=== PATIENT | male | born 1950 | race Caucasian/White ===

== ENCOUNTER 2021-07-21 09:26 | Outpatient (REF) | payer MEDICARE, SELFPAY ==
[2021-07-21 10:48] LABS: C Reactive Protein 0.04 mg/dL (< or = 0.50); Uric Acid 4.1 mg/dL (3.4-7.0)
[2021-07-21 10:49] LABS: Erythrocyte Sedimentation Rate 5 MM/HR (0-15)
== END 2021-07-21 09:27 | disposition home or self-care (01) ==
LOC: HO.LAB 09:26
PROVIDERS: Visit Provider Psychiatry & Neurology Neurology
DX: M54.2 Cervicalgia (principal)
CPT/HCPCS: 36415; 82550; 84550; 85652; 86140

== ENCOUNTER 2021-07-26 10:32 | Outpatient (REF) | payer MEDICARE, SELFPAY ==
--- NOTE | ~2021-07-26 | XR_ITS ---
EXAMINATION: XR CERVICAL SPINE CLINICAL INFORMATION: Neck pain. COMPARISON: None. TECHNIQUE: 6 views of the cervical spine, inclusive of flexion and extension views, were obtained. FINDINGS: There is maintained cervical lordosis. The vertebral heights are normal. There is grade 1 anterolisthesis C4 over C5. Residual vertebral alignment is normal. Loss of C4-C5 and C5-C6 disc heights are noted. No visible acute fracture or dislocation. The prevertebral soft tissues are normal. XR/XR cervical spine min 6V IMPRESSION: Grade 1 anterolisthesis C4 over C5. There are degenerative disc changes C4-C5, C5-C6 disc levels. No visible acute fracture or dislocation seen.
== END 2021-07-26 10:33 | disposition home or self-care (01) ==
LOC: HO.XRAY 10:32
PROVIDERS: PCP Nurse Practitioner Family; Visit Provider Psychiatry & Neurology Neurology
DX: M54.2 Cervicalgia (principal)
CPT/HCPCS: 72052

== ENCOUNTER 2021-08-25 12:00 | Outpatient (RCR) | payer MEDICARE, SELFPAY | END 2021-09-12 15:24 | disposition home or self-care (01) | LOC: HO.PT 12:00 | PROVIDERS: PCP Nurse Practitioner Family; Visit Provider Internal Medicine | DX: G60.0 Hereditary motor and sensory neuropathy (principal); Z91.81 History of falling | CPT/HCPCS: 97110; 97112; 97162; 97530 ==

== ENCOUNTER 2022-04-29 11:39 | Emergency (ER) | payer OTHER, SELFPAY ==
--- NOTE | 2022-04-29 | ECG_ITS ---
Test Reason : REPEAT Blood Pressure : / mmHG Vent. Rate : 087 BPM Atrial Rate : 087 BPM P-R Int : 200 ms QRS Dur : 114 ms QT Int : 390 ms P-R-T Axes : 035 -46 064 degrees QTc Int : 469 ms Normal sinus rhythm Left anterior fascicular block Minimal voltage criteria for LVH, may be normal variant ( R in aVL ) Cannot rule out Anterior infarct , age undetermined Abnormal ECG When compared with ECG of 29-APR-2022 12:32, QRS duration has decreased Referred By: Macie Owens Electronically Signed By:Luis Angel Souza
--- NOTE | ~2022-04-29 | CT_ITS ---
EXAMINATION: CT BRAIN AND CT CERVICAL SPINE WITHOUT CONTRAST. CLINICAL INFORMATION: Fall, head injury and neck pain. COMPARISON: None TECHNIQUE: 5 mm thin axial and reformatted 2 mm thin sagittal and coronal images of brain were obtained. Axial 3 mm thin and reformatted 3 mm thin sagittal and coronal images of cervical spine were obtained without contrast. FINDINGS: Brain: There is no acute intra-axial, extra-axial bleed, masses or midline shift. There is no acute infarction evolution. The lateral ventricles are symmetrical but moderately enlarged with mild prominence of cortical sulci. The rodriguez to white matter differentiation is preserved. Bone windows reveal no calvarial abnormality. There is no scalp soft tissue abnormality seen. There is complete opacification of left maxillary sinus rest the paranasal sinuses and mastoid air cells are well-aerated. 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 Cervical spine: There is normal cervical cervical lordosis. The vertebral heights is normal. Grade 1 anterolisthesis C4-C5 with loss of C4-C5 disc heights. Rest of the vertebral alignment is preserved. There is mild loss of C6-C7 and C7-T1 disc heights with moderate ventral spondylosis C5-C6 and C6-C7 disc levels. CT/CT cervical spine wo con IMPRESSION: No acute intracranial process seen. Moderate cerebral volume loss Grade 1 anterolisthesis C4 over C5 with degenerative disc changes C4-C5 and C6-C7 disc levels. There is moderate endplate spondylosis C4-C5 and C6-C7 disc levels.
--- NOTE | ~2022-04-29 | XR_ITS ---
EXAMINATION: XR chest 2V CLINICAL INFORMATION: Reason for Exam chest pain COMPARISON: Prior chest x-ray 2019 TECHNIQUE: XR chest 2V Lungs and Rika: Both lungs are clear. Pleura: Normal. Costophrenic angles are sharp. No pneumothorax. Heart: The heart is normal in size. Mediastinum: The mediastinum is within normal limits.. Bones: Skeletal structures included are normal for patient's age. XR/XR chest 2V IMPRESSION: No radiographic evidence of acute cardiopulmonary disease.
--- NOTE | ~2022-04-29 | CT_ITS ---
EXAMINATION: CT BRAIN AND CT CERVICAL SPINE WITHOUT CONTRAST. CLINICAL INFORMATION: Fall, head injury and neck pain. COMPARISON: None TECHNIQUE: 5 mm thin axial and reformatted 2 mm thin sagittal and coronal images of brain were obtained. Axial 3 mm thin and reformatted 3 mm thin sagittal and coronal images of cervical spine were obtained without contrast. FINDINGS: Brain: There is no acute intra-axial, extra-axial bleed, masses or midline shift. There is no acute infarction evolution. The lateral ventricles are symmetrical but moderately enlarged with mild prominence of cortical sulci. The rodriguez to white matter differentiation is preserved. Bone windows reveal no calvarial abnormality. There is no scalp soft tissue abnormality seen. There is complete opacification of left maxillary sinus rest the paranasal sinuses and mastoid air cells are well-aerated. 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 Cervical spine: There is normal cervical cervical lordosis. The vertebral heights is normal. Grade 1 anterolisthesis C4-C5 with loss of C4-C5 disc heights. Rest of the vertebral alignment is preserved. There is mild loss of C6-C7 and C7-T1 disc heights with moderate ventral spondylosis C5-C6 and C6-C7 disc levels. CT/CT head/brain wo con IMPRESSION: No acute intracranial process seen. Moderate cerebral volume loss Grade 1 anterolisthesis C4 over C5 with degenerative disc changes C4-C5 and C6-C7 disc levels. There is moderate endplate spondylosis C4-C5 and C6-C7 disc levels.
[2022-04-29 11:48] VITALS: BP 114/72; PULSE 89; RESP 10; TEMP 36.5; O2SAT 96
[2022-04-29 11:58] VITALS: BP 128/90; PULSE 99; O2SAT 99; BMI 31.2
--- NOTE | 2022-04-29 11:59 | ECG_ITS ---
Test Reason : SYNCOPE Blood Pressure : / mmHG Vent. Rate : 088 BPM Atrial Rate : 088 BPM P-R Int : 200 ms QRS Dur : 136 ms QT Int : 394 ms P-R-T Axes : 018 231 060 degrees QTc Int : 476 ms Normal sinus rhythm Right superior axis deviation Non-specific intra-ventricular conduction block Abnormal ECG When compared with ECG of 02-JUL-2019 15:46, QRS duration has increased Non-specific change in ST segment in Lateral leads Referred By: Macie Owens Electronically Signed By:Luis Angel Souza
--- NOTE | 2022-04-29 12:04 | ED.FALL ---
HPI - Fall General Chief Complaint: Fall Stated Complaint: fall with head strike Time Seen by Provider: 04/29/22 11:48 Source: patient Mode of arrival: EMS Limitations: language barrier (Swedish-speaking biomedical technician utilized) History of Present Illness HPI Narrative: Patient presents emergency department via EMS for evaluation after a fall with head injury. He states that [place] the park he attempted to stand from a bench when he suddenly ?lost his balance? and fell, hard cervical spine collar in place. Bystannder denies any loss of consciousness, patient states I blacked out . He denies tripping over anything is not certain why he fell. He reports that he had his cane with him at the time. Denies any precipitating symptoms such as dizziness lightheadedness chest pain or shortness of breath. Currently he is reporting discomfort to the front in his right head where he sustained abrasions, mild discomfort to the right knee where there is also an abrasion. Left lateral neck pain. He reports a history of ?balance problems? for which he is taking medication for in addition to hypertension and diabetes. When asked whether he is taking anticoagulants he states that is possible but cannot confirm. States last Tdap was last year. Denies recent fevers, chills, ill symptoms or sick contacts. Denies vision changes, chest pain, palpitations, shortness of breath, difficulty breathing, nausea, vomiting, abdominal pain, dysuria, urinary frequency, numbness or tingling of the extremities, generalized weakness. MD complaint: fall Onset (ago): hour(s) Fall from: standing Fall witnessed: yes, by bystander Place fall occurred: street Loss of consciousness: unsure Prolonged down time: no Symptoms prior to fall: none Location of injury: head Related Data Allergies Allergy/AdvReac Type Severity Reaction Status Date / Time No Known Allergies Allergy Unverified 08/04/20 15:31 Review of Systems Review of Systems: Constitutional : No Fever, No Chills, No Fatigue ENT/Mouth : No sore throat, No Rhinorrhea Eyes: No Eye Pain, No Swelling, No Redness Cardiovascular : No Chest Pain, No SOB, No Dyspnea on Exertion Respiratory : No Cough, No Sputum Gastrointestinal : No Nausea, No Vomiting, No Diarrhea, No abdominal Pain Genitourinary : No Dysuria, No Urinary Frequency, No Hematuria, Musculoskeletal : Positive joint pain, No Myalgias, No Joint Swelling Skin : No Skin Lesions, No rash Neuro : No Weakness, No Numbness, No Dizziness, positive Head pain Psych : No Anxiety/Panic, No Depression Heme/Lymph: No Bruising, No Bleeding,No Lymphadenopathy Endocrine : No Polyuria, No Polydipsia Yes all other systems are reviewed and are negative COUNTS INCLUDE 234 BEDS AT THE [facility] Past Medical History Attestation statement: The following information was validated with the patient. Source: old records reviewed Social History Social History Patient Tobacco Use Status: Never used Tobacco Use of substances other than those prescribed or required for medical reasons: No Advance Directives: No Advance Directives Information Provided: Yes Physical Exam Vital Signs: Vital Signs: Last Vital Signs Temp 98.0 F 04/29/22 16:14 Pulse 88 04/29/22 16:14 Resp 16 04/29/22 16:14 BP 105/63 04/29/22 16:14 Pulse Ox 98 04/29/22 16:14 O2 Del Method 04/29/22 16:14 BMI result Body Mass Index 31.2 Vital signs have been reviewed as normal and appeared to be correct. Blood pressure normal.? Heart rate normal.? Respiration rate normal. Temperature normal.? Oxygen saturation normal. Appearance: Alert.?Oriented to person, place and time. No acute distress.?Normal affect. Head: Normocephalic atraumatic. Abrasions to the right forehead no active bleeding. 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 Left pupil is round reactive to light 3 mm. No raccoon eyes. ? ENT: Pharynx normal.??No hemotympanum. No Pineda sign. Neck: Normal inspection.? Neck supple.??No midline cervical spine tenderness, step-offs, deformities. Palpable tenderness along the left lateral neck and trapezius muscle. CVS: Heart sounds normal. Normal heart rate and rhythm.? Pulses normal.?? Respiratory: No respiratory distress.? Lung sounds clear to auscultation bilaterally?? Abdomen: Soft and non-tender. Normoactive bowel sounds. ?? Skin: Skin warm and dry.? Normal skin color.? Abrasion to the right dorsal hand and right anterior knee. Extremities: No lower extremity edema.? Upper and lower extremities with full AROM. No obvious deformities, swelling, erythema, or bruising. Neuro: Moves all extremities spontaneously. Sensation intact bilaterally. CN II-XII intact. No focal neuro deficits. Ambulates with normal steady gait. NIH Stroke Scale Internal: Initial- Upon Arrival Level of Consciousness: Alert Level of Consciousness Questions: Answers both questions correctly Level of Consciousness Commands: Performs both tasks correctly Best Gaze: Normal Visual: No visual loss Facial Palsy: Normal Motor Arm (Right): No drift Motor Arm (Left): No drift Motor Leg (Right): No drift Motor Leg (Left): No drift Limb Ataxia: Absent Sensory: Normal Best Language: No aphasia Dysarthia: Normal Extinction and Inattention: No abnormality Score: 0 Course Course Course Narrative: Patient is a 71-year-old male with a past medical history of hypertension, diabetes, and ?balance problem?. Patient unable to provide a detailed past medical history or provide medication list accurately. Presenting to emergency department for evaluation after a fall, unclear whether LOC occurred. Positive head strike. Exact etiology of fall is unknown. Will obtain CBC to evaluate for leukocytosis/ anemia, CMP and lipase to evaluate for abnormal electrolytes /abnormal renal function/ abnormal hepatic/biliary function, EKG and troponin to evaluate for ischemia/ACS. Chest x-ray to evaluate for consolidation/ infiltrate/ mass/ pulmonary congestion. Urinalysis to evaluate for infection. CT of the head and cervical spine to evaluate for ICH/SAH/fracture subluxation. Tylenol for pain at this time. Disposition pending results. Reevaluation(s) Reevaluation #1: CBC reveals normocytic anemia consistent with baseline. CMP is overall unremarkable, hyperglycemic at 370, he is a diabetic states he did not take his medications yet this morning. EKG reveals normal sinus rhythm left anterior fascicular block consistent with prior EKG in June 2019, no acute ischemic changes, Troponin <3.5, no active chest pain, fall unlikely secondary to ACS. CT of the head and cervical spine are unremarkable for any acute findings. Hard cervical spine collar removed and cleared at this time. Obtain orthostatic vital signs to evaluate for hypotension, urinalysis to exclude infection. If all are normal plan for discharge home. Time: 15:45 Reevaluation #2: Patient ambulatory with slow steady with standby assist, uses a cane at baseline. Urinalysis without any sign of infection. Orthostatic vital signs were normal. Discussed findings with patient. Patient to be discharged home at this time, she is conscious alert and oriented x4, in no apparent distress, hemodynamically stable. Discussed risks for falls, and interventions to decrease risk of falls. Time: 17:12 MDM - Fall Medical Records Attestation: I reviewed the patient's medical records. Lab Data Attestation: I reviewed the patient's lab results. Result diagrams: 04/29/22 12:16 04/29/22 12:16 Labs: Lab Results 04/29/22 04/29/22 04/29/22 Range/Units 12:16 12:16 12:16 WBC 9.6 (4.8-10.8) X10*3/uL RBC 4.69 (4.60-5.80) X10*6/uL Hgb 13.9 L (14.0-18.0) g/dl Hct 41.9 L (42.0-52.0) % MCV 89.3 (80.0-98.0) fL MCH 29.6 (27.0-33.0) pg MCHC 33.2 (31.0-36.0) g/dl RDW 13.5 (11.0-16.0) % Plt Count 301 (160-400) X10*3/uL MPV 9.4 (9.4-12.4) fL Immature Gran % (Auto) 0.2 (0.0-0.4) % Neut % (Auto) 66.2 (45-73) % Lymph % (Auto) 21.6 (20-40) % [place] % (Auto) 6.8 (2-11) % Eos % (Auto) 4.5 H (0-4) % Baso % (Auto) 0.7 (0-2) % Lymph # (Auto) 2.1 (1.2-4.9) X10*3/uL [place] # (Auto) 0.7 (0.1-1.2) X10*3/uL Eos # (Auto) 0.4 (0.0-0.4) X10*3/uL Baso # (Auto) 0.1 (0.0-0.2) X10*3/uL Abs Immat Gran (auto) 0.02 (0.00-0.03) X10*3/uL Absolute Neuts (auto) 6.4 (2.0-8.3) x10*3/uL Absolute Nucleated RBC 0.000 (0.0-0.012) X10*3/uL Nucleated RBC % (auto) 0.0 (0.0-0.2) /100WBC Sodium 135 (135-145) mmol/L Potassium 4.9 (3.3-5.1) mmol/L Chloride 100 (96-108) mmol/L Carbon Dioxide 23 (22-29) mmol/L Anion Gap 17 (12-20) BUN 16 (9-16) mg/dL Creatinine 1.07 (0.5-1.4) mg/dL Estim Creat Clear Calc 67.9 Estimated GFR > 60 POC Glucose (60-115) mg/dL Random Glucose 370 H* (60-115) mg/dL Calcium 10.0 (8.4-10.2) mg/dL Magnesium 2.0 (1.6-2.6) mg/dL Total Bilirubin 0.8 (0.0-1.0) mg/dL AST 16 (5-37) U/L ALT 14 (0-40) U/L Alkaline Phosphatase 64 (39-117) U/L Troponin I High Sens < 3.5 (<3.5-35.0) ng/L Total Protein 6.9 (6.5-8.0) g/dL Albumin 4.4 (3.5-5.0) g/dL Urine Color Urine Appearance Urine pH (5.0-8.0) Ur Specific [place] (1.005-1.025) Urine Protein (NEG-TRACE) MG/DL Urine Glucose (UA) (NEG) MG/DL Urine Ketones (NEG) MG/DL Urine Blood (NEG) Urine Nitrite (NEG) Ur Leukocyte Esterase (NEG) Urine RBC (0) /HPF Urine WBC (0-4) /HPF Ur Squamous Epith Cells /LPF Urine Bacteria /LPF COVID-19 ([facility]EL) (Negative) COVID-19 Clin Com 04/29/22 04/29/22 04/29/22 Range/Units 12:17 15:05 16:07 WBC (4.8-10.8) X10*3/uL RBC (4.60-5.80) X10*6/uL Hgb (14.0-18.0) g/dl Hct (42.0-52.0) % MCV (80.0-98.0) fL MCH (27.0-33.0) pg MCHC (31.0-36.0) g/dl RDW (11.0-16.0) % Plt Count (160-400) X10*3/uL MPV (9.4-12.4) fL Immature Gran % (Auto) (0.0-0.4) % Neut % (Auto) (45-73) % Lymph % (Auto) (20-40) % [place] % (Auto) (2-11) % Eos % (Auto) (0-4) % Baso % (Auto) (0-2) % Lymph # (Auto) (1.2-4.9) X10*3/uL [place] # (Auto) (0.1-1.2) X10*3/uL Eos # (Auto) (0.0-0.4) X10*3/uL Baso # (Auto) (0.0-0.2) X10*3/uL Abs Immat Gran (auto) (0.00-0.03) X10*3/uL Absolute Neuts (auto) (2.0-8.3) x10*3/uL Absolute Nucleated RBC (0.0-0.012) X10*3/uL Nucleated RBC % (auto) (0.0-0.2) /100WBC Sodium (135-145) mmol/L Potassium (3.3-5.1) mmol/L Chloride (96-108) mmol/L Carbon Dioxide (22-29) mmol/L Anion Gap (12-20) BUN (9-16) mg/dL Creatinine (0.5-1.4) mg/dL Estim Creat Clear Calc Estimated GFR POC Glucose 177 H (60-115) mg/dL Random Glucose (60-115) mg/dL Calcium (8.4-10.2) mg/dL Magnesium (1.6-2.6) mg/dL Total Bilirubin (0.0-1.0) mg/dL AST (5-37) U/L ALT (0-40) U/L Alkaline Phosphatase (39-117) U/L Troponin I High Sens (<3.5-35.0) ng/L Total Protein (6.5-8.0) g/dL Albumin (3.5-5.0) g/dL Urine Color YELLOW Urine Appearance CLEAR Urine pH 5.0 (5.0-8.0) Ur Specific [place] 1.015 (1.005-1.025) Urine Protein NEG (NEG-TRACE) MG/DL Urine Glucose (UA) >=1000 H (NEG) MG/DL Urine Ketones 5 (NEG) MG/DL Urine Blood NEG (NEG) Urine Nitrite NEG (NEG) Ur Leukocyte Esterase NEG (NEG) Urine RBC 0 (0) /HPF Urine WBC 0 (0-4) /HPF Ur Squamous Epith Cells TRACE /LPF Urine Bacteria NONE /LPF COVID-19 ([facility]) Negative (Negative) COVID-19 Clin Com See Note Imaging Data CT scan - head: Radiologist's impression: CT/CT head/brain wo con IMPRESSION: No acute intracranial process seen. ? Moderate cerebral volume loss ? Grade 1 anterolisthesis C4 over C5 with degenerative disc changes C4-C5 and C6-C7 disc levels. There is moderate endplate spondylosis C4-C5 and C6-C7 disc levels. Chest x-ray: Radiologist's impression: XR/XR chest 2V IMPRESSION: No radiographic evidence of acute cardiopulmonary disease. ECG Data Attestation: I personally reviewed and interpreted this ECG as follows: ECG interpretation date: 04/29/22 Prior ECG tracings: available for review Interpretation: Rate: 87 Rhythm:? Normal sinus rhythm left anterior fascicular block [place]:? Normal Normal P waves.? Normal [place]ER[place].?? Normal QRS complex.?? ST T wave :??No ST elevation, no ST depression, no T-wave inversion qTC: 469 prior studies:? June 2019 The study has been interpreted contemporaneously by me. Discharge Plan Discharge Clinical Impression: Fall, Abrasion Patient Disposition: Home, Self-Care Instructions: Fall Prevention for Older Adults (ED) Additional Instructions: Your CT scan and x-ray were normal. For the cuts on your hand, knee and face, please gently cleansed them with soap and water, you may apply topical bacitracin to prevent any infection. Please contact your primary care provider to schedule a follow-up visit within 2-3 days. Use Tylenol, 2 extra-strength (1000 mg) every 6 hours as needed for pain. Do not exceed 3 doses (3000mg) in a day. You may return to the emergency department with any new or worsening symptoms or concerns. If you develop headache, dizziness, lightheadedness, vision changes, neck pain, chest pain, palpitations, shortness of breath, difficulty breathing, weakness, numbness or tingling of your arms and legs you should come back to the emergency department for evaluation. Cruz tomograf?a computarizada y karl X fueron normales. Para los alford en la mano, la rodilla y la leanne, l?velos suavemente con agua y jab?n, puede aplicar bacitracina t?pica para prevenir cualquier infecci?n. Comun?quese con cruz proveedor de atenci?n primaria para programar phillip visita de seguimiento dentro de 2 a 3 d?as. Use Tylenol, 2 extra linette (1000 mg) cada 6 horas seg?n sea necesario para el dolor. No exceda las 3 dosis (3000 mg) en un d?a. Puede regresar al departamento de emergencias con cualquier s?ntoma o inquietud nueva o que empeore. Si desarrolla dolor de mabel, mareos, aturdimiento, cambios en la visi?n, dolor de nicole, dolor de pecho, palpitaciones, dificultad para respirar, debilidad, entumecimiento u hormigueo en los brazos y las piernas, debe regresar al departamento de emergencias para phillip evaluaci?n. Interventions: ED Discharge Assessment Last Done: 04/29/22 17:42 Discharge Date/Time: 04/29/22 17:42 Print Language: Swedish
[2022-04-29 12:21] LABS: MANUAL DIFF FLAG NO
[2022-04-29 12:22] LABS: Basophils Absolute Auto 0.1 X10*3/uL (0.0-0.2); Basophils Percent Auto 0.7 % (0-2); Eosinophils Absolute Auto 0.4 X10*3/uL (0.0-0.4); Eosinophils Percent Auto 4.5 % (0-4); Hematocrit 41.9 % (42.0-52.0); Hemoglobin 13.9 g/dl (14.0-18.0); Imm Gran Abs Auto 0.02 X10*3/uL (0.00-0.03); Imm Gran Pct Auto 0.2 % (0.0-0.4); Lymphocytes Absolute Auto 2.1 X10*3/uL (1.2-4.9); Lymphocytes Percent Auto 21.6 % (20-40); Mean Corpuscular HGB Conc 33.2 g/dl (31.0-36.0); Mean Corpuscular Hemoglobin 29.6 pg (27.0-33.0); Mean Corpuscular Volume 89.3 fL (80.0-98.0); Mean Platelet Volume 9.4 fL (9.4-12.4); Monocytes Absolute Auto 0.7 X10*3/uL (0.1-1.2); Monocytes Percent Auto 6.8 % (2-11); Neutrophils Absolute Auto 6.4 x10*3/uL (2.0-8.3); Neutrophils Percent Auto 66.2 % (45-73); Platelet Count 301 X10*3/uL (160-400); Red Blood Count 4.69 X10*6/uL (4.60-5.80); Red Cell Distribution Width 13.5 % (11.0-16.0); White Blood Count 9.6 X10*3/uL (4.8-10.8)
[2022-04-29] MEDS: Acetaminophen 325 MG TABLET 975 MG PO (12:25)
--- NOTE | 2022-04-29 12:43 | PC.NURSE ---
pt able to ambulate with 1 assist to use bedside commode
[2022-04-29 12:46] LABS: COVID-19 Test Negative (Negative); IDNOW Serial# 9DB6401D
[2022-04-29 12:52] LABS: Troponin-I High Sensitivity < 3.5 ng/L (<3.5-35.0)
[2022-04-29 12:54] LABS: Alanine Aminotransferase 14 U/L (0-40); Albumin Level 4.4 g/dL (3.5-5.0); Alkaline Phosphatase 64 U/L (39-117); Anion Gap 17 (12-20); Aspartate Amino Transferase 16 U/L (5-37); Bilirubin Total 0.8 mg/dL (0.0-1.0); Blood Urea Nitrogen 16 mg/dL (9-16); Carbon Dioxide 23 mmol/L (22-29); Chloride 100 mmol/L (96-108); Creatinine Clr Calc Pharmacy 67.9; Estimated Glomerular Filt Rate > 60; Glucose Random 370 mg/dL (60-115); Potassium 4.9 mmol/L (3.3-5.1); Sodium 135 mmol/L (135-145); Total Protein 6.9 g/dL (6.5-8.0)
[2022-04-29 15:10] LABS: Glucose, Whole Blood 177 mg/dL (60-115)
[2022-04-29 16:10] VITALS: BP 108/60; BP 112/64; PULSE 80; PULSE 81
[2022-04-29 16:12] VITALS: BP 105/63; PULSE 88
[2022-04-29 16:14] VITALS: BP 105/63; PULSE 88; RESP 16; TEMP 36.7; O2SAT 98
[2022-04-29 16:15] LABS: Appearance Urine CLEAR; Color Urine YELLOW; Glucose Urine UA >=1000 MG/DL (NEG); Leukocyte Esterase Urine NEG (NEG); Nitrite Urine NEG (NEG); Specific Gravity - Urine 1.015 (1.005-1.025); Urine Blood NEG (NEG); Urine Ketones 5 MG/DL (NEG); Urine Protein NEG (NEG-TRACE)
[2022-04-29 16:24] LABS: RBC Urine 0 /HPF (0); Squamous Epithelial Cell Urine TRACE /LPF; WBC Urine 0 /HPF (0-4)
== END 2022-04-29 17:42 | disposition home or self-care (01) ==
PROVIDERS: Nurse Practitioner Family; Emergency Provider Emergency Medicine
DX: S60.511A Abrasion of right hand, initial encounter (principal); S80.211A Abrasion, right knee, initial encounter; S00.81XA Abrasion of other part of head, initial encounter; M54.2 Cervicalgia; R26.9 Unspecified abnormalities of gait and mobility; I10 Essential (primary) hypertension; E11.9 Type 2 diabetes mellitus without complications; Z20.822 Contact with and (suspected) exposure to COVID-19; W18.30XA Fall on same level, unspecified, initial encounter; Y93.9 Activity, unspecified; Y92.830 Public park as the place of occurrence of the external cause; Y99.9 Unspecified external cause status
CPT/HCPCS: 70450; 71046; 72125; 80053; 81001; 82947; 83735; 84484; 85025; 87635; 93005; 99284; 99285

== ENCOUNTER 2022-08-12 12:10 | Emergency (ER) | payer OTHER, SELFPAY ==
--- NOTE | 2022-08-12 12:41 | ED.GENADULT ---
HPI - General Adult General Chief complaint: Weakness Stated complaint: WEAKNESS Time Seen by Provider: 08/12/22 12:40 Source: patient Mode of arrival: EMS History of Present Illness HPI narrative: Patient is 71 years old with history of diabetes, generalized weakness lives alone with walker or cane came as you been feeling increased weakness since yesterday had a difficult time walking no fall no head injury no fever no chills no cough patient looking for placement as he is getting weak day by day Related Data Home Medications Medication Instructions Recorded Confirmed acetaminophen 650 mg 1 - 2 tab PO Q6H PRN pain 08/12/22 08/12/22 tablet,extended release aspirin 81 mg tablet,delayed 1 tab PO QAM 08/12/22 08/12/22 release atorvastatin 40 mg tablet 1 tab PO BEDTIME 08/12/22 08/12/22 cholecalciferol (vitamin D3) 50 1 cap PO QAM 08/12/22 08/12/22 mcg (2,000 unit) capsule (Vitamin D3) docusate sodium 100 mg capsule 1 cap PO BID PRN constipation 08/12/22 08/12/22 dulaglutide 1.5 mg/0.5 mL 1.5 mg subcut TH 08/12/22 08/12/22 subcutaneous pen injector (Trulicity) duloxetine 20 mg capsule,delayed 1 cap PO BID 08/12/22 08/12/22 release empagliflozin 25 mg tablet 1 tab PO QAM 08/12/22 08/12/22 (Jardiance) ferrous sulfate 325 mg (65 mg 1 tab PO Q2D 08/12/22 08/12/22 iron) tablet (FeroSul) fluticasone propionate 50 2 spray intranasal QAM PRN Allergy 08/12/22 08/12/22 mcg/actuation nasal Symptoms spray,suspension hydroxyzine HCl 10 mg tablet 1 tab PO BEDTIME 08/12/22 08/12/22 levothyroxine 112 mcg tablet 1 tab PO MOTUWETHFR 08/12/22 08/12/22 melatonin 5 mg tablet 2 tab PO BEDTIME PRN Insomnia 08/12/22 08/12/22 metformin 1,000 mg tablet 1 tab PO BID 08/12/22 08/12/22 Allergies Allergy/AdvReac Type Severity Reaction Status Date / Time No Known Allergies Allergy Unverified 08/04/20 15:31 Review of Systems Review of Systems: Yes all other systems are reviewed and are negative [facility] Social History Social History Patient Tobacco Use Status: Never used Tobacco Advance Directives: No Advance Directives Information Provided: Yes Physical Exam ED Vital Signs: Vital Signs - 24 hr 08/12/22 12:46 08/12/22 17:28 Pulse Rate 85 82 Respiratory Rate 11 L 14 Blood Pressure 100/65 114/77 Pulse Oximetry 96 96 Oxygen Delivery Method Room Air Room Air BMI result Body Mass Index 29.7 Appearance: Alert. Oriented X3. No acute distress. Eyes: PERRLA, No Nystagmus ENT: Pharynx normal. Oral Mucosa moist Neck: Normal inspection. Neck supple. CVS: Normal heart rate and rhythm. Pulses normal. Respiratory: No respiratory distress. Equal air entry bilateral, no wheezing/rales/rhonchi Abdomen: Soft and nontender. Bowel sounds are present, no mass palpable, no CVA tenderness Skin: Skin warm and dry. Normal skin color. Normal skin turgor. Extremities: No lower extremity edema. No calf tenderness low muscle mass Neuro: Oriented X 3. No motor deficit. No sensory deficit.No cerebellar signs , cranial nerves II-XII intact Medical Decision Making MDM Narrative Medical decision making narrative: 16: 50 Patient with generalized weakness with low muscle mass diabetic lives alone looking for her placement medically clear , will get case management involved for placement Lab Data Lab results reviewed: Yes I reviewed the patient's lab results. Result diagrams: 08/12/22 13:11 08/12/22 13:11 Labs: Lab Results 08/12/22 08/12/22 08/12/22 Range/Units 13:11 13:11 13:11 WBC 8.5 (4.8-10.8) X10*3/uL RBC 4.53 L (4.60-5.80) X10*6/uL Hgb 13.8 L (14.0-18.0) g/dl Hct 40.9 L (42.0-52.0) % MCV 90.3 (80.0-98.0) fL MCH 30.5 (27.0-33.0) pg MCHC 33.7 (31.0-36.0) g/dl RDW 13.3 (11.0-16.0) % Plt Count 290 (160-400) X10*3/uL MPV 9.4 (9.4-12.4) fL Immature Gran % (Auto) 0.2 (0.0-0.4) % Neut % (Auto) 73.4 H (45-73) % Lymph % (Auto) 17.0 L (20-40) % [place] % (Auto) 6.1 (2-11) % Eos % (Auto) 2.4 (0-4) % Baso % (Auto) 0.9 (0-2) % Lymph # (Auto) 1.4 (1.2-4.9) X10*3/uL [place] # (Auto) 0.5 (0.1-1.2) X10*3/uL Eos # (Auto) 0.2 (0.0-0.4) X10*3/uL Baso # (Auto) 0.1 (0.0-0.2) X10*3/uL Abs Immat Gran (auto) 0.02 (0.00-0.03) X10*3/uL Absolute Neuts (auto) 6.2 (2.0-8.3) x10*3/uL Absolute Nucleated RBC 0.000 (0.0-0.012) X10*3/uL Nucleated RBC % (auto) 0.0 (0.0-0.2) /100WBC Sodium 137 (135-145) mmol/L Potassium 4.5 (3.3-5.1) mmol/L Chloride 101 (96-108) mmol/L Carbon Dioxide 21 L (22-29) mmol/L Anion Gap 20 (12-20) BUN 11 (9-16) mg/dL Creatinine 0.78 (0.5-1.4) mg/dL Estim Creat Clear Calc 88.0 Estimated GFR > 60 Random Glucose 262 H (60-115) mg/dL Calcium 9.5 (8.4-10.2) mg/dL Magnesium 1.9 (1.6-2.6) mg/dL Total Bilirubin 0.4 (0.0-1.0) mg/dL AST 14 (5-37) U/L ALT 16 (0-40) U/L Alkaline Phosphatase 56 (39-117) U/L Total Protein 6.7 (6.5-8.0) g/dL Albumin 4.4 (3.5-5.0) g/dL COVID-19 (ADEEL) Negative (Negative) COVID-19 Clin Com See Note Discharge Plan Discharge Clinical Impression: Generalized muscle weakness Patient Disposition: Still a Patient Prescriptions: No [facility] atorvastatin 40 mg tablet 1 tab PO BEDTIME aspirin 81 mg tablet,delayed release (DR/EC) 1 tab PO QAM acetaminophen 650 mg tablet extended release 1 - 2 tab PO Q6H PRN (Reason: pain) ferrous sulfate [FeroSul] 325 mg (65 mg iron) tablet 1 tab PO Q2D metformin 1,000 mg tablet 1 tab PO BID docusate sodium 100 mg capsule 1 cap PO BID PRN (Reason: constipation) hydroxyzine HCl 10 mg tablet 1 tab PO BEDTIME fluticasone propionate 50 mcg/actuation spray,suspension 2 spray intranasal QAM PRN (Reason: Allergy Symptoms) levothyroxine 112 mcg tablet 1 tab PO MOTUWETHFR duloxetine 20 mg capsule,delayed release(DR/EC) 1 cap PO BID melatonin 5 mg tablet 2 tab PO BEDTIME PRN (Reason: Insomnia) cholecalciferol (vitamin D3) [Vitamin D3] 50 mcg (2,000 unit) capsule 1 cap PO QAM Jardiance 25 mg tablet 1 tab PO QAM Trulicity 1.5 mg/0.5 mL pen injector 1.5 mg subcut TH
[2022-08-12 12:46] VITALS: BP 100/65; BP 131/86; PULSE 82; PULSE 85; RESP 11; O2SAT 93; O2SAT 96; BMI 29.7
--- NOTE | 2022-08-12 12:53 | ECG_ITS ---
Test Reason : WEAKNESS Blood Pressure : / mmHG Vent. Rate : 085 BPM Atrial Rate : 085 BPM P-R Int : 204 ms QRS Dur : 120 ms QT Int : 412 ms P-R-T Axes : 033 -47 079 degrees QTc Int : 490 ms Normal sinus rhythm Left anterior fascicular block Left ventricular hypertrophy with QRS widening ( R in aVL , Jaiden product ) Cannot rule out Septal infarct (cited on or before 29-APR-2022) Abnormal ECG When compared with ECG of 29-APR-2022 12:35, Questionable change in initial forces of Septal leads Referred By: Dung Simons Electronically Signed By:SIMRAN GRACE
[2022-08-12 13:16] LABS: MANUAL DIFF FLAG NO
[2022-08-12 13:29] LABS: Basophils Absolute Auto 0.1 X10*3/uL (0.0-0.2); Basophils Percent Auto 0.9 % (0-2); Eosinophils Absolute Auto 0.2 X10*3/uL (0.0-0.4); Eosinophils Percent Auto 2.4 % (0-4); Hematocrit 40.9 % (42.0-52.0); Hemoglobin 13.8 g/dl (14.0-18.0); Imm Gran Abs Auto 0.02 X10*3/uL (0.00-0.03); Imm Gran Pct Auto 0.2 % (0.0-0.4); Lymphocytes Absolute Auto 1.4 X10*3/uL (1.2-4.9); Mean Corpuscular HGB Conc 33.7 g/dl (31.0-36.0); Mean Corpuscular Hemoglobin 30.5 pg (27.0-33.0); Mean Corpuscular Volume 90.3 fL (80.0-98.0); Mean Platelet Volume 9.4 fL (9.4-12.4); Monocytes Absolute Auto 0.5 X10*3/uL (0.1-1.2); Monocytes Percent Auto 6.1 % (2-11); Neutrophils Absolute Auto 6.2 x10*3/uL (2.0-8.3); Neutrophils Percent Auto 73.4 % (45-73); Platelet Count 290 X10*3/uL (160-400); Red Blood Count 4.53 X10*6/uL (4.60-5.80); Red Cell Distribution Width 13.3 % (11.0-16.0); White Blood Count 8.5 X10*3/uL (4.8-10.8)
[2022-08-12 13:45] LABS: COVID-19 Test Negative (Negative)
[2022-08-12 13:53] LABS: Alanine Aminotransferase 16 U/L (0-40); Albumin Level 4.4 g/dL (3.5-5.0); Alkaline Phosphatase 56 U/L (39-117); Anion Gap 20 (12-20); Aspartate Amino Transferase 14 U/L (5-37); Bilirubin Total 0.4 mg/dL (0.0-1.0); Blood Urea Nitrogen 11 mg/dL (9-16); Calcium 9.5 mg/dL (8.4-10.2); Carbon Dioxide 21 mmol/L (22-29); Chloride 101 mmol/L (96-108); Estimated Glomerular Filt Rate > 60; Glucose Random 262 mg/dL (60-115); Magnesium 1.9 mg/dL (1.6-2.6); Potassium 4.5 mmol/L (3.3-5.1); Sodium 137 mmol/L (135-145); Total Protein 6.7 g/dL (6.5-8.0)
--- NOTE | 2022-08-12 17:23 | PHA.MEDREC ---
Pharmacy Consult ? Medication Reconciliation Pharmacy has completed the medication reconciliation.
[2022-08-12 17:28] VITALS: BP 114/77; PULSE 82; RESP 14; O2SAT 96
[2022-08-12 20:59] VITALS: BP 104/64; PULSE 90; RESP 9; O2SAT 94
[2022-08-13 06:00] VITALS: BP 105/72; PULSE 80; RESP 13; O2SAT 995
[2022-08-13 08:12] VITALS: BP 124/79; PULSE 80; RESP 11; O2SAT 96
[2022-08-13 09:51] VITALS: BP 124/79; PULSE 80; O2SAT 96
--- NOTE | 2022-08-13 13:20 | PC.NURSE ---
patient assessed with use of chief deputy court clerk . primary language Serbian . patient reports increased weakness and not feeling safe with [employer] only coming in a couple times a week needs more care then that . pearlla . heart rate regular at 75 beats per minute . lungs clear skin pink warm and dry . patient had PT therapy in AM with use of walker . Patient uses bedside urinal . abdomen soft not tender . positive bowel sounds . Diabetic diet has been ordered for patient . family at bedside . Both patient and family aware of plan of care for placement in facility for rehab .
--- NOTE | 2022-08-13 14:03 | MHC.CM.ED ---
Addendum entered by Melissa Le 08/13/22 15:00: [facility] is only facility able to offer a bed at this time. Met with patient and supervisor bonding. New HCP completed, signed and witnessed. Original given to patient. Copy placed in chart. Patient accepts bed at [facility]. [facility] has been asked to go for insurance auth. Original Note: Received case management consult overnight. Patient came to the ER due to weakness. Work up essentially negative. Physical therapy eval completed. Short term rehab is recommended. Met with patient, visitor and supervisor bonding in regards to discharge planning. PCP verified. HCP on file lists Ananya. Daily is patient's sister that . Patient requesting new HCP with brother, Bishop, as proxy. PCP verified. Patient received 1 J&J vaccine and 1 Pfizer booster. Patient has been to [facility] in the past and requested referral there. Referral made. [facility] is no longer contracted with patient's insurance. Patient requested referral to [facility]. [facility] does not have a bed. Referral broadcasted in [facility]. Continue to monitor for d/c needs.
[2022-08-13 14:44] LABS: Glucose, Whole Blood 136 mg/dL (60-115)
[2022-08-13 19:27] LABS: Glucose, Whole Blood 106 mg/dL (60-115)
[2022-08-13 21:23] VITALS: BP 119/81; PULSE 98; RESP 17; TEMP 36.6
[2022-08-13] MEDS: DULoxetine HCl 20 MG CAPSULE.DR PO (21:29)
[2022-08-13] MEDS: Aspirin Enteric Coated 81 MG TABLET.DR PO (21:29)
[2022-08-13] MEDS: Cholecalciferol (Vitamin D3) 25 MCG TABLET 50 MCG PO (21:29)
[2022-08-13] MEDS: hydrOXYzine HCL 10 MG TABLET PO (21:29)
[2022-08-13] MEDS: metFORMIN HCl 1,000 MG TABLET 1000 MG PO (21:29)
[2022-08-13] MEDS: Atorvastatin Calcium 40 MG TABLET PO (21:30)
[2022-08-13] MEDS: Levothyroxine Sodium 112 MCG TABLET PO (21:32)
[2022-08-13] MEDS: Melatonin 3 MG TABLET 6 MG PO (21:32)
[2022-08-13 23:00] VITALS: BP 107/57; PULSE 89; RESP 20; O2SAT 96
[2022-08-14 07:11] VITALS: BP 106/63; PULSE 83; RESP 19; TEMP 36.8
[2022-08-14 07:18] LABS: Glucose, Whole Blood 107 mg/dL (60-115)
[2022-08-14] MEDS: Cholecalciferol (Vitamin D3) 25 MCG TABLET 50 MCG PO (08:25)
[2022-08-14] MEDS: DULoxetine HCl 20 MG CAPSULE.DR PO (08:25)
[2022-08-14] MEDS: metFORMIN HCl 1,000 MG TABLET 1000 MG PO (08:26)
[2022-08-14] MEDS: Empagliflozin 25 MG TABLET PO (08:26)
[2022-08-14] MEDS: Aspirin Enteric Coated 81 MG TABLET.DR PO (08:26)
[2022-08-14] MEDS: Ferrous Sulfate 324 MG TABLET.DR PO (08:31)
--- NOTE | 2022-08-14 09:00 | MHC.CM.ED ---
Patient remains in ER. Genie Alegre has obtained insurance auth. Patient can leave via BLS at 930am. [facility] booked. They passed call to Nathanael. Patient, Shereen SANON and Onofre TUCKER aware. Continue to monitor for d/c needs.
== END 2022-08-14 09:49 | disposition skilled nursing facility (03) ==
PROVIDERS: Emergency Provider Internal Medicine; PCP Nurse Practitioner Family
DX: M62.81 Muscle weakness (generalized) (principal); E11.9 Type 2 diabetes mellitus without complications; Z20.822 Contact with and (suspected) exposure to COVID-19; Z79.899 Other long term (current) drug therapy
CPT/HCPCS: 80053; 82947; 83735; 85025; 87635; 93005; 97161; 99285

== ENCOUNTER 2022-11-23 10:58 | Emergency (ER) | payer OTHER, SELFPAY ==
--- NOTE | ~2022-11-23 | XR_ITS ---
EXAMINATION: XR CHEST CLINICAL INFORMATION: Cough, weakness. COMPARISON: 04/29/2022 chest radiographs. TECHNIQUE: 2 views of the chest were obtained. FINDINGS: No significant abnormality is noted involving the heart, lungs, mediastinum, bony thorax or soft tissues. XR/XR chest 2V IMPRESSION: No acute cardiopulmonary process.
--- NOTE | ~2022-11-23 | CT_ITS ---
EXAMINATION: CT ABDOMEN AND PELVIS WITHOUT CONTRAST CLINICAL INFORMATION: Flank pain COMPARISON: 02/02/2019 TECHNIQUE: Multidetector volumetric imaging was performed from the superior aspect of the liver through the pubic symphysis. Sagittal and coronal reformatted images were obtained on the technologist's workstation. This CT examination was performed using dose optimization techniques as appropriate, variously including the following: *Automated exposure control *Adjustment of mA and/or kV according to patient size (this includes techniques or standardized protocols for targeted exams where dose is matched to indication/reason for exam; i.e. extremities or head) *Use of iterative reconstruction technique DLP: 539 mGy-cm FINDINGS: LUNG BASES: Minimal bibasilar atelectasis. LIVER, GALLBLADDER, AND BILIARY TREE: The liver is normal in size, shape, and attenuation. No focal hepatic lesion or biliary ductal dilatation is present. The gallbladder is unremarkable with no evidence of radiopaque gallstones, gallbladder wall thickening, or obvious pericholecystic inflammatory changes. PANCREAS: Unremarkable. SPLEEN: Unremarkable. ADRENAL GLANDS: Unremarkable. KIDNEYS AND URETERS: The kidneys are normal in size, shape, and attenuation. No hydronephrosis, hydroureter, or calculi seen. No perinephric stranding. Exophytic cyst at the upper pole of the left kidney. This appears simple. No specific follow-up recommended. BLADDER: Unremarkable. GASTROINTESTINAL TRACT: The stomach is unremarkable. Normal caliber small bowel. No obstruction. No colonic wall thickening or acute inflammation. Moderate diffuse colonic stool burden. No free air or free fluid. ABDOMINAL WALL: No significant hernia is appreciated. LYMPH NODES: Normal. VASCULAR: Normal caliber aorta with mild atherosclerotic calcification. PELVIC VISCERA: The prostate and seminal vesicles are unremarkable. OSSEOUS STRUCTURES: No acute or suspicious osseous abnormality. Mild degenerative change throughout the spine. Mild degenerative changes in both hips. CT/CT abdomen pelvis wo IV con IMPRESSION: 1. No acute findings in the abdomen or pelvis. No hydronephrosis or nephrolithiasis. 2. Moderate colonic stool burden. Fleischner guidelines were followed.
[2022-11-23 11:14] VITALS: BP 105/76; BP 98/61; PULSE 80; PULSE 86; RESP 12; TEMP 37.9; O2SAT 95; O2SAT 96; BMI 28.6
--- NOTE | 2022-11-23 11:15 | ED.GENADULT ---
HPI - General Adult General Chief complaint: General Medical Stated complaint: FEVER, COUGH Time Seen by Provider: 11/23/22 11:09 Source: patient, family (patient's daughter), EMS and diplomatic interpreter Mode of arrival: EMS Limitations: language barrier History of Present Illness HPI narrative: Patient is a 72 year old assigned male at with a history of HLD and DM presenting to the emergency department today with a cough and low back pain. Patient states that since last night he has had a cough and low back pain. Patient denies any dizziness, lightheadedness, abdominal pain, nausea, vomiting, fever, chills, blurry vision, double vision, loss of vision, chest pain, difficulty breathing, shortness of breath, night sweats, pain with urination, increased urinary frequency, increased urinary urgency, blood in his urine or stool, syncope or a near syncopal episode, recent trauma or falls, bowel incontinence, bladder incontinence, bowel retention, bladder retention, or any other complaints at this time. Onset (ago): day(s) (1) Location: back Severity: mild Severity scale (1-10): 2 Quality: aching and dull Relieving factors: none Exacerbating factors: none Associated symptoms: cough Treatments prior to arrival: none Related Data Home Medications Medication Instructions Recorded Confirmed acetaminophen 650 mg 1 - 2 tab PO Q6H PRN pain 08/12/22 08/12/22 tablet,extended release aspirin 81 mg tablet,delayed 1 tab PO QAM 08/12/22 08/12/22 release atorvastatin 40 mg tablet 1 tab PO BEDTIME 08/12/22 08/12/22 cholecalciferol (vitamin D3) 50 1 cap PO QAM 08/12/22 08/12/22 mcg (2,000 unit) capsule (Vitamin D3) docusate sodium 100 mg capsule 1 cap PO BID PRN constipation 08/12/22 08/12/22 dulaglutide 1.5 mg/0.5 mL 1.5 mg subcut TH 08/12/22 08/12/22 subcutaneous pen injector (Trulicity) duloxetine 20 mg capsule,delayed 1 cap PO BID 08/12/22 08/12/22 release empagliflozin 25 mg tablet 1 tab PO QAM 08/12/22 08/12/22 (Jardiance) ferrous sulfate 325 mg (65 mg 1 tab PO Q2D 08/12/22 08/12/22 iron) tablet (FeroSul) fluticasone propionate 50 2 spray intranasal QAM PRN Allergy 08/12/22 08/12/22 mcg/actuation nasal Symptoms spray,suspension hydroxyzine HCl 10 mg tablet 1 tab PO BEDTIME 08/12/22 08/12/22 levothyroxine 112 mcg tablet 1 tab PO MOTUWETHFR 08/12/22 08/12/22 melatonin 5 mg tablet 2 tab PO BEDTIME PRN Insomnia 08/12/22 08/12/22 metformin 1,000 mg tablet 1 tab PO BID 08/12/22 08/12/22 Allergies Allergy/AdvReac Type Severity Reaction Status Date / Time No Known Allergies Allergy Unverified 08/04/20 15:31 Review of Systems Constitutional: Constitutional: Reports no additional constitutional complaints, Denies chills, Denies fever(s) and Denies night sweats Eyes: Eyes: Reports no additional eye complaints, Denies blurry vision, Denies change in vision, Denies diplopia, Denies eye discharge, Denies loss of vision and Denies eye pain ENT: Denies dizziness Cardiovascular: Cardiovascular: Reports no additional cardiovascular complaints, Denies chest pain, Denies lightheadedness, Denies Loss of Consciousness and Denies dyspnea Respiratory: Respiratory: Reports no additional respiratory complaints, Reports cough and Denies dyspnea Gastrointestinal: Gastrointestinal: Reports no additional gastrointestinal complaints, Denies abdominal pain, Denies melena, Denies hematochezia, Denies change in bowel habits and Denies change in stool character Genitourinary: Genitourinary: Reports no additional male genitourinary complaints, Denies hematuria, Denies oliguria, Denies difficulty urinating, Denies dysuria, Denies urinary frequency, Denies urinary hesitancy, Denies urinary incontinence and Denies urinary urgency Musculoskeletal: Musculoskeletal: Reports no additional musculoskeletal complaints, Reports back pain, Denies numbness and Denies tingling Neurologic: Denies dizziness, Denies loss of vision, Denies numbness and Denies tingling Psychiatric: Psychiatric: Reports no additional psychiatric complaints Endocrine: Endocrine: Reports no additional endocrine complaints Hematologic/Lymphatic: Hematologic/Lymphatic: Reports no additional hematologic/lymphatic complaints Allergic/Immunologic: Allergic/Immunologic: Reports no additional allergic/immunologic complaints PMFSH Past Medical History Attestation statement: The following information was validated with the patient. Source: old records reviewed and nursing notes reviewed Social History Social History Alcohol intake: never Patient Tobacco Use Status: Never used Tobacco Smoked in Last 30 Days: No Use of substances other than those prescribed or required for medical reasons: No Advance Directives: Yes Advance Directives on File: Yes Advance Directives Date on File: 08/13/22 Physical Exam ED Vital Signs: Vital Signs - 24 hr 11/23/22 11:14 11/23/22 14:31 Temperature 100.3 F 98.0 F Pulse Rate 86 91 Respiratory Rate 12 19 Blood Pressure 98/61 123/64 Pulse Oximetry 95 95 Oxygen Delivery Method Room Air Room Air BMI result Body Mass Index 28.6 Const General: cooperative, no acute distress, alert and awake Nutritional Appearance: well nourished Orientation/consciousness: patient oriented x3 Limitations: no limitations HENMT Head: Yes normal to inspection and Yes atraumatic Ears: hearing grossly normal bilaterally and external ears normal General nose exam: Normal external nose present, no nasal discharge noted and no epistaxis Face and sinus: Yes normal facial exam, No abrasion and No laceration Mouth: Normal oral and palatal mucosa present, no drooling and no muffled voice Eyes General: appearance normal, both eyes and all related structures Periorbital: periorbital findings normal Eyelids: Yes eyelids normal Conjunctivae: conjunctivae normal Pupils: Equal, round and reactive pupils present EOM: EOMs intact bilaterally Neck Neck: Yes normal visual inspection, Yes full ROM and Yes no lymphadenopathy Chest Chest palpation & inspection: normal inspection of the chest Resp Effort & Inspection: normal respiratory effort and able to speak in complete sentences Auscultation: clear to auscultation bilaterally Cardio Rate: regular rate Rhythm: regular rhythm GI Inspection: Yes normal to inspection Palpation (GI): Soft to palpation, not firm, nontender, no guarding and not rigid General: Yes no CVA tenderness Back/Spine/Pelvis Back: no CVA tenderness Cervical Spine: normal cervical lordosis and cervical ROM normal Thoracic/Lumbar Spine: thoracic and lumbar spine normal to inspection and thoraco-lumbar ROM normal Pelvis: no pain with anterior-posterior compression Neuro General: patient oriented x3 and moves all extremities Cranial nerves: Yes Equal, round and reactive pupils present Cognition (Neuro): normal cognition Motor exam (neuro): 5/5 motor strength present throughout Sensory Exam: Normal double simultaneous stimulation for sensation Coordination: [id number] test normal Extrem General: Yes normal to inspection, Yes full ROM and Yes capillary refill normal Psych Appearance: grossly normal Mental Status: mental status grossly normal Affect: normal affect Attitude: cooperative Thought process: Normal thought process present Thought content: Normal thought content present Insight: Good insight present (Psych) Medical Decision Making Medical Decision Making [facility] Narrative: Patient is a 72 year old assigned male at with a history of HLD and DM presenting to the emergency department today with a cough and low back pain. Patient's physical exam was unremarkable. Patient's blood work was unremarkable. Patient's urine showed no acute process. Patient's EKG was unremarkable. Patient's chest x-ray and abdomen/pelvis CT showed no acute process. Patient's COVID-19 test was positive. I explained my physical exam findings as well as all test results to the patient and the patient's daughter. I answered all questions asked by the patient and the patient's daughter. I stressed the importance of the patient taking his medication as prescribed. I stressed the importance of the patient following up with his primary care provider. I stressed the importance of the patient returning to the emergency department immediately if his symptoms were to worsen or if he were to develop any dizziness, shortness of breath, difficulty breathing, chest pain, blurry vision, loss of vision, nausea, vomiting, abdominal pain, fever, chills, back pain, or any other complaints. Patient and the patient's daughter verbalized agreement and understanding with this treatment plan and discharge. Differential Diagnosis Differential Diagnoses: The differential diagnosis associated with the presentation includes COVID-19, viral illness, URI, back pain Lab Data [facility] Lab Attestation statement: I reviewed the patient's lab results. 11/23/22 11:55 11/23/22 11:55 Labs: Lab Results 11/23/22 11/23/22 11/23/22 Range/Units 11:55 11:55 11:55 WBC 6.5 (4.8-10.8) X10*3/uL RBC 4.09 L (4.60-5.80) X10*6/uL Hgb 12.5 L (14.0-18.0) g/dl Hct 36.8 L (42.0-52.0) % MCV 90.0 (80.0-98.0) fL MCH 30.6 (27.0-33.0) pg MCHC 34.0 (31.0-36.0) g/dl RDW 13.3 (11.0-16.0) % Plt Count 246 (160-400) X10*3/uL MPV 9.3 L (9.4-12.4) fL Immature Gran % (Auto) 0.3 (0.0-0.4) % Neut % (Auto) 68.4 (45-73) % Lymph % (Auto) 13.1 L (20-40) % Bryan % (Auto) 15.3 H (2-11) % Eos % (Auto) 2.0 (0-4) % Baso % (Auto) 0.9 (0-2) % Lymph # (Auto) 0.9 L (1.2-4.9) X10*3/uL Bryan # (Auto) 1.0 (0.1-1.2) X10*3/uL Eos # (Auto) 0.1 (0.0-0.4) X10*3/uL Baso # (Auto) 0.1 (0.0-0.2) X10*3/uL Abs Immat Gran (auto) 0.02 (0.00-0.03) X10*3/uL Absolute Neuts (auto) 4.5 (2.0-8.3) x10*3/uL Absolute Nucleated RBC 0.000 (0.0-0.012) X10*3/uL Nucleated RBC % (auto) 0.0 (0.0-0.2) /100WBC Sodium 136 (135-145) mmol/L Potassium 4.5 (3.3-5.1) mmol/L Chloride 103 (96-108) mmol/L Carbon Dioxide 20 L (22-29) mmol/L Anion Gap 18 (12-20) BUN 10 (9-16) mg/dL Creatinine 0.95 (0.5-1.4) mg/dL Estim Creat Clear Calc 70.0 Estimated GFR > 60 Random Glucose 196 H (60-115) mg/dL Calcium 9.1 (8.4-10.2) mg/dL Magnesium 2.0 (1.6-2.6) mg/dL Total Bilirubin 0.5 (0.0-1.0) mg/dL AST 18 (5-37) U/L ALT 13 (0-40) U/L Alkaline Phosphatase 54 (39-117) U/L Total Protein 6.6 (6.5-8.0) g/dL Albumin 4.1 (3.5-5.0) g/dL Urine Color Urine Appearance Urine pH (5.0-9.0) Ur Specific Ches[place] (1.005-1.025) Urine Protein (Neg-Trace) mg/dL Urine Glucose (UA) (Negative) mg/dL Urine Ketones (Negative) mg/dL Urine Blood (Negative) Urine Nitrite (Negative) Ur Leukocyte Esterase (Negative) Urine RBC (0-2) /HPF Urine WBC (0-5) /HPF Ur Squamous Epith Cells (0-2) /HPF Urine Bacteria (None Seen) Hyaline Casts (0-2) /LPF Influenza Type A (PCR) NEGATIVE (Negative) Influenza Type B (PCR) NEGATIVE (Negative) RSV RNA Qual (PCR) NEGATIVE (Negative) SARS-CoV-2 RNA (RT-PCR) POSITIVE A (Negative) 11/23/22 Range/Units 14:58 WBC (4.8-10.8) X10*3/uL RBC (4.60-5.80) X10*6/uL Hgb (14.0-18.0) g/dl Hct (42.0-52.0) % MCV (80.0-98.0) fL MCH (27.0-33.0) pg MCHC (31.0-36.0) g/dl RDW (11.0-16.0) % Plt Count (160-400) X10*3/uL MPV (9.4-12.4) fL Immature Gran % (Auto) (0.0-0.4) % Neut % (Auto) (45-73) % Lymph % (Auto) (20-40) % Bryan % (Auto) (2-11) % Eos % (Auto) (0-4) % Baso % (Auto) (0-2) % Lymph # (Auto) (1.2-4.9) X10*3/uL Bryan # (Auto) (0.1-1.2) X10*3/uL Eos # (Auto) (0.0-0.4) X10*3/uL Baso # (Auto) (0.0-0.2) X10*3/uL Abs Immat Gran (auto) (0.00-0.03) X10*3/uL Absolute Neuts (auto) (2.0-8.3) x10*3/uL Absolute Nucleated RBC (0.0-0.012) X10*3/uL Nucleated RBC % (auto) (0.0-0.2) /100WBC Sodium (135-145) mmol/L Potassium (3.3-5.1) mmol/L Chloride (96-108) mmol/L Carbon Dioxide (22-29) mmol/L Anion Gap (12-20) BUN (9-16) mg/dL Creatinine (0.5-1.4) mg/dL Estim Creat Clear Calc Estimated GFR Random Glucose (60-115) mg/dL Calcium (8.4-10.2) mg/dL Magnesium (1.6-2.6) mg/dL Total Bilirubin (0.0-1.0) mg/dL AST (5-37) U/L ALT (0-40) U/L Alkaline Phosphatase (39-117) U/L Total Protein (6.5-8.0) g/dL Albumin (3.5-5.0) g/dL Urine Color Yellow Urine Appearance Clear Urine pH 5.5 (5.0-9.0) Ur Specific Ches[place] >= 1.030 H (1.005-1.025) Urine Protein Negative (Neg-Trace) mg/dL Urine Glucose (UA) >=1000 H (Negative) mg/dL Urine Ketones 15 (Negative) mg/dL Urine Blood Negative (Negative) Urine Nitrite Negative (Negative) Ur Leukocyte Esterase Negative (Negative) Urine RBC 0-2 (0-2) /HPF Urine WBC 0-5 (0-5) /HPF Ur Squamous Epith Cells 0-2 (0-2) /HPF Urine Bacteria None Seen (None Seen) Hyaline Casts 0-2 (0-2) /LPF Influenza Type A (PCR) (Negative) Influenza Type B (PCR) (Negative) RSV RNA Qual (PCR) (Negative) SARS-CoV-2 RNA (RT-PCR) (Negative) Independent Interpretation I performed an independent interpretation of an: EKG Interpretation: Vent. Rate: 085 BPM ? ? Atrial Rate: 085 BPM P-R Int: 206 ms? QRS Dur: 120 ms QT Int: 406 ms ? ? ? P-R-T Axes: 029 -43 062 degrees QTc Int: 483 ms ? Normal sinus rhythm Left axis deviation Moderate voltage criteria for LVH, may be normal variant Abnormal ECG When compared with ECG of 12-AUG-2022 13:03, No significant changes seen ? Electronically Signed By:ARCHIE DUARTE Dictated By: Archie Duarte MD Signed By: Electronically signed by Archie Duarte MD 11/23/22 1631 Radiology Impression Discussion of test interpretation with radiology: I have reviewed the radiologist's reading. Radiologist Impression: My interpretation is in agreement with the radiologist's impression of these imaging studies. EXAMINATION: CT ABDOMEN AND PELVIS WITHOUT CONTRAST? CLINICAL INFORMATION: Flank pain? COMPARISON: 02/02/2019? TECHNIQUE: Multidetector volumetric imaging was performed from the superior aspect of the liver through the pubic symphysis. Sagittal and coronal reformatted images were obtained on the technologist's workstation.? This CT examination was performed using dose optimization techniques as appropriate, variously including the following: *Automated exposure control *Adjustment of mA and/or kV according to patient size (this includes techniques or standardized protocols for targeted exams where dose is matched to indication/reason for exam; i.e. extremities or head) *Use of iterative reconstruction technique DLP: 539 mGy-cm FINDINGS: LUNG BASES: Minimal bibasilar atelectasis.? LIVER, GALLBLADDER, AND BILIARY TREE: The liver is normal in size, shape, and attenuation. No focal hepatic lesion or biliary ductal dilatation is present. The gallbladder is unremarkable with no evidence of radiopaque gallstones, gallbladder wall thickening, or obvious pericholecystic inflammatory changes.? PANCREAS: Unremarkable.? SPLEEN: Unremarkable.? ADRENAL GLANDS: Unremarkable.? KIDNEYS AND URETERS: The kidneys are normal in size, shape, and attenuation. No hydronephrosis, hydroureter, or calculi seen. No perinephric stranding. Exophytic cyst at the upper pole of the left kidney. This appears simple. No specific follow-up recommended.? BLADDER: Unremarkable.? GASTROINTESTINAL TRACT: The stomach is unremarkable. Normal caliber small bowel. No obstruction. No colonic wall thickening or acute inflammation. Moderate diffuse colonic stool burden. No free air or free fluid.? ABDOMINAL WALL: No significant hernia is appreciated.? LYMPH NODES: Normal. VASCULAR: Normal caliber aorta with mild atherosclerotic calcification. PELVIC VISCERA: The prostate and seminal vesicles are unremarkable.? OSSEOUS STRUCTURES: No acute or suspicious osseous abnormality. Mild degenerative change throughout the spine. Mild degenerative changes in both hips.? CT/CT abdomen pelvis wo IV con IMPRESSION: 1.? No acute findings in the abdomen or pelvis. No hydronephrosis or nephrolithiasis. 2.? Moderate colonic stool burden. ? Fleischner guidelines were followed. Dictated By: Avelino Randhawa MD Signed By: Electronically signed by Avelino Randhawa MD 11/23/22 1143 EXAMINATION: XR CHEST CLINICAL INFORMATION: Cough, weakness. COMPARISON: 04/29/2022 chest radiographs. TECHNIQUE: 2 views of the chest were obtained. FINDINGS: No significant abnormality is noted involving the heart, lungs, mediastinum, bony thorax or soft tissues. XR/XR chest 2V IMPRESSION: No acute cardiopulmonary process. Dictated By: Thiago Pena MD Signed By: Electronically signed by Thiago Pena MD 11/23/22 7624 Independent Historian Clinical information obtained from an independent historian. History obtained from or confirmed by: Other (patient's daughter) Chronic Conditions Patient?s care impacted by: Diabetes and Other (HLD) Discharge Plan Discharge Clinical Impression: COVID-19 Patient Disposition: Home, Self-Care Instructions: COVID-19 (Coronavirus Disease 2019) (ED) Additional Instructions: Follow up with your primary care provider. Return to the emergency department immediately if your symptoms worsen or if you develop any dizziness, shortness of breath, difficulty breathing, chest pain, blurry vision, loss of vision, nausea, vomiting, abdominal pain, fever, chills, back pain, or any other complaints. Babatunde un seguimiento con cortes proveedor de atenci?n primaria. Regrese al departamento de emergencias de inmediato si farzaneh s?ntomas empeoran o si presenta mareos, falta de aire, dificultad para respirar, dolor de pecho, visi?n borrosa, p?rdida de la visi?n, n?useas, v?mitos, dolor abdominal, fiebre, escalofr?os, dolor de espalda o cualquier otras quejas. Prescriptions: No Action atorvastatin 40 mg tablet 1 tab PO BEDTIME aspirin 81 mg tablet,delayed release (DR/EC) 1 tab PO QAM acetaminophen 650 mg tablet extended release 1 - 2 tab PO Q6H PRN (Reason: pain) ferrous sulfate [FeroSul] 325 mg (65 mg iron) tablet 1 tab PO Q2D metformin 1,000 mg tablet 1 tab PO BID docusate sodium 100 mg capsule 1 cap PO BID PRN (Reason: constipation) hydroxyzine HCl 10 mg tablet 1 tab PO BEDTIME fluticasone propionate 50 mcg/actuation spray,suspension 2 spray intranasal QAM PRN (Reason: Allergy Symptoms) levothyroxine 112 mcg tablet 1 tab PO MOTUWETHFR duloxetine 20 mg capsule,delayed release(DR/EC) 1 cap PO BID melatonin 5 mg tablet 2 tab PO BEDTIME PRN (Reason: Insomnia) cholecalciferol (vitamin D3) [Vitamin D3] 50 mcg (2,000 unit) capsule 1 cap PO QAM Jardiance 25 mg tablet 1 tab PO QAM Trulicity 1.5 mg/0.5 mL pen injector 1.5 mg subcut TH Referrals: Amarilis Chen NP [Primary Care Provider] - Interventions: ED Discharge Assessment Last Done: 11/23/22 15:08 Discharge Date/Time: 11/23/22 15:09 Print Language: Guyanese
--- NOTE | 2022-11-23 11:19 | ECG_ITS ---
Test Reason : back pain, weakness Blood Pressure : / mmHG Vent. Rate : 085 BPM Atrial Rate : 085 BPM P-R Int : 206 ms QRS Dur : 120 ms QT Int : 406 ms P-R-T Axes : 029 -43 062 degrees QTc Int : 483 ms Normal sinus rhythm Left axis deviation Moderate voltage criteria for LVH, may be normal variant Abnormal ECG When compared with ECG of 12-AUG-2022 13:03, No significant changes seen Referred By: Aan Weaver Electronically Signed By:DORI DUARTE
--- OUTSIDE RECORDS SUMMARY | 2022-11-23 11:54 | XMS_ITS ---
:1950 Author Care Team Providers Name Role Phone [facility] Referring Provider [phone] Allergies None recorded. Medications Name Status Start Date Stop Date ? ? acetaminophen 500 mg tablet Active ? Not available TAKE 1 TABLET BY MOUTH 2 TO 3 TIMES PER DAY NEEDED FOR PAIN acetaminophen ER 650 mg tablet,extended release Active ? Not available TAKE 1 TO 2 TABLETS BY MOUTH EVERY 6 HO URS NEEDED FOR PAIN. NO MORE THAN 6 TABLETS PER DAY Alcohol Prep Pads Active ? Not available USE TWICE DAILY DIRECTED aspirin 81 mg tablet,delayed release Active ? Not available TAKE 1 TABLET BY MOUTH EVERY MORNING atorvastatin 40 mg tablet Active ? Not av ailable TAKE 1 TABLET BY MOUTH AT BEDTIME cholecalciferol (vitamin D3) 50 mcg (2,000 unit) capsule Active ? Not available TAKE 1 CAPSULE BY MOUTH EVERY MORNING docusate sodium 100 mg capsule Active ? N ot available TAKE 1 CAPSULE BY MOUTH TWICE DAILY NEEDED FOR CONSTIPATION duloxetine 20 mg capsule,delayed release Active ? Not available TAKE 1 CAPSULE BY MOUTH TWICE DAILY IN THE MORNING AND IN THE E VENING FeroSul 325 mg (65 mg iron) tablet Active ? Not available TAKE 1 TABLET BY MOUTH EVERY OTHER DAY IN THE MORNING fluticasone propionate 50 mcg/actuation nasal spray,suspension A ctive ? Not available INHALE 2 SPRAYS IN EACH NOSTRIL IN THE MORNING NEEDED FreeStyle Lite Strips Active ? Not availa ble TEST BLOOD SUGAR TWICE DAILY DIRECTED Ceci-Dryl 25 mg tablet Active ? Not avail able TAKE 1 TABLET BY MOUTH AT BEDTIME NEEDED hydroxyzine HCl 10 mg tablet Active ? Not available TAKE 1 TABLET BY MOUTH AT BEDTIME Jardiance 25 mg tablet Active ? Not avail able TAKE 1 TABLET BY MOUTH EVERY MORNING levothyroxine 112 mcg tablet Active ? Not available TAKE 1 TABLET BY MOUTH EVERY MORNING (ON SATURDAY THROUGH SATURDAY OF EACH WEEK) levothyroxine 125 mcg tablet Active ? Not available TAKE 1 TABLET BY MOUTH EVERY MORNING (saturday AND saturday) melatonin 5 mg tablet Active ? Not availa ble TAKE 2 TABLETS BY MOUTH AT BEDTIME metformin 1,000 mg tablet Active ? Not av ailable TAKE 1 TABLET BY MOUTH TWICE DAILY IN T HE MORNING AND IN THE EVENING WITH MEALS pioglitazone 30 mg tablet Active ? Not av ailable TAKE 1 TABLET BY MOUTH EVERY MORNING polyethylene glycol 3350 17 gram/dose oral powder Active ? Not available TAKE 17 GM MIXED IN 8 OUNCES OF WATER, COFFEE OR TEA ONCE DAILY senna 8.6 mg tablet Active ? Not availabl e TAKE 2 TABLETS BY MOUTH ONCE DAILY TRUEplus Lancets 33 gauge Active ? Not av ailable TEST BLOOD SUGAR TWICE DAILY Trulicity 0.75 mg/0.5 mL subcutaneous pen injector Active ? Not available INJECT ONE PEN (=0.75MG) SUBCUTANEOUSLY ONCE A WEEK DIRECTED Trulicity 1.5 mg/0.5 mL subcutaneous pen injector Active ? Not available INJECT ONE PEN (=1.5MG) SUBCUTANEOUSLY ONCE A WEEK DIRECTED Problems None recorded. Procedures None recorded. Results Lab Results None recorded. Past Encounters Encounter Date Diagnosis Provider 05/26/2022 Tahir Mosquera MD: [address] [place] [phone], Ph. Social History None recorded. Vaccine List None recorded. Plan of Care Reminders Provider Appointments None recorded. ? ? Lab None recorded. ? ? Referral None recorded. ? ? Procedures None recorded. ? ? Surgeries None recorded. ? ? Imaging None recorded. ? ? Vitals Height Weight Blood Pressure (1) 5 ft 7 in (1) 180 lbs (1) 111/72 mm[Hg] (2) 5 ft 7 in (2) 180 lbs (2) 111/72 mm[Hg]
--- OUTSIDE RECORDS SUMMARY | 2022-11-23 11:54 | XMS_ITS ---
:1950 Author Care Team Providers Name Role Phone NICOLE APPIAH - 2ND FLOOR OTHER [phone] Allergies Code Code System Name Reaction Severity Status Onset NKDA ? Medications Notes: Med list reviewed, not up to da te, see MAR for complete list Problems Name Status Onset Date Source ? Hypothyroidism Active 05/16/2017 ? Diabetes Mellitus Active 05/16/2017 ? Hyperlipidemia Active 05/16/2017 ? 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 Essential Hypertension Active 05/16/2017 ? 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 Constipation Active 05/20/2017 ? Eruption Active 05/20/2017 ? Procedures None recorded. Results Lab Results None recorded. Past Encounters None recorded. Social History Tobacco Smoking Status Never Smoker Vaccine List None recorded. Plan of Care Reminders Provider Appointments None recorded. ? ? Lab None recorded. ? ? Referral None recorded. ? ? Procedures None recorded. ? ? Surgeries None recorded. ? ? Imaging None recorded. ? ? Vitals Weight Blood Pressure 215.4 lbs 107/52 mm[Hg]
[2022-11-23 12:00] LABS: MANUAL DIFF FLAG NO
[2022-11-23 12:01] LABS: Basophils Absolute Auto 0.1 X10*3/uL (0.0-0.2); Basophils Percent Auto 0.9 % (0-2); Eosinophils Absolute Auto 0.1 X10*3/uL (0.0-0.4); Hematocrit 36.8 % (42.0-52.0); Hemoglobin 12.5 g/dl (14.0-18.0); Imm Gran Abs Auto 0.02 X10*3/uL (0.00-0.03); Imm Gran Pct Auto 0.3 % (0.0-0.4); Lymphocytes Absolute Auto 0.9 X10*3/uL (1.2-4.9); Lymphocytes Percent Auto 13.1 % (20-40); Mean Corpuscular Hemoglobin 30.6 pg (27.0-33.0); Mean Platelet Volume 9.3 fL (9.4-12.4); Monocytes Percent Auto 15.3 % (2-11); Neutrophils Absolute Auto 4.5 x10*3/uL (2.0-8.3); Neutrophils Percent Auto 68.4 % (45-73); Platelet Count 246 X10*3/uL (160-400); Red Blood Count 4.09 X10*6/uL (4.60-5.80); Red Cell Distribution Width 13.3 % (11.0-16.0); White Blood Count 6.5 X10*3/uL (4.8-10.8)
[2022-11-23 12:34] LABS: Alanine Aminotransferase 13 U/L (0-40); Albumin Level 4.1 g/dL (3.5-5.0); Alkaline Phosphatase 54 U/L (39-117); Anion Gap 18 (12-20); Aspartate Amino Transferase 18 U/L (5-37); Bilirubin Total 0.5 mg/dL (0.0-1.0); Blood Urea Nitrogen 10 mg/dL (9-16); Calcium 9.1 mg/dL (8.4-10.2); Carbon Dioxide 20 mmol/L (22-29); Chloride 103 mmol/L (96-108); Estimated Glomerular Filt Rate > 60; Glucose Random 196 mg/dL (60-115); Potassium 4.5 mmol/L (3.3-5.1); Sodium 136 mmol/L (135-145); Total Protein 6.6 g/dL (6.5-8.0)
[2022-11-23 12:51] LABS: Influenza A PCR NEGATIVE (Negative); Influenza B PCR NEGATIVE (Negative); Resp Syncy Virus RNA Qual PCR NEGATIVE (Negative); SARS COV2 PCR INHOUSE POSITIVE (Negative)
[2022-11-23 14:31] VITALS: BP 123/64; PULSE 91; RESP 19; TEMP 36.7; O2SAT 95
[2022-11-23 15:18] LABS: Appearance Urine Clear; Color Urine Yellow; Glucose Urine UA >=1000 mg/dL (Negative); Leukocyte Esterase Urine Negative (Negative); Nitrite Urine Negative (Negative); PH 5.5 (5.0-9.0); Specific Gravity - Urine >= 1.030 (1.005-1.025); UMIC TRIGGER UACC YES; Urine Blood Negative (Negative); Urine Ketones 15 mg/dL (Negative); Urine Protein Negative (Neg-Trace)
[2022-11-23 15:23] LABS: Bacteria Urine None Seen (None Seen); Hyaline Casts Urine 0-2 /LPF (0-2); RBC Urine 0-2 /HPF (0-2); Squamous Epithelial Cell Urine 0-2 /HPF (0-2); WBC Urine 0-5 /HPF (0-5)
== END 2022-11-23 15:09 | disposition home or self-care (01) ==
PROVIDERS: Physician Assistant Medical; Emergency Provider Emergency Medicine; PCP Nurse Practitioner Family
DX: U07.1 COVID-19 (principal); R50.9 Fever, unspecified; R05.9 Cough, unspecified; E11.9 Type 2 diabetes mellitus without complications; M54.50 Low back pain, unspecified; Z79.899 Other long term (current) drug therapy; Z79.4 Long term (current) use of insulin
CPT/HCPCS: 0241U; 71046; 74176; 80053; 81001; 83735; 85025; 93005; 99284

== ENCOUNTER 2023-01-30 19:35 | Inpatient (IN) | payer OTHER, SELFPAY ==
[2023-01-30 19:43] VITALS: BP 115/70; PULSE 97; RESP 17; TEMP 36.3; O2SAT 94; BMI 29.0
--- NOTE | 2023-01-30 19:59 | ED.PSYCH ---
HPI - Psych General Chief Complaint: Psychiatric Symptoms Stated Complaint: SI Time Seen by Provider: 01/30/23 19:59 Source: patient and EMS Mode of arrival: EMS History of Present Illness HPI Narrative: Patient history of depression brought by EMS for worsening of depression says that it happened after the change his medication from fluoxetine to trazodone denies any SI does have history of diabetes and hypothyroidism POC on arrival was 336 no hallucinations/delusions, no substance abuse Related Data Home Medications Medication Instructions Recorded Confirmed acetaminophen 650 mg 1 - 2 tab PO Q6H PRN pain 08/12/22 01/30/23 tablet,extended release aspirin 81 mg tablet,delayed 1 tab PO QAM 08/12/22 01/30/23 release atorvastatin 40 mg tablet 1 tab PO BEDTIME 08/12/22 01/30/23 cholecalciferol (vitamin D3) 50 1 cap PO QAM 08/12/22 01/30/23 mcg (2,000 unit) capsule (Vitamin D3) duloxetine 20 mg capsule,delayed 1 cap PO BID 08/12/22 01/30/23 release levothyroxine 112 mcg tablet 1 tab PO MOTUWETHFR 08/12/22 01/30/23 dulaglutide 1.5 mg/0.5 mL 1.5 mg subcut QWEEK 01/30/23 01/30/23 subcutaneous pen injector (Trulicity) empagliflozin 25 mg tablet 1 tab PO QAM 01/30/23 01/30/23 (Jardiance) ferrous gluconate 324 mg (38 mg 324 mg PO Q OTHER DAY 01/30/23 01/30/23 iron) tablet melatonin 5 mg tablet 5 mg PO BEDTIME 01/30/23 01/30/23 metformin 1,000 mg tablet 1 tab PO BID 01/30/23 01/30/23 Allergies Allergy/AdvReac Type Severity Reaction Status Date / Time No Known Allergies Allergy Unverified 08/04/20 15:31 Review of Systems Review of Systems: Yes all other systems are reviewed and are negative [facility] Social History Social History Alcohol intake: never Patient Tobacco Use Status: Never used Tobacco Advance Directives: No Advance Directives Information Provided: No Advance Directives Date on File: 08/13/22 Physical Exam Vital Signs: Vital Signs: Last Vital Signs Temp 97.3 F 03/15/23 19:43 Pulse 97 01/30/23 19:43 Resp 17 01/30/23 19:43 BP 115/70 01/30/23 19:43 Pulse Ox 94 01/30/23 19:43 O2 Del Method 01/30/23 19:43 BMI result Body Mass Index 29.0 Appearance: Alert. Oriented X3. No acute distress. Eyes: Right artificial eye, l normal pupil ENT: Pharynx normal. Oral Mucosa moist Neck: Normal inspection. Neck supple. CVS: Normal heart rate and rhythm. Pulses normal. Respiratory: No respiratory distress. Equal air entry bilateral, no wheezing/rales/rhonchi Abdomen: Soft and nontender. Bowel sounds are present, no mass palpable, no CVA tenderness Skin: Skin warm and dry. Normal skin color. Normal skin turgor. Extremities: No lower extremity edema. No calf tenderness psych; feel depressed denies SI/HI Neuro: Oriented X 3. No motor deficit. Medications Administered Generic Name Dose Route Start Last Admin Trade Name Benedictq PRN Reason Stop Dose Admin Atorvastatin Calcium 40 mg 01/30/23 22:00 01/30/23 22:49 Atorvastatin Calcium 40 Mg Tablet PO Not Given BEDTIME FARHAT Duloxetine HCl 20 mg 01/30/23 22:00 01/30/23 22:50 Duloxetine Hcl 20 Mg Capsule.Dr PO Not Given BID FARHAT Medical Decision Making Medical Decision Making [facility] Narrative: Patient with worsening of depression will be seen by Care Team disposition according to their evaluation lab showed increased TSH not sure patient taking levothyroxine will continue for now same doses no signs of myxedema clinically euthyroid free T4 is normal Lab Data [facility] Lab Attestation statement: I reviewed the patient's lab results. 01/30/23 21:09 01/30/23 21:09 Labs: Lab Results 01/30/23 01/30/23 01/30/23 Range/Units 20:16 20:16 20:16 WBC (4.8-10.8) X10*3/uL RBC (4.60-5.80) X10*6/uL Hgb (14.0-18.0) g/dl Hct (42.0-52.0) % MCV (80.0-98.0) fL MCH (27.0-33.0) pg MCHC (31.0-36.0) g/dl RDW (11.0-16.0) % Plt Count (160-400) X10*3/uL MPV (9.4-12.4) fL Immature Gran % (Auto) (0.0-0.4) % Neut % (Auto) (45-73) % Lymph % (Auto) (20-40) % Jerauld % (Auto) (2-11) % Eos % (Auto) (0-4) % Baso % (Auto) (0-2) % Lymph # (Auto) (1.2-4.9) X10*3/uL [place] # (Auto) (0.1-1.2) X10*3/uL Eos # (Auto) (0.0-0.4) X10*3/uL Baso # (Auto) (0.0-0.2) X10*3/uL Abs Immat Gran (auto) (0.00-0.03) X10*3/uL Absolute Neuts (auto) (2.0-8.3) x10*3/uL Absolute Nucleated RBC (0.0-0.012) X10*3/uL Nucleated RBC % (auto) (0.0-0.2) /100WBC PT (10.0-13.1) SEC INR (0.9-1.1) Sodium (135-145) mmol/L Potassium (3.3-5.1) mmol/L Chloride (96-108) mmol/L Carbon Dioxide (22-29) mmol/L Anion Gap (12-20) BUN (9-16) mg/dL Creatinine (0.5-1.4) mg/dL Estim Creat Clear Calc Estimated GFR Random Glucose (60-115) mg/dL Calcium (8.4-10.2) mg/dL Total Bilirubin (0.0-1.0) mg/dL AST (5-37) U/L ALT (0-40) U/L Alkaline Phosphatase (39-117) U/L Total Protein (6.5-8.0) g/dL Albumin (3.5-5.0) g/dL TSH (0.32-4.0) uIU/mL Free T4 (0.71-1.85) ng/dL Urine Color Yellow Urine Appearance Clear Urine pH 5.0 (5.0-9.0) Ur Specific [place] >= 1.030 H (1.005-1.025) Urine Protein Negative (Neg-Trace) mg/dL Urine Glucose (UA) >=1000 H (Negative) mg/dL Urine Ketones Trace (Negative) mg/dL Urine Blood Negative (Negative) Urine Nitrite Negative (Negative) Ur Leukocyte Esterase Negative (Negative) Urine RBC 0-2 (0-2) /HPF Urine WBC 0-5 (0-5) /HPF Ur Squamous Epith Cells 0-2 (0-2) /HPF Urine Bacteria None Seen (None Seen) Hyaline Casts 0-2 (0-2) /LPF Urine Opiates Screen Not Detected (Not Detect) Urine Fentanyl Screen Not Detected (Not Detect) Ur Barbiturates Screen Not Detected (Not Detect) Ur Phencyclidine Scrn Not Detected (Not Detect) Ur Amphetamines Screen Not Detected (Not Detect) U Benzodiazepines Scrn Not Detected (Not Detect) Urine Cocaine Screen Not Detected (Not Detect) U Marijuana (THC) Screen Not Detected (Not Detect) Ethyl Alcohol mg/dL COVID-19 (ADEEL) Negative (Negative) COVID-19 Clin Com See Note 01/30/23 01/30/23 01/30/23 Range/Units 21:09 21:09 21:09 WBC 8.1 (4.8-10.8) X10*3/uL RBC 4.51 L (4.60-5.80) X10*6/uL Hgb 13.7 L (14.0-18.0) g/dl Hct 39.9 L (42.0-52.0) % MCV 88.5 (80.0-98.0) fL MCH 30.4 (27.0-33.0) pg MCHC 34.3 (31.0-36.0) g/dl RDW 13.4 (11.0-16.0) % Plt Count 303 (160-400) X10*3/uL MPV 9.3 L (9.4-12.4) fL Immature Gran % (Auto) 0.2 (0.0-0.4) % Neut % (Auto) 59.8 (45-73) % Lymph % (Auto) 25.0 (20-40) % [place]uld % (Auto) 8.4 (2-11) % Eos % (Auto) 5.4 H (0-4) % Baso % (Auto) 1.2 (0-2) % Lymph # (Auto) 2.0 (1.2-4.9) X10*3/uL [place] # (Auto) 0.7 (0.1-1.2) X10*3/uL Eos # (Auto) 0.4 (0.0-0.4) X10*3/uL Baso # (Auto) 0.1 (0.0-0.2) X10*3/uL Abs Immat Gran (auto) 0.02 (0.00-0.03) X10*3/uL Absolute Neuts (auto) 4.8 (2.0-8.3) x10*3/uL Absolute Nucleated RBC 0.000 (0.0-0.012) X10*3/uL Nucleated RBC % (auto) 0.0 (0.0-0.2) /100WBC PT 10.2 (10.0-13.1) SEC INR 0.9 (0.9-1.1) Sodium 139 (135-145) mmol/L Potassium 4.6 (3.3-5.1) mmol/L Chloride 102 (96-108) mmol/L Carbon Dioxide 24 (22-29) mmol/L Anion Gap 18 (12-20) BUN 14 (9-16) mg/dL Creatinine 1.02 (0.5-1.4) mg/dL Estim Creat Clear Calc 65.6 Estimated GFR > 60 Random Glucose 247 H (60-115) mg/dL Calcium 9.6 (8.4-10.2) mg/dL Total Bilirubin 0.4 (0.0-1.0) mg/dL AST 14 (5-37) U/L ALT 19 (0-40) U/L Alkaline Phosphatase 65 (39-117) U/L Total Protein 6.7 (6.5-8.0) g/dL Albumin 4.3 (3.5-5.0) g/dL TSH (0.32-4.0) uIU/mL Free T4 (0.71-1.85) ng/dL Urine Color Urine Appearance Urine pH (5.0-9.0) Ur Specific [place] (1.005-1.025) Urine Protein (Neg-Trace) mg/dL Urine Glucose (UA) (Negative) mg/dL Urine Ketones (Negative) mg/dL Urine Blood (Negative) Urine Nitrite (Negative) Ur Leukocyte Esterase (Negative) Urine RBC (0-2) /HPF Urine WBC (0-5) /HPF Ur Squamous Epith Cells (0-2) /HPF Urine Bacteria (None Seen) Hyaline Casts (0-2) /LPF Urine Opiates Screen (Not Detect) Urine Fentanyl Screen (Not Detect) Ur Barbiturates Screen (Not Detect) Ur Phencyclidine Scrn (Not Detect) Ur Amphetamines Screen (Not Detect) U Benzodiazepines Scrn (Not Detect) Urine Cocaine Screen (Not Detect) U Marijuana (THC) Screen (Not Detect) Ethyl Alcohol < 10 mg/dL COVID-19 (ADEEL) (Negative) COVID-19 Clin Com 01/30/23 Range/Units 21:09 WBC (4.8-10.8) X10*3/uL RBC (4.60-5.80) X10*6/uL Hgb (14.0-18.0) g/dl Hct (42.0-52.0) % MCV (80.0-98.0) fL MCH (27.0-33.0) pg MCHC (31.0-36.0) g/dl RDW (11.0-16.0) % Plt Count (160-400) X10*3/uL MPV (9.4-12.4) fL Immature Gran % (Auto) (0.0-0.4) % Neut % (Auto) (45-73) % Lymph % (Auto) (20-40) % [place] % (Auto) (2-11) % Eos % (Auto) (0-4) % Baso % (Auto) (0-2) % Lymph # (Auto) (1.2-4.9) X10*3/uL [place] # (Auto) (0.1-1.2) X10*3/uL Eos # (Auto) (0.0-0.4) X10*3/uL Baso # (Auto) (0.0-0.2) X10*3/uL Abs Immat Gran (auto) (0.00-0.03) X10*3/uL Absolute Neuts (auto) (2.0-8.3) x10*3/uL Absolute Nucleated RBC (0.0-0.012) X10*3/uL Nucleated RBC % (auto) (0.0-0.2) /100WBC PT (10.0-13.1) SEC INR (0.9-1.1) Sodium (135-145) mmol/L Potassium (3.3-5.1) mmol/L Chloride (96-108) mmol/L Carbon Dioxide (22-29) mmol/L Anion Gap (12-20) BUN (9-16) mg/dL Creatinine (0.5-1.4) mg/dL Estim Creat Clear Calc Estimated GFR Random Glucose (60-115) mg/dL Calcium (8.4-10.2) mg/dL Total Bilirubin (0.0-1.0) mg/dL AST (5-37) U/L ALT (0-40) U/L Alkaline Phosphatase (39-117) U/L Total Protein (6.5-8.0) g/dL Albumin (3.5-5.0) g/dL TSH 50.43 H (0.32-4.0) uIU/mL Free T4 0.94 (0.71-1.85) ng/dL Urine Color Urine Appearance Urine pH (5.0-9.0) Ur Specific [place] (1.005-1.025) Urine Protein (Neg-Trace) mg/dL Urine Glucose (UA) (Negative) mg/dL Urine Ketones (Negative) mg/dL Urine Blood (Negative) Urine Nitrite (Negative) Ur Leukocyte Esterase (Negative) Urine RBC (0-2) /HPF Urine WBC (0-5) /HPF Ur Squamous Epith Cells (0-2) /HPF Urine Bacteria (None Seen) Hyaline Casts (0-2) /LPF Urine Opiates Screen (Not Detect) Urine Fentanyl Screen (Not Detect) Ur Barbiturates Screen (Not Detect) Ur Phencyclidine Scrn (Not Detect) Ur Amphetamines Screen (Not Detect) U Benzodiazepines Scrn (Not Detect) Urine Cocaine Screen (Not Detect) U Marijuana (THC) Screen (Not Detect) Ethyl Alcohol mg/dL COVID-19 (ADEEL) (Negative) COVID-19 Clin Com Discharge Plan Discharge Clinical Impression: Depression Patient Disposition: Still a Patient Prescriptions: No Action atorvastatin 40 mg tablet 1 tab PO BEDTIME aspirin 81 mg tablet,delayed release (DR/EC) 1 tab PO QAM acetaminophen 650 mg tablet extended release 1 - 2 tab PO Q6H PRN (Reason: pain) levothyroxine 112 mcg tablet 1 tab PO MOTUWETHFR duloxetine 20 mg capsule,delayed release(DR/EC) 1 cap PO BID cholecalciferol (vitamin D3) [Vitamin D3] 50 mcg (2,000 unit) capsule 1 cap PO QAM ferrous gluconate 324 mg (38 mg iron) tablet 324 mg PO Q OTHER DAY Jardiance 25 mg tablet 1 tab PO QAM metformin 1,000 mg tablet 1 tab PO BID melatonin 5 mg tablet 5 mg PO BEDTIME Trulicity 1.5 mg/0.5 mL pen injector 1.5 mg subcut QWEEK Interventions: [place]-Suicide Risk Severity Scale Last Done: 01/30/23 22:47
[2023-01-30 20:26] LABS: Appearance Urine Clear; Color Urine Yellow; Glucose Urine UA >=1000 mg/dL (Negative); Leukocyte Esterase Urine Negative (Negative); Nitrite Urine Negative (Negative); Specific Gravity - Urine >= 1.030 (1.005-1.025); UMIC TRIGGER UA YES; Urine Blood Negative (Negative); Urine Ketones Trace mg/dL (Negative); Urine Protein Negative (Neg-Trace)
[2023-01-30 20:31] LABS: Bacteria Urine None Seen (None Seen); Hyaline Casts Urine 0-2 /LPF (0-2); RBC Urine 0-2 /HPF (0-2); Squamous Epithelial Cell Urine 0-2 /HPF (0-2); WBC Urine 0-5 /HPF (0-5)
[2023-01-30 20:38] LABS: Amphetamine Screen Urine Not Detected (Not Detect); Barbiturates, Urine Not Detected (Not Detect); Benzodiazepines Screen Urine Not Detected (Not Detect); Cannabinoid Screen Urine Not Detected (Not Detect); Cocaine Screen Urine Not Detected (Not Detect); Fentanyl, urine Not Detected (Not Detect); Opiate Screen Urine Not Detected (Not Detect); Phencyclidine Screen Urine Not Detected (Not Detect)
[2023-01-30 20:39] LABS: COVID-19 Test Negative (Negative); IDNOW Serial# 6674DD1D
--- OUTSIDE RECORDS SUMMARY | 2023-01-30 20:40 | XMS_ITS | Encounter Summary ---
:1950 Author Care Team Providers Name Role Phone [facility] Primary Care Referring Provider [phone] Reason for Visit Pain, UTI/Pyelonephritis Assessment and Plan Assessment Note I provided real -time medical direction via phone for this encounter, and was available for additional phone based ass istance as needed. I have reviewed and agree with the Assessment and Plan as document ed by the Investigative Agent. Patient given the opportunity to ask questions. Verbalized understanding of instructions to medic. 1. Chronic low back pain acute on chronic -possible sciatica- do ubt UTI- explained given neg ua dip(except glucose) would treat with antibiotics on ly if culture indicated need.- offered ketorolac for pain- has nl renal functio n- not anticoagulated per med list provided- advised to f/u with pcp for pain managem ent ? ketorolac 30 mg/mL (1 mL) injection s olution ? culture, urine ? urinalysis, dipstick 2. 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 glucose, fingerstick, blood ? BMP, serum or plasma Discussion Note: None recorded.Patient educational handouts: No information available. Plan of Care Reminders Provider Appointments None recorded. ? ? Lab Culture, Urine 12/31/2022 [facility] Refere [facility] ? Urinalysis, Dipstick 12/31/2022 [facility] - In sted ? Glucose, Fingerstick, 12/31/2022 [facility] - I nsted Blood ? BMP, Serum or Plasma 12/31/2022 [facility] - In sted Referral None recorded. ? ? Procedures None recorded. ? ? Surgeries None recorded. ? ? Imaging None recorded. ? ? Medications Name Start Date ? ? acetaminophen 500 mg tablet ? TAKE 1 TABLET BY MOUTH 2 TO 3 TIMES PER DAY NEEDED FOR PAIN acetaminophen ER 650 mg tablet,extended release ? TAKE 1 TO 2 TABLETS BY MOUTH EVERY 6 HO URS NEEDED FOR PAIN. NO MORE THAN 6 TABLETS PER DAY Alcohol Prep Pads ? USE TWICE DAILY DIRECTED aspirin 81 mg tablet,delayed release ? TAKE 1 TABLET BY MOUTH EVERY MORNING atorvastatin 40 mg tablet ? TAKE 1 TABLET BY MOUTH AT BEDTIME cholecalciferol (vitamin D3) 50 mcg (2,000 unit) capsu le ? TAKE 1 CAPSULE BY MOUTH EVERY MORNING docusate sodium 100 mg capsule ? TAKE 1 CAPSULE BY MOUTH TWICE DAILY NEEDED FOR CON STIPATION duloxetine 20 mg capsule,delayed release ? TAKE 1 CAPSULE BY MOUTH TWICE DAILY IN THE MORNING AN D IN THE EVENING FeroSul 325 mg (65 mg iron) tablet ? TAKE 1 TABLET BY MOUTH EVERY OTHER DAY IN THE MORNING fluticasone propionate 50 mcg/actuation nasal spray,cortes spension ? INHALE 2 SPRAYS IN EACH NOSTRIL IN THE MORNING NEE DED FreeStyle Lite Strips ? TEST BLOOD SUGAR TWICE DAILY DIRECTED Ceci-Dryl 25 mg tablet ? TAKE 1 TABLET BY MOUTH AT BEDTIME NEEDED hydroxyzine HCl 10 mg tablet ? TAKE 1 TABLET BY MOUTH AT BEDTIME Jardiance 25 mg tablet ? TAKE 1 TABLET BY MOUTH EVERY MORNING ketorolac 30 mg/mL (1 mL) injection solution ? 25 mg IM x 1 for Left LBP levothyroxine 112 mcg tablet ? TAKE 1 TABLET BY MOUTH EVERY MORNING (ON Saturday OF EACH WEEK) levothyroxine 125 mcg tablet ? TAKE 1 TABLET BY MOUTH EVERY MORNING (saturday AND ) melatonin 5 mg tablet ? TAKE 2 TABLETS BY MOUTH AT BEDTIME metformin 1,000 mg tablet ? TAKE 1 TABLET BY MOUTH TWICE DAILY IN T HE MORNING AND IN THE EVENING WITH MEALS pioglitazone 30 mg tablet ? TAKE 1 TABLET BY MOUTH EVERY MORNING polyethylene glycol 3350 17 gram/dose oral powder ? TAKE 17 GM MIXED IN 8 OUNCES OF WATER, COFFEE OR TEA ONCE DAILY senna 8.6 mg tablet ? TAKE 2 TABLETS BY MOUTH ONCE DAILY TRUEplus Lancets 33 gauge ? TEST BLOOD SUGAR TWICE DAILY Trulicity 0.75 mg/0.5 mL subcutaneous pen injector ? INJECT ONE PEN (=0.75MG) SUBCUTANEOUSLY ONCE A WEEK A S DIRECTED Trulicity 1.5 mg/0.5 mL subcutaneous pen injector ? INJECT ONE PEN (=1.5MG) SUBCUTANEOUSLY ONCE A WEEK DIRECTED Medications Administered Name Date ? ? ketorolac 30 mg/mL (1 mL) injection solution 2022-12T12:52:51 25 mg IM x 1 for Left LBP Vitals Weight Blood Pressure (1) 178 lbs (1) 103/74 mm[Hg] (2) 178 lbs (2) 103/74 mm[Hg] Results Lab Results Date Name Specimen Result Interpretation Description Value Range Status Address ? 12/31/2022 Culture, ? Specimen urine ? Final [facility] Urine Description Refer ence Laborator[facility] es: [address], [place] ? ? ? Special none ? Final [facility] Requests Referenc e Laboratori es: [address], [place] ? ? ABNORMAL Culture ? ? [facility] [address], [place] ? ? ? Report final ? Final [facility] Status 01/02/2023 Refere nce Laboratori es: [address], [place] 12/31/2022 BMP, Serum ? Bun 11 ? ? Ma in - Insted: or Plasma [address], [place] ? ? ? Ca ( I dario ? ? Main - In sted: [address], [place] ? ? ? Ci- 101 ? ? Main - Ins jakob: [address], [place] ? ? ? Cre 0.7 ? ? Main - Ins [place]ob: [address], [place] ? ? ? Glu 282 ? ? Main - Ins [place]: [address], [place] ? ? ? K+ 4.7 ? ? Main - Ins jakob: [address], [place] ? ? ? Na+ 136 ? ? Main - Ins jakob: [address], [place] ? ? ? Tco2 23 ? ? Main - Ins jakob: [address], [place] 12/31/2022 Glucose, ? Blood 290 ? ? Main - Insted: Fingerstick Glucose: [address] , Blood mg/dl [address], [place] 12/31/2022 Urinalysis, ? Leukocytes neg ? ? Main - Insted: Dipstick [address], [place] ? ? ? Nitrite negative ? ? Main - Insted: [address], [place] ? ? ? Protein neg ? ? Main - I nsted: [address], [place] ? ? ? Ph 5 ? ? Main - Ins jakob: [address], [place] ? ? ? Blood neg ? ? Main - Ins jakob: [address], [place] ? ? ? Specific 1.025-1.03 ? ? Kyra n - Insted: [place] [address], [place] ? ? ? Ketone neg ? ? Main - In sted: [address], [place] ? ? ? Glucose 4+ ? ? Main - I nsted: [address], [place] ? ? ? Appearance clear ? ? Main - Insted: [address], [place] ? ? ? Color pale ? ? 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 Procedures None recorded. Vaccine List None recorded. Social History None recorded. Functional Status Unknown. Past Encounters Encounter Date Diagnosis Provider 12/31/2022 Chronic Low Back Pain; Hyperglycemia Prince deana Nunez MD: [place], [place] [id number], Ph. History of Present Illness Note: HPI: ALLERGIC TO: Tristin Inhibitors, pollen. Call received from [facility]. Patient with low back pain and foul urine. Triage call to patient who confirms foul urine no blood or pus. No fever. ................................................................................ ............................................................. CRC Nursing Assessment: Comments: CRC RN DID NOT NEED FURTHER INFO SEGMD: patient reports left lower back pain radiating to left > right buttock and legs- worse with movement/ambulation. NO fevers/ chills/n/v/d- no dysuria/hematuria. Has had pain for > 1month- sitting a lot. Does report foul odor to urine/ some increased urinary frequency. Eating fried food / diet soda while medic present- hi fat/hi carb. ................................................................................ ............................................................. Investigative Agent Note From Rasheed Zuniga: NARRATIVE PT PRESENTS A@0X4 PINK WARM AND DRY. PT C/O LOWER BACK BILATERALLY THAT MOVES DOWN HIS LEGS FOR PAST 3 WEEKS. PT ALSO STATED FOUL SMELLING URINE AND FREQUENT URININATION. PT DENIES SOB CP F/N/V/D. BASELINE VITALS ASSESSED, VITALS STABLE, POC BLOODWORK UNREMARKABLE, POC GLUCOSE 290,URINE DIP UNREMARKABLE, URINE CULTURE LABS [place] [facility] [place] [facility] CONTACTED AND 15MG TORADOL ADMINISTERED IM IN LEFTDELTOID AND ENCOURAGED TO DRINK PLENTY OF FLUIDS. PT ADVISED TO FOLLOW UP WITH PCP IN REGARDS TO HISSUGAR LEVELS AND MEDICATION ADJUSTMENT. PT EDUCATED ON SIGNS THAT WOULD INDICATE THE ED ................................................................................ ............................................................. Disposition: FulfilledReview of Systems: ROS as noted in the HPI Review of Systems None recorded. Physical Exam ? Notes: as per medic: VSS afebrile- nad- ambulated to BR with steady gait- no CVAT- has Left lower paralumbar te nderness- c/s/ m grossly wnl to LE reported.
--- OUTSIDE RECORDS SUMMARY | 2023-01-30 20:40 | XMS_ITS ---
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 Not available 25 mg IM x 1 for Left LBP levothyroxine 112 mcg tablet Active ? Not [...] recorded. Procedures None recorded. Results Lab Results Date Name Specimen Result Interpretation Description Value Range Status Address ? 12/31/2022 Culture, ? Specimen urine ? Final [facility] Urine Description Refer ence Laboratori es: [address] ? ? ? Special none ? Final [facility] Requests Referenc e Laboratori es: [address] ? ? ABNORMAL Culture ? ? [facility]: [address] ? ? ? Report final ? Final [facility] Status 01/02/2023 Refere nce Laboratori es: [address] 12/31/2022 BMP, Serum ? Bun 11 ? ? Ma in - Insted: or Plasma , [place] [address] ? ? ? Ca ( I dario ? ? Main - In sted: [address], [place] ? ? ? Ci- 101 ? ? Main - Ins jakob: [address], [place] ? ? ? Cre 0.7 ? ? Main - Ins jakob: [address], [place] ? ? ? Glu 282 ? ? Main - Ins jakob: [address], [place] ? ? ? K+ 4.7 ? ? Main - Ins jakob: [address], [place] ? ? ? Na+ 136 ? ? Main - Ins jakob: [address], [place] ? ? ? Tco2 23 ? ? Main - Ins jakob: [address], [place] 12/31/2022 Glucose, ? Blood 290 ? ? Main - Insted: Fingerstick Glucose: [address] , Blood mg/dl [address] [place] 12/31/2022 Urinalysis, ? Leukocytes neg ? ? Main - Insted: Dipstick [address], [place] ? ? ? [...] 1.025-1.03 ? ? Kyra n - Insted: [place] [address], [place] ? [...] jakob: yellow [address], [place] Past Encounters Encounter Date Diagnosis Provider 12/31/2022 Chronic Low Back Pain; Hyperglycemia Prince deana Nunez MD: [address] [place] [phone], Ph. 11/26/2022 Covid-19 Rizwan Willett MD: [address] [place] [phone], Ph. 05/26/2022 Dizziness Buffy Jac Mosquera MD: [address] [place] [phone], Ph. Social History None recorded. Vaccine List None recorded. Plan of Care Reminders Provider Appointments None recorded. ? ? Lab None recorded. ? ? Referral None recorded. ? ? Procedures None recorded. ? ? Surgeries None recorded. ? ? Imaging None recorded. ? ? Vitals 12/31/2022 12:45PM Urgent Care Weight Blood Pressure (1) 178 lbs (1) 103/74 mm[Hg] (2) 178 lbs (2) 103/74 mm[Hg] 11/26/2022 11:46AM Urgent Care Blood Pressure 96/62 mm[Hg] 05/26/2022 10:47AM Urgent Care Height Weight Blood Pressure (1) 5 ft 7 in (1) 180 lbs (1) 111/72 mm[Hg] (2) 5 ft 7 in (2) 180 lbs (2) 111/72 mm[Hg]
--- OUTSIDE RECORDS SUMMARY | 2023-01-30 20:40 | XMS_ITS | Encounter Summary ---
:1950 Author Care Team Providers Name Role Phone [facility] Referring Provider [phone] Reason for Visit Fever/Chills, Cough Assessment and Plan Assessment Note 72 DM, HTN, HLD diagnosed with covid 5 days ago being seen for continued cough, and abdominal cramping. PT tolerating PO currently. Non-focal abdo exam. No signs of resp distress with sat of 100%on RA PT currently past window for paxlovid an d on medications that interact. Pt encouraged to discuss with PCP further any possible utility 1. COVID-19 Discussion Note: None recorded.Patient educational handouts: No [...] cholecalciferol (vitamin D3) 50 mcg (2,000 unit) [facility] ? TAKE 1 CAPSULE BY MOUTH EVERY [...] SUBCUTANEOUSLY ONCE A WEEK DIRECTED Medications Administered None recorded. Vitals Blood Pressure 96/62 mm[Hg] Results Lab Results None recorded. Allergies Notes: patient via overedger denies allergies- referral noted LUCIEN inhibitor and pollen allergies Problems None recorded. Procedures None recorded. Vaccine List None recorded. Social History None recorded. Functional Status Unknown. Past Encounters Encounter Date Diagnosis Provider 11/26/2022 Covid-19 Rizwan Willett MD: [address] [place] [phone], Ph. [phone] History of Present Illness Note: HPI: Allergy: LUCIEN inhibitors. Treated at the [facility] ER for cough, fever and SOB, tested Positive for Covid.Today, has chills, weakness, coughing and stated unable to eat but drinks fluids in small amounts. Fevers improved, but has Chills today. Not given anything at the ER. Has Acetaminophen home, and inquired about Paxolovid. Lives with his friend Kristy Reid who reported she is calling PCP for appt, but unable to get thru. No acute respiratory distress at this time, but is worried about weakness,persistent cough and inability to eat or sleep. Inquired about Albuterol. Asthma hx, not meds listedat this time for Asthma ................................................................................ ............................................................. CRC Nursing Assessment: Comments: CRC RN DID NOT NEED FURTHER INFO ................................................................................ ............................................................. Behavioral Science Chair Note: Pt found fox to baseline sitting in chair in home. Pt presented normal color/temp and condition with patent airway and normal respirations. Lung sounds clear in all butcher. Pt requested information onPaxlovid for covid which he was diagnosed with saturday in the ER. Pt reports ongoing symptoms. Pt reports he will use supportive care measures and follow up with PCP. ................................................................................ ............................................................. Disposition: Fulfilled Review of Systems ? Notes: cough and abdominal pain Physical Exam ? Notes: Per solvent station attendant exam: Heart i s RRR Lungs without distress with sat of 100% on RA Abdomen soft without foca l tenderness
--- OUTSIDE RECORDS SUMMARY | 2023-01-30 20:40 | XMS_ITS ---
:1950 Author Care Team Providers Name Role Phone NICOLE APPIAH - 2ND FLOOR OTHER [phone] Allergies Code Code System Name Reaction Severity Status Onset NKDA ? Medications Notes: Med list reviewed, not up to da te, see MAR for complete list Problems Name Status Onset Date Source ? Hypothyroidism Active 05/16/2017 ? Diabetes Mellitus Active 05/16/2017 ? Hyperlipidemia Active 05/16/2017 ? 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 Essential [...]
[2023-01-30 21:14] LABS: MANUAL DIFF FLAG NO
[2023-01-30 21:16] LABS: Basophils Absolute Auto 0.1 X10*3/uL (0.0-0.2); Basophils Percent Auto 1.2 % (0-2); Eosinophils Absolute Auto 0.4 X10*3/uL (0.0-0.4); Eosinophils Percent Auto 5.4 % (0-4); Hematocrit 39.9 % (42.0-52.0); Hemoglobin 13.7 g/dl (14.0-18.0); Imm Gran Abs Auto 0.02 X10*3/uL (0.00-0.03); Imm Gran Pct Auto 0.2 % (0.0-0.4); Mean Corpuscular HGB Conc 34.3 g/dl (31.0-36.0); Mean Corpuscular Hemoglobin 30.4 pg (27.0-33.0); Mean Corpuscular Volume 88.5 fL (80.0-98.0); Mean Platelet Volume 9.3 fL (9.4-12.4); Monocytes Absolute Auto 0.7 X10*3/uL (0.1-1.2); Monocytes Percent Auto 8.4 % (2-11); Neutrophils Absolute Auto 4.8 x10*3/uL (2.0-8.3); Neutrophils Percent Auto 59.8 % (45-73); Platelet Count 303 X10*3/uL (160-400); Red Blood Count 4.51 X10*6/uL (4.60-5.80); Red Cell Distribution Width 13.4 % (11.0-16.0); White Blood Count 8.1 X10*3/uL (4.8-10.8)
[2023-01-30 21:22] LABS: INTERNATIONAL NORM RATIO 0.9 (0.9-1.1); Prothrombin Time 10.2 SEC (10.0-13.1)
[2023-01-30 21:33] LABS: Alanine Aminotransferase 19 U/L (0-40); Albumin Level 4.3 g/dL (3.5-5.0); Alkaline Phosphatase 65 U/L (39-117); Anion Gap 18 (12-20); Aspartate Amino Transferase 14 U/L (5-37); Bilirubin Total 0.4 mg/dL (0.0-1.0); Blood Urea Nitrogen 14 mg/dL (9-16); Calcium 9.6 mg/dL (8.4-10.2); Carbon Dioxide 24 mmol/L (22-29); Chloride 102 mmol/L (96-108); Creatinine Clr Calc Pharmacy 65.6; Estimated Glomerular Filt Rate > 60; Glucose Random 247 mg/dL (60-115); Potassium 4.6 mmol/L (3.3-5.1); Sodium 139 mmol/L (135-145); Total Protein 6.7 g/dL (6.5-8.0)
[2023-01-30 21:54] LABS: TSH reflex Free T4 50.43 uIU/mL (0.32-4.0)
[2023-01-30 22:24] LABS: Free T4 (Free Thyroxine) 0.94 ng/dL (0.71-1.85)
[2023-01-30 23:50] LABS: Ethanol < 10 mg/dL
--- NOTE | 2023-01-31 | ECG_ITS ---
Test Reason : Med clearance Blood Pressure : / mmHG Vent. Rate : 088 BPM Atrial Rate : 088 BPM P-R Int : 206 ms QRS Dur : 120 ms QT Int : 412 ms P-R-T Axes : 039 -53 069 degrees QTc Int : 498 ms Normal sinus rhythm Left axis deviation Non-specific intra-ventricular conduction delay Abnormal ECG When compared with ECG of 23-NOV-2022 12:25, No significant change was found Referred By: Gonzales Beverly Electronically Signed By:Luis Angel Souza
[2023-01-31] MEDS: Atorvastatin Calcium 40 MG TABLET PO ×2 (01:15→20:48)
[2023-01-31] MEDS: DULoxetine HCl 20 MG CAPSULE.DR PO ×3 (01:15→20:48)
--- NOTE | 2023-01-31 01:17 | PC.NURSE ---
Patient in bed resting, no distress observed/reported, gait unsteady with walker require close observation during ambulation, medication compliant, psych consult ordered for medication review, patient compliant with care team assessment, disposition is section 12 inpatient bed search, VSS, will continue to monitor.
[2023-01-31 01:20] VITALS: BP 109/69; PULSE 92; RESP 17; TEMP 36.8; O2SAT 95
[2023-01-31] MEDS: Levothyroxine Sodium 112 MCG TABLET PO (05:48)
[2023-01-31 06:42] LABS: Glucose, Whole Blood 171 mg/dL (60-115)
--- NOTE | 2023-01-31 07:10 | PC.NURSE ---
Patient sleeping no distress noted will CTM
--- NOTE | 2023-01-31 07:26 | PC.NURSE ---
Patient awake calm behavior appropriate
[2023-01-31] MEDS: metFORMIN HCl 1,000 MG TABLET 1000 MG PO ×2 (08:00→16:36)
[2023-01-31] MEDS: Aspirin Enteric Coated 81 MG TABLET.DR PO (08:01)
[2023-01-31] MEDS: Cholecalciferol (Vitamin D3) 25 MCG TABLET 50 MCG PO (08:01)
[2023-01-31] MEDS: Empagliflozin 25 MG TABLET PO (08:07)
--- NOTE | 2023-01-31 12:28 | PC.NURSE ---
Nurse to nurse given to S1 staff
[2023-01-31 12:32] VITALS: BP 108/65; PULSE 81; RESP 15; TEMP 36.5; O2SAT 95
[2023-01-31 14:15] VITALS: BP 164/64; PULSE 78; RESP 18; TEMP 36.4; O2SAT 96
--- NOTE | 2023-01-31 17:58 | PC.ADMIT ---
Pt. transported onto unit via WC accompanied by this junior technical writer and security. In person language interpreter used for admission process. Pt. Alert and oriented X 4 but admits problems with memory. Pt. uses walker to ambulate short distances but needs a wheelchair for distant unit locations. Reports issues with constipation and going very long without BMs, and this makes him have a poor appetitie. Pt. lives in an apartment with a platonic female friend who helps him with ADLs and also has a PERSONAL BANKER visit. Brother Bishop notified of admission by phone. Pt. Denies AH/VH. Endorses depression with SI with plan to either run into traffic or buy a rope to hang himself with. Pt. contracts that he will come to staff if feeling suicidal.
[2023-01-31 18:00] VITALS: BP 102/58; PULSE 91; RESP 17; TEMP 36.9; O2SAT 96
[2023-01-31] MEDS: Melatonin 3 MG TABLET 6 MG PO (20:48)
[2023-02-01 07:30] VITALS: BP 108/67; PULSE 84; RESP 15; TEMP 36.1; O2SAT 95
[2023-02-01 07:38] LABS: Alanine Aminotransferase 17 U/L (0-40); Albumin Level 3.9 g/dL (3.5-5.0); Alkaline Phosphatase 59 U/L (39-117); Anion Gap 13 (12-20); Aspartate Amino Transferase 15 U/L (5-37); Bilirubin Total 0.6 mg/dL (0.0-1.0); Blood Urea Nitrogen 21 mg/dL (9-16); Calcium 9.2 mg/dL (8.4-10.2); Carbon Dioxide 25 mmol/L (22-29); Chloride 104 mmol/L (96-108); Cholesterol 147 mg/dL; Creatinine Clr Calc Pharmacy 78.8; Estimated Glomerular Filt Rate > 60; Glucose Fasting 104 mg/dL (60-99); HDL Cholesterol 50 mg/dL; LDL Cholesterol Calculated 77 mg/dl; Potassium 4.1 mmol/L (3.3-5.1); Sodium 138 mmol/L (135-145); Total Protein 6.2 g/dL (6.5-8.0); Triglycerides 102 mg/dL
[2023-02-01] MEDS: Aspirin Enteric Coated 81 MG TABLET.DR PO (08:55)
[2023-02-01] MEDS: DULoxetine HCl 20 MG CAPSULE.DR PO ×2 (08:56→20:37)
[2023-02-01] MEDS: Cholecalciferol (Vitamin D3) 25 MCG TABLET 50 MCG PO (08:56)
[2023-02-01] MEDS: metFORMIN HCl 1,000 MG TABLET 1000 MG PO ×2 (08:56→18:01)
[2023-02-01] MEDS: Empagliflozin 25 MG TABLET PO (08:56)
[2023-02-01] MEDS: Levothyroxine Sodium 112 MCG TABLET PO (08:56)
[2023-02-01] MEDS: Ferrous Sulfate 324 MG TABLET.DR PO (11:31)
--- NOTE | 2023-02-01 12:49 | P.HPPS_ITS ---
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 The patient was brought to the emergency room since he verbalized suicidal ideation. As per the crisis report, the patient had been more depressed since the passing of his sister last almost. He complains of depressed mood, anhedonia, lack of energy, feelings of hopelessness and worthlessness and he came up with but suicidal ideation without a clear plan. On interview, also the patient admitted some psychotic symptoms in the last days with increased anxiety and paranoia. No visual hallucinations. He adamantly denies prior history of jelly or other mood lability. We discussed risks, benefits, side-effects and alternatives and apparently the patient was recently cross taper from Prozac to trazodone and probably that worsen his mental state. We discussed options and he agreed to go back to Prozac. Past Psychiatric History: The patient was treated in [place] as an outpatient. The patient cannot remember exact medical regiment Medical Evaluation Reviewed: Yes Diagnostics Vital Signs (24Hr): Vital Signs - 24 hr 01/31/23 14:15 01/31/23 18:00 02/01/23 07:30 Temperature 97.6 F 98.5 F 97 F Pulse Rate 78 91 84 Respiratory Rate 18 17 15 Blood Pressure 164/64 H 102/58 L 108/67 Pulse Oximetry 96 96 95 Oxygen Delivery Method Room Air Room Air Room Air BMI result Body Mass Index 29.0 Labs 01/30/23 21:09 02/01/23 07:10 Labs: Laboratory Results - last 48 hr 01/30/23 01/30/23 01/30/23 20:16 20:16 20:16 WBC RBC Hgb Hct MCV MCH MCHC RDW Plt Count MPV Immature Gran % (Auto) Neut % (Auto) Lymph % (Auto) [place] % (Auto) Eos % (Auto) Baso % (Auto) Lymph # (Auto) [place] # (Auto) Eos # (Auto) Baso # (Auto) Abs Immat Gran (auto) Absolute Neuts (auto) Absolute Nucleated RBC Nucleated RBC % (auto) PT INR Sodium Potassium Chloride Carbon Dioxide Anion Gap BUN Creatinine Estim Creat Clear Calc Estimated GFR POC Glucose Random Glucose Fasting Glucose Calcium Total Bilirubin AST ALT Alkaline Phosphatase Total Protein Albumin Triglycerides Cholesterol LDL Cholesterol, Calc HDL Cholesterol TSH Free T4 Urine Color Yellow Urine Appearance Clear Urine pH 5.0 Ur Specific [place] >= 1.030 H Urine Protein Negative Urine Glucose (UA) >=1000 H Urine Ketones Trace Urine Blood Negative Urine Nitrite Negative Ur Leukocyte Esterase Negative Urine RBC 0-2 Urine WBC 0-5 Ur Squamous Epith Cells 0-2 Urine Bacteria None Seen Hyaline Casts 0-2 Urine Opiates Screen Not Detected Urine Fentanyl Screen Not Detected Ur Barbiturates Screen Not Detected Ur Phencyclidine Scrn Not Detected Ur Amphetamines Screen Not Detected U Benzodiazepines Scrn Not Detected Urine Cocaine Screen Not Detected U Marijuana (THC) Screen Not Detected Ethyl Alcohol COVID-19 (ADEEL) Negative COVID-19 Clin Com See Note 01/30/23 01/30/23 01/30/23 21:09 21:09 21:09 WBC 8.1 RBC 4.51 L Hgb 13.7 L Hct 39.9 L MCV 88.5 MCH 30.4 MCHC 34.3 RDW 13.4 Plt Count 303 MPV 9.3 L Immature Gran % (Auto) 0.2 Neut % (Auto) 59.8 Lymph % (Auto) 25.0 [place] % (Auto) 8.4 Eos % (Auto) 5.4 H Baso % (Auto) 1.2 Lymph # (Auto) 2.0 [place] # (Auto) 0.7 Eos # (Auto) 0.4 Baso # (Auto) 0.1 Abs Immat Gran (auto) 0.02 Absolute Neuts (auto) 4.8 Absolute Nucleated RBC 0.000 Nucleated RBC % (auto) 0.0 PT 10.2 INR 0.9 Sodium 139 Potassium 4.6 Chloride 102 Carbon Dioxide 24 Anion Gap 18 BUN 14 Creatinine 1.02 Estim Creat Clear Calc 65.6 Estimated GFR > 60 POC Glucose Random Glucose 247 H Fasting Glucose Calcium 9.6 Total Bilirubin 0.4 AST 14 ALT 19 Alkaline Phosphatase 65 Total Protein 6.7 Albumin 4.3 Triglycerides Cholesterol LDL Cholesterol, Calc HDL Cholesterol TSH Free T4 Urine Color Urine Appearance Urine pH Ur Specific [place] Urine Protein Urine Glucose (UA) Urine Ketones Urine Blood Urine Nitrite Ur Leukocyte Esterase Urine RBC Urine WBC Ur Squamous Epith Cells Urine Bacteria Hyaline Casts Urine Opiates Screen Urine Fentanyl Screen Ur Barbiturates Screen Ur Phencyclidine Scrn Ur Amphetamines Screen U Benzodiazepines Scrn Urine Cocaine Screen U Marijuana (THC) Screen Ethyl Alcohol < 10 COVID-19 (ADEEL) COVID-19 [place] 01/30/23 01/31/23 02/01/23 21:09 06:37 07:10 WBC RBC Hgb Hct MCV MCH MCHC RDW Plt Count MPV Immature Gran % (Auto) Neut % (Auto) Lymph % (Auto) [place] % (Auto) Eos % (Auto) Baso % (Auto) Lymph # (Auto) [place] # (Auto) Eos # (Auto) Baso # (Auto) Abs Immat Gran (auto) Absolute Neuts (auto) Absolute Nucleated RBC Nucleated RBC % (auto) PT INR Sodium 138 Potassium 4.1 Chloride 104 Carbon Dioxide 25 Anion Gap 13 BUN 21 H Creatinine 0.85 Estim Creat Clear Calc 78.8 Estimated GFR > 60 POC Glucose 171 H Random Glucose Fasting Glucose 104 H Calcium 9.2 Total Bilirubin 0.6 AST 15 ALT 17 Alkaline Phosphatase 59 Total Protein 6.2 L Albumin 3.9 Triglycerides 102 Cholesterol 147 LDL Cholesterol, Calc 77 HDL Cholesterol 50 TSH 50.43 H Free T4 0.94 Urine Color Urine Appearance Urine pH Ur Specific [place] Urine Protein Urine Glucose (UA) Urine Ketones Urine Blood Urine Nitrite Ur Leukocyte Esterase Urine RBC Urine WBC Ur Squamous Epith Cells Urine Bacteria Hyaline Casts Urine Opiates Screen Urine Fentanyl Screen Ur Barbiturates Screen Ur Phencyclidine Scrn Ur Amphetamines Screen U Benzodiazepines Scrn Urine Cocaine Screen U Marijuana (THC) Screen Ethyl Alcohol COVID-19 (ADEEL) COVID-19 [place] Meds/Allergies Meds Home Medications Medication Instructions Recorded Confirmed Type acetaminophen 650 mg 1 - 2 tab PO Q6H PRN pain 08/12/22 01/30/23 History tablet,extended release aspirin 81 mg tablet,delayed 1 tab PO QAM 08/12/22 01/30/23 History release atorvastatin 40 mg tablet 1 tab PO BEDTIME 08/12/22 01/30/23 History cholecalciferol (vitamin D3) 50 1 cap PO QAM 08/12/22 01/30/23 History mcg (2,000 unit) capsule (Vitamin D3) duloxetine 20 mg capsule,delayed 1 cap PO BID 08/12/22 01/30/23 History release levothyroxine 112 mcg tablet 1 tab PO MOTUWETHFR 08/12/22 01/30/23 History dulaglutide 1.5 mg/0.5 mL 1.5 mg subcut QWEEK 01/30/23 01/30/23 History subcutaneous pen injector (Trulicity) empagliflozin 25 mg tablet 1 tab PO QAM 01/30/23 01/30/23 History (Jardiance) ferrous gluconate 324 mg (38 mg 324 mg PO Q OTHER DAY 01/30/23 01/30/23 History iron) tablet melatonin 5 mg tablet 5 mg PO BEDTIME 01/30/23 01/30/23 History metformin 1,000 mg tablet 1 tab PO BID 01/30/23 01/30/23 History trazodone 50 mg tablet 1 tab PO BEDTIME PRN insomnia 01/31/23 01/31/23 History Allergies Allergies Allergy/AdvReac Type Severity Reaction Status Date / Time No Known Allergies Allergy Unverified 08/04/20 15:31 Mental Status Exam Mental Status Exam Patient Appearance: Well Grooomed and Appropriate Patient Orientation: Person and Situation Level of Consciousness: Awake and Appropriate Patient Behavior: Passive Mood Description: Withdrawn and Depressed Affect Description: Constricted Patient Cognition Impaired: Yes Ability to Follow Directions: Good Speech Pattern: Clear Hallucinations: None Delusions: Not Present Thought Process: Distracted Thought Content: positive for [place] and positive for Circumstantial Judgement: Fair Assessment & Plan Assessment & Plan (1) Depression: Status: Acute Code(s): F32.A - Depression, unspecified Plan The patient is an elderly [place] male with a past history of depression that worsened in the last years after several losses. Recently he had a medication change and it was discontinue Prozac. Plan 1. Gather collateral information. 2. Start Prozac 10 mg p.o. q.a.m.. 3. Continue medical workout. 4. Reassessment results. 5. Continue 15 minute checks since the patient has contract for safety in the facility Patient educated on: diagnosis and therapeutic strategies Reason for continued inpatient stay Substantial Risk for: harm to self, inability to function, rapid decompensation and med/psych decompensation Statement Statement: I have reviewed the history and physical and performed a pertinent examination on my patient. No changes have occurred unless specified. If the History and Physical was not performed prior to admission, the Hospitalist's service will be consulted for completing the admission physical. Time Spent With Patient Time: Total time managing care of this patient today _45___ minutes.
[2023-02-01 19:49] VITALS: BP 118/66; PULSE 93; RESP 18; TEMP 36.5; O2SAT 94
[2023-02-01] MEDS: Melatonin 3 MG TABLET 6 MG PO (20:37)
[2023-02-01] MEDS: Atorvastatin Calcium 40 MG TABLET PO (20:37)
[2023-02-02 08:26] LABS: Glucose, Whole Blood 128 mg/dL (60-115)
[2023-02-02 08:43] VITALS: BP 111/64; PULSE 101; RESP 16; TEMP 30.7; O2SAT 94
[2023-02-02] MEDS: DULoxetine HCl 20 MG CAPSULE.DR PO (08:45)
[2023-02-02] MEDS: Cholecalciferol (Vitamin D3) 25 MCG TABLET 50 MCG PO (08:45)
[2023-02-02] MEDS: Empagliflozin 25 MG TABLET PO (08:45)
[2023-02-02] MEDS: metFORMIN HCl 1,000 MG TABLET 1000 MG PO ×2 (08:45→16:34)
[2023-02-02] MEDS: Aspirin Enteric Coated 81 MG TABLET.DR PO (08:45)
[2023-02-02] MEDS: Milk of Magnesia 30 ML ORAL.SUSP PO (08:49)
--- NOTE | 2023-02-02 09:01 | HO.PSYCHPN ---
Subjective Subjective Date of Service: 02/02/23 Reason For Visit: SI Subjective Notes: Conditional Voluntary Interim History: The nursing staff reported the patient slept all night, he had been dysphoric and complained of constipation. On interview he agreed to start senna for constipation and we increase Cymbalta up to 30 mg p.o. b.i.d. to target depression. Mental Status Exam Mental Status Exam Patient Appearance: Well Grooomed and Appropriate Patient Orientation: Person and Situation Level of Consciousness: Awake and Appropriate Patient Behavior: Guarded and Passive Mood Description: Withdrawn Affect Description: Constricted Patient Cognition Impaired: Yes Ability to Follow Directions: Good Speech Pattern: Clear Hallucinations: None Delusions: Not Present Thought Process: Distracted Thought Content: positive for [place] and positive for Circumstantial Judgement: Fair Diagnostics Vital Signs (24Hr): Vital Signs - 24 hr 02/01/23 19:49 02/02/23 08:43 Temperature 97.7 F 87.2 F L Pulse Rate 93 101 H Respiratory Rate 18 16 Blood Pressure 118/66 111/64 Pulse Oximetry 94 94 Oxygen Delivery Method Room Air Room Air BMI result Body Mass Index 29.0 Labs 01/30/23 21:09 02/01/23 07:10 Labs: Laboratory Results - last 48 hr 02/01/23 02/02/23 07:10 08:22 Sodium 138 Potassium 4.1 Chloride 104 Carbon Dioxide 25 Anion Gap 13 BUN 21 H Creatinine 0.85 Estim Creat Clear Calc 78.8 Estimated GFR > 60 POC Glucose 128 H Fasting Glucose 104 H Calcium 9.2 Total Bilirubin 0.6 AST 15 ALT 17 Alkaline Phosphatase 59 Total Protein 6.2 L Albumin 3.9 Triglycerides 102 Cholesterol 147 LDL Cholesterol, Calc 77 HDL Cholesterol 50 Medications Medications Current Medications Acetaminophen (Acetaminophen 325 Mg Tablet) 650 mg PO Q6H PRN PRN Reason: Pain, Mild (Pain Scale 1-3) Acetaminophen (Acetaminophen 325 Mg Tablet) 650 mg PO Q6H PRN PRN Reason: Headache/Pain Mild Scale (1-3) Al Hydroxide/Mg Hydroxide (Magnesium Hydrox/Alum Hydrox 30 Ml Oral.Susp) 30 ml PO Q6H PRN PRN Reason: Heartburn/Nausea Aspirin (Aspirin Enteric Coated 81 Mg Tablet.) 81 mg PO DAILY [facility] Last Admin: 02/02/23 08:45 Dose: 81 mg Atorvastatin Calcium (Atorvastatin Calcium 40 Mg Tablet) 40 mg PO BEDTIME [facility] Last Admin: 02/01/23 20:37 Dose: 40 mg Docusate Sodium (Docusate Sodium 100 Mg Capsule) 100 mg PO BID [facility] Duloxetine HCl (Duloxetine Hcl 20 Mg Capsule.) 20 mg PO BID [facility] Last Admin: 02/02/23 08:45 Dose: 20 mg Empagliflozin (Empagliflozin 25 Mg Tablet) 25 mg PO DAILY [facility] Last Admin: 02/02/23 08:45 Dose: 25 mg Ferrous Sulfate (Ferrous Sulfate 324 Mg Tablet.) 324 mg PO Q2D [facility] Last Admin: 02/01/23 11:31 Dose: 324 mg Hydroxyzine HCl (Hydroxyzine Hcl 25 Mg Tablet) 25 mg PO Q6H PRN PRN Reason: Anxiety Levothyroxine Sodium (Levothyroxine Sodium 112 Mcg Tablet) 112 mcg PO [id number]@0600 [facility] Last Admin: 02/01/23 08:56 Dose: 112 mcg Magnesium Hydroxide (Milk Of Magnesia 30 Ml Oral.Susp) 30 ml PO DAILY PRN PRN Reason: Constipation Last Admin: 02/02/23 08:49 Dose: 30 ml Melatonin (Melatonin 3 Mg Tablet) 6 mg PO BEDTIME [facility] Last Admin: 02/01/23 20:37 Dose: 6 mg Metformin HCl (Metformin Hcl 1,000 Mg Tablet) 1,000 mg PO BIDWM [facility] Last Admin: 02/02/23 08:45 Dose: 1,000 mg Non-Formulary Medication (Dulaglutide [Trulicity]) 1.5 mg SUBCUT Th [facility] Trazodone HCl (Trazodone Hcl 50 Mg Tablet) 50 mg PO BEDTIME PRN PRN Reason: insomnia Trazodone HCl (Trazodone Hcl 50 Mg Tablet) 50 mg PO BEDTIME MRX1 PRN PRN Reason: Insomnia Vitamin D (Cholecalciferol (Vitamin D3) 25 Mcg Tablet) 50 mcg PO DAILY [facility] Last Admin: 02/02/23 08:45 Dose: 50 mcg Allergies Allergies Allergy/AdvReac Type Severity Reaction Status Date / Time No Known Allergies Allergy Unverified 08/04/20 15:31 Assessment & Plan Assessment & Plan (1) Depression: Status: Acute Code(s): F32.A - Depression, unspecified Plan The patient is an elderly [place] male with a past history of depression that worsened in the last years after several losses. Recently he had a medication change and it was discontinue Prozac. Plan 1. Gather collateral information. 2. Increase Cymbalta to 30 mg p.o. b.i.d... 3. Continue medical workout. 4. Reassessment results. 5. Continue 15 minute checks since the patient has contract for safety in the facility Reason for contiued inpatient stay Substantial Risk for: inability to function, rapid decompensation and med/psych decompensation Time Spent With Patient Time: Total time managing care of this patient today __20__ minutes.
[2023-02-02] MEDS: Docusate Sodium 100 MG CAPSULE PO ×2 (09:18→20:55)
[2023-02-02] MEDS: Acetaminophen 325 MG TABLET 650 MG PO (09:18)
[2023-02-02 18:00] VITALS: BP 114/69; PULSE 92; RESP 18; TEMP 35.9; O2SAT 96
[2023-02-02] MEDS: DULoxetine HCl 30 MG CAPSULE.DR PO (20:53)
[2023-02-02] MEDS: Melatonin 3 MG TABLET 6 MG PO (20:53)
[2023-02-02] MEDS: Atorvastatin Calcium 40 MG TABLET PO (20:54)
[2023-02-02] MEDS: hydrOXYzine HCL 25 MG TABLET PO (20:54)
[2023-02-02] MEDS: traZODone HCL 50 MG TABLET PO (20:54)
[2023-02-03 07:30] VITALS: BP 102/54; PULSE 105; RESP 16; TEMP 36.7; O2SAT 94
[2023-02-03] MEDS: metFORMIN HCl 1,000 MG TABLET 1000 MG PO ×2 (08:23→17:13)
[2023-02-03] MEDS: Aspirin Enteric Coated 81 MG TABLET.DR PO (08:23)
[2023-02-03] MEDS: DULoxetine HCl 30 MG CAPSULE.DR PO ×2 (08:23→20:30)
[2023-02-03] MEDS: Docusate Sodium 100 MG CAPSULE PO ×2 (08:23→20:30)
[2023-02-03] MEDS: Empagliflozin 25 MG TABLET PO (08:24)
[2023-02-03] MEDS: Cholecalciferol (Vitamin D3) 25 MCG TABLET 50 MCG PO (08:24)
[2023-02-03] MEDS: Ferrous Sulfate 324 MG TABLET.DR PO (08:24)
--- NOTE | 2023-02-03 10:44 | HO.PSYCHPN ---
Subjective Subjective Date of Service: 02/03/23 Reason For Visit: SI Subjective Notes: Conditional Voluntary Interim History: The nursing staff reported the patient finally have a small bowel movement. He had been cooperative pleasant but depressed. He also reported passive suicidal ideation but he is able to contract for safety. On interview the patient denies new symptoms still depressed. Mental Status Exam Mental Status Exam Patient Appearance: Appropriate Patient Orientation: Person and Situation Level of Consciousness: Awake and Appropriate Patient Behavior: Guarded and Passive Mood Description: Withdrawn Affect Description: Constricted Patient Cognition Impaired: Yes Ability to Follow Directions: Good Speech Pattern: Clear Hallucinations: None Delusions: Not Present Thought Process: Distracted Thought Content: positive for [place] and positive for Circumstantial Judgement: Fair Diagnostics Vital Signs (24Hr): Vital Signs - 24 hr 02/02/23 18:00 02/03/23 07:30 Temperature 96.6 F L 98.1 F Pulse Rate 92 105 H Respiratory Rate 18 16 Blood Pressure 114/69 102/54 L Pulse Oximetry 96 94 Oxygen Delivery Method Room Air Room Air BMI result Body Mass Index 29.0 Labs 01/30/23 21:09 02/01/23 07:10 Labs: Laboratory Results - last 48 hr 02/02/23 08:22 POC Glucose 128 H Medications Medications Current Medications Acetaminophen (Acetaminophen 325 Mg Tablet) 650 mg PO Q6H PRN PRN Reason: Pain, Mild (Pain Scale 1-3) Last Admin: 02/02/23 09:18 Dose: 650 mg Acetaminophen (Acetaminophen 325 Mg Tablet) 650 mg PO Q6H PRN PRN Reason: Headache/Pain Mild Scale (1-3) Al Hydroxide/Mg Hydroxide (Magnesium Hydrox/Alum Hydrox 30 Ml Oral.Susp) 30 ml PO Q6H PRN PRN Reason: Heartburn/Nausea Aspirin (Aspirin Enteric Coated 81 Mg Tablet.) 81 mg PO DAILY [facility] Last Admin: 02/03/23 08:23 Dose: 81 mg Atorvastatin Calcium (Atorvastatin Calcium 40 Mg Tablet) 40 mg PO BEDTIME [facility] Last Admin: 02/02/23 20:54 Dose: 40 mg Docusate Sodium (Docusate Sodium 100 Mg Capsule) 100 mg PO BID [facility] Last Admin: 02/03/23 08:23 Dose: 100 mg Duloxetine HCl (Duloxetine Hcl 30 Mg Capsule.) 30 mg PO BID [facility] Last Admin: 02/03/23 08:23 Dose: 30 mg Empagliflozin (Empagliflozin 25 Mg Tablet) 25 mg PO DAILY [facility] Last Admin: 02/03/23 08:24 Dose: 25 mg Ferrous Sulfate (Ferrous Sulfate 324 Mg Tablet.) 324 mg PO Q2D [facility] Last Admin: 02/03/23 08:24 Dose: 324 mg Hydroxyzine HCl (Hydroxyzine Hcl 25 Mg Tablet) 25 mg PO Q6H PRN PRN Reason: Anxiety Last Admin: 02/02/23 20:54 Dose: 25 mg Levothyroxine Sodium (Levothyroxine Sodium 112 Mcg Tablet) 112 mcg PO MoTuWeThFr@0600 [facility] Last Admin: 02/01/23 08:56 Dose: 112 mcg Magnesium Hydroxide (Milk Of Magnesia 30 Ml Oral.Susp) 30 ml PO DAILY PRN PRN Reason: Constipation Last Admin: 02/02/23 08:49 Dose: 30 ml Melatonin (Melatonin 3 Mg Tablet) 6 mg PO BEDTIME [facility] Last Admin: 02/02/23 20:53 Dose: 6 mg Metformin HCl (Metformin Hcl 1,000 Mg Tablet) 1,000 mg PO BIDWM [facility] Last Admin: 02/03/23 08:23 Dose: 1,000 mg Non-Formulary Medication (Dulaglutide [Trulicity]) 1.5 mg SUBCUT Th [facility] Trazodone HCl (Trazodone Hcl 50 Mg Tablet) 50 mg PO BEDTIME PRN PRN Reason: insomnia Last Admin: 02/02/23 20:54 Dose: 50 mg Trazodone HCl (Trazodone Hcl 50 Mg Tablet) 50 mg PO BEDTIME MRX1 PRN PRN Reason: Insomnia Vitamin D (Cholecalciferol (Vitamin D3) 25 Mcg Tablet) 50 mcg PO DAILY [facility] Last Admin: 02/03/23 08:24 Dose: 50 mcg Allergies Allergies Allergy/AdvReac Type Severity Reaction Status Date / Time No Known Allergies Allergy Unverified 08/04/20 15:31 Assessment & Plan Assessment & Plan (1) Depression: Status: Acute Code(s): F32.A - Depression, unspecified Plan The patient is an elderly [place] male with a past history of depression that worsened in the last years after several losses. Recently he had a medication change and it was discontinue Prozac. Plan 1. Gather collateral information. 2. Increase Cymbalta to 30 mg p.o. b.i.d... 3. Continue medical workout. 4. Reassessment results. 5. Continue 15 minute checks since the patient has contract for safety in the facility Reason for contiued inpatient stay Substantial Risk for: inability to function, rapid decompensation and med/psych decompensation Time Spent With Patient Time: Total time managing care of this patient today _20___ minutes.
[2023-02-03 18:59] VITALS: BP 102/65; PULSE 97; RESP 18; TEMP 36.1; O2SAT 95
[2023-02-03] MEDS: Melatonin 3 MG TABLET 6 MG PO (20:29)
[2023-02-03] MEDS: Atorvastatin Calcium 40 MG TABLET PO (20:30)
[2023-02-04] MEDS: Levothyroxine Sodium 112 MCG TABLET PO (06:17)
[2023-02-04 07:30] VITALS: BP 101/53; PULSE 89; RESP 15; TEMP 36.2; O2SAT 93
[2023-02-04] MEDS: DULoxetine HCl 30 MG CAPSULE.DR PO ×2 (08:11→20:25)
[2023-02-04] MEDS: Cholecalciferol (Vitamin D3) 25 MCG TABLET 50 MCG PO (08:11)
[2023-02-04] MEDS: Aspirin Enteric Coated 81 MG TABLET.DR PO (08:11)
[2023-02-04] MEDS: metFORMIN HCl 1,000 MG TABLET 1000 MG PO ×2 (08:11→16:38)
[2023-02-04] MEDS: Docusate Sodium 100 MG CAPSULE PO ×2 (08:11→20:25)
[2023-02-04] MEDS: Empagliflozin 25 MG TABLET PO (08:11)
--- NOTE | 2023-02-04 10:33 | PC.NURSE ---
Pt. A & O X 4. Using walker appropriately. Good balance and steady gait. Bed alarm not indicated.
--- NOTE | 2023-02-04 12:30 | P.PNPSI_ITS ---
Subjective Subjective Date of Service: 02/04/23 Reason For Visit: SI Subjective Notes: Conditional Voluntary Interim History: Pt seen in his room. Pt reports feeling better. He reports his roommate is loud at times and this increases his anxiety. He reports some dizziness when standing up. No recent falls. Will check ortho VS. No significant medication to attribute ortho hotn. Pt denies SI/HI. Per nursing, pt slept through the night. No behavioral concerns. Pt taking medications as prescribed. Mental Status Exam Mental Status Exam Narrative: Appearance: wearing hospital gown, good hygiene, in NAD Behavior: cooperative Psychomotor: no agitation or retardation noted Speech: clear, normal rate/rhythm/volume, spontaneous TP: linear TC: no overt psychosis, reports feeling better, no SI Mood: good Affect: congruent, brightens at times SI: none HI: none VH/AH: none Delusions: no overt delusional content noted or reported. Insight/judgment: fair x 2. Memory/cog: alert, oriented x 3. Diagnostics Vital Signs (24Hr): Vital Signs - 24 hr 02/04/23 07:30 02/04/23 14:52 02/04/23 20:36 Temperature 97.2 F 97.7 F Pulse Rate 89 89 83 Respiratory Rate 15 18 Blood Pressure 101/53 L 101/53 L 123/75 Pulse Oximetry 93 93 96 Oxygen Delivery Method Room Air Room Air BMI result Body Mass Index 29.0 Labs 01/30/23 21:09 02/01/23 07:10 Medications Medications Current Medications Acetaminophen (Acetaminophen 325 Mg Tablet) 650 mg PO Q6H PRN PRN Reason: Pain, Mild (Pain Scale 1-3) Last Admin: 02/02/23 09:18 Dose: 650 mg Al Hydroxide/Mg Hydroxide (Magnesium Hydrox/Alum Hydrox 30 Ml Oral.Susp) 30 ml PO Q6H PRN PRN Reason: Heartburn/Nausea Aspirin (Aspirin Enteric Coated 81 Mg Tablet.) 81 mg PO DAILY [facility] Last Admin: 02/04/23 08:11 Dose: 81 mg Atorvastatin Calcium (Atorvastatin Calcium 40 Mg Tablet) 40 mg PO BEDTIME [facility] Last Admin: 02/04/23 20:25 Dose: 40 mg Docusate Sodium (Docusate Sodium 100 Mg Capsule) 100 mg PO BID [facility] Last Admin: 02/04/23 20:25 Dose: 100 mg Duloxetine HCl (Duloxetine Hcl 30 Mg Capsule.) 30 mg PO BID [facility] Last Admin: 02/04/23 20:25 Dose: 30 mg Empagliflozin (Empagliflozin 25 Mg Tablet) 25 mg PO DAILY [facility] Last Admin: 02/04/23 08:11 Dose: 25 mg Ferrous Sulfate (Ferrous Sulfate 324 Mg Tablet.) 324 mg PO Q2D [facility] Last Admin: 02/03/23 08:24 Dose: 324 mg Hydroxyzine HCl (Hydroxyzine Hcl 25 Mg Tablet) 25 mg PO Q6H PRN PRN Reason: Anxiety Last Admin: 02/02/23 20:54 Dose: 25 mg Magnesium Hydroxide (Milk Of Magnesia 30 Ml Oral.Susp) 30 ml PO DAILY PRN PRN Reason: Constipation Last Admin: 02/02/23 08:49 Dose: 30 ml Melatonin (Melatonin 3 Mg Tablet) 6 mg PO BEDTIME [facility] Last Admin: 02/04/23 20:25 Dose: 6 mg Metformin HCl (Metformin Hcl 1,000 Mg Tablet) 1,000 mg PO BIDWM [facility] Last Admin: 02/04/23 16:38 Dose: 1,000 mg Non-Formulary Medication (Dulaglutide [Trulicity]) 1.5 mg SUBCUT Th [facility] Trazodone HCl (Trazodone Hcl 50 Mg Tablet) 50 mg PO BEDTIME PRN PRN Reason: insomnia Last Admin: 02/02/23 20:54 Dose: 50 mg Trazodone HCl (Trazodone Hcl 50 Mg Tablet) 50 mg PO BEDTIME MRX1 PRN PRN Reason: Insomnia Vitamin D (Cholecalciferol (Vitamin D3) 25 Mcg Tablet) 50 mcg PO DAILY [facility] Last Admin: 02/04/23 08:11 Dose: 50 mcg Allergies Allergies Allergy/AdvReac Type Severity Reaction Status Date / Time No Known Allergies Allergy Unverified 08/04/20 15:31 Assessment & Plan Assessment & Plan (1) Depression: Status: Acute Code(s): F32.A - Depression, unspecified Plan The patient is an elderly [place] male with a past history of depression that worsened in the last years after several losses. Recently he had a medication change and it was discontinue Prozac. Plan 1. Gather collateral information. 2. Increase Cymbalta to 30 mg p.o. b.i.d... 3. Continue medical workout. 4. Reassessment results. 5. Continue 15 minute checks since the patient has contract for safety in the facility 02/04 continue tx. change levothyroxine to daily, instead of -Saturday as TSH 50. Reason for contiued inpatient stay Substantial Risk for: inability to function Time Spent With Patient Time: Total time managing care of this patient today ____ minutes.
[2023-02-04 14:52] VITALS: BP 101/53; PULSE 89; O2SAT 93
[2023-02-04] MEDS: Atorvastatin Calcium 40 MG TABLET PO (20:25)
[2023-02-04] MEDS: Melatonin 3 MG TABLET 6 MG PO (20:25)
[2023-02-04 20:36] VITALS: BP 123/75; PULSE 83; RESP 18; TEMP 36.5; O2SAT 96
[2023-02-05] MEDS: Levothyroxine Sodium 112 MCG TABLET PO (05:41)
[2023-02-05 06:00] VITALS: BP 122/68; PULSE 94; RESP 16; TEMP 36.8; O2SAT 97
[2023-02-05] MEDS: DULoxetine HCl 30 MG CAPSULE.DR PO ×2 (10:58→20:42)
[2023-02-05] MEDS: Docusate Sodium 100 MG CAPSULE PO ×2 (10:58→20:43)
[2023-02-05] MEDS: Empagliflozin 25 MG TABLET PO (10:58)
[2023-02-05] MEDS: Cholecalciferol (Vitamin D3) 25 MCG TABLET 50 MCG PO (10:58)
[2023-02-05] MEDS: metFORMIN HCl 1,000 MG TABLET 1000 MG PO ×2 (10:58→16:32)
[2023-02-05] MEDS: Aspirin Enteric Coated 81 MG TABLET.DR PO (10:58)
--- NOTE | 2023-02-05 12:11 | P.PNPSI_ITS ---
Subjective Subjective Date of Service: 02/05/23 Reason For Visit: SI Subjective Notes: Conditional Voluntary Interim History: The nursing staff reported the patient was on his bed yesterday since he had poor sleep. He had been medication compliant pleasant, apparently his roommate has been loud at night he can fall asleep. Also, the staff has noticed that he has problems with food and choking so we are ordering as patient's swallow test today. On interview the patient denies new symptoms, still depressed. Complaints of poor sleep. Mental Status Exam Mental Status Exam Patient Appearance: Appropriate Patient Orientation: Person and Situation Level of Consciousness: Awake and Appropriate Patient Behavior: Guarded and Passive Mood Description: Calm Affect Description: Constricted Patient Cognition Impaired: Yes Ability to Follow Directions: Good Speech Pattern: Clear Hallucinations: None Delusions: Not Present Thought Process: Distracted and Evasive Thought Content: positive for [place] and positive for Circumstantial Judgement: Fair Diagnostics Vital Signs (24Hr): Vital Signs - 24 hr 02/04/23 14:52 02/04/23 20:36 Temperature 97.7 F Pulse Rate 89 83 Respiratory Rate 18 Blood Pressure 101/53 L 123/75 Pulse Oximetry 93 96 Oxygen Delivery Method Room Air BMI result Body Mass Index 29.0 Labs 01/30/23 21:09 02/01/23 07:10 Medications Medications Current Medications Acetaminophen (Acetaminophen 325 Mg Tablet) 650 mg PO Q6H PRN PRN Reason: Pain, Mild (Pain Scale 1-3) Last Admin: 02/02/23 09:18 Dose: 650 mg Al Hydroxide/Mg Hydroxide (Magnesium Hydrox/Alum Hydrox 30 Ml Oral.Susp) 30 ml PO Q6H PRN PRN Reason: Heartburn/Nausea Aspirin (Aspirin Enteric Coated 81 Mg Tablet.) 81 mg PO DAILY [facility] Last Admin: 02/05/23 10:58 Dose: 81 mg Atorvastatin Calcium (Atorvastatin Calcium 40 Mg Tablet) 40 mg PO BEDTIME [facility] Last Admin: 02/04/23 20:25 Dose: 40 mg Docusate Sodium (Docusate Sodium 100 Mg Capsule) 100 mg PO BID [facility] Last Admin: 02/05/23 10:58 Dose: 100 mg Duloxetine HCl (Duloxetine Hcl 30 Mg Capsule.) 30 mg PO BID [facility] Last Admin: 02/05/23 10:58 Dose: 30 mg Empagliflozin (Empagliflozin 25 Mg Tablet) 25 mg PO DAILY [facility] Last Admin: 02/05/23 10:58 Dose: 25 mg Ferrous Sulfate (Ferrous Sulfate 324 Mg Tablet.) 324 mg PO Q2D [facility] Last Admin: 02/03/23 08:24 Dose: 324 mg Hydroxyzine HCl (Hydroxyzine Hcl 25 Mg Tablet) 25 mg PO Q6H PRN PRN Reason: Anxiety Last Admin: 02/02/23 20:54 Dose: 25 mg Levothyroxine Sodium (Levothyroxine Sodium 112 Mcg Tablet) 112 mcg PO DA LIZTET@0600 [facility] Last Admin: 02/05/23 05:41 Dose: 112 mcg Magnesium Hydroxide (Milk Of Magnesia 30 Ml Oral.Susp) 30 ml PO DAILY PRN PRN Reason: Constipation Last Admin: 02/02/23 08:49 Dose: 30 ml Melatonin (Melatonin 3 Mg Tablet) 6 mg PO BEDTIME [facility] Last Admin: 02/04/23 20:25 Dose: 6 mg Metformin HCl (Metformin Hcl 1,000 Mg Tablet) 1,000 mg PO BIDWM [facility] Last Admin: 02/05/23 10:58 Dose: 1,000 mg Non-Formulary Medication (Dulaglutide [Trulicity]) 1.5 mg SUBCUT Th [facility] Trazodone HCl (Trazodone Hcl 50 Mg Tablet) 50 mg PO BEDTIME PRN PRN Reason: insomnia Last Admin: 02/02/23 20:54 Dose: 50 mg Trazodone HCl (Trazodone Hcl 50 Mg Tablet) 50 mg PO BEDTIME MRX1 PRN PRN Reason: Insomnia Vitamin D (Cholecalciferol (Vitamin D3) 25 Mcg Tablet) 50 mcg PO DAILY [facility] Last Admin: 02/05/23 10:58 Dose: 50 mcg Allergies Allergies Allergy/AdvReac Type Severity Reaction Status Date / Time No Known Allergies Allergy Unverified 08/04/20 15:31 Assessment & Plan Assessment & Plan (1) Depression: Status: Acute Code(s): F32.A - Depression, unspecified Plan The patient is an elderly [place]an male with a past history of depression that worsened in the last years after several losses. Recently he had a medication change and it was discontinue Prozac. Plan 1. Gather collateral information. 2. Increase Cymbalta to 30 mg p.o. b.i.d... 3. Continue medical workout. 4. Reassessment results. 5. Continue 15 minute checks since the patient has contract for safety in the facility 6. Increase of hypnotics. Reason for contiued inpatient stay Substantial Risk for: inability to function, rapid decompensation and med/psych decompensation Time Spent With Patient Time: Total time managing care of this patient today __20__ minutes.
--- NOTE | 2023-02-05 15:06 | MHC.SL.SWA ---
Liquid Consistency and Strategies for Safe Swallow: Liquid Intake Recommendation: Thin Liquid Intake Strategies: Solid Food Consistency: Dietary Recommendations: Chopped/Advanced (NDD3) Additional Modifications to Solid Foods: Oral Medication Intake: Whole with Liquid Please contact the pharmacy regarding appropriate crushable or liquid drug formulations that are available whenever modified delivery is recommended. Compensatory Strategies and Precautions to be Taken for Safe Swallow: Sitting Upright (90 deg) Small Bites and Sips Alternate Liquids/Solids Rate of Ingestion Change Supervision While Eating and Drinking for Safe Swallow: Intermittent Supervision Swallowing Recommended Treatments: Compens. Strategy Educat. Recommendation for Speech: Frequency/Duration: x 2-3 visits to monitor tolerance Shredding Machine Knife Changer Clinican/Clinical Fellow: No Supervisory Statement: I have reviewed and agree with the student/clinical fellow's documentation: Yes Speech Language Pathologist: Papito Rodarte M.A., CCC-STERILE TECH
[2023-02-05 18:00] VITALS: BP 104/64; PULSE 91; RESP 17; TEMP 36.5; O2SAT 97
[2023-02-05] MEDS: traZODone HCL 100 MG TABLET PO (20:42)
[2023-02-05] MEDS: Atorvastatin Calcium 40 MG TABLET PO (20:42)
[2023-02-05] MEDS: Melatonin 3 MG TABLET 6 MG PO (20:43)
[2023-02-06] MEDS: Levothyroxine Sodium 112 MCG TABLET PO (06:16)
[2023-02-06 08:20] VITALS: BP 106/67; PULSE 93; RESP 16; TEMP 36.6; O2SAT 96
[2023-02-06] MEDS: Aspirin Enteric Coated 81 MG TABLET.DR PO (08:20)
[2023-02-06] MEDS: DULoxetine HCl 30 MG CAPSULE.DR PO ×2 (08:21→19:54)
[2023-02-06] MEDS: Empagliflozin 25 MG TABLET PO (08:21)
[2023-02-06] MEDS: metFORMIN HCl 1,000 MG TABLET 1000 MG PO ×2 (08:21→16:39)
[2023-02-06] MEDS: Docusate Sodium 100 MG CAPSULE PO ×2 (08:22→19:55)
[2023-02-06] MEDS: Cholecalciferol (Vitamin D3) 25 MCG TABLET 50 MCG PO (08:22)
--- NOTE | 2023-02-06 11:09 | HO.PSYCHPN ---
Subjective Subjective Date of Service: 02/06/23 Reason For Visit: SI Subjective Notes: Conditional Voluntary Interim History: The nursing staff reported the patient slept well last night finally. He has been fully compliant with treatment. The marriage and family social worker reported that we will probably discharge him next Saturday since [facility] will follow-up. 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 On interview the patient denies new symptoms he looks looks less dysphoric. Mental Status Exam Mental Status Exam Patient Appearance: Well Grooomed Patient Orientation: Person and Situation Level of Consciousness: Awake and Appropriate Patient Behavior: Guarded and Passive Mood Description: Calm Affect Description: Constricted Patient Cognition Impaired: Yes Ability to Follow Directions: Good Speech Pattern: Clear Hallucinations: None Delusions: Not Present Thought Process: Linear Thought Content: positive for [place] and positive for Circumstantial Judgement: Fair Diagnostics Vital Signs (24Hr): Vital Signs - 24 hr 02/05/23 18:00 02/06/23 08:20 Temperature 97.7 F 97.9 F Pulse Rate 91 93 Respiratory Rate 17 16 Blood Pressure 104/64 106/67 Pulse Oximetry 97 96 Oxygen Delivery Method Room Air Room Air BMI result Body Mass Index 29.0 Labs 01/30/23 21:09 02/01/23 07:10 Medications Medications Current Medications Acetaminophen (Acetaminophen 325 Mg Tablet) 650 mg PO Q6H PRN PRN Reason: Pain, Mild (Pain Scale 1-3) Last Admin: 02/02/23 09:18 Dose: 650 mg Al Hydroxide/Mg Hydroxide (Magnesium Hydrox/Alum Hydrox 30 Ml Oral.Susp) 30 ml PO Q6H PRN PRN Reason: Heartburn/Nausea Aspirin (Aspirin Enteric Coated 81 Mg Tablet.) 81 mg PO DAILY [facility] Last Admin: 02/06/23 08:20 Dose: 81 mg Atorvastatin Calcium (Atorvastatin Calcium 40 Mg Tablet) 40 mg PO BEDTIME [facility] Last Admin: 02/05/23 20:42 Dose: 40 mg Docusate Sodium (Docusate Sodium 100 Mg Capsule) 100 mg PO BID [facility] Last Admin: 02/06/23 08:22 Dose: 100 mg Duloxetine HCl (Duloxetine Hcl 30 Mg Capsule.) 30 mg PO BID [facility] Last Admin: 02/06/23 08:21 Dose: 30 mg Empagliflozin (Empagliflozin 25 Mg Tablet) 25 mg PO DAILY [facility] Last Admin: 02/06/23 08:21 Dose: 25 mg Ferrous Sulfate (Ferrous Sulfate 324 Mg Tablet.) 324 mg PO Q2D [facility] Last Admin: 02/05/23 12:27 Dose: Not Given Hydroxyzine HCl (Hydroxyzine Hcl 25 Mg Tablet) 25 mg PO Q6H PRN PRN Reason: Anxiety Last Admin: 02/02/23 20:54 Dose: 25 mg Levothyroxine Sodium (Levothyroxine Sodium 112 Mcg Tablet) 112 mcg PO DAILY@0600 [facility] Last Admin: 02/06/23 06:16 Dose: 112 mcg Magnesium Hydroxide (Milk Of Magnesia 30 Ml Oral.Susp) 30 ml PO DAILY PRN PRN Reason: Constipation Last Admin: 02/02/23 08:49 Dose: 30 ml Melatonin (Melatonin 3 Mg Tablet) 6 mg PO BEDTIME [facility] Last Admin: 02/05/23 20:43 Dose: 6 mg Metformin HCl (Metformin Hcl 1,000 Mg Tablet) 1,000 mg PO BIDWM [facility] Last Admin: 02/06/23 08:21 Dose: 1,000 mg Non-Formulary Medication (Dulaglutide [Trulicity]) 1.5 mg SUBCUT Th [facility] Trazodone HCl (Trazodone Hcl 50 Mg Tablet) 50 mg PO BEDTIME MRX1 PRN PRN Reason: Insomnia Trazodone HCl (Trazodone Hcl 100 Mg Tablet) 100 mg PO BEDTIME [facility] Last Admin: 02/05/23 20:42 Dose: 100 mg Vitamin D (Cholecalciferol (Vitamin D3) 25 Mcg Tablet) 50 mcg PO DAILY [facility] Last Admin: 02/06/23 08:22 Dose: 50 mcg Allergies Allergies Allergy/AdvReac Type Severity Reaction Status Date / Time No Known Allergies Allergy Unverified 08/04/20 15:31 Assessment & Plan Assessment & Plan (1) Depression: Status: Acute Code(s): F32.A - Depression, unspecified Plan The patient is an elderly [place] male with a past history of depression that worsened in the last years after several losses. Recently he had a medication change and it was discontinue Prozac. Plan 1. Gather collateral information. 2. Increase Cymbalta to 30 mg p.o. b.i.d... 3. Continue medical workout. 4. Reassessment results. 5. Continue 15 minute checks since the patient has contract for safety in the facility 6. Continue with the same medication for insomnia Reason for contiued inpatient stay Substantial Risk for: inability to function, rapid decompensation and med/psych decompensation Time Spent With Patient Time: Total time managing care of this patient today __20__ minutes.
--- NOTE | 2023-02-06 14:27 | MHC.SLORD ---
Addendum entered and electronically signed by Marla Martinez MA, CCC-ZOOLOGY TEACHER 02/07/23 15:42: D.S. Original Note: Speech Language Pathology Order Status: ZOOLOGY TEACHER checked in w/ pt and staff after lunch. No PO trials given. Per staff, pt ate 100% of breakfast this morning. Per conversations with pt and RN, pt had stomach pains on Saturday and experiencing constipation. Pt reportedly given prune juice to assist. Pt reports no current problems w/ bowel movements at this time and no hesitation to accept PO. Pt reports that he didn't eat much lunch because he didn't like it. Recommend ZOOLOGY TEACHER to continue to follow to monitor for toleration of diet, upgrade of solids if warranted, and check in on any reported pt symptoms of dysphagia.
[2023-02-06] MEDS: Acetaminophen 325 MG TABLET 650 MG PO (15:06)
[2023-02-06 18:00] VITALS: BP 116/66; PULSE 82; RESP 17; TEMP 36.2; O2SAT 97
[2023-02-06] MEDS: traZODone HCL 100 MG TABLET PO (19:54)
[2023-02-06] MEDS: Atorvastatin Calcium 40 MG TABLET PO (19:55)
[2023-02-06] MEDS: Melatonin 3 MG TABLET 6 MG PO (19:56)
[2023-02-07 06:00] VITALS: BP 112/64; PULSE 99; RESP 18; TEMP 36.8; O2SAT 95
[2023-02-07 07:00] VITALS: BMI 27.8
[2023-02-07] MEDS: Levothyroxine Sodium 112 MCG TABLET PO (07:04)
[2023-02-07] MEDS: Cholecalciferol (Vitamin D3) 25 MCG TABLET 50 MCG PO (10:52)
[2023-02-07] MEDS: DULoxetine HCl 30 MG CAPSULE.DR PO ×2 (10:52→20:02)
[2023-02-07] MEDS: metFORMIN HCl 1,000 MG TABLET 1000 MG PO ×2 (10:52→16:44)
[2023-02-07] MEDS: Docusate Sodium 100 MG CAPSULE PO ×2 (10:53→20:02)
[2023-02-07] MEDS: Empagliflozin 25 MG TABLET PO (10:53)
[2023-02-07] MEDS: Aspirin Enteric Coated 81 MG TABLET.DR PO (10:53)
[2023-02-07] MEDS: Ferrous Sulfate 324 MG TABLET.DR PO (10:53)
--- NOTE | 2023-02-07 13:53 | HO.PSYCHPN ---
Subjective Subjective Date of Service: 02/07/23 Reason For Visit: SI Subjective Notes: Conditional Voluntary Interim History: The nursing staff reported the patient had been common cooperative, fully compliant with treatment and adamantly denies suicidal ideation. He has attended to groups. The school social worker reported that [facility] is going to provide more services in the community. On interview the patient denies new symptoms he is willing to get discharged as soon as possible we are scheduling his discharge for tomorrow. Mental Status Exam Mental Status Exam Patient Appearance: Well Grooomed and Appropriate Patient Orientation: Person and Situation Level of Consciousness: Awake and Appropriate Patient Behavior: Guarded and Passive Mood Description: Withdrawn Affect Description: Constricted Patient Cognition Impaired: Yes Ability to Follow Directions: Good Speech Pattern: Clear Hallucinations: None Delusions: Not Present Thought Process: Distracted and Evasive Thought Content: positive for Ellerbe and positive for Circumstantial Judgement: Fair Diagnostics Vital Signs (24Hr): Vital Signs - 24 hr 02/06/23 18:00 02/07/23 06:00 Temperature 97.2 F 98.2 F Pulse Rate 82 99 Respiratory Rate 17 18 Blood Pressure 116/66 112/64 Pulse Oximetry 97 95 Oxygen Delivery Method Room Air Room Air BMI result Body Mass Index 29.0 Labs 01/30/23 21:09 02/01/23 07:10 Medications Medications Current Medications Acetaminophen (Acetaminophen 325 Mg Tablet) 650 mg PO Q6H PRN PRN Reason: Pain, Mild (Pain Scale 1-3) Last Admin: 02/06/23 15:06 Dose: 650 mg Al Hydroxide/Mg Hydroxide (Magnesium Hydrox/Alum Hydrox 30 Ml Oral.Susp) 30 ml PO Q6H PRN PRN Reason: Heartburn/Nausea Aspirin (Aspirin Enteric Coated 81 Mg Tablet.) 81 mg PO DAILY [facility] Last Admin: 02/07/23 10:53 Dose: 81 mg Atorvastatin Calcium (Atorvastatin Calcium 40 Mg Tablet) 40 mg PO BEDTIME [facility] Last Admin: 02/06/23 19:55 Dose: 40 mg Docusate Sodium (Docusate Sodium 100 Mg Capsule) 100 mg PO BID [facility] Last Admin: 02/07/23 10:53 Dose: 100 mg Duloxetine HCl (Duloxetine Hcl 30 Mg Capsule.) 30 mg PO BID [facility] Last Admin: 02/07/23 10:52 Dose: 30 mg Empagliflozin (Empagliflozin 25 Mg Tablet) 25 mg PO DAILY [facility] Last Admin: 02/07/23 10:53 Dose: 25 mg Ferrous Sulfate (Ferrous Sulfate 324 Mg Tablet.) 324 mg PO Q2D [facility] Last Admin: 02/07/23 10:53 Dose: 324 mg Hydroxyzine HCl (Hydroxyzine Hcl 25 Mg Tablet) 25 mg PO Q6H PRN PRN Reason: Anxiety Last Admin: 02/02/23 20:54 Dose: 25 mg Levothyroxine Sodium (Levothyroxine Sodium 112 Mcg Tablet) 112 mcg PO DAILY@0600 [facility] Last Admin: 02/07/23 07:04 Dose: 112 mcg Magnesium Hydroxide (Milk Of Magnesia 30 Ml Oral.Susp) 30 ml PO DAILY PRN PRN Reason: Constipation Last Admin: 02/02/23 08:49 Dose: 30 ml Melatonin (Melatonin 3 Mg Tablet) 6 mg PO BEDTIME [facility] Last Admin: 02/06/23 19:56 Dose: 6 mg Metformin HCl (Metformin Hcl 1,000 Mg Tablet) 1,000 mg PO BIDWM [facility] Last Admin: 02/07/23 10:52 Dose: 1,000 mg Non-Formulary Medication (Dulaglutide [Trulicity]) 1.5 mg SUBCUT Th [facility] Trazodone HCl (Trazodone Hcl 50 Mg Tablet) 50 mg PO BEDTIME MRX1 PRN PRN Reason: Insomnia Trazodone HCl (Trazodone Hcl 100 Mg Tablet) 100 mg PO BEDTIME [facility] Last Admin: 02/06/23 19:54 Dose: 100 mg Vitamin D (Cholecalciferol (Vitamin D3) 25 Mcg Tablet) 50 mcg PO DAILY [facility] Last Admin: 02/07/23 10:52 Dose: 50 mcg Allergies Allergies Allergy/AdvReac Type Severity Reaction Status Date / Time No Known Allergies Allergy Unverified 08/04/20 15:31 Assessment & Plan Assessment & Plan (1) Depression: Status: Acute Code(s): F32.A - Depression, unspecified Plan The patient is an elderly Indian male with a past history of depression that worsened in the last years after several losses. Recently he had a medication change and it was discontinue Prozac. Plan 1. Gather collateral information. 2. Increase Cymbalta to 30 mg p.o. b.i.d... 3. Continue medical workout. 4. Reassessment results. 5. Continue 15 minute checks since the patient has contract for safety in the facility 6. Continue with the same medication for insomnia Reason for contiued inpatient stay Substantial Risk for: inability to function, rapid decompensation and med/psych decompensation Time Spent With Patient Time: Total time managing care of this patient today __20__ minutes.
[2023-02-07 20:01] VITALS: BP 115/60; PULSE 93; RESP 18; TEMP 36.1; O2SAT 95
[2023-02-07] MEDS: traZODone HCL 100 MG TABLET PO (20:02)
[2023-02-07] MEDS: Atorvastatin Calcium 40 MG TABLET PO (20:02)
[2023-02-07] MEDS: Melatonin 3 MG TABLET 6 MG PO (20:02)
[2023-02-08 06:00] VITALS: BP 108/59; PULSE 101; RESP 16; TEMP 36.3; O2SAT 96
[2023-02-08] MEDS: Levothyroxine Sodium 112 MCG TABLET PO (06:25)
[2023-02-08] MEDS: DULoxetine HCl 30 MG CAPSULE.DR PO (08:32)
[2023-02-08] MEDS: Cholecalciferol (Vitamin D3) 25 MCG TABLET 50 MCG PO (08:32)
[2023-02-08] MEDS: Empagliflozin 25 MG TABLET PO (08:32)
[2023-02-08] MEDS: metFORMIN HCl 1,000 MG TABLET 1000 MG PO (08:32)
[2023-02-08] MEDS: Aspirin Enteric Coated 81 MG TABLET.DR PO (08:32)
[2023-02-08] MEDS: Docusate Sodium 100 MG CAPSULE PO (08:32)
--- NOTE | 2023-02-08 09:21 | P.DS_ITS ---
DS: Providers Provider Date of Service: 02/08/23 Date of admission: 01/31/23 13:29 Primary care physician: Unknown Physician Consults: 01/30/23 20:19 Consult to Care Team Stat Comment: Reason for consultation: depression 01/31/23 01:03 Consult to Psychiatry Stat Consulting Provider: Psych Covering Reason for consultation: medication review DS: Diagnosis Discharge Diagnosis (1) Depression: Status: Acute DS: Medications Discharge Medications Home Medications: Home Medications Medication Instructions Recorded Confirmed dulaglutide 1.5 mg/0.5 mL 1.5 mg subcut QWEEK 01/30/23 01/30/23 subcutaneous pen injector (Trulicity) Previous Rx's Medication Instructions Recorded acetaminophen 325 mg tablet 650 mg PO Q6H PRN Pain, Mild (Pain 02/08/23 Scale 1-3) #30 tabs aspirin 81 mg tablet,delayed 81 mg PO DAILY #30 tabs 02/08/23 release atorvastatin 40 mg tablet 40 mg PO BEDTIME #30 tabs 02/08/23 cholecalciferol (vitamin D3) 25 50 mcg PO DAILY #30 tabs 02/08/23 mcg (1,000 unit) tablet docusate sodium 100 mg capsule 100 mg PO BID #60 caps 02/08/23 duloxetine 30 mg capsule,delayed 30 mg PO BID #60 caps 02/08/23 release empagliflozin 25 mg tablet 25 mg PO DAILY #30 tabs 02/08/23 (Jardiance) ferrous sulfate 324 mg (65 mg 324 mg PO Q2D #30 tabs 02/08/23 iron) tablet,delayed release levothyroxine 112 mcg tablet 112 mcg PO DAILY@0600 #30 tabs 02/08/23 melatonin 3 mg tablet 6 mg PO BEDTIME #60 tabs 02/08/23 metformin 1,000 mg tablet 1,000 mg PO BIDWM #60 tabs 02/08/23 trazodone 100 mg tablet 100 mg PO BEDTIME #30 tabs 02/08/23 Mental Status Exam Mental Status Exam Narrative: Appearance: wearing hospital gown, good hygiene, in NAD Behavior: cooperative Psychomotor: no agitation or retardation noted Speech: clear, normal rate/rhythm/volume, spontaneous TP: linear TC: no overt psychosis, reports feeling better, no SI Mood: good Affect: congruent, brightens at times SI: none HI: none VH/AH: none Delusions: no overt delusional content noted or reported. Insight/judgment: fair x 2. Memory/cog: alert, oriented x 3. 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 The patient was brought to the emergency room since he verbalized suicidal ideation.? As per the crisis report, the patient had been more dep ressed since the passing of his sister last almost.? He complains of depressed mood, anhedonia, lack of energy, feelings of hopelessness and worthlessness and he came up with but suicidal ideation without a clear plan.? On interview, also the patient admitted some psychotic symptoms in the last days with increased anxiety and paranoia.? No visual hallucinations.? He adamantly denies prior history of jelly or other mood lability.? We discussed risks, benefits, side-effects and alternatives and apparently the patient was recently cross taper from Prozac to trazodone and probably that worsen his mental state.? We discussed options and he agreed to go back to Prozac. Past Psychiatric History: The patient was treated in [place] as an outpatient.? The patient cannot remember exact medical regiment Medical Evaluation Reviewed: Yes HOSPITAL COURSE On the unit, pt was admitted on a CV and placed on 15 minutes checks for safety. Pt reported feeling depressed. He denied suicidal ideation while on the unit. After discussing risks, benefits and alternative treatment options, pt agreed to increase cymbalta from 20mg po BID to 30mg po BID. He tolerated increase in dose without any side effects. On admission, his TSH was 50. His levothyroxine was changed from 5 days a week to daily on same dose of 112.5mg po daily. His affect gradually presented as brighter. He was increasingly more visible on the unit and social with select peers. There were no incidences of disruptive behaviors nor need for restraints. No overt psychosis or delusional content was noted or reported. Collateral information from [facility] worker and pt's friend who denied any safety concerns at time of discharge and agreed that pt appeared in much improved condition. Time spent discussing smoking cessation with patient: 3 to 10 minutes Status at Discharge Cognitive/behavioral status at discharge: Pt with brighter, non labile mood. No SI/HI. No signs of psychosis. Pt presents as future oriented. No signs of aggression towards self or others. Functional status at discharge: uses cane/walker Overall status at discharge: patient is progressing back to baseline Time Spent with Patient Time attestation: Total time managing care of this patient today _30___ minutes. Time spent: Greater than 30 minutes Discharge Plan Discharge Anticipated Discharge Date/Time: 02/08/23 09:03 Patient Disposition: Home, Self-Care Discharge Diagnosis: MDD, recurrent, moderate Referrals: [facility] [Other] - 02/11/23 1:30 pm ([facility]'s Community Behavioral Health Clinician Araceli Alvarado will provide you with mental health follow up following discharge. She will provide telehealth visit on 02/11/23 at 1:30pm. In home visits are requested. Your telephonic skin care instructor Barbara Hughes RN at [facility] to contact you within 24/48 hours of discharge to follow up on in home needs, re-evaluation of DIRECTOR OF CAMPUS RECREATION hours for increase, and eye doctor appointment. Your Geriatric Organizational Development Consultant Colleen Hilliard will contact you and schedule home visit to address your concerns regarding your life line. ) [facility] - Rose Mary Isidro NP [Other] - 03/05/23 9:30 am (Your next appointment with your PCP is scheduled for 03/05/23 at 9:30am.) [facility] [Other] - 02/09/23 (Referral for [facility] for SN, medication management, PT/OT was placed and [facility] will restart services. Daily visits requested. ) Discharge Medications: New ferrous sulfate 324 mg (65 mg iron) Tablet,Delayed Release (Dr/Ec) 324 mg PO Q2D Qty: 30 0RF atorvastatin 40 mg Tablet 40 mg PO BEDTIME Qty: 30 0RF acetaminophen 325 mg Tablet 650 mg PO Q6H PRN (Reason: Pain, Mild (Pain Scale 1-3)) Qty: 30 0RF aspirin 81 mg Tablet,Delayed Release (Dr/Ec) 81 mg PO DAILY Qty: 30 0RF trazodone 100 mg Tablet 100 mg PO BEDTIME Qty: 30 0RF docusate sodium 100 mg Capsule 100 mg PO BID Qty: 60 0RF duloxetine 30 mg Capsule,Delayed Release(Dr/Ec) 30 mg PO BID Qty: 60 0RF Jardiance 25 mg Tablet 25 mg PO DAILY Qty: 30 0RF melatonin 3 mg Tablet 6 mg PO BEDTIME Qty: 60 0RF metformin 1,000 mg Tablet 1,000 mg PO BIDWM Qty: 60 0RF levothyroxine 112 mcg Tablet 112 mcg PO DAILY@0600 Qty: 30 0RF cholecalciferol (vitamin D3) 25 mcg (1,000 unit) Tablet 50 mcg PO DAILY Qty: 30 0RF Continued Trulicity 1.5 mg/0.5 mL pen injector 1.5 mg subcut QWEEK Discontinued atorvastatin 40 mg tablet 1 tab PO BEDTIME aspirin 81 mg tablet,delayed release (DR/EC) 1 tab PO QAM acetaminophen 650 mg tablet extended release 1 - 2 tab PO Q6H PRN (Reason: pain) levothyroxine 112 mcg tablet 1 tab PO MOTUWETHFR duloxetine 20 mg capsule,delayed release(DR/EC) 1 cap PO BID cholecalciferol (vitamin D3) [Vitamin D3] 50 mcg (2,000 unit) capsule 1 cap PO QAM ferrous gluconate 324 mg (38 mg iron) tablet 324 mg PO Q OTHER DAY Jardiance 25 mg tablet 1 tab PO QAM metformin 1,000 mg tablet 1 tab PO BID melatonin 5 mg tablet 5 mg PO BEDTIME trazodone 50 mg tablet 1 tab PO BEDTIME PRN (Reason: insomnia) Discharge Orders: Discharge Order (Routine); Ordered 02/08/23 Ordered By: Mana Montelongo Diet: chopped food /dysphagia Activity on Discharge: As tolerated Stand Alone Forms: Patient Portal Discharge page Care Plan Goals: 1. Maintain mood 2. No SI/HI Health Concerns: Follow up with PCP Plan of Treatment: Take medications as prescribed Go to nearest ED or call 911 in event of emergency Assessment: Pt with brighter, non labile affect. No SI/HI. No signs of psychosis or delusional content. Pt sleeping and eating well. No signs of aggression towards self or others. Discharge Date/Time: 02/08/23 11:01
--- NOTE | 2023-02-08 09:55 | PC.NURSE ---
Pt alert and excited to be dc home. VSS. med compliant. belongings given to pt. instructions given with corrosion control engineer. All information faxed to providers with appts set.
== END 2023-02-08 11:01 | disposition home or self-care (01) | DRG 885 ==
LOC: HO.ED 01-31 00:57 → HO.PGERI 01-31 13:37
PROVIDERS: Admitting Provider Psychiatry & Neurology Psychiatry; Emergency Provider Internal Medicine; Visit Provider Psychiatry & Neurology Psychiatry
DX: F33.1 Major depressive disorder, recurrent, moderate (principal); R45.851 Suicidal ideations; Z20.822 Contact with and (suspected) exposure to COVID-19; Z79.82 Long term (current) use of aspirin; Z79.84 Long term (current) use of oral hypoglycemic drugs; Z79.890 Hormone replacement therapy; Z79.899 Other long term (current) drug therapy
CPT/HCPCS: 36415; 80053; 80061; 80307; 81001; 82077; 82947; 84439; 84443; 85025; 85610; 87635; 92610; 93005; 97161; 99285; S9485

== ENCOUNTER → 2023-03-18 10:26 | Outpatient (BNVA) | payer OTHER, MEDICAID, SELFPAY | PROVIDERS: Visit Provider Nurse Practitioner Family | DX: M25.551 Pain in right hip (principal); M25.552 Pain in left hip; M47.26 Other spondylosis with radiculopathy, lumbar region; M50.30 Other cervical disc degeneration, unspecified cervical region; R10.9 Unspecified abdominal pain | CPT/HCPCS: 99202 ==

== ENCOUNTER → 2023-05-13 09:24 | Outpatient (BNVA) | payer OTHER, SELFPAY | PROVIDERS: PCP Registered Nurse; Visit Provider Nurse Practitioner Family | DX: N28.1 Cyst of kidney, acquired (principal); R32 Unspecified urinary incontinence; R39.12 Poor urinary stream | CPT/HCPCS: 99202 ==

== ENCOUNTER 2023-05-16 11:03 | Outpatient (REF) | payer OTHER, SELFPAY ==
--- NOTE | ~2023-05-16 | CT_ITS ---
EXAMINATION: CT LUMBAR SPINE WITHOUT CONTRAST CLINICAL INFORMATION: Lumbar radiculopathy. COMPARISON: CT abdomen and pelvis from 11/23/2022. TECHNIQUE: Multidetector helical imaging of the lumbar spine was obtained without intravenous contrast. Multiple axial reformats and coronal/sagittal reconstructions were created the technologist workstation for review. This CT examination was performed using dose optimization techniques as appropriate, variously including the following: *Automated exposure control. *Adjustment of mA and/or kV according to patient size (this includes techniques or standardized protocols for targeted exams where dose is matched to indication/reason for exam; i.e. extremities or head). *Use of iterative reconstruction technique. DLP: 403 mGy-cm FINDINGS: Partial straightening of the normal lumbar lordosis. Otherwise, normal anatomic alignment. Chronic mild compression deformities of the L1, L3, and L4 vertebral bodies (20%, 15%, and 20% loss of vertebral body heights respectively). No evidence of acute fracture or traumatic subluxation. The remaining vertebral body heights are maintained. Advanced degenerative disc disease at L3-L4. Moderate degenerative disc disease at L2-L3 and L5-S1. Mild degenerative disc disease at all additional levels. Vacuum disc phenomenon at L3-L4 and L5-S1. No suspicious lytic or sclerotic osseous lesions. No significant abnormalities of the paraspinal musculature. Limited evaluation of the intra-abdominal structures without significant abnormalities. The abdominal aorta is of normal contour and caliber. AXIAL SPINAL LEVELS: L1-L2: Normal annular contour. There is mild bilateral facet joint arthropathy. There is no neural foraminal stenosis. There is no demonstrated spinal canal stenosis. L2-L3: Mild diffuse disc bulge with posterior osseous ridging. There is mild bilateral facet joint arthropathy. There is mild right and no left neural foraminal stenosis. There is no demonstrated spinal canal stenosis. L3-L4: Moderate diffuse disc bulge with posterior osseous ridging. There is moderate bilateral facet joint arthropathy. There is moderate bilateral neural foraminal stenosis. There appears to be moderate spinal canal stenosis. L4-L5: Mild diffuse disc bulge with superimposed left subarticular disc protrusion. There is moderate bilateral facet joint arthropathy. There is moderate right and mild left neural foraminal stenosis. There appears to be mild spinal canal stenosis exacerbated by prominent dorsal epidural lipomatous tissue. L5-S1: Mild diffuse disc bulge. There is severe left and moderate facet joint arthropathy. There is moderate to severe bilateral neural foraminal stenosis. Prominent epidural lipomatous tissue leads to effacement of the thecal sac. CT/CT lumbar spine wo IV con IMPRESSION: 1. No evidence of acute fracture or traumatic subluxation of the lumbar spine. 2. Moderate multilevel degenerative spondyloarthropathy of the lumbar spine as described in detail above. Most notably on this limited exam without intrathecal contrast, there appears to be moderate L3-L4 and mild L4-L5 spinal canal stenoses. Moderate to severe neural foraminal stenoses from L3-S1.
[2023-05-16 13:02] LABS: Prostate Specific Antigen 0.39 ng/mL (<0.05-4.0)
== END 2023-05-16 11:04 | disposition home or self-care (01) ==
LOC: HO.CT 11:03
PROVIDERS: Nurse Practitioner Family; Visit Provider Nurse Practitioner Family
DX: Z12.5 Encounter for screening for malignant neoplasm of prostate (principal); M54.16 Radiculopathy, lumbar region; M47.816 Spondylosis without myelopathy or radiculopathy, lumbar region; N40.0 Benign prostatic hyperplasia without lower urinary tract symptoms; R32 Unspecified urinary incontinence; R39.12 Poor urinary stream
CPT/HCPCS: 36415; 72131; 84153

== ENCOUNTER 2023-06-12 10:20 | Outpatient (AMB) | payer OTHER, SELFPAY ==
--- NOTE | 2023-06-12 06:55 | MHC.OFFVIS ---
Intake Intake Visit Reasons: 1m/labs Allergies No Known Allergies Allergy (Verified 06/12/23 10:37) HPI HPI Comments History of Present Illness Details Sy is a 72-year-old male who presents today to the office for a follow-up. 06/12/2023-- Sy is a Bulgarian-speaking male and a PATIENT SUPPORT TECH inside solar sales consultant was present during the visit as an freelance interpreter/translator. Sy was last seen on 05/13/23 by nurse practitioner, Tiffany Benavides. He has a past medical history of diabetes and is on Trulicity. He is here in follow-up for PSA screening. He had a PSA done on 05/16/23 which was 0.39 ng/mL. Today, he denies any problems with emptying his bladder. He reports back pain. Results reviewed -- Reviewed the CT scan of the abdomen and pelvis without IV contrast that he had on 11/23/22 --- Kidneys and bladder are within normal limits. There is an exophytic cyst in the upper pole of the left kidney. No renal calculi noted. Plan: We discussed that the back pain is not secondary to the renal cyst. I advised him to follow up with his PCP in regard to his back pain. Cont PSA screening. Follow up in 1 year with nurse practitioner with PSA prior. 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) Constipation (05/20/17) Degenerative disc disease, cervical Diabetes mellitus (05/16/17) Essential hypertension (05/16/17) Flank pain Hyperlipidemia (05/16/17) Hypothyroidism (05/16/17) Social History Household Members: Friend(s) Housing: Apartment Do you presently have visiting nurse or other home services: Yes ([facility] and PATIENT SUPPORT TECH) Alcohol intake: never Patient Tobacco Use Status: Never used Tobacco Advance Directives Date on File: 08/13/22 service: No Sexual orientation: Straight/Heterosexual Review of Systems Const Reports as per HPI Eyes Details: Patient with right eye prosthesis ENT Reports no additional complaints Card Reports as per HPI Resp Reports no additional complaints GI Reports as per HPI Reports as per HPI Musc Reports as per HPI Neuro Reports no additional complaints Psych Reports no additional complaints Endo Reports as per HPI Results AMB Urinalysis, Automated UA Leukoctes 0 Nagi/uL Last Edit by Daphne Vo CMA on 06/12/23 10:45 UA Nitrite Negative Last Edit by Daphne Vo, ABI on 06/12/23 10:45 UA Urobilinogen 0.2 mg/dL Last Edit by Daphne Vo, ABI on 06/12/23 10:45 UA Protein 0 mg/dL Last Edit by Daphne Vo, ENGINEERING PROJECT MANAGER on 06/12/23 10:45 UA pH 5.0 Last Edit by Daphne Vo, [facility] on 06/12/23 10:45 UA Blood 0 Jose Antonio/uL Last Edit by Daphne Vo, [facility] on 06/12/23 10:45 UA Specific [place] 1.015 Last Edit by Daphne Vo, ABI on 06/12/23 10:45 UA Ketone Negative Last Edit by Daphne Vo, ABI on 06/12/23 10:45 UA Bilirubin 0 mg/dL Last Edit by Daphne Vo, [facility] on 06/12/23 10:45 UA Glucose 3 mg/dL Last Edit by Daphne Vo, [facility] on 06/12/23 10:45 + Daphne Vo 06/12/23 10:45 Results Reviewed Results Reviewed: Laboratory Last Values Urine pH (Auto) 5.0 06/12/23 10:40 Specific [place] (Auto) 1.015 06/12/23 10:40 Urine Protein (Auto) 0 mg/dL 06/12/23 10:40 Glucose (UA)(Auto) 3 mg/dL 06/12/23 10:40 Urine Ketones (Auto) Negative 06/12/23 10:40 Urine Blood (Auto) 0 Jose Antonio/uL 06/12/23 10:40 Urine Nitrite (Auto) Negative 06/12/23 10:40 Urine Bilirubin (Auto) 0 mg/dL 06/12/23 10:40 Urine Urobilinogen (Auto) 0.2 mg/dL 06/12/23 10:40 Leukocyte Esterase (Auto) 0 Nagi/uL 06/12/23 10:40 Date of service: 11/23/22 EXAMINATION: CT ABDOMEN AND PELVIS WITHOUT CONTRAST? CLINICAL INFORMATION: Flank pain? COMPARISON: 02/02/2019? FINDINGS: LUNG BASES: Minimal bibasilar atelectasis.? LIVER, GALLBLADDER, AND BILIARY TREE: The liver is normal in size, shape, and attenuation. No focal hepatic lesion or biliary ductal dilatation is present. The gallbladder is unremarkable with no evidence of radiopaque gallstones, gallbladder wall thickening, or obvious pericholecystic inflammatory changes.? PANCREAS: Unremarkable.? SPLEEN: Unremarkable.? ADRENAL GLANDS: Unremarkable.? KIDNEYS AND URETERS: The kidneys are normal in size, shape, and attenuation. No hydronephrosis, hydroureter, or calculi seen. No perinephric stranding. Exophytic cyst at the upper pole of the left kidney. This appears simple. No specific follow-up recommended.? BLADDER: Unremarkable.? GASTROINTESTINAL TRACT: The stomach is unremarkable. Normal caliber small bowel. No obstruction. No colonic wall thickening or acute inflammation. Moderate diffuse colonic stool burden. No free air or free fluid.? ABDOMINAL WALL: No significant hernia is appreciated.? LYMPH NODES: Normal. VASCULAR: Normal caliber aorta with mild atherosclerotic calcification. PELVIC VISCERA: The prostate and seminal vesicles are unremarkable.? OSSEOUS STRUCTURES: No acute or suspicious osseous abnormality. Mild degenerative change throughout the spine. Mild degenerative changes in both hips.? IMPRESSION: 1.? No acute findings in the abdomen or pelvis. No hydronephrosis or nephrolithiasis. 2.? Moderate colonic stool burden. ? Fleischner guidelines were followed. Assessment & Plan Assessment & Plan (1) Screening PSA (prostate specific antigen): Code(s): Z12.5 - Encounter for screening for malignant neoplasm of prostate (2) Renal cyst: Code(s): N28.1 - Cyst of kidney, acquired Plan We discussed that the back pain is not secondary to the renal cyst. I advised him to follow up with his PCP in regard to his back pain. Cont PSA screening. Follow up in 1 year with nurse practitioner with PSA prior. Orders: Orders PSA, Ultra Sensitive 06/12/23 Z12.5 - Encounter for screening for malignant neoplasm of prostate AMB Urinalysis Automated 06/12/23 Z13.9 - Encounter for screening, unspecified Patient Instructions: The patient had an opportunity to ask questions regarding treatment plan. All questions were answered. Imaging, Laboratory studies and physical exam results were discussed and reviewed in detail. No major barriers to understanding were identified. The patient expressed understanding and agreement with the above treatment plan.? ? ? The patient is aware they should contact our office by phone for worsening of their current condition or the appearance of new symptoms. Compliance is encouraged with any medications and followup testing that is ordered.? ? ? It is a privilege to be allowed the opportunity to participate in the urologic care of your patient. If you have any questions or concerns regarding treatment for the above conditions please do not hesitate to contact me. The office telephone contact is [phone].? ? ? This note is constructed in part using voice recognition software. While every effort has been made to ensure accuracy signal worker errors may have been included.? ? ? Yours sincerely,? ? ? Juan Conti MD? Coding Level of Care Code Est Pt Level 3 (43475) Diagnoses Screening PSA (prostate specific antigen) Z12.5 Renal cyst N28.1
== END 2023-06-12 11:06 | disposition home or self-care (01) ==
PROVIDERS: PCP Registered Nurse; Visit Provider Urology
DX: Z12.5 Encounter for screening for malignant neoplasm of prostate (principal); N28.1 Cyst of kidney, acquired
CPT/HCPCS: 99213

== ENCOUNTER → 2023-06-12 10:20 | Outpatient (BNVA) | payer OTHER, SELFPAY | PROVIDERS: PCP Registered Nurse; Visit Provider Urology | DX: Z12.5 Encounter for screening for malignant neoplasm of prostate (principal); N28.1 Cyst of kidney, acquired | CPT/HCPCS: 81003; 99212 ==

== ENCOUNTER 2023-07-17 08:33 | Outpatient (REF) | payer OTHER, SELFPAY ==
[2023-07-17 12:19] LABS: Cholesterol 133 mg/dL (<200); HDL Cholesterol 59 mg/dL (>40); LDL Cholesterol Calculated 63 mg/dL (<100); Triglycerides 57 mg/dL (<150)
[2023-07-17 12:25] LABS: TSH reflex Free T4 6.15 uIU/mL (0.32-4.0)
[2023-07-17 12:32] LABS: Creatinine Urine 55.28 mg/dL; Microalbum/Creatinine Ratio Ur 36.1 ug/mg cr (<30)
[2023-07-17 12:58] LABS: Free T4 (Free Thyroxine) 1.09 ng/dL (0.71-1.85)
== END 2023-07-17 08:34 | disposition home or self-care (01) ==
LOC: HO.HHCL 08:33
PROVIDERS: Visit Provider Registered Nurse
DX: E03.9 Hypothyroidism, unspecified (principal); E11.69 Type 2 diabetes mellitus with other specified complication
CPT/HCPCS: 36415; 80061; 82043; 84439; 84443

== ENCOUNTER 2023-07-24 09:50 | Outpatient (AMB) | payer OTHER, SELFPAY ==
--- NOTE | 2023-07-24 10:07 | HO.SPINEOV ---
Intake Intake Visit Reasons: spinal stenosis Intake Note: Mr. Seo is here today c/o low back pain. MRI done @ [facility]. Manager Professional Development Required: Yes Manager Professional Development Name: CATERINA Chowdhury Information Interpreted: non-clinical & clinical Allergies No Known Allergies Allergy (Verified 06/12/23 10:37) Assessment & Plan Assessment & Plan (1) Spinal stenosis: Code(s): M48.00 - Spinal stenosis, site unspecified Plan Dear colleague, Thank you for referring Sy to our office today. He is a pleasant 72-year-old Maltese-speaking male currently being followed by [facility] pain management for chronic low back pain, with mild radiation into his buttocks/posterior thighs terminating well before the knee. He only reports pain at this time with no associated numbness/tingling/burning. He reports no inciting incident that initially caused his back pain and states this came on gradually over time. He reports the pain is increased over the course of last year, to the point where he is beginning to seek professional help for this problem. He has tried to utilize many pzwu-cog-otorica remedies including Voltaren gel, naproxen, ibuprofen, Tylenol, ice, heat, and pain patches without alleviation of symptoms. He has also tried physical therapy without significant relief. He reports that walking and standing aggravate his low back pain, and that resting in utilizing his cane to ambulate help alleviate his symptoms. He reports that his pain is predominantly located in his lower back and radiates in axial fashion across his back down his bilateral posterior thighs into the medial bilateral hips. PMH: Type 2 diabetes mellitus, major depression with recent SI, generalized anxiety, osteoarthritis, hypertension, hyperlipidemia, hypothyroidism. Social hx: The patient is a nonsmoker, reports no substance use. Medications: Tylenol, atorvastatin, vitamin D3, Colace, dulaglutide, Jardiance, ferrous sulfate, levothyroxine, metformin, naproxen, trazodone. Allergies: NKDA Physical exam: Mobility: Patient ambulates with cane, has antalgic gait. Sensation: Grossly intact. CN: II-XII grossly intact. Strength Testing Upper Extremities: - Deltoid 5/5 right 5/5 left - Biceps 5/5 right 5/5 left - Triceps 5/5 right 5/5 left - Wrist Ext 5/5 right 5/5 left - Wrist Flex 5/5 right 5/5 left - Hand windows software engineer 5/5 right 5/5 left - Interossei 5/5 right 5/5 left Strength Testing Lower Extremities: - Hip flexion 5/5 right 4/5 left - Knee extension 5/5 right 4/5 left - Dorsiflexion 5/5 right 4/5 left - Plantar flex 5/5 right 4/5 left - EHL 5/5 right 4/5 left Strength limited due to pain Reflexes: - Biceps Right - 2+ Left - 2+ - Triceps Right - 2+ Left - 2+ - Patellar Right - 2+ Left - 2+ - Achilles Right - 2+ Left - 2+ - Plantar Right - 2+ Left - 2+ (-) Lopez?s sign (-) Straight leg riase bilaterally Imaging review: The patient reported that he had an MRI completed at the end of April. Unfortunately the only thing that we have on record that was completed in April was a CT of the lumbar spine. The CT scan shows diffuse arthropathy of the lumbar spine, with likely central canal stenosis in the lumbar spine, although this is difficult to assess as he cannot see the neuroanatomy. Impression: Sy is a 72-year-old male who comes in today with a chief complaint of longstanding low back pain with some mild radiation of symptoms down the posterior thigh terminating before the knee in a S1 type distribution. He states that his primary concern is his low back pain which impairs his ability to walk/stand. On physical exam he did have some diffuse weakness of the left lower extremity, which he attributes to longstanding pain/weakness when using his left extremity as a result of surgery he had in the ankle/foot many years ago. The patient has tried many qlcp-ebh-itbixdv remedies to help alleviate this problem, but has not been back to physical therapy since earlier last year. Given that the patient states that his symptoms were aggravated over the course of last year I believe that physical therapy would be of benefit for him at this time. I will also order an MRI which we can attempt to have completed in conjunction with physical therapy. If his insurance will not approve the MRI we can have him complete a course of physical therapy then obtained his MRI. Once we were able to review an MRI we will have a better idea of what surgical interventions could be potentially offered to the patient. He will be scheduled for a follow-up appointment after these things are completed. Thank you for allowing us to care for your patient. The total time spent with this visit with this patient was 45 minutes reviewing history, physical exam, CT imaging review, and implementation of treatment plan or further diagnostic testing Song Franklin MD,PhD [facility] Orders: Orders PT Evaluation and Treatment Today M48.00 - Spinal stenosis, site unspecified MR lumbar spine wo con Today M48.00 - Spinal stenosis, site unspecified Coding Level of Care Code New Pt Level 4 (15250) Diagnoses Spinal stenosis M48.00
== END 2023-07-24 12:04 | disposition home or self-care (01) ==
PROVIDERS: PCP Registered Nurse; Referring Provider Nurse Practitioner Family; Visit Provider Neurological Surgery
DX: M48.00 Spinal stenosis, site unspecified (principal)
CPT/HCPCS: 99204

== ENCOUNTER → 2023-07-24 09:50 | Outpatient (BNVA) | payer OTHER, SELFPAY | PROVIDERS: PCP Registered Nurse; Visit Provider Neurological Surgery | DX: M48.00 Spinal stenosis, site unspecified (principal) | CPT/HCPCS: 99202 ==

== ENCOUNTER → 2023-08-05 09:33 | Day surgery (SDC) | payer OTHER, SELFPAY ==
[2023-08-05 10:28] LABS: Glucose, Whole Blood 155 mg/dL (60-115)
[2023-08-05 10:35] LABS: MANUAL DIFF FLAG NO
[2023-08-05 10:37] VITALS: BP 117/76; PULSE 76; RESP 18; TEMP 36.1; O2SAT 98; BMI 27.3
[2023-08-05 10:38] LABS: Basophils Absolute Auto 0.1 X10*3/uL (0.0-0.2); Eosinophils Absolute Auto 0.5 X10*3/uL (0.0-0.4); Eosinophils Percent Auto 6.5 % (0-4); Hematocrit 38.6 % (42.0-52.0); Imm Gran Abs Auto 0.01 X10*3/uL (0.00-0.03); Imm Gran Pct Auto 0.1 % (0.0-0.4); Lymphocytes Absolute Auto 1.9 X10*3/uL (1.2-4.9); Lymphocytes Percent Auto 25.8 % (20-40); Mean Corpuscular HGB Conc 33.7 g/dl (31.0-36.0); Mean Corpuscular Hemoglobin 30.6 pg (27.0-33.0); Mean Corpuscular Volume 90.8 fL (80.0-98.0); Mean Platelet Volume 9.4 fL (9.4-12.4); Monocytes Absolute Auto 0.7 X10*3/uL (0.1-1.2); Monocytes Percent Auto 9.2 % (2-11); Neutrophils Absolute Auto 4.2 x10*3/uL (2.0-8.3); Neutrophils Percent Auto 57.4 % (45-73); Platelet Count 259 X10*3/uL (160-400); Red Blood Count 4.25 X10*6/uL (4.60-5.80); Red Cell Distribution Width 13.1 % (11.0-16.0); White Blood Count 7.3 X10*3/uL (4.8-10.8)
[2023-08-05 10:46] LABS: INTERNATIONAL NORM RATIO 0.9 (0.9-1.1); Prothrombin Time 11.3 SEC (11.1-13.3)
[2023-08-05 10:49] LABS: Partial Thromboplastin Time 29.6 SEC (26.0-36.4)
== END ==
PROVIDERS: Radiology Diagnostic Radiology; PCP Registered Nurse; Visit Provider Physician Assistant
DX: M48.00 Spinal stenosis, site unspecified (principal); Z53.20 Procedure and treatment not carried out because of patient's decision for unspecified reasons; G89.29 Other chronic pain; M54.50 Low back pain, unspecified; M47.816 Spondylosis without myelopathy or radiculopathy, lumbar region; R53.1 Weakness; M50.30 Other cervical disc degeneration, unspecified cervical region; R26.89 Other abnormalities of gait and mobility; M19.90 Unspecified osteoarthritis, unspecified site; I10 Essential (primary) hypertension; E78.5 Hyperlipidemia, unspecified; E03.9 Hypothyroidism, unspecified; E11.9 Type 2 diabetes mellitus without complications; F32.9 Major depressive disorder, single episode, unspecified; F41.1 Generalized anxiety disorder; Z99.89 Dependence on other enabling machines and devices; Z79.85 Long-term (current) use of injectable non-insulin antidiabetic drugs; Z79.84 Long term (current) use of oral hypoglycemic drugs; Z79.899 Other long term (current) drug therapy; Z98.890 Other specified postprocedural states
CPT/HCPCS: 36415; 82947; 85025; 85610; 85730

== ENCOUNTER 2023-08-20 09:22 | Day surgery (SDC) | payer OTHER, SELFPAY ==
[2023-08-20] VITALS (7 sets, daily range): BP systolic 104–124; BP diastolic 56–68; PULSE 79–85; RESP 16–18; TEMP 36.6–36.8; O2SAT 96–98; BMI 27.4
--- NOTE | ~2023-08-20 | FL_ITS ---
EXAMINATION: IR LUMBAR MYELOGRAPHY CLINICAL INFORMATION: Back pain COMPARISON: Previous CT scan of the lumbar spine dated 05/16/2023 TECHNIQUE: The skin was prepped and draped in the usual fashion. 1% Xylocaine was used for local anesthetic. A 21-gauge Chiba needle was placed into the thecal sac at the level of the L3-L4 disc space. 8 mL of Isovue 300 M was injected. The patient was then sent to CAT scan for further imaging. FINDINGS: LP under fluoroscopic guidance followed by injection of Isovue 300 um FL/FL myelogram spine lumbosacral IMPRESSION: Lumbar myelogram performed for the CT myelography.
--- NOTE | ~2023-08-20 | CT_ITS ---
CT LUMBAR SPINE MYELOGRAM WITHOUT IV CONTRAST CLINICAL INFORMATION: Myelogram. COMPARISON: Lumbar spine CT 05/16/2023. TECHNIQUE: A multidetector CT acquisition of the lumbar spine is obtained following the intrathecal administration of myelographic contrast agent as reported separately. This CT examination was performed using dose optimization techniques as appropriate, variously including the following: *Automated exposure control *Adjustment of mA and/or kV according to patient size (this includes techniques or standardized protocols for targeted exams where dose is matched to indication/reason for exam; i.e. extremities or head) *Use of iterative reconstruction technique FINDINGS: This study is technically limited due to poor intrathecal contrast opacification with no myelographic contrast agent. There is no myelographic block. There are 5 nonrib-bearing lumbar-type vertebral bodies. There is chronic upper endplate height loss at L1. Chronic opposing endplate height loss at L3-L4. There are no acute fractures and there are no acute subluxations. Degenerative endplate irregularity at L3-L4 and to lesser extent L2-L3. Mild aortic atherosclerotic calcification. Stable appearing left upper pole exophytic renal cyst for which no further imaging follow-up is warranted. At L1-L2, there is no definite significant disc contour abnormality. No central canal stenosis and no significant foraminal stenosis. At L2-L3, there is a diffuse annular disc bulge and there is mild bilateral facet arthropathy. Small volume gas within the dorsal thecal sac from the myelogram. Mild narrowing of the central canal and mild bilateral foraminal encroachment. At L3-L4, there is a diffuse annular disc bulge and there is mild bilateral facet arthropathy. Bilateral subarticular zone stenosis. Mild central canal stenosis. Mild bilateral foraminal encroachment. At L4-L5, there is a diffuse annular disc bulge and there is moderate bilateral facet arthropathy. No appreciable central canal stenosis. There is mild foraminal encroachment bilaterally. At L5-S1, there is a diffuse annular disc bulge and there is moderate bilateral facet arthropathy. There is no central canal stenosis. There is mild to moderate foraminal encroachment bilaterally. CT/CT lumbar spine wo IV con IMPRESSION: - This study is technically limited due to poor intrathecal contrast opacification with no myelographic contrast agent. There is no myelographic block. - Accounting for technical limitations, there is no severe central canal stenosis within the lumbar spine. There is bilateral subarticular zone stenosis at L3-L4 where there is severe degenerative disc disease. Multilevel foraminal encroachment as discussed in detail above. Assessment for subtle disc herniations is limited given technique.
[2023-08-20 09:54] LABS: Glucose, Whole Blood 159 mg/dL (60-115)
[2023-08-20 10:29] LABS: Anion Gap 12 (12-20); Blood Urea Nitrogen 18 mg/dL (9-16); Carbon Dioxide 26 mmol/L (22-29); Chloride 104 mmol/L (96-108); Creatinine Clr Calc Pharmacy 89.4; Estimated Glomerular Filt Rate > 60; Potassium 3.9 mmol/L (3.3-5.1); Sodium 138 mmol/L (135-145)
[2023-08-20] MEDS: iopamidoL 15 ML VIAL INTRATHECA (12:11)
== END 2023-08-20 14:38 | disposition home or self-care (01) ==
LOC: HO.SSS 09:23
PROVIDERS: Radiology Diagnostic Radiology; PCP Registered Nurse; Visit Provider Physician Assistant
DX: M48.00 Spinal stenosis, site unspecified (principal); M54.50 Low back pain, unspecified; M19.90 Unspecified osteoarthritis, unspecified site; F33.2 Major depressive disorder, recurrent severe without psychotic features; R45.851 Suicidal ideations; I10 Essential (primary) hypertension; E11.9 Type 2 diabetes mellitus without complications; E78.5 Hyperlipidemia, unspecified; E03.9 Hypothyroidism, unspecified; Z79.1 Long term (current) use of non-steroidal anti-inflammatories (NSAID); Z79.85 Long-term (current) use of injectable non-insulin antidiabetic drugs; Z79.899 Other long term (current) drug therapy; Z99.89 Dependence on other enabling machines and devices
CPT/HCPCS: 36415; 62304; 72131; 80051; 82565; 82947; 84520

== ENCOUNTER → 2023-08-20 09:26 | Outpatient (BNV) | payer OTHER, SELFPAY | PROVIDERS: PCP Registered Nurse; Visit Provider Radiology Vascular & Interventional Radiology | DX: M54.50 Low back pain, unspecified (principal) | CPT/HCPCS: 62304 ==

== ENCOUNTER 2023-10-24 11:08 | Outpatient (REF) | payer OTHER, SELFPAY ==
--- NOTE | ~2023-10-24 | XR_ITS ---
EXAMINATION: XR LUMBAR SPINE, XR AP PELVIS AND BILATERAL HIPS CLINICAL INFORMATION: Spondylosis without myelopathy or radiculopathy lumbar region. Pain in right hip. COMPARISON: CT lumbar spine 08/20/2023.. TECHNIQUE: 7 views of the lumbar spine inclusive on flexion and extension views. AP view of the pelvis as well as AP and lateral views of each hip. FINDINGS: LUMBAR SPINE: The bones are diffusely demineralized. Degenerative changes in the imaged lower thoracic spine. Redemonstration of superior endplate concavity at L1. Slight rightward curvature of the lumbar spine. Redemonstration of advanced degenerative changes at L3-L4 with loss of disc space height and endplate sclerosis. Facet arthritis in the lower lumbar spine. AP PELVIS AND BILATERAL HIPS: The bones are diffusely demineralized. Mild degenerative changes in the bilateral hips with joint space narrowing and hypertrophic change. XR/XR hip BI w PEL1V IMPRESSION: 1. Advanced degenerative changes at L3-L4. 2. Mild degenerative changes in the bilateral hips. Correlation with clinical exam recommended to determine further management. If there is concern for fracture or other underlying pathology, MRI could be obtained for further evaluation.
--- NOTE | ~2023-10-24 | XR_ITS ---
EXAMINATION: XR LUMBAR SPINE, XR AP PELVIS AND BILATERAL HIPS CLINICAL INFORMATION: Spondylosis without myelopathy or radiculopathy lumbar region. Pain in right hip. COMPARISON: CT lumbar spine 08/20/2023.. TECHNIQUE: 7 views of the lumbar spine inclusive on flexion and extension views. AP view of the pelvis as well as AP and lateral views of each hip. FINDINGS: LUMBAR SPINE: The bones are diffusely demineralized. Degenerative changes in the imaged lower thoracic spine. Redemonstration of superior endplate concavity at L1. Slight rightward curvature of the lumbar spine. Redemonstration of advanced degenerative changes at L3-L4 with loss of disc space height and endplate sclerosis. Facet arthritis in the lower lumbar spine. AP PELVIS AND BILATERAL HIPS: The bones are diffusely demineralized. Mild degenerative changes in the bilateral hips with joint space narrowing and hypertrophic change. XR/XR lumbar spine 6V w bending IMPRESSION: 1. Advanced degenerative changes at L3-L4. 2. Mild degenerative changes in the bilateral hips. Correlation with clinical exam recommended to determine further management. If there is concern for fracture or other underlying pathology, MRI could be obtained for further evaluation.
== END 2023-10-24 11:09 | disposition home or self-care (01) ==
LOC: HO.XRAY 11:08
PROVIDERS: PCP Registered Nurse; Visit Provider Nurse Practitioner Family
DX: M54.16 Radiculopathy, lumbar region (principal); M25.551 Pain in right hip; M25.552 Pain in left hip; M47.816 Spondylosis without myelopathy or radiculopathy, lumbar region
CPT/HCPCS: 72114; 73521; 99212

== ENCOUNTER 2023-10-24 11:08 | Outpatient (AMB) | payer OTHER, SELFPAY ==
--- NOTE | 2023-10-24 11:09 | MHC.OFFVIS ---
Intake Vital Signs 10/24/23 11:16 Height 5 ft 6 in Weight 175 lb BMI 28.2 BP 117/67 Blood Pressure Location Lt brachial Position Sitting Pulse 93 Pulse Source Pulse Oximeter Pulse Oximetry (%) 96 Oxygen Delivery Method Room Air Intake Visit Reasons: Follow Up KASSIE 03/18/23/lvm Intake Note: Pain today 10 Security Project Manager Required: Yes Security Project Manager Language: [employer] Caser Name: LABOR RELATIONS SUPERVISOR Accompanied by: Unknown Allergies No Known Allergies Allergy (Verified 10/24/23 11:16) HPI HPI Comments History of Present Illness Details Patient presents today for follow up for continued chronic low back and bilateral hip pain. Patient is accompanied by his LABOR RELATIONS SUPERVISOR who assists with translation per patient's request. Patient reports he was seen at [facility] and recently completed lumbar spine CT Myelogram and had no significant central canal stenosis noted on CT myelogram. He was deemed non-surgical candidate at this time. Patient was recommended to follow up with Physiatry and our office as next steps to address his spine arthropathy. Patient reports today pain in both of his lateral hips with radiation of pain to anterior thighs and low back pain with movements, bending or walking. Patient was reminded to complete hip xray that were ordered back in March. Patient is interested to undergo interventional treatments for his chronic low back pain and bilateral hip pain. Denies fever, abdominal pain, bladder or bowel dysfunction or saddle anesthesia. PRIOR 03/18/23: Patient is a pleasant 72 years old Wolof speaking male with history of diabetes, major depression with recent SI, anxiety, joint pain, arthritis, cervical DDD, bilateral chronic back pain without sciatica presents today with chronic lower back pain. Denies any recent trauma, injury or falls. History intake noted for neck pain due to fall. Lidocaine patches gave him a rash. He has been doing home physical therapy twice a week and also receives increased LABOR RELATIONS SUPERVISOR hours. Patient failed Voltaren gel, Ibuprofen, and Tylenol. His pain is mostly axial, with radiation to his lower legs with numbness and tingling and mild bilateral hip and left groin pain. He also presents with bilateral flank pain and CVA tenderness. Reports occasional incontinence. Denies being followed by urology. Denies bowel incontinence or saddle anesthesia. Reports weakness in his lower extremities, uses walker for transfers and ambulation. Patient is not aware of his most recent A1C level. Reports fasting blood sugar was 117 this morning. As of note, patient was brought to ED on 01/30/23 with major depression and SI since passing of his sister last month. Patient reports depressive thoughts and grieving but denies any SI/HI or hallucinations today. Location Lower back and bilateral hip Duration Chronic pain, worse in the past 2 months Characteristics of symptom or complaint Aching, stabbing, sharp, cramping, hot, burning, tingling Aggravating or associated factors Movements, walking, standing, changing positions Relieving factors Walker with seat, Tylenol, Ibuprofen, Voltaren gel, Lidocaine patches-rash Treatment Home PT [facility] Medical History Degenerative disc disease, cervical Hypothyroidism (05/16/17) Hyperlipidemia (05/16/17) Essential hypertension (05/16/17) Diabetes mellitus (05/16/17) Constipation (05/20/17) 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) Flank pain Social History Household Members: Friend(s) Housing: Apartment Do you presently have visiting nurse or other home services: Yes ([facility] and LABOR RELATIONS SUPERVISOR) Alcohol intake: never Patient Tobacco Use Status: Never used Tobacco Advance Directives Date on File: 08/13/22 service: No Sexual orientation: Straight/Heterosexual Review of Systems Const All systems reviewed & are unremarkable except as noted in HPI and below Physical Exam Vital Signs: Last Vital Signs Pulse 93 10/24/23 11:16 BP 117/67 10/24/23 11:16 Pulse Ox 96 10/24/23 11:16 Oxygen Delivery Method Room Air 10/24/23 11:16 BMI result Body Mass Index 28.2 General: Appears afebrile. In moderate distress due to back and hip pain. Pain is rated 10/10. Alert and oriented. Pleasant. Mood and affect appropriate. Follows and participates in conversation appropriately. Respiratory effort is unlabored. No cough. Able to transition from sit to stand with assistance of LABOR RELATIONS SUPERVISOR. Uses walker with seat. Ambulates with bilaterally normal heel strike and toe off with difficulty on both sides due to imbalance and pain. Back/Spine/Pelvis Other: Limited back exam due to exacerbation of back pain. Ambulates with antalgic, slow gait with limping. Demonstrates 5/5 strength of quadriceps bilaterally as well as flexion/dorsiflexion of bilateral feet against resistance. 2+ pedal pulses bilaterally. Seated straight leg rise with dorsiflexion positive bilaterally, worse on the right. +1 patellar and trace achilles reflexes bilaterally. Facet loading test positive bilaterally. Limited Kike?s, Pelvic compression and Stinchfield tests are positive bilaterally, reproduce lateral hip and low back pain bilaterally. Moderate groin pain with I/E hip rotations bilaterally, right > left. Cervical Spine: loss of normal cervical lordosis, cervical muscular tenderness, pain with cervical ROM, No Cervical spine scars present and No Cervical spine tenderness Thoracic/Lumbar Spine: thoracic and lumbar spine normal to inspection, No Thoracic/lumbar spine scar(s), Lasegue's sign positive, pain with thoraco-lumbar ROM, paraspinal muscle tenderness, thoraco-lumbar ROM limited, No thoracic spinal tenderness and lumbar spinal tenderness (L4-S1) Pelvis: buttock tenderness bilaterally Sacroiliac joints: bilaterally nontender Extrem General: Yes capillary refill normal, Yes no clubbing, cyanosis or edema and Yes no calf tenderness Results Reviewed Results Reviewed: CT LUMBAR SPINE MYELOGRAM WITHOUT IV CONTRAST 08/20/23 CLINICAL INFORMATION: Myelogram. COMPARISON: Lumbar spine CT 05/16/2023. FINDINGS: This study is technically limited due to poor intrathecal contrast opacification with no myelographic contrast agent. There is no myelographic block. There are 5 nonrib-bearing lumbar-type vertebral bodies. There is chronic upper endplate height loss at L1. Chronic opposing endplate height loss at L3-L4. There are no acute fractures and there are no acute subluxations. Degenerative endplate irregularity at L3-L4 and to lesser extent L2-L3. Mild aortic atherosclerotic calcification. Stable appearing left upper pole exophytic renal cyst for which no further imaging follow-up is warranted. At L1-L2, there is no definite significant disc contour abnormality. No central canal stenosis and no significant foraminal stenosis. At L2-L3, there is a diffuse annular disc bulge and there is mild bilateral facet arthropathy. Small volume gas within the dorsal thecal sac from the myelogram. Mild narrowing of the central canal and mild bilateral foraminal encroachment. At L3-L4, there is a diffuse annular disc bulge and there is mild bilateral facet arthropathy. Bilateral subarticular zone stenosis. Mild central canal stenosis. Mild bilateral foraminal encroachment. At L4-L5, there is a diffuse annular disc bulge and there is moderate bilateral facet arthropathy. No appreciable central canal stenosis. There is mild foraminal encroachment bilaterally. At L5-S1, there is a diffuse annular disc bulge and there is moderate bilateral facet arthropathy. There is no central canal stenosis. There is mild to moderate foraminal encroachment bilaterally. IMPRESSION: - This study is technically limited due to poor intrathecal contrast opacification with no myelographic contrast agent. There is no myelographic block. - Accounting for technical limitations, there is no severe central canal stenosis within the lumbar spine. There is bilateral subarticular zone stenosis at L3-L4 where there is severe degenerative disc disease. Multilevel foraminal encroachment as discussed in detail above. Assessment for subtle disc herniations is limited given technique. Assessment & Plan Assessment & Plan (1) Lumbar radiculopathy: Code(s): M54.16 - Radiculopathy, lumbar region (2) Bilateral hip pain: Code(s): M25.551 - Pain in right hip; M25.552 - Pain in left hip (3) Lumbar spondylosis: Code(s): M47.816 - Spondylosis without myelopathy or radiculopathy, lumbar region Plan Patient was reminded to complete bilateral hip pain to assess degenerative changes prior to consideration of interventional treatments for hip pain. Tentatively plan for Diagnostic Bilateral L3-L4 DR L5 MBB with local and fluoroscopy for potential RFA procedure vs therapeutic injections. Patient is not interested in peripheral nerve stimulation as this is a not practical nor easy to take care of Sprint device in his current condition and living situation. Short script provided for moderate-severe pain, side effects and precautions were discussed with patient and his LABOR RELATIONS SUPERVISOR. All questions and concerns have been answered and patient agreed with the plan. Follow up for xray results and sooner as needed. Medications: New tramadol 50 mg PO DAILY PRN 14 tabs 0RF pain M25.551 - Pain in right hip, M25.552 - Pain in left hip, M47.816 - Spondylosis without myelopathy or radiculopathy, lumbar region, M54.16 - Radiculopathy, lumbar region Coding Level of Care Code Est Pt Level 4 (78702) Diagnoses Lumbar radiculopathy M54.16 Bilateral hip pain M25.551; M25.552 Lumbar spondylosis M47.816
[2023-10-24 11:16] VITALS: BP 117/67; PULSE 93; O2SAT 96; BMI 28.2
== END 2023-10-24 11:44 | disposition home or self-care (01) ==
PROVIDERS: PCP Registered Nurse; Visit Provider Nurse Practitioner Family
DX: M54.16 Radiculopathy, lumbar region (principal); M25.551 Pain in right hip; M25.552 Pain in left hip; M47.816 Spondylosis without myelopathy or radiculopathy, lumbar region
CPT/HCPCS: 99214

== ENCOUNTER 2023-12-03 06:13 | Outpatient (REF) | payer OTHER, SELFPAY ==
--- NOTE | ~2023-12-03 | FL_ITS ---
EXAMINATION: XR FLUOROSCOPY WITH IMAGES CLINICAL INFORMATION: Spondylosis without myelopathy or radiculopathy, lumbar region. Bilateral lumbar injection. COMPARISON: None available. TECHNIQUE: Fluoroscopy Supervised By: Dr. Rob Bagley. Fluoroscopy Time: 44.9 seconds. Cumulative Dose: 16.92 mGy. DAP: None available on this machine. Images: 12. FINDINGS: Images demonstrate needle placement and contrast injection adjacent to the bilateral lateral L4 and L5 vertebrae FL/FL guidance in treatment room IMPRESSION: Fluoroscopy guidance for pain management procedure.
== END 2023-12-03 06:14 | disposition home or self-care (01) ==
LOC: CF 06:13
PROVIDERS: Visit Provider Anesthesiology
DX: M47.816 Spondylosis without myelopathy or radiculopathy, lumbar region (principal); M54.16 Radiculopathy, lumbar region; M25.551 Pain in right hip; M25.552 Pain in left hip
CPT/HCPCS: 64493; 64494; J2795; Q9967

== ENCOUNTER 2023-12-03 10:43 | Outpatient (AMB) | payer OTHER, SELFPAY ==
--- NOTE | 2023-12-03 11:03 | MHC.OFFVIS ---
Intake Vital Signs 12/03/23 11:50 12/03/23 11:51 Height 5 ft 6 in 5 ft 6 in Weight 175 lb 175 lb BMI 28.2 28.2 BP 104/58 L 102/60 Blood Pressure Location Lt brachial Lt brachial Position Sitting Sitting Respiration 12 12 Pulse 76 77 Pulse Source Pulse Oximeter Pulse Oximeter Pulse Oximetry (%) 100 98 Oxygen Delivery Method Room Air Room Air Comment pre-op post-op Intake Visit Reasons: BILATERAL DIAGNOSTIC L3,L4,DRL5 MBB Allergies No Known Allergies Allergy (Verified 12/03/23 11:52) [facility] Medical History Degenerative disc disease, cervical Hypothyroidism (05/16/17) Hyperlipidemia (05/16/17) Essential hypertension (05/16/17) Diabetes mellitus (05/16/17) Constipation (05/20/17) 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) Flank pain Social History Household Members: Friend(s) Housing: Apartment Do you presently have visiting nurse or other home services: Yes ([facility] and HELPER COORDINATOR) Alcohol intake: never Patient Tobacco Use Status: Never used Tobacco Advance Directives Date on File: 08/13/22 service: No Sexual orientation: Straight/Heterosexual Physical Exam Vital Signs: Last Vital Signs Pulse 77 12/03/23 11:51 Resp 12 12/03/23 11:51 BP 102/60 12/03/23 11:51 Pulse Ox 98 12/03/23 11:51 Oxygen Delivery Method Room Air 12/03/23 11:51 BMI result Body Mass Index 28.2 Assessment & Plan Assessment & Plan (1) Lumbar radiculopathy: Code(s): M54.16 - Radiculopathy, lumbar region (2) Bilateral hip pain: Code(s): M25.551 - Pain in right hip; M25.552 - Pain in left hip (3) Lumbar spondylosis: Code(s): M47.816 - Spondylosis without myelopathy or radiculopathy, lumbar region Plan: Diagnostic medial branch block L3,L4 dorsal ramus L5 bilateral.? ? ?Informed consent was explained to the patient. All questions were explained and? answered.? The patient was taken inside the operating room where she was positioned prone on the operating table. Time-out was performed delineating correct site, side, the nature of the procedure, patient's allergy, . All operating room staff was participating in OR time-out procedure. ? ? The lower back was prepped with ChloraPrep and draped with sterile towels.? C-arm was brought over the operating field and sq picture of L4-, L5 vertebra and S1 AREA were delineated on the screen.? Point of interest were delineated as centers of the pedicles on the oblique views at l4 and L5 vertebrae bilaterally as well as confluence of the sacral alae bilaterally with superior articular process of S1.? The projection of the point of interest to the skin were injected with the small amount of local anesthetic lidocaine 2% 1-1.5 cc.? After that 22 gauge 3.5 inch spinal needle was driven sequentially to the points of interest in tunnel vision fashion. After needles gently contacted the bone at the point of interests the needle was injected with small amount of the contrast.? The injection of the contrast did not demonstrate any intravascular or intrathecal spread of the contrast.? After that injection of the? ropivacaine 0.5%-1cc was performed at each needle location.??after that the needles were removed and Bandaids were applied. ? Upon completion of the injections? needle was? removed and sterile Band-Aids were applied.? The patient tolerated procedure very well. Plan Patient was reminded to complete bilateral hip pain to assess degenerative changes prior to consideration of interventional treatments for hip pain. Tentatively plan for Diagnostic Bilateral L3-L4 DR L5 MBB with local and fluoroscopy for potential RFA procedure vs therapeutic injections. Patient is not interested in peripheral nerve stimulation as this is a not practical nor easy to take care of Sprint device in his current condition and living situation. Short script provided for moderate-severe pain, side effects and precautions were discussed with patient and his HELPER COORDINATOR. All questions and concerns have been answered and patient agreed with the plan. Follow up for xray results and sooner as needed. Coding Level of Care Code Procedure Only Diagnoses Lumbar radiculopathy M54.16 Bilateral hip pain M25.551; M25.552 Lumbar spondylosis M47.816
[2023-12-03 11:50] VITALS: BP 104/58; PULSE 76; RESP 12; O2SAT 100; BMI 28.2
[2023-12-03 11:51] VITALS: BP 102/60; PULSE 77; RESP 12; O2SAT 98; BMI 28.2
== END 2023-12-03 11:41 | disposition home or self-care (01) ==
LOC: HO.PMCPRC 10:43
PROVIDERS: PCP Registered Nurse; Visit Provider Anesthesiology
DX: M54.16 Radiculopathy, lumbar region (principal); M25.551 Pain in right hip; M25.552 Pain in left hip; M47.816 Spondylosis without myelopathy or radiculopathy, lumbar region
CPT/HCPCS: 64493; 64494

== ENCOUNTER 2023-12-10 12:52 | Outpatient (AMB) | payer OTHER, SELFPAY ==
--- NOTE | 2023-12-10 13:03 | A.OFFVIS_ITS ---
Intake Vital Signs 12/10/23 13:08 Height 5 ft 6 in Weight 173 lb BMI 27.9 BP 111/58 L Blood Pressure Location Lt brachial Position Sitting Pulse 93 Pulse Source Pulse Oximeter Pulse Oximetry (%) 99 Oxygen Delivery Method Room Air Intake Visit Reasons: Bilateral L3-L4 DRL5 MBB 12/03 Intake Note: Pain today 5/10 Physics Tutor Required: Yes Physics Tutor Language: Professor/Nurse Anesthetist Name: Christopher DERRICK BOAT OPERATOR Accompanied by: Family/Other Allergies No Known Allergies Allergy (Verified 12/10/23 13:08) HPI HPI Comments History of Present Illness Details Patient presents today to assess response to Bilateral Diagnostic L3-L4-DRL5 MBB on 12/03/[address] Bagley. Patient reports 70-75% pain relief for 7 hours after procedure. Patient reports improved functioning, better movements and mobility, was able to stand more straight than before and was able to sleep better during that day. Patient reports pain gradually returned to its baseline 6-7/10 the next day and had to take Tylenol Arthritis. He rates his pain at 5/10 today. Patient is interested to proceed with repeated injections for potential lumbar medial branch RFA. Denies any recent cough, cold, infection, fever, any significant changes in her medical history, medications or recent hospitalizations. Past Procedures: 12/03/23: Bilateral Diagnostic L3-L4-DRL 5 MBB-70-75%- 6 hours pain relief PRIOR: Patient presents today for follow up for continued chronic low back and bilateral hip pain. Patient is accompanied by his DERRICK BOAT OPERATOR who assists with translation per patient's request. Patient reports he was seen at [facility] and recently completed lumbar spine CT Myelogram and had no significant central canal stenosis noted on CT myelogram. He was deemed non-surgical candidate at this time. Patient was recommended to follow up with Physiatry and our office as next steps to address his spine arthropathy. Patient reports today pain in both of his lateral hips with radiation of pain to anterior thighs and low back pain with movements, bending or walking. Patient was reminded to complete hip xray that were ordered back in March. Patient is interested to undergo interventional treatments for his chronic low back pain and bilateral hip pain. Denies fever, abdominal pain, bladder or bowel dysfunction or saddle anesthesia. PRIOR 03/18/23: Patient is a pleasant 72 years old Macedonian speaking male with history of diabetes, major depression with recent SI, anxiety, joint pain, arthritis, cervical DDD, bilateral chronic back pain without sciatica presents today with chronic lower back pain. Denies any recent trauma, injury or falls. History intake noted for neck pain due to fall. Lidocaine patches gave him a rash. He has been doing home physical therapy twice a week and also receives increased DERRICK BOAT OPERATOR hours. Patient failed Voltaren gel, Ibuprofen, and Tylenol. His pain is mostly axial, with radiation to his lower legs with numbness and tingling and mild bilateral hip and left groin pain. He also presents with bilateral flank pain and CVA tenderness. Reports occasional incontinence. Denies being followed by urology. Denies bowel incontinence or saddle anesthesia. Reports weakness in his lower extremities, uses walker for transfers and ambulation. Patient is not aware of his most recent A1C level. Reports fasting blood sugar was 117 this morning. As of note, patient was brought to ED on 01/30/23 with major depression and SI since passing of his sister last month. Patient reports depressive thoughts and grieving but denies any SI/HI or hallucinations today. Location Lower back and bilateral hip Duration Chronic pain, worse in the past 2 months Characteristics of symptom or complaint Aching, stabbing, sharp, cramping, hot, burning, tingling Aggravating or associated factors Movements, walking, standing, changing positions Relieving factors Walker with seat, Tylenol, Ibuprofen, Voltaren gel, Lidocaine patches-rash Treatment Home PT [facility] Medical History Degenerative disc disease, cervical Hypothyroidism (05/16/17) Hyperlipidemia (05/16/17) Essential hypertension (05/16/17) Diabetes mellitus (05/16/17) Constipation (05/20/17) 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) Flank pain Social History Household Members: Friend(s) Housing: Apartment Do you presently have visiting nurse or other home services: Yes ([facility] and DERRICK BOAT OPERATOR) Alcohol intake: never Patient Tobacco Use Status: Never used Tobacco Advance Directives Date on File: 08/13/22 service: No Sexual orientation: Straight/Heterosexual Review of Systems Const All systems reviewed & are unremarkable except as noted in HPI and below Physical Exam Vital Signs: Last Vital Signs Pulse 93 12/10/23 13:08 BP 111/58 L 12/10/23 13:08 Pulse Ox 99 12/10/23 13:08 Oxygen Delivery Method Room Air 12/10/23 13:08 BMI result Body Mass Index 27.9 General: Appears afebrile. Alert and oriented. Mood and affect appropriate. Follows and participates in conversation appropriately. Respiratory effort is unlabored. No cough. Able to transition from sit to stand with assistance of DERRICK BOAT OPERATOR. Uses cane. Ambulates with bilaterally normal heel strike and toe off with difficulty on both sides due to imbalance and pain. Back/Spine/Pelvis Other: Lumbar extension reproduces moderate pain, flexion reproduces mild pain. Ambulates with antalgic, slow gait with mild limping. Mild groin pain with I/E hip rotations bilaterally, right > left. Cervical Spine: loss of normal cervical lordosis, No Cervical spine scars present and No Cervical spine tenderness Thoracic/Lumbar Spine: thoracic and lumbar spine normal to inspection, No Thoracic/lumbar spine scar(s), pain with thoraco-lumbar ROM, thoraco-lumbar ROM limited, No thoracic spinal tenderness and lumbar spinal tenderness (L4-S1) Sacroiliac joints: bilaterally nontender Extrem General: Yes capillary refill normal, Yes no clubbing, cyanosis or edema and Yes no calf tenderness Results Reviewed Results Reviewed: CT LUMBAR SPINE MYELOGRAM WITHOUT IV CONTRAST 08/20/23 CLINICAL INFORMATION: Myelogram. COMPARISON: Lumbar spine CT 05/16/2023. FINDINGS: This study is technically limited due to poor intrathecal contrast opacification with no myelographic contrast agent. There is no myelographic block. There are 5 nonrib-bearing lumbar-type vertebral bodies. There is chronic upper endplate height loss at L1. Chronic opposing endplate height loss at L3-L4. There are no acute fractures and there are no acute subluxations. Degenerative endplate irregularity at L3-L4 and to lesser extent L2-L3. Mild aortic atherosclerotic calcification. Stable appearing left upper pole exophytic renal cyst for which no further imaging follow-up is warranted. At L1-L2, there is no definite significant disc contour abnormality. No central canal stenosis and no significant foraminal stenosis. At L2-L3, there is a diffuse annular disc bulge and there is mild bilateral facet arthropathy. Small volume gas within the dorsal thecal sac from the myelogram. Mild narrowing of the central canal and mild bilateral foraminal encroachment. At L3-L4, there is a diffuse annular disc bulge and there is mild bilateral facet arthropathy. Bilateral subarticular zone stenosis. Mild central canal stenosis. Mild bilateral foraminal encroachment. At L4-L5, there is a diffuse annular disc bulge and there is moderate bilateral facet arthropathy. No appreciable central canal stenosis. There is mild foraminal encroachment bilaterally. At L5-S1, there is a diffuse annular disc bulge and there is moderate bilateral facet arthropathy. There is no central canal stenosis. There is mild to moderate foraminal encroachment bilaterally. IMPRESSION: - This study is technically limited due to poor intrathecal contrast opacification with no myelographic contrast agent. There is no myelographic block. - Accounting for technical limitations, there is no severe central canal stenosis within the lumbar spine. There is bilateral subarticular zone stenosis at L3-L4 where there is severe degenerative disc disease. Multilevel foraminal encroachment as discussed in detail above. Assessment for subtle disc herniations is limited given technique. XR LUMBAR SPINE, XR AP PELVIS AND BILATERAL HIPS 10/24/23 CLINICAL INFORMATION: Spondylosis without myelopathy or radiculopathy lumbar region. Pain in right hip. COMPARISON: CT lumbar spine 08/20/2023.. TECHNIQUE: 7 views of the lumbar spine inclusive on flexion and extension views. AP view of the pelvis as well as AP and lateral views of each hip. FINDINGS: LUMBAR SPINE: The bones are diffusely demineralized. Degenerative changes in the imaged lower thoracic spine. Redemonstration of superior endplate concavity at L1. Slight rightward curvature of the lumbar spine. Redemonstration of advanced degenerative changes at L3-L4 with loss of disc space height and endplate sclerosis. Facet arthritis in the lower lumbar spine. AP PELVIS AND BILATERAL HIPS: The bones are diffusely demineralized. Mild degenerative changes in the bilateral hips with joint space narrowing and hypertrophic change. IMPRESSION: 1. Advanced degenerative changes at L3-L4. 2. Mild degenerative changes in the bilateral hips. Correlation with clinical exam recommended to determine further management. If there is concern for fracture or other underlying pathology, MRI could be obtained for further evaluation. Assessment & Plan Assessment & Plan (1) Lumbar radiculopathy: Code(s): M54.16 - Radiculopathy, lumbar region (2) Bilateral hip pain: Code(s): M25.551 - Pain in right hip; M25.552 - Pain in left hip (3) Lumbar spondylosis: Code(s): M47.816 - Spondylosis without myelopathy or radiculopathy, lumbar region Plan Patient s/p diagnostic lumbar medial branch blocks with good results. Discussed further steps for longer pain relief. Patient is not candidate for therapeutic injections due to elevated A1C level of 9.5. He is not interested in Sprint PNS trial due to current condition and living alone. Patient would like to repeat diagnostic lumbar medial branch block injections in order to establish reproducible response to the treatment for potential RFA procedure. Schedule Repeat Diagnostic Bilateral L3-L4 DR L5 MBB with local and fluoroscopy. Expectations, risks and benefits were reviewed. Patient is aware he will be contacted to schedule this procedure. All questions and concerns have been answered and patient agreed with the plan. Follow up after injections and sooner as needed. Coding Level of Care Code Est Pt Level 3 (73892) Diagnoses Lumbar radiculopathy M54.16 Bilateral hip pain M25.551; M25.552 Lumbar spondylosis M47.816
[2023-12-10 13:08] VITALS: BP 111/58; PULSE 93; O2SAT 99; BMI 27.9
== END 2023-12-10 13:23 | disposition home or self-care (01) ==
PROVIDERS: PCP Registered Nurse; Visit Provider Nurse Practitioner Family
DX: M54.16 Radiculopathy, lumbar region (principal); M25.551 Pain in right hip; M25.552 Pain in left hip; M47.816 Spondylosis without myelopathy or radiculopathy, lumbar region
CPT/HCPCS: 99213

== ENCOUNTER → 2023-12-10 12:52 | Outpatient (BNVA) | payer OTHER, SELFPAY | PROVIDERS: PCP Registered Nurse; Visit Provider Nurse Practitioner Family | DX: M47.26 Other spondylosis with radiculopathy, lumbar region (principal); M25.551 Pain in right hip; M25.552 Pain in left hip; Z98.890 Other specified postprocedural states | CPT/HCPCS: 99212 ==

== ENCOUNTER 2024-01-28 06:21 | Outpatient (REF) | payer OTHER, SELFPAY ==
--- NOTE | ~2024-01-28 | FL_ITS ---
EXAMINATION: XR FLUOROSCOPY WITH IMAGES CLINICAL INFORMATION: Spondylosis without myelopathy or radiculopathy, lumbar region COMPARISON: Lumbar spine radiographs 10/24/2020 TECHNIQUE: Fluoroscopy Supervised By: YONAS Hamm. Fluoroscopy Time: 53.1 seconds. Cumulative Dose: 20.331 mGy. DAP: 8.8436 Gy-cm2. Images: 5. FINDINGS: Radiographs demonstrate needle positions over the region of the lumbar spine with contrast injected. Please see Helen Brooks's report for full details. FL/FL guidance in treatment room IMPRESSION: Fluoroscopy and spot films provided during lumbar injection.
== END 2024-01-28 06:22 | disposition home or self-care (01) ==
LOC: CF 06:21
PROVIDERS: Visit Provider Anesthesiology
DX: M47.816 Spondylosis without myelopathy or radiculopathy, lumbar region (principal); M54.16 Radiculopathy, lumbar region
CPT/HCPCS: 64493; 64494; J2795; Q9967

== ENCOUNTER 2024-01-28 12:55 | Outpatient (AMB) | payer OTHER, SELFPAY ==
[2024-01-28 12:58] VITALS: BP 120/74; PULSE 78; RESP 16; O2SAT 100; BMI 27.9
--- NOTE | 2024-01-28 12:58 | A.OFFVIS_ITS ---
Intake Vital Signs 01/28/24 12:58 01/28/24 14:20 Height 5 ft 6 in Weight 173 lb BMI 27.9 BP 120/74 124/84 Blood Pressure Location Lt brachial Lt brachial Position Sitting Sitting Respiration 16 18 Pulse 78 70 Pulse Source Pulse Oximeter Pulse Oximeter Pulse Oximetry (%) 100 97 Oxygen Delivery Method Room Air Room Air Comment Pre-Op Post-Op Intake Visit Reasons: BILATERAL DIAGNOSTIC L3, L4, DRL5 MBB Allergies No Known Allergies Allergy (Verified 12/10/23 13:08) [facility] Medical History Degenerative disc disease, cervical Hypothyroidism (05/16/17) Hyperlipidemia (05/16/17) Essential hypertension (05/16/17) Diabetes mellitus (05/16/17) Constipation (05/20/17) 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) Flank pain Social History Household Members: Friend(s) Housing: Apartment Do you presently have visiting nurse or other home services: Yes ([facility]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) Alcohol intake: never Patient Tobacco Use Status: Never used Tobacco Advance Directives Date on File: 08/13/22 service: No Sexual orientation: Straight/Heterosexual Physical Exam Vital Signs: Last Vital Signs Pulse 70 01/28/24 14:20 Resp 18 01/28/24 14:20 BP 124/84 01/28/24 14:20 Pulse Ox 97 01/28/24 14:20 Oxygen Delivery Method Room Air 01/28/24 14:20 BMI result Body Mass Index 27.9 Assessment & Plan Assessment & Plan (1) Lumbar radiculopathy: Code(s): M54.16 - Radiculopathy, lumbar region (2) Bilateral hip pain: Code(s): M25.551 - Pain in right hip; M25.552 - Pain in left hip (3) Lumbar spondylosis: Code(s): M47.816 - Spondylosis without myelopathy or radiculopathy, lumbar region Plan: Diagnostic medial branch block L3,L4 dorsal ramus L5 bilateral.? ? ?Informed consent was explained to the patient. All questions were explained an d? answered.? The patient was taken inside the operating room where she was positioned prone on the operating table. Time-out was performed delineating correct site, side, the nature of the procedure, patient's allergy, . All operating room staff was participating in OR time-out procedure. ? ? The lower back was prepped with ChloraPrep and draped with sterile towels.? C- arm was brought over the operating field and sq picture of L4-, L5 vertebra and S1 AREA were delineated on the screen.? Point of interest were delineated as confluence of superior articular process of L4 and L5 vertebra bilaterally with corresponding transverse processes as well as confluence of the sacral alae bilaterally with superior articular process of S1.? The projection of the point of interest to the skin were injected with the small amount of local anesthetic lidocaine 2% 1-1.5 cc.? After that 22 gauge 3.5 inch spinal needle was driven sequentially to the points of interest in tunnel vision fashion. After needles gently contacted the bone at the point of interests the needle was injected with small amount of the contrast.? The injection of the contrast did not demonstrate any intravascular or intrathecal spread of the contrast.? After that injection of the? ropivacaine 0.5%-1cc was performed at each needle location.??after that the needles were removed and Bandaids were applied. ? Upon completion of the injections? needle was? removed and sterile Band-Aids were applied.? The patient tolerated procedure very well. Plan Patient s/p diagnostic lumbar medial branch blocks with good results. Discussed further steps for longer pain relief. Patient is not candidate for therapeutic injections due to elevated A1C level of 9.5. He is not interested in Sprint PNS trial due to current condition and living alone. Patient would like to repeat diagnostic lumbar medial branch block injections in order to establish reproducible response to the treatment for potential RFA procedure. Schedule Repeat Diagnostic Bilateral L3-L4 DR L5 MBB with local and fluoroscopy. Expectations, risks and benefits were reviewed. Patient is aware he will be contacted to schedule this procedure. All questions and concerns have been answered and patient agreed with the plan. Follow up after injections and sooner as needed. Orders: Orders FL guidance in treatment room Today M47.816 - Spondylosis without myelopathy or radiculopathy, lumbar region Coding Level of Care Code Procedure Only Diagnoses Lumbar radiculopathy M54.16 Bilateral hip pain M25.551; M25.552 Lumbar spondylosis M47.816
[2024-01-28 14:20] VITALS: BP 124/84; PULSE 70; RESP 18; O2SAT 97
== END 2024-01-28 14:36 | disposition home or self-care (01) ==
LOC: HO.PMCPRC 12:56
PROVIDERS: PCP Registered Nurse; Visit Provider Anesthesiology
DX: M47.816 Spondylosis without myelopathy or radiculopathy, lumbar region (principal)
CPT/HCPCS: 64493; 64494

== ENCOUNTER 2024-02-04 10:44 | Outpatient (AMB) | payer OTHER, SELFPAY ==
--- NOTE | 2024-02-04 10:53 | A.OFFVIS_ITS ---
Intake Vital Signs 02/04/24 10:54 Height 5 ft 6 in Weight 173 lb BMI 27.9 BP 110/65 Blood Pressure Location Lt brachial Position Sitting Pulse 89 Pulse Source Pulse Oximeter Pulse Oximetry (%) 100 Oxygen Delivery Method Room Air Intake Visit Reasons: BILATERAL DIAGNOSTIC L3, L4, DRL5 MBB/01/28/24 Intake Note: Pain today 5/10 Sales Enablement Consultant Required: Yes Sales Enablement Consultant Language: Tray Line Supervisor Name: Family member Accompanied by: Family/Other Allergies No Known Allergies Allergy (Verified 02/04/24 10:55) HPI HPI Comments History of Present Illness Details Patient presents today to assess response to repeat Bilateral Diagnostic L3-L4-DRL5 MBB on 01/28/[address] Bagley. Patient reports 40% pain relief for 5 hours after procedure. Patient reports no improvement with his functioning, range of motion, sleep or mobility. Patient reports much better pain relief during initial diagnostic nerve blocks. Patient rates his pain at 5/10 today. He continues to take Tylenol Arthritis. Patient is no longer interested to proceed with interventional treatments as last injections were not well tolerated by him. Walking, changing positions, lumbar flexion and extension continue to affect his ADLs and quality of life. Family reports patient complaints of pain on daily basis and is not able to part icipate in most of social interactions and has significant difficulty with functioning normally or caring for himself due to pain. Denies any recent cough, cold, infection, fever, any significant changes in her medical history, medications or recent hospitalizations. Past Procedures: 01/28/24: Repeat B/L Diagnostic L3-L4 DR L5 MBB-40% pain relief for 5 hours 12/03/23: Bilateral Diagnostic L3-L4-DRL 5 MBB-70-75%- 6 hours pain relief PRIOR: Patient presents today for follow up for continued chronic low back and bilateral hip pain. Patient is accompanied by his RETIREMENT SALES CONSULTANT who assists with translation per patient's request. Patient reports he was seen at [facility] and recently completed lumbar spine CT Myelogram and had no significant central canal stenosis noted on CT myelogram. He was deemed non-surgical candidate at this time. Patient was recommended to follow up with Physiatry and our office as next steps to address his spine arthropathy. Patient reports today pain in both of his lateral hips with radiation of pain to anterior thighs and low back pain with movements, bending or walking. Patient was reminded to complete hip xray that were ordered back in March. Patient is interested to undergo interventional treatments for his chronic low back pain and bilateral hip pain. Denies fever, abdominal pain, bladder or bowel dysfunction or saddle anesthesia. PRIOR 03/18/23: Patient is a pleasant 72 years old English speaking male with history of diabetes, major depression with recent SI, anxiety, joint pain, arthritis, cervical DDD, bilateral chronic back pain without sciatica presents today with chronic lower back pain. Denies any recent trauma, injury or falls. History intake noted for neck pain due to fall. Lidocaine patches gave him a rash. He wild s been doing home physical therapy twice a week and also receives increased RETIREMENT SALES CONSULTANT hours. Patient failed Voltaren gel, Ibuprofen, and Tylenol. His pain is mostly axial, with radiation to his lower legs with numbness and tingling and mild bilateral hip and left groin pain. He also presents with bilateral flank pain and CVA tenderness. Reports occasional incontinence. Denies being followed by urology. Denies bowel incontinence or saddle anesthesia. Reports weakness in his lower extremities, uses walker for transfers and ambulation. Patient is not aware of his most recent A1C level. Reports fasting blood sugar was 117 this morning. As of note, patient was brought to ED on 01/30/23 with major depression and SI since passing of his sister last month. Patient reports depressive thoughts and grieving but denies any SI/HI or hallucinations today. Location Lower back and bilateral hip Duration Chronic pain, worse in the past 2 months Characteristics of symptom or complaint Aching, stabbing, sharp, cramping, hot, burning, tingling Aggravating or associated factors Movements, walking, standing, changing positions Relieving factors Walker with seat, Tylenol, Ibuprofen, Voltaren gel, Lidocaine patches-rash Treatment Home PT [facility] Medical History Degenerative disc disease, cervical Hypothyroidism (05/16/17) Hyperlipidemia (05/16/17) Essential hypertension (05/16/17) Diabetes mellitus (05/16/17) Constipation (05/20/17) 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) Flank pain Social History Household Members: Friend(s) Housing: Apartment Do you presently have visiting nurse or other home services: Yes ([facility] and RETIREMENT SALES CONSULTANT) Alcohol intake: never Patient Tobacco Use Status: Never used Tobacco Advance Directives Date on File: 08/13/22 service: No Sexual orientation: Straight/Heterosexual Review of Systems Const All systems reviewed & are unremarkable except as noted in HPI and below Physical Exam Vital Signs: Last Vital Signs Pulse 89 02/04/24 10:54 BP 110/65 02/04/24 10:54 Pulse Ox 100 02/04/24 10:54 Oxygen Delivery Method Room Air 02/04/24 10:54 BMI result Body Mass Index 27.9 General: Appears afebrile. Alert and oriented. Mood and affect appropriate. Follows and participates in conversation appropriately. Respiratory effort is unlabored. No cough. Able to transition from sit to stand with assistance of RETIREMENT SALES CONSULTANT. Uses cane. Ambulates with bilaterally normal heel strike and toe off with difficulty on both sides due to pain. Back/Spine/Pelvis Other: Limited lumbar ROM due to pain. Lumbar extension and forward flexion reproduces moderate pain. Ambulates with antalgic, slow gait with mild limping. Mild groin pain with I/E hip rotations bilaterally, right > left. Cervical Spine: cervical muscular tenderness, No Cervical spine scars present and No Cervical spine tenderness Thoracic/Lumbar Spine: thoracic and lumbar spine normal to inspection, No Thoracic/lumbar spine scar(s), Lasegue's sign negative, straight leg raise negative bilaterally, pain with thoraco-lumbar ROM, thoraco-lumbar ROM limited, No thoracic spinal tenderness and lumbar spinal tenderness (L4-S1) Pelvis: no buttock tenderness Sacroiliac joints: bilaterally nontender Extrem General: Yes capillary refill normal, Yes no clubbing, cyanosis or edema and Yes no calf tenderness Results Reviewed Results Reviewed: CT LUMBAR SPINE MYELOGRAM WITHOUT IV CONTRAST 08/20/23 CLINICAL INFORMATION: Myelogram. COMPARISON: Lumbar spine CT 05/16/2023. FINDINGS: This study is technically limited due to poor intrathecal contrast opacification with no myelographic contrast agent. There is no myelographic block. There are 5 nonrib-bearing lumbar-type vertebral bodies. There is chronic upper endplate height loss at L1. Chronic opposing endplate height loss at L3-L4. There are no acute fractures and there are no acute subluxations. Degenerative endplate irregularity at L3-L4 and to lesser extent L2-L3. Mild aortic atherosclerotic calcification. Stable appearing left upper pole exophytic renal cyst for which no further imaging follow-up is warranted. At L1-L2, there is no definite significant disc contour abnormality. No central canal stenosis and no significant foraminal stenosis. At L2-L3, there is a diffuse annular disc bulge and there is mild bilateral facet arthropathy. Small volume gas within the dorsal thecal sac from the myelogram. Mild narrowing of the central canal and mild bilateral foraminal encroachment. At L3-L4, there is a diffuse annular disc bulge and there is mild bilateral facet arthropathy. Bilateral subarticular zone stenosis. Mild central canal stenosis. Mild bilateral foraminal encroachment. At L4-L5, there is a diffuse annular disc bulge and there is moderate bilateral facet arthropathy. No appreciable central canal stenosis. There is mild foraminal encroachment bilaterally. At L5-S1, there is a diffuse annular disc bulge and there is moderate bilateral facet arthropathy. There is no central canal stenosis. There is mild to moderate foraminal encroachment bilaterally. IMPRESSION: - This study is technically limited due to poor intrathecal contrast opacification with no myelographic contrast agent. There is no myelographic block. - Accounting for technical limitations, there is no severe central canal stenosis within the lumbar spine. There is bilateral subarticular zone stenosis at L3-L4 where there is severe degenerative disc disease. Multilevel foraminal encroachment as discussed in detail above. Assessment for subtle disc herniations is limited given technique. XR LUMBAR SPINE, XR AP PELVIS AND BILATERAL HIPS 10/24/23 CLINICAL INFORMATION: Spondylosis without myelopathy or radiculopathy lumbar region. Pain in right hip. COMPARISON: CT lumbar spine 08/20/2023.. TECHNIQUE: 7 views of the lumbar spine inclusive on flexion and extension views. AP view of the pelvis as well as AP and lateral views of each hip. FINDINGS: LUMBAR SPINE: The bones are diffusely demineralized. Degenerative changes in the imaged lower thoracic spine. Redemonstration of superior endplate concavity at L1. Slight rightward curvature of the lumbar spine. Redemonstration of advanced degenerative changes at L3-L4 with loss of disc space height and endplate sclerosis. Facet arthritis in the lower lumbar spine. AP PELVIS AND BILATERAL HIPS: The bones are diffusely demineralized. Mild degenerative changes in the bilateral hips with joint space narrowing and hypertrophic change. IMPRESSION: 1. Advanced degenerative changes at L3-L4. 2. Mild degenerative changes in the bilateral hips. Correlation with clinical exam recommended to determine further management. If there is concern for fracture or other underlying pathology, MRI could be obtained for further evaluation. Assessment & Plan Assessment & Plan (1) Spinal stenosis: Code(s): M48.00 - Spinal stenosis, site unspecified (2) Degenerative lumbar spinal stenosis: Code(s): M48.061 - Spinal stenosis, lumbar region without neurogenic claudication (3) Degenerative disc disease, cervical: Code(s): M50.30 - Other cervical disc degeneration, unspecified cervical region (4) Lumbar radiculopathy: Code(s): M54.16 - Radiculopathy, lumbar region (5) Lumbar spondylosis: Code(s): M47.816 - Spondylosis without myelopathy or radiculopathy, lumbar region Plan Patient is status post repeat diagnostic lumbar medial branch blocks with 40% pain relief for 5 hours and minimal to no improvements in his ADLs, mobility or sleep. He is no longer interested to proceed with interventional treatments at this time. Physiatry Referral for alternative pain modalities to address patient's chronic low back pain. He reports bilateral hip pain has been minimal. Short script sent for tramadol. Patient previously tolerated this medication well without any side effects and good tolerance. Side effects, precautions and safety were reviewed with patient and his family. All questions and concerns have been answered and patient agreed with the plan. Follow up as needed. Orders: Referrals Physiatry Referral M47.816 - Spondylosis without myelopathy or radiculopathy, lumbar region, M48.00 - Spinal stenosis, site unspecified, M48.061 - Spinal stenosis, lumbar region without neurogenic claudication, M50.30 - Other cervical disc degeneration, unspecified cervical region, M54.16 - Radiculopathy, lumbar region Medications: New naloxone 4 mg/actuation (Narcan) spray 1 dose into ONE nostril; alternate nostrils w each dose until help arrives 4 mg intranasal Q2M PRN 2 ea 0RF opioid overdose Changed From tramadol 50 mg PO DAILY PRN 14 tabs 0RF pain M25.551 - Pain in right hip, M25.552 - Pain in left hip, M47.816 - Spondylosis without myelopathy or radiculopathy, lumbar region, M54.16 - Radiculopathy, lumbar region To tramadol Partial Fill upon patient request. 50 mg PO Q12H PRN 30 tabs 0RF pain M25.551 - Pain in right hip, M25.552 - Pain in left hip, M47.816 - Spondylosis without myelopathy or radiculopathy, lumbar region, M54.16 - Radiculopathy, lumbar region Coding Level of Care Code Est Pt Level 4 (28323) Diagnoses Spinal stenosis M48.00 Degenerative lumbar spinal stenosis M48.061 Degenerative disc disease, cervical M50.30 Lumbar radiculopathy M54.16 Lumbar spondylosis M47.816
[2024-02-04 10:54] VITALS: BP 110/65; PULSE 89; O2SAT 100; BMI 27.9
== END 2024-02-04 11:26 | disposition home or self-care (01) ==
PROVIDERS: PCP Registered Nurse; Visit Provider Nurse Practitioner Family
DX: M48.00 Spinal stenosis, site unspecified (principal); M48.061 Spinal stenosis, lumbar region without neurogenic claudication; M50.30 Other cervical disc degeneration, unspecified cervical region; M54.16 Radiculopathy, lumbar region; M47.816 Spondylosis without myelopathy or radiculopathy, lumbar region
CPT/HCPCS: 99214

== ENCOUNTER → 2024-02-04 10:44 | Outpatient (BNVA) | payer OTHER, SELFPAY | PROVIDERS: PCP Registered Nurse; Visit Provider Nurse Practitioner Family | DX: M48.061 Spinal stenosis, lumbar region without neurogenic claudication (principal); M50.30 Other cervical disc degeneration, unspecified cervical region; M47.26 Other spondylosis with radiculopathy, lumbar region | CPT/HCPCS: 99212 ==

== ENCOUNTER 2024-03-25 18:47 | Emergency (ER) | payer OTHER, SELFPAY ==
--- NOTE | ~2024-03-25 | XR_ITS ---
EXAMINATION: XR ABDOMEN KUB CLINICAL INDICATION: Reason for Exam Abdominal pain, history constipation COMPARISON: 11/23/2022 TECHNIQUE: AP view of the abdomen. FINDINGS: Bowel gas pattern is nonobstructive. Moderate amount of stool is present predominantly in the upper abdomen. Limited assessment for free air with supine positioning. Vas deferens calcifications are noted. No acute osseous findings are seen. XR/XR KUB IMPRESSION: Moderate volume of stool. Nonobstructive bowel gas pattern.
[2024-03-25 19:17] VITALS: BP 120/86; BP 147/71; PULSE 87; PULSE 93; RESP 20; TEMP 36; O2SAT 93; O2SAT 95; BMI 25.1
--- NOTE | 2024-03-25 19:18 | ED_ITS ---
HPI - Abdominal Pain General Chief Complaint: General Medical Stated Complaint: ABD PAIN NAUSEA Time Seen by Provider: 03/25/24 23:11 Source: patient and manager telecom Mode of arrival: ambulatory History of Present Illness HPI narrative: 73-year-old male who presents with complaints at he was recently started on Ozempic, does not have great vision and states that yesterday both he and his TRUST VAULT CUSTODIAN inadvertently administered 3 doses of the Ozempic, he also has a visiting nurse as well as a pharmacist who told him to continue to eat and he states he has been eating today but had 2 episodes of vomiting, he has not had a bowel movement in a number of days and states that this is not new for him he otherwise denies any fevers or chills. Related Data Home Medications ?Medication ?Instructions ?Recorded ?Confirmed dulaglutide 1.5 mg/0.5 mL 1.5 mg subcut QWEEK 01/30/23 01/30/23 subcutaneous pen injector (Trulicity) ferrous gluconate 324 mg (38 mg 324 mg PO Q OTHER DAY 05/13/23 iron) tablet fluticasone propionate 50 spray intranasal 05/13/23 mcg/actuation nasal spray,suspension levothyroxine 125 mcg tablet 125 mcg PO DAILY 05/13/23 alcohol swabs (Alcohol Prep Pads) 0 pad topical 06/04/23 blood sugar diagnostic (FreeStyle #10 ea 06/04/23 Lite Strips) cholecalciferol (vitamin D3) 50 50 mcg PO DAILY 06/04/23 mcg (2,000 unit) capsule (Vitamin D3) lancets 33 gauge (TRUEplus Lancets) #100 ea 06/04/23 ammonium lactate 12 % lotion topical 10/24/23 dulaglutide 3 mg/0.5 mL mg subcut 10/24/23 subcutaneous pen injector (Trulicity) hydroxyzine HCl 10 mg tablet 10 mg PO BEDTIME 10/24/23 lactulose 10 gram/15 mL oral ml PO 10/24/23 solution Previous Rx's ?Medication ?Instructions ?Recorded acetaminophen 325 mg tablet 650 mg (2 x 325 mg) PO Q6H PRN 02/08/23 Pain, Mild (Pain Scale 1-3) #30 tabs aspirin 81 mg tablet,delayed 81 mg PO DAILY #30 tabs 02/08/23 release atorvastatin 40 mg tablet 40 mg PO BEDTIME #30 tabs 02/08/23 docusate sodium 100 mg capsule 100 mg PO BID #60 caps 02/08/23 duloxetine 30 mg capsule,delayed 30 mg PO BID #60 caps 02/08/23 release empagliflozin 25 mg tablet 25 mg PO DAILY #30 tabs 02/08/23 (Jardiance) ferrous sulfate 324 mg (65 mg 324 mg PO Q2D #30 tabs 02/08/23 iron) tablet,delayed release melatonin 3 mg tablet 6 mg (2 x 3 mg) PO BEDTIME #60 tabs 02/08/23 metformin 1,000 mg tablet 1,000 mg PO BIDWM #60 tabs 02/08/23 trazodone 100 mg tablet 100 mg PO BEDTIME #30 tabs 02/08/23 naproxen 500 mg tablet 500 mg PO BID PRN pain #20 tabs 03/18/23 naloxone 4 mg/actuation nasal 4 mg intranasal Q2M PRN opioid 02/04/24 spray (Narcan) overdose #2 ea tramadol 50 mg tablet 50 mg PO Q12H PRN pain #30 tabs 02/04/24 polyethylene glycol 3350 17 17 g PO DAILY #850 grams 03/26/24 gram/dose oral powder (Miralax) Allergies Allergy/AdvReac Type Severity Reaction Status Date / Time No Known Allergies Allergy Verified 03/25/24 19:21 Review of Systems Review of Systems Pertinent positives and negatives as stated in HPI [facility] Past Medical History Source: nursing notes reviewed Medical History Degenerative disc disease, cervical Hypothyroidism (05/16/17) Hyperlipidemia (05/16/17) Essential hypertension (05/16/17) Diabetes mellitus (05/16/17) Constipation (05/20/17) 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) Flank pain Social History Social History Household Members: Friend(s) Housing: Apartment Do you presently have visiting nurse or other home services: Yes (VNA and TRUST VAULT CUSTODIAN) Alcohol intake: never Patient Tobacco Use Status: Never used Tobacco Advance Directives: Yes Advance Directives on File: Yes Advance Directives Date on File: 08/13/22 Do you have a plan to hurt others: No Plan service: No Sexual orientation: Straight/Heterosexual Physical Exam ED Vital Signs: Vital Signs - 24 hr 03/25/24 19:17 03/25/24 22:16 03/26/24 01:31 Temperature 96.8 F 98.0 F 98.4 F Pulse Rate 87 85 90 Respiratory Rate 20 17 17 Blood Pressure 147/71 H 137/80 124/76 Pulse Oximetry 95 95 99 Oxygen Delivery Method Room Air Room Air Room Air BMI result Body Mass Index 25.1 VITAL SIGNS: Reviewed. GENERAL: Well developed, well nourished, in no acute distress. HEAD: Normocephalic/atraumatic EYES: OD: fake eye, OS: PERRLA/EOMI EARS: Ext canals without abnormality NOSE: Nares patent bilateral OROPHARYNX: no oral lesions noted, posterior pharynx clear NECK: Supple, no adenopathy LUNGS: Normal breath sounds. No adventitious sounds or accessory muscle use. SpO2<99> CARDIOVASCULAR: Regular rate and rhythm without noted murmurs ABDOMEN: Soft, non-tender, non-distended with bowel sounds. MUSCULOSKELETAL: No tenderness, deformities, or effusions noted on gross inspection. EXTREMITIES: No cyanosis, clubbing or edema. SKIN: Inspection of the skin reveals no rashes NEUROLOGIC: Alert and oriented x 4. Strength and sensation to light touch were grossly intact x 4. Course Course Course Narrative: This is a Rapid Medical Examination (RME) performed by Marvin Smith PA-C in triage. Full HPI, ROS, assessment and treatment plan per primary provider in the Main ED. 73 yo French peaking male here via EMS for nausea, on episode vomiting and abdominal pain that began this morning. LLQ pain radiating towards left flank. describes this as a pounding sensation. Family called EMS reporting concern patient may have taken too much ozempic yesterday. patient states he has difficulty seeing and is unsure of how much ozempic he injected. his medications typically come pre-packaged for him. his physician recent changed him from trulicity to ozempic. denies fevers, headache, dizziness, chest pain, sob, palpitations. POC glucose en route in 200s. Plan: labs, viral serology ordered Medical Decision Making Medical Decision Making MDM Narrative: 73-year-old male with history and clinical presentation, DDX: Side effects from Ozempic and further discussed with the patient that he will have decreased appetite associated with the medication. Possible constipation. I reviewed all investigations and hematologic indices are chronically stable without leukocytosis/normocytic anemia no thrombocytopenia. Chemistry indices are negative for JOHN/electrolyte or liver enzyme derangements. Patient has mild hyperglycemia without evidence of DKA or HHS. Viral testing negative for influenza/RSV/COVID-19. KUB demonstrates moderate volume of stool and a nonobstructive bowel-gas pattern. Urinalysis negative for UTI or hematuria. My interpretation is that patient's symptoms are likely a combination of underlying mild constipation in combination with medication side effect. He was strongly encouraged to follow-up with his primary care doctor. Differential Diagnosis Differential Diagnoses: The differential diagnosis associated with the presentation includes Please see the discussion above Admission/Observation Consideration of admission/observation: Escalation of care including admission/observation considered Please see the discussion above Lab Data MDM Lab Attestation statement: I reviewed the patient's lab results. Please see the discussion above 03/25/24 19:29 03/25/24 19:29 Labs: Lab Results 03/25/24 03/26/24 Range/Units 19:29 02:09 WBC 7.8 (4.8-10.8) X10*3/uL RBC 4.52 L (4.60-5.80) X10*6/uL Hgb 13.8 L (14.0-18.0) g/dl Hct 40.1 L (42.0-52.0) % MCV 88.7 (80.0-98.0) fL MCH 30.5 (27.0-33.0) pg MCHC 34.4 (31.0-36.0) g/dl RDW 13.3 (11.0-16.0) % Plt Count 324 D (160-400) X10*3/uL MPV 9.5 (9.4-12.4) fL Immature Gran % (Auto) 0.8 H (0.0-0.4) % Neut % (Auto) 66.9 (45-73) % Lymph % (Auto) 18.3 L (20-40) % [place] % (Auto) 9.8 (2-11) % Eos % (Auto) 3.4 (0-4) % Baso % (Auto) 0.8 (0-2) % Lymph # (Auto) 1.4 (1.2-4.9) X10*3/uL [place] # (Auto) 0.8 (0.1-1.2) X10*3/uL Eos # (Auto) 0.3 (0.0-0.4) X10*3/uL Baso # (Auto) 0.1 (0.0-0.2) X10*3/uL Abs Immat Gran (auto) 0.06 H (0.00-0.03) X10*3/uL Absolute Neuts (auto) 5.2 (2.0-8.3) x10*3/uL Absolute Nucleated RBC 0.000 (0.0-0.012) X10*3/uL Nucleated RBC % (auto) 0.0 (0.0-0.2) /100WBC Sodium 140 (135-145) mmol/L Potassium 3.9 (3.3-5.1) mmol/L Chloride 104 (96-108) mmol/L Carbon Dioxide 24 (22-29) mmol/L Anion Gap 16 (12-20) BUN 10 (9-16) mg/dL Creatinine 0.68 (0.5-1.4) mg/dL Estim Creat Clear Calc 93.6 Estimated GFR > 60 Random Glucose 206 H (60-115) mg/dL Calcium 10.6 H D (8.4-10.2) mg/dL Magnesium 1.9 (1.6-2.6) mg/dL Total Bilirubin 0.5 (0.0-1.0) mg/dL AST 15 (5-37) U/L ALT 16 (0-40) U/L Alkaline Phosphatase 53 (39-117) U/L Total Protein 7.4 (6.5-8.0) g/dL Albumin 4.5 (3.5-5.0) g/dL Lipase 36 (8-78) U/L Urine Color Yellow Urine Appearance Clear Urine pH 8.0 (5.0-9.0) Ur Specific [place] >= 1.030 H (1.005-1.025) Urine Protein 100 (2+) H (Neg-Trace) mg/dL Urine Glucose (UA) >=1000 H (Negative) mg/dL Urine Ketones 40 (Negative) mg/dL Urine Blood Negative (Negative) Urine Nitrite Negative (Negative) Ur Leukocyte Esterase Negative (Negative) Urine RBC 0-2 (0-2) /HPF Urine WBC 0-5 (0-5) /HPF Ur Squamous Epith Cells 0-2 (0-2) /HPF Urine Bacteria None Seen (None Seen) Hyaline Casts 0-2 (0-2) /LPF Influenza Type A (PCR) NEGATIVE (Negative) Influenza Type B (PCR) NEGATIVE (Negative) RSV RNA Qual (PCR) NEGATIVE (Negative) SARS-CoV-2 RNA (RT-PCR) NEGATIVE (Negative) Radiology Impression Discussion of test interpretation with radiology: I have reviewed the radiologist's reading. External Record Review External record reviewed: Outpatient record and Prior outpatient labs Chronic Conditions Patient?s care impacted by: Diabetes Critical Care Time Critical Care Time Critical Care Time: Yes Total Critical Care Time: 45 Attestation: I personally attest to this time spent taking care of the patient. Discharge Plan Discharge Clinical Impression: Constipation, Medication side effect Patient Disposition: Home, Self-Care Instructions: Constipation (ED), High Fiber Diet (ED) Additional Instructions: 1. Please discuss your difficulty with being able to see how much medication you need to take with your primary care doctor tomorrow. 2. You have been started on medication to help with constipation. Return to the ER for any worsening symptoms. Prescriptions: New polyethylene glycol 3350 [Miralax] 17 gram/dose powder 17 g PO DAILY Qty: 850 0RF No Action Trulicity 1.5 mg/0.5 mL pen injector 1.5 mg subcut QWEEK ferrous sulfate 324 mg (65 mg iron) Tablet,Delayed Release (Dr/Ec) 324 mg PO Q2D Qty: 30 0RF atorvastatin 40 mg Tablet 40 mg PO BEDTIME Qty: 30 0RF acetaminophen 325 mg Tablet 650 mg PO Q6H PRN (Reason: Pain, Mild (Pain Scale 1-3)) Qty: 30 0RF aspirin 81 mg Tablet,Delayed Release (Dr/Ec) 81 mg PO DAILY Qty: 30 0RF trazodone 100 mg Tablet 100 mg PO BEDTIME Qty: 30 0RF docusate sodium 100 mg Capsule 100 mg PO BID Qty: 60 0RF duloxetine 30 mg Capsule,Delayed Release(Dr/Ec) 30 mg PO BID Qty: 60 0RF Jardiance 25 mg Tablet 25 mg PO DAILY Qty: 30 0RF melatonin 3 mg Tablet 6 mg PO BEDTIME Qty: 60 0RF metformin 1,000 mg Tablet 1,000 mg PO BIDWM Qty: 60 0RF naproxen 500 mg tablet 500 mg PO BID PRN (Reason: pain) Qty: 20 0RF Rx Instructions: Take it with food and full glass of water. fluticasone propionate 50 mcg/actuation spray,suspension intranasal levothyroxine 125 mcg tablet 125 mcg PO DAILY ferrous gluconate 324 mg (38 mg iron) tablet 324 mg PO Q OTHER DAY alcohol swabs [Alcohol Prep Pads] Pads, Medicated 0 pad topical (DME) lancets [TRUEplus Lancets] 33 gauge misc See Rx Instructions .ROUTE BID Qty: 100 Rx Instructions: As directed (DME) FreeStyle Lite Strips Strip See Rx Instructions .ROUTE BID Qty: 10 Rx Instructions: As directed cholecalciferol (vitamin D3) [Vitamin D3] 50 mcg (2,000 unit) capsule 50 mcg PO DAILY Trulicity 3 mg/0.5 mL pen injector subcut lactulose 10 gram/15 mL solution PO ammonium lactate 12 % lotion topical hydroxyzine HCl 10 mg tablet 10 mg PO BEDTIME tramadol 50 mg tablet 50 mg PO Q12H PRN (Reason: pain) Qty: 30 0RF Rx Instructions: Partial Fill upon patient request. naloxone [Narcan] 4 mg/actuation spray,non-aerosol 4 mg intranasal Q2M PRN (Reason: opioid overdose) Qty: 2 0RF Rx Instructions: spray 1 dose into ONE nostril; alternate nostrils w each dose until help arrives Referrals: Rose Mary Pimentel FNP [Nurse Practitioner] - Print Language: French
[2024-03-25 19:34] LABS: MANUAL DIFF FLAG NO
[2024-03-25 19:50] LABS: Basophils Absolute Auto 0.1 X10*3/uL (0.0-0.2); Basophils Percent Auto 0.8 % (0-2); Eosinophils Absolute Auto 0.3 X10*3/uL (0.0-0.4); Eosinophils Percent Auto 3.4 % (0-4); Hematocrit 40.1 % (42.0-52.0); Hemoglobin 13.8 g/dl (14.0-18.0); Imm Gran Abs Auto 0.06 X10*3/uL (0.00-0.03); Imm Gran Pct Auto 0.8 % (0.0-0.4); Lymphocytes Absolute Auto 1.4 X10*3/uL (1.2-4.9); Lymphocytes Percent Auto 18.3 % (20-40); Mean Corpuscular HGB Conc 34.4 g/dl (31.0-36.0); Mean Corpuscular Hemoglobin 30.5 pg (27.0-33.0); Mean Corpuscular Volume 88.7 fL (80.0-98.0); Mean Platelet Volume 9.5 fL (9.4-12.4); Monocytes Absolute Auto 0.8 X10*3/uL (0.1-1.2); Monocytes Percent Auto 9.8 % (2-11); Neutrophils Absolute Auto 5.2 x10*3/uL (2.0-8.3); Neutrophils Percent Auto 66.9 % (45-73); Platelet Count 324 X10*3/uL (160-400); Red Blood Count 4.52 X10*6/uL (4.60-5.80); Red Cell Distribution Width 13.3 % (11.0-16.0); White Blood Count 7.8 X10*3/uL (4.8-10.8)
[2024-03-25 20:03] LABS: Alanine Aminotransferase 16 U/L (0-40); Albumin Level 4.5 g/dL (3.5-5.0); Alkaline Phosphatase 53 U/L (39-117); Anion Gap 16 (12-20); Aspartate Amino Transferase 15 U/L (5-37); Bilirubin Total 0.5 mg/dL (0.0-1.0); Blood Urea Nitrogen 10 mg/dL (9-16); Calcium 10.6 mg/dL (8.4-10.2); Carbon Dioxide 24 mmol/L (22-29); Chloride 104 mmol/L (96-108); Creatinine Clr Calc Pharmacy 93.6; Estimated Glomerular Filt Rate > 60; Glucose Random 206 mg/dL (60-115); Lipase 36 U/L (8-78); Magnesium 1.9 mg/dL (1.6-2.6); Potassium 3.9 mmol/L (3.3-5.1); Sodium 140 mmol/L (135-145); Total Protein 7.4 g/dL (6.5-8.0)
[2024-03-25 20:17] LABS: Influenza A PCR NEGATIVE (Negative); Influenza B PCR NEGATIVE (Negative); Resp Syncy Virus RNA Qual PCR NEGATIVE (Negative); SARS COV2 PCR INHOUSE NEGATIVE (Negative)
[2024-03-25 22:16] VITALS: BP 137/80; PULSE 85; RESP 17; TEMP 36.7; O2SAT 95
[2024-03-26 01:31] VITALS: BP 124/76; PULSE 90; RESP 17; TEMP 36.9; O2SAT 99
[2024-03-26 02:16] LABS: Appearance Urine Clear; Color Urine Yellow; Glucose Urine UA >=1000 mg/dL (Negative); Leukocyte Esterase Urine Negative (Negative); Nitrite Urine Negative (Negative); Specific Gravity - Urine >= 1.030 (1.005-1.025); UMIC TRIGGER UACC YES; Urine Blood Negative (Negative); Urine Ketones 40 mg/dL (Negative); Urine Protein 100 (2+) mg/dL (Neg-Trace)
[2024-03-26 02:21] LABS: Bacteria Urine None Seen (None Seen); Hyaline Casts Urine 0-2 /LPF (0-2); RBC Urine 0-2 /HPF (0-2); Squamous Epithelial Cell Urine 0-2 /HPF (0-2); WBC Urine 0-5 /HPF (0-5)
[2024-03-26 02:53] VITALS: BP 127/81; PULSE 93; RESP 18; TEMP 36.8; O2SAT 94
== END 2024-03-26 06:15 | disposition home or self-care (01) ==
PROVIDERS: Physician Assistant Medical; Emergency Provider Student in an Organized Health Care Education/Training Program
DX: K59.00 Constipation, unspecified (principal); R11.2 Nausea with vomiting, unspecified; R10.9 Unspecified abdominal pain; Z79.899 Other long term (current) drug therapy; Z03.818 Encounter for observation for suspected exposure to other biological agents ruled out
CPT/HCPCS: 0241U; 36415; 74018; 80053; 81001; 83690; 83735; 85025; 99283; 99284

== ENCOUNTER 2025-01-04 16:03 | Observation (INO) | payer OTHER, SELFPAY ==
[2025-01-04] VITALS (7 sets, daily range): BP systolic 95–135; BP diastolic 53–78; PULSE 84–93; RESP 14–20; TEMP 36.5–36.8; O2SAT 95–99; BMI 28.6
--- NOTE | ~2025-01-04 | CT_ITS ---
CLINICAL HISTORY: Syncope and fall CT head without contrast Comparison: CT/SR - CT HEAD/BRAIN WO CON - 04/29/22 14:40 EDT Findings: Involutional change of brain parenchyma, compatible with age. [id number] ventriculomegaly without change. No mass, mass effect or intracranial hemorrhage. 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 Opacification of the left frontal and left anterior ethmoid sinuses. No air-fluid levels. Clear mastoid air cells. Right globe prosthesis. Right frontal scalp contusion. No skull fracture. IMPRESSION: 1. No skull fracture or intracranial hemorrhage. 2. Wzrt-or-egqfooms ventriculomegaly which may be secondary to central volume loss or normal pressure hydrocephalus. This document has been electronically signed by: Delilah Asher MD on 01/04/2025 18:21:37
--- NOTE | ~2025-01-04 | CT_ITS ---
CLINICAL HISTORY: Syncope, fall, right orbital injury CT maxillofacial without contrast Comparison: CT/SR - CT HEAD/BRAIN WO CON - 04/29/22 14:40 EDT Findings: No acute fractures. Temporomandibular joints are intact. Left maxillary mucocele. Opacification of the left frontal and anterior ethmoid sinuses. No air-fluid levels. Clear mastoid air cells. Right globe prosthesis. Small metallic foreign body immediately posterior to the right globe prosthesis. Visualized intracranial contents are within normal limits. No foreign bodies. IMPRESSION: No acute displaced facial bone fracture. This document has been electronically signed by: Delilah Asher MD on 01/04/2025 18:23:31
--- NOTE | ~2025-01-04 | XR_ITS ---
CLINICAL HISTORY: Syncope 1 view chest x-ray Comparison: CR/SR - XR CHEST 2V - 11/23/22 11:49 EST Findings: The lungs are clear. Mild elevation of the left hemidiaphragm without change. No consolidative process. Normal heart size. Tortuous aorta. No acute fracture. IMPRESSION: 1. No acute findings. This document has been electronically signed by: Delilah Asher MD on 01/04/2025 17:27:39
--- NOTE | ~2025-01-04 | CT_ITS ---
CLINICAL HISTORY: Syncope and fall CT cervical spine without contrast Comparison: 04/29/2022 Findings: Grade 1 anterolisthesis of C4 on C5. Partial ankylosis of C2, C3 and C4. Multilevel degenerative disc disease and facet osteoarthritis. No high-grade central canal stenosis. No acute fractures or dislocations. Visualized intracranial contents are unremarkable. Soft tissues of the neck are normal. No consolidation or effusion at the lung apices. IMPRESSION: No cervical spine fracture. This document has been electronically signed by: Delilah Asher MD on 01/04/2025 18:23:18
--- NOTE | ~2025-01-04 | CT_ITS ---
CLINICAL HISTORY: Syncope and fall, left hip pain, left abd pain CT abdomen and pelvis without contrast Comparison: CT/SR - CT ABDOMEN PELVIS WO IV CON - 11/23/22 11:25 EST Findings: Mild ground-glass opacities at the bilateral lung bases. No consolidation. 4.4 cm left kidney cyst, similar to the prior study. Small foci of calcification associated with the cortex of the spleen. Mich-bf-turxhjsc pancreatic volume loss. Unremarkable liver and bilateral adrenal glands. Poorly distended gallbladder with no calcified gallstones. No bowel obstruction, pneumoperitoneum, or pneumatosis. Pelvic contents unremarkable. Normal appendix. No acute fracture or dislocation. Endplate irregularity at the L3-L4 level without change. Mild compression fracture at L1 without change. IMPRESSION: 1. No hemoperitoneum or abdominal organ injury. 2. No acute displaced fracture. This document has been electronically signed by: Delilah Asher MD on 01/04/2025 17:53:09
--- NOTE | 2025-01-04 16:34 | ECG_ITS ---
Test Reason : SYNCOPE Blood Pressure : */* mmHG Vent. Rate : 90 BPM Atrial Rate : 90 BPM P-R Int : 198 ms QRS Dur : 118 ms QT Int : 394 ms P-R-T Axes : 23 -46 75 degrees QTcB Int : 481 ms Normal sinus rhythm Left anterior fascicular block Left ventricular hypertrophy with QRS widening ( R in aVL , [place] product ) Cannot rule out Septal infarct , age undetermined Abnormal ECG When compared with ECG of 31-Jan-2023 09:42, Minimal criteria for Septal infarct are now Present Referred By: Clive Rowland Electronically Signed By: DORI DUARTE
--- NOTE | 2025-01-04 16:37 | ED.SYNCOPE ---
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 Rowland HPI narrative: 74-year-old male who lives home by himself needs events administrative assistant with his daily activity by a visiting nurse and HVAC SALES ENGINEER daily. Patient stated that he felt lightheadedness, blurry vision then he collapsed hitting his head on the floor patient confirm LOC the fall happened around 8;30 in the morning patient remained on the ground until HVAC SALES ENGINEER found him on the ground and call 911, patient declined CP or SOB. Complaining of right eye brow pain and hematoma. Mild left abdominal pain, mild left hip pain. Related Data Home Medications ?Medication ?Instructions ?Recorded ?Confirmed dulaglutide 1.5 mg/0.5 mL 1.5 mg subcut QWEEK 01/30/23 01/30/23 subcutaneous pen injector (Trulicity) ferrous gluconate 324 mg (38 mg 324 mg PO Q OTHER DAY 05/13/23 iron) tablet fluticasone propionate 50 spray intranasal 05/13/23 mcg/actuation nasal spray,suspension levothyroxine 125 mcg tablet 125 mcg PO DAILY 05/13/23 alcohol swabs (Alcohol Prep Pads) 0 pad topical 06/04/23 blood sugar diagnostic (FreeStyle #10 ea 06/04/23 Lite Strips) cholecalciferol (vitamin D3) 50 50 mcg PO DAILY 06/04/23 mcg (2,000 unit) capsule (Vitamin D3) lancets 33 gauge (TRUEplus Lancets) #100 ea 06/04/23 ammonium lactate 12 % lotion topical 10/24/23 dulaglutide 3 mg/0.5 mL mg subcut 10/24/23 subcutaneous pen injector ([facility] [employer] [employer]) hydroxyzine HCl 10 mg tablet 10 mg PO BEDTIME 10/24/23 lactulose 10 gram/15 mL oral ml PO 10/24/23 solution Previous Rx's ?Medication ?Instructions ?Recorded acetaminophen 325 mg tablet 650 mg (2 x 325 mg) PO Q6H PRN 02/08/23 Pain, Mild (Pain Scale 1-3) #30 tabs aspirin 81 mg tablet,delayed 81 mg PO DAILY #30 tabs 02/08/23 release atorvastatin 40 mg tablet 40 mg PO BEDTIME #30 tabs 02/08/23 docusate sodium 100 mg capsule 100 mg PO BID #60 caps 02/08/23 duloxetine 30 mg capsule,delayed 30 mg PO BID #60 caps 02/08/23 release empagliflozin 25 mg tablet 25 mg PO DAILY #30 tabs 02/08/23 (Jardiance) ferrous sulfate 324 mg (65 mg 324 mg PO Q2D #30 tabs 02/08/23 iron) tablet,delayed release melatonin 3 mg tablet 6 mg (2 x 3 mg) PO BEDTIME #60 tabs 02/08/23 metformin 1,000 mg tablet 1,000 mg PO BIDWM #60 tabs 02/08/23 trazodone 100 mg tablet 100 mg PO BEDTIME #30 tabs 02/08/23 naproxen 500 mg tablet 500 mg PO BID PRN pain #20 tabs 03/18/23 naloxone 4 mg/actuation nasal 4 mg intranasal Q2M PRN opioid 02/04/24 spray (Narcan) overdose #2 ea tramadol 50 mg tablet 50 mg PO Q12H PRN pain #30 tabs 02/04/24 polyethylene glycol 3350 17 17 g PO DAILY #850 grams 03/26/24 gram/dose oral powder (Miralax) Allergies Allergy/AdvReac Type Severity Reaction Status Date / Time No Known Allergies Allergy Verified 01/04/25 16:32 Review of Systems Review of Systems: All other systems are reviewed and are negative Constitutional: Reports as per HPI and Reports no additional constitutional complaints Eyes: Reports as per HPI and Reports no additional eye complaints Reports system reviewed and no additional complaints, except as documented Cardiovascular: Reports as per HPI and Reports no additional cardiovascular complaints Respiratory: Reports as per HPI and Reports no additional respiratory complaints Gastrointestinal: Reports as per HPI and Reports no additional gastrointestinal complaints Genitourinary: Reports no additional female genitourinary complaints Musculoskeletal: Reports no additional musculoskeletal complaints Skin/Breast: Reports system reviewed and no additional complaints, except as docu Psychiatric: Reports no additional psychiatric complaints Endocrine: Reports no additional endocrine complaints Hematologic/Lymphatic: Reports no additional hematologic/lymphatic complaints Allergic/Immunologic: Reports no additional allergic/immunologic complaints Reports system reviewed and no additional complaints, except as documented and Reports Abnormal speech present PMFSH Past Medical History Medical History Degenerative disc disease, cervical Hypothyroidism (05/16/17) Hyperlipidemia (05/16/17) Essential hypertension (05/16/17) Diabetes mellitus (05/16/17) Constipation (05/20/17) 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) Flank pain Social History Social History Household Members: Friend(s) Housing: Apartment Do you presently have visiting nurse or other home services: Yes (VNA and HVAC SALES ENGINEER) Alcohol intake: former Patient Tobacco Use Status: Never used Tobacco Smoked in Last 30 Days: No Use of substances other than those prescribed or required for medical reasons: No Advance Directives: Yes Advance Directives on File: Yes Advance Directives Date on File: 08/13/22 Do you have a plan to hurt others: No Plan service: No Sexual orientation: Straight/Heterosexual Physical Exam Vital Signs: Vital Signs: Last Vital Signs Temp 98.3 F 01/04/25 18:00 Pulse 91 01/04/25 18:00 Resp 14 01/04/25 18:00 BP 100/61 01/04/25 18:00 Pulse Ox 98 01/04/25 18:00 O2 Del Method Room Air 01/04/25 18:00 BMI result Body Mass Index 28.6 Vital signs have been reviewed and appear to be correct. Blood pressure elevated. Heart rate normal. Respiratory rate normal. Temperature normal. Oxygen saturation normal. Appearance: Alert. Oriented X3. No acute distress. Head: Normal external exam. Normocephalic. Atraumatic. No Pineda signs noted. No raccoon eyes noted Eyes: PERRLA. EOMI. Conjunctiva and sclera normal. Eyelids normal. Right eyebrow hematoma. ENT: TM's Normal. Pharynx normal. Uvula midline. Moist mucous membranes. No trismus noted. No drooling noted. No muffled voice noted. Neck: Normal inspection. Neck supple. FROM. No adenopathy. Thyroid Normal. No meningeal signs. No neck mass noted. CVS: Normal heart rate and rhythm. Heart sound normal. No murmurs noted. Pulses normal throughout. Respiratory: No respiratory distress. Painless inspiration. Breath sounds normal. No wheezes/rales/rhonchi noted. Chest nontender. No accessory muscle usage noted or decreased air movement noted. Abdomen: Soft and nontender. Bowel sounds normal in all 4 quadrants. No distention noted. No organomegaly noted. No visible injury noted. Back: No CVA tenderness. Full range of motion noted. Skin: Skin warm and dry. Normal skin color. Normal skin turgor. No rashes/lesions/lacerations noted. Extremities: No lower extremity edema. Extremities exhibit normal range of motion. Extremities nontender. Neuro: Oriented X 3. Cranial nerve exam: II-XII are grossly intact No motor deficit. No sensory deficit. Reflexes normal. Course Reevaluation(s) Reevaluation #1: S/p syncopal episode and fall. Patient is + orthostatic and received 1 L of normal saline in the emergency department. Cardiac enzyme is unremarkable. Normal CPK. Time: 18:41 Medications Administered Discontinued Medications Generic Name Dose Route Start Last Admin Trade Name Freq PRN Reason Stop Dose Admin Sodium Chloride 1,000 mls @ 999 mls/hr 01/04/25 17:26 01/04/25 17:42 Ns IV 01/04/25 18:26 999 mls/hr .Q1H1M ONE Administration Medical Decision Making Differential Diagnosis Differential Diagnoses: The differential diagnosis associated with the presentation includes (Intracranial bleed, cervical spine injury, facial fracture, intra-abdominal pathology, left hip fracture, electrolyte derangement, dehydration, dysrhythmia, syncope.) Admission/Observation Consideration of admission/observation: Escalation of care including admission/observation considered Lab Data MDM Lab Attestation statement: I reviewed the patient's lab results. 01/04/25 16:44 01/04/25 16:44 Labs: Lab Results 01/04/25 01/04/25 Range/Units 16:44 17:20 WBC 11.6 H (4.8-10.8) X10*3/uL RBC 4.27 L (4.60-5.80) X10*6/uL Hgb 12.8 L (14.0-18.0) g/dl Hct 38.7 L (42.0-52.0) % MCV 90.6 (80.0-98.0) fL MCH 30.0 (27.0-33.0) pg MCHC 33.1 (31.0-36.0) g/dl RDW 13.2 (11.0-16.0) % Plt Count 254 (160-400) X10*3/uL MPV 9.2 L (9.4-12.4) fL Immature Gran % (Auto) 0.3 (0.0-0.4) % Neut % (Auto) 71.7 (45-73) % Lymph % (Auto) 14.9 L (20-40) % [place] % (Auto) 9.3 (2-11) % Eos % (Auto) 3.2 (0-4) % Baso % (Auto) 0.6 (0-2) % Lymph # (Auto) 1.7 (1.2-4.9) X10*3/uL [place] # (Auto) 1.1 (0.1-1.2) X10*3/uL Eos # (Auto) 0.4 (0.0-0.4) X10*3/uL Baso # (Auto) 0.1 (0.0-0.2) X10*3/uL Abs Immat Gran (auto) 0.04 H (0.00-0.03) X10*3/uL Absolute Neuts (auto) 8.3 (2.0-8.3) x10*3/uL Absolute Nucleated RBC 0.000 (0.0-0.012) X10*3/uL Nucleated RBC % (auto) 0.0 (0.0-0.2) /100WBC Sodium 140 (135-145) mmol/L Potassium 4.4 (3.3-5.1) mmol/L Chloride 105 (96-108) mmol/L Carbon Dioxide 22 (22-29) mmol/L Anion Gap 17 (12-20) BUN 12 (9-16) mg/dL Creatinine 0.72 (0.5-1.4) mg/dL Estim Creat Clear Calc 89.6 Estimated GFR > 60 Random Glucose 125 H (60-115) mg/dL Calcium 9.6 D (8.4-10.2) mg/dL Total Bilirubin 0.3 (0.0-1.0) mg/dL Direct Bilirubin 0.1 (0.0-0.5) mg/dL AST 19 (5-37) U/L ALT 18 (0-40) U/L Alkaline Phosphatase 54 (39-117) U/L Total Creatine Kinase 72 (38-174) U/L Troponin I High Sens < 2.7 (<3.5-35.0) ng/L B-Natriuretic Peptide 10 (<100) pg/mL Total Protein 6.8 (6.5-8.0) g/dL Albumin 4.0 (3.5-5.0) g/dL Lipase 248 H (8-78) U/L Influenza Type A (PCR) NEGATIVE (Negative) Influenza Type B (PCR) NEGATIVE (Negative) RSV RNA Qual (PCR) NEGATIVE (Negative) SARS-CoV-2 RNA (RT-PCR) NEGATIVE (Negative) Independent Interpretation I performed an independent interpretation of an: CT Scan (Head/face/C-spine/abdomen and pelvis: No acute displaced facial bone fracture, no cervical spine fracture, no intracranial hemorrhage, no acute intra-abdominal pathology.) Radiology Impression Discussion of test interpretation with radiology: I have reviewed the radiologist's reading. Discharge Plan Discharge Clinical Impression: Syncope and collapse Patient Disposition: Admitted As Inpatient Print Language: Slovenian
[2025-01-04 16:47] LABS: MANUAL DIFF FLAG NO
[2025-01-04 16:48] LABS: Basophils Absolute Auto 0.1 X10*3/uL (0.0-0.2); Basophils Percent Auto 0.6 % (0-2); Eosinophils Absolute Auto 0.4 X10*3/uL (0.0-0.4); Eosinophils Percent Auto 3.2 % (0-4); Hematocrit 38.7 % (42.0-52.0); Hemoglobin 12.8 g/dl (14.0-18.0); Imm Gran Abs Auto 0.04 X10*3/uL (0.00-0.03); Imm Gran Pct Auto 0.3 % (0.0-0.4); Lymphocytes Absolute Auto 1.7 X10*3/uL (1.2-4.9); Lymphocytes Percent Auto 14.9 % (20-40); Mean Corpuscular HGB Conc 33.1 g/dl (31.0-36.0); Mean Corpuscular Volume 90.6 fL (80.0-98.0); Mean Platelet Volume 9.2 fL (9.4-12.4); Monocytes Absolute Auto 1.1 X10*3/uL (0.1-1.2); Monocytes Percent Auto 9.3 % (2-11); Neutrophils Absolute Auto 8.3 x10*3/uL (2.0-8.3); Neutrophils Percent Auto 71.7 % (45-73); Platelet Count 254 X10*3/uL (160-400); Red Blood Count 4.27 X10*6/uL (4.60-5.80); Red Cell Distribution Width 13.2 % (11.0-16.0); White Blood Count 11.6 X10*3/uL (4.8-10.8)
[2025-01-04 17:25] LABS: Alanine Aminotransferase 18 U/L (0-40); Alkaline Phosphatase 54 U/L (39-117); Anion Gap 17 (12-20); Aspartate Amino Transferase 19 U/L (5-37); Bilirubin Direct 0.1 mg/dL (0.0-0.5); Bilirubin Total 0.3 mg/dL (0.0-1.0); Blood Urea Nitrogen 12 mg/dL (9-16); Calcium 9.6 mg/dL (8.4-10.2); Carbon Dioxide 22 mmol/L (22-29); Chloride 105 mmol/L (96-108); Creatinine Clr Calc Pharmacy 89.6; Estimated Glomerular Filt Rate > 60; Glucose Random 125 mg/dL (60-115); Lipase 248 U/L (8-78); Potassium 4.4 mmol/L (3.3-5.1); Sodium 140 mmol/L (135-145); Total Protein 6.8 g/dL (6.5-8.0)
[2025-01-04 17:29] LABS: B Type Natriuretic Peptide 10 pg/mL (<100)
[2025-01-04] MEDS: 0.9 % Sodium Chloride 1,000 ML 999 ML IV (17:42)
[2025-01-04 17:48] LABS: Troponin-I High Sensitivity < 2.7 ng/L (<3.5-35.0)
--- NOTE | 2025-01-04 18:04 | MHC.EDTECH ---
ED round and vitals completed, he is resting comfortable in his bed within call bhatt on his reach.
[2025-01-04 18:17] LABS: Influenza A PCR NEGATIVE (Negative); Influenza B PCR NEGATIVE (Negative); Resp Syncy Virus RNA Qual PCR NEGATIVE (Negative); SARS COV2 PCR INHOUSE NEGATIVE (Negative)
--- NOTE | 2025-01-04 21:14 | P.HPHOSP_ITS ---
History of Present Illness Date of Service: 01/04/25 Attending physician on admission: Kwaku Benítez Chief Complaint: Syncope Patient is a 74-year-old male with a past medical history significant for HLD, constipation, type 2 diabetes, iron-deficiency anemia and hypothyroidism, presented to the ED due to a syncopal episode earlier this morning around 08:30. He reports that he ate breakfast and stood up and was walking over to his balcony where he experienced lightheadedness and blurry vision followed by a syncopal episode. He reports that he hit his head and lost consciousness. He was found by his [employer] around 14:00. He denied any chest pain or shortness of breath leading up to this syncopal episode. He also vaguely intermittently reports left lower quadrant pain reports that he has been very constipated recently but states that he was not straining for a bowel movement prior to the syncopal episode. He did urinate about 30 minutes prior. He had a similar episode about 2 years ago and he is unsure which the workup was inconclusive for. He reports that he has been eating and drinking normally. Review of Systems 2 Constitutional: Constitutional: Denies body ache(s), Denies chills, Denies fever(s) and Denies headache(s) Eyes: Eyes: Denies change in vision and Denies photophobia ENT: Denies headache(s), Denies nasal congestion, Denies nasal discharge and Denies sore throat Cardiovascular: Cardiovascular: Denies chest pain, Reports syncope, Denies rapid heart rate, Denies leg edema, Reports lightheadedness, Denies dyspnea and Denies dyspnea on exertion Respiratory: Respiratory: Denies chest congestion, Denies cough, Denies dyspnea, Denies dyspnea on exertion and Denies wheezing Gastrointestinal: Gastrointestinal: Denies melena, Denies hematochezia, Reports constipation, Denies diarrhea, Denies nausea and Denies vomiting Genitourinary: Genitourinary: Denies dysuria, Denies urinary frequency and Denies urinary incontinence Musculoskeletal: Musculoskeletal: Denies myalgias Integumentary/Breasts: Skin/Breast: Denies rash Neurologic: Denies confusion, Reports syncope and Denies headache(s) Psychiatric: Psychiatric: Denies confusion Endocrine: Endocrine: Denies polyphagia and Denies polydipsia Hematologic/Lymphatic: Hematologic/Lymphatic: Denies easy bleeding and Denies easy bruising Allergic/Immunologic: Allergic/Immunologic: Denies wheezing PMFSH Medical History Degenerative disc disease, cervical Hypothyroidism (05/16/17) Hyperlipidemia (05/16/17) Essential hypertension (05/16/17) Diabetes mellitus (05/16/17) Constipation (05/20/17) 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) Flank pain Functional capacity: independent ambulation Social History Household Members: Friend(s) Housing: Apartment Do you presently have visiting nurse or other home services: Yes ([facility] and [employer]) Alcohol intake: former Patient Tobacco Use Status: Never used Tobacco Smoked in Last 30 Days: No Use of substances other than those prescribed or required for medical reasons: No Advance Directives: Yes Advance Directives on File: Yes Advance Directives Date on File: 08/13/22 Do you have a plan to hurt others: No Plan Nutrition Risks: No Nutritional Risk service: No Sexual orientation: Straight/Heterosexual Narrative: No smoking, alcohol or drug use Meds Allergies Allergy/AdvReac Type Severity Reaction Status Date / Time No Known Allergies Allergy Verified 01/04/25 16:32 Active Medications: Current Medications Acetaminophen (Acetaminophen 325 Mg Tablet) 650 mg PO Q6H PRN PRN Reason: Pain, Mild 1-3,fever,headache Calcium Carbonate (Calcium Carbonate 750 Mg Tab.Chew) 750 mg PO Q4H PRN PRN Reason: Heartburn Enoxaparin Sodium (Enoxaparin Sodium 40 Mg/0.4 Ml Syringe) 40 mg SUBCUT Q24H FARHAT Lactated Ringer's (Lr) 1,000 mls @ 100 mls/hr IVCONT .Q10H FARHAT Stop: 01/05/25 06:59 Magnesium Hydroxide (Milk Of Magnesia 30 Ml Oral.Susp) 30 ml PO DAILY PRN PRN Reason: Constipation Melatonin (Melatonin 3 Mg Tablet) 6 mg PO BEDTIME PRN PRN Reason: Insomnia Ondansetron HCl (Ondansetron Hcl 4 Mg/2 Ml Vial) 4 mg IVPUSH Q8H PRN PRN Reason: Nausea and Vomiting Sodium Chloride (0.9 % Sodium Chloride Flush 3 Ml Syringe) 3 ml IVFLUSH QSHIFT [facility] Home Medications ?Medication ?Instructions ?Recorded ?Confirmed ?Last Taken ?Type ferrous gluconate 324 mg (38 mg 324 mg PO Q OTHER DAY 05/13/23 01/04/25 Unknown History iron) tablet fluticasone propionate 50 2 spray intranasal DAILY PRN 05/13/23 01/04/25 Unknown History mcg/actuation nasal Allergy Symptoms spray,suspension levothyroxine 125 mcg tablet 125 mcg PO DAILY 05/13/23 01/04/25 Unknown History blood sugar diagnostic (FreeStyle #10 ea 06/04/23 Unknown History Lite Strips) cholecalciferol (vitamin D3) 50 50 mcg PO DAILY 06/04/23 01/04/25 Unknown History mcg (2,000 unit) capsule (Vitamin D3) lancets 33 gauge (TRUEplus Lancets) #100 ea 06/04/23 Unknown History lactulose 10 gram/15 mL oral 15 ml PO DAILY PRN Constipation 10/24/23 01/04/25 Unknown History solution albuterol sulfate 90 mcg/actuation 2 puff inhalation Q4H PRN cough 01/04/25 01/04/25 Unknown History aerosol inhaler ammonium lactate 12 % topical cream 1 appl topical DAILY PRN Dry Skin 01/04/25 01/04/25 Unknown History econazole nitrate 1 % topical cream 1 appl topical BID PRN Rash 01/04/25 01/04/25 Unknown History magnesium oxide 400 mg (241.3 mg 400 mg PO BEDTIME 01/04/25 01/04/25 Unknown History magnesium) tablet mupirocin 2 % topical ointment 1 appl topical TID PRN Rash 01/04/25 01/04/25 Unknown History polyethylene glycol 3350 17 17 g PO DAILY PRN Constipation 01/04/25 01/04/25 Unknown History gram/dose oral powder (Miralax) semaglutide 2 mg/dose (8 mg/3 mL) 2 mg subcut MO 01/04/25 01/04/25 01/04/25 History subcutaneous pen injector (Ozempic) trazodone 100 mg tablet 100 mg PO BEDTIME PRN Sleep 01/04/25 01/04/25 Unknown History Physical Exam 2 Vital Signs and Narrative: Vital Signs: Last Vital Signs Temp 98.3 F 01/04/25 18:00 Pulse 91 01/04/25 18:00 Resp 14 01/04/25 18:00 BP 100/61 01/04/25 18:00 Pulse Ox 98 01/04/25 18:00 O2 Del Method Room Air 01/04/25 18:00 BMI result Body Mass Index 28.6 General: AOx3, no acute distress Resp: CTA bilaterally CVS: S1, S2, RRR GI: +BS, mild tenderness left lower quadrant, no distention Skin: Warm, dry Neuro: Cranial nerves II-XII grossly intact bilaterally. Motor grossly intact bilaterally Extremities: No lower extremity edema Psych: Appropriate affect Const: General: No confusion Orientation/consciousness: No confusion Eyes: Direct Ophthalmoscopy: No photophobia Neuro: General: No confusion Results Labs 01/04/25 16:44 01/04/25 16:44 Labs: Laboratory Results - last 24 hr 01/04/25 01/04/25 16:44 17:20 MCV 90.6 MCH 30.0 MCHC 33.1 RDW 13.2 Plt Count 254 MPV 9.2 L Immature Gran % (Auto) 0.3 Neut % (Auto) 71.7 Lymph % (Auto) 14.9 L Swisher % (Auto) 9.3 Eos % (Auto) 3.2 Baso % (Auto) 0.6 Lymph # (Auto) 1.7 Swisher # (Auto) 1.1 Eos # (Auto) 0.4 Baso # (Auto) 0.1 Abs Immat Gran (auto) 0.04 H Absolute Neuts (auto) 8.3 Absolute Nucleated RBC 0.000 Nucleated RBC % (auto) 0.0 Anion Gap 17 Estim Creat Clear Calc 89.6 Estimated GFR > 60 Random Glucose 125 H Calcium 9.6 D Total Bilirubin 0.3 Direct Bilirubin 0.1 AST 19 ALT 18 Alkaline Phosphatase 54 Total Creatine Kinase 72 B-Natriuretic Peptide 10 Total Protein 6.8 Albumin 4.0 Lipase 248 H Influenza Type A (PCR) NEGATIVE Influenza Type B (PCR) NEGATIVE RSV RNA Qual (PCR) NEGATIVE SARS-CoV-2 RNA (RT-PCR) NEGATIVE Assessment and Plan (1) Orthostatic hypotension: Status: Acute (2) Syncope: Status: Acute Plan Patient is a 74-year-old male with a past medical history significant for HLD, constipation, type 2 diabetes, iron-deficiency anemia and hypothyroidism, presented to the ED due to a syncopal episode earlier this morning around 08:30. Syncope secondary to orthostatic hypotension - WBC 11.6, no obvious infection source, likely reactive - imaging including CT head, face, C-spine abdomen and pelvis all negative - positive orthostatics - EKG normal - lipase elevated at [address] negative for pancreatitis therefore unlikely - patient given 1 L NS, give additional liter of LR - repeat orthostatics in the morning - admit for observation on tele Type 2 diabetes - diabetic diet - sliding scale insulin - hold p.o. meds HLD - continue home meds DK - continue iron hypothyroid - continue levothryroxine DNR/DNI VTE prophy: lovenox Patient with syncopal episode secondary to orthostatic hypotension requiring admission for observation overnight for monitoring with repeat orthostatics in the morning. Quality Stroke Does the patient have a stroke diagnosis?: No VTE Prior VTE?: No VTE Risk Level:: Medical - moderate - high VTE Device Contraindication: Treatment Not Indicated VTE Drug Contraindication: N/A - Med Ordered
--- NOTE | 2025-01-04 21:18 | PHA.MEDREC ---
Addendum entered by Dick Jackson RPh 01/04/25 22:24: Reviewed by [facility] Original Note: Pharmacy Consult ? Medication Reconciliation Pharmacy has completed the medication reconciliation. Patient receives medbox from [facility], used claims to verify medications. Spoke with PIPE (maria - [phone]), she did not have a list but she was able to verify as needed medications and Ozempic, she administered it today and does it every Saturday. PIPE says she has not seen him use prn hydroxyzine for itching in a long time, left off of med list. Patient verified OTC tylenol prn (w/ stopper setter).
[2025-01-04] MEDS: Enoxaparin Sodium 40 MG/0.4 ML SYRINGE SUBCUT (22:44)
[2025-01-04] MEDS: DULoxetine HCl 30 MG CAPSULE.DR PO (22:44)
[2025-01-04] MEDS: Atorvastatin Calcium 40 MG TABLET PO (22:44)
[2025-01-04] MEDS: Ferrous Sulfate 324 MG TABLET.DR PO (22:44)
[2025-01-04] MEDS: Magnesium Oxide 400 MG TABLET PO (22:44)
[2025-01-04] MEDS: Lactated Ringers 1,000 ML 100 ML IVCONT (22:48)
[2025-01-05] VITALS (9 sets, daily range): BP systolic 106–134; BP diastolic 66–74; PULSE 76–94; RESP 18–20; TEMP 36.1–36.8; O2SAT 95–98
--- NOTE | 2025-01-05 00:38 | PC.NURSE ---
Patient currently resting on a stretcher bed, no distress noted, RR 16, even chest wall rise and fall. LR infusing at 100 mL /hr via 20 G IV line in L AC. Call bhatt in patient's reach, plan of care ongoing.
[2025-01-05 04:08] LABS: Appearance Urine Clear; Color Urine Yellow; Glucose Urine UA >=1000 mg/dL (Negative); Leukocyte Esterase Urine Negative (Negative); Nitrite Urine Negative (Negative); PH 5.5 (5.0-9.0); Specific Gravity - Urine 1.025 (1.005-1.025); UMIC TRIGGER UACC YES; Urine Blood Negative (Negative); Urine Ketones 40 mg/dL (Negative); Urine Protein Negative (Neg-Trace)
[2025-01-05 04:13] LABS: Bacteria Urine None Seen (None Seen); Hyaline Casts Urine 0-2 /LPF (0-2); RBC Urine 0-2 /HPF (0-2); Squamous Epithelial Cell Urine 0-2 /HPF (0-2); WBC Urine 0-5 /HPF (0-5)
--- NOTE | 2025-01-05 04:14 | PC.NURSE ---
Patient assisted to void into a urinal, patient voided 750 mL of yellow, clear urine. Urine specimen collected via clean catch and sent to lab for processing.
[2025-01-05 05:14] LABS: MANUAL DIFF FLAG NO
[2025-01-05 05:15] LABS: Basophils Absolute Auto 0.1 X10*3/uL (0.0-0.2); Basophils Percent Auto 1.1 % (0-2); Eosinophils Absolute Auto 0.3 X10*3/uL (0.0-0.4); Hematocrit 36.6 % (42.0-52.0); Hemoglobin 12.1 g/dl (14.0-18.0); Imm Gran Abs Auto 0.01 X10*3/uL (0.00-0.03); Imm Gran Pct Auto 0.2 % (0.0-0.4); Lymphocytes Absolute Auto 1.8 X10*3/uL (1.2-4.9); Lymphocytes Percent Auto 26.8 % (20-40); Mean Corpuscular HGB Conc 33.1 g/dl (31.0-36.0); Mean Corpuscular Hemoglobin 29.7 pg (27.0-33.0); Mean Corpuscular Volume 89.7 fL (80.0-98.0); Mean Platelet Volume 9.6 fL (9.4-12.4); Monocytes Absolute Auto 0.7 X10*3/uL (0.1-1.2); Monocytes Percent Auto 10.8 % (2-11); Neutrophils Absolute Auto 3.7 x10*3/uL (2.0-8.3); Neutrophils Percent Auto 56.1 % (45-73); Platelet Count 249 X10*3/uL (160-400); Red Blood Count 4.08 X10*6/uL (4.60-5.80); Red Cell Distribution Width 13.2 % (11.0-16.0); White Blood Count 6.6 X10*3/uL (4.8-10.8)
[2025-01-05] MEDS: Levothyroxine Sodium 125 MCG TABLET PO (05:17)
[2025-01-05 05:35] LABS: Anion Gap 15 (12-20); Blood Urea Nitrogen 12 mg/dL (9-16); Calcium 9.2 mg/dL (8.4-10.2); Carbon Dioxide 21 mmol/L (22-29); Chloride 108 mmol/L (96-108); Creatinine Clr Calc Pharmacy 104.1; Estimated Glomerular Filt Rate > 60; Glucose Random 81 mg/dL (60-115); Potassium 3.5 mmol/L (3.3-5.1); Sodium 140 mmol/L (135-145)
[2025-01-05 07:37] LABS: Glucose, Whole Blood 80 mg/dL (60-115)
--- NOTE | 2025-01-05 08:38 | P.PNIM_ITS ---
Subjective Subjective Date of Service: 01/05/25 Interval History: orthostasis Review of Systems still has some lightheaded has some memory difficulties no fevers Physical Exam 2 Vital Signs: Vital Signs: Last Vital Signs Temp 97.5 F 01/05/25 03:50 Pulse 77 01/05/25 03:50 Resp 20 01/05/25 03:50 BP 123/69 01/05/25 03:50 Pulse Ox 96 01/05/25 03:50 O2 Del Method Room Air 01/05/25 03:50 BMI result Body Mass Index 28.6 Appearance: Alert.? Oriented X3.? cvs: rrr, [id number] . res: clear to auscultation ,no rhonchii or wheezing abd: no rebound or guarding ,nt, bs present. ext pulses present , no cyanosis . neuro: axo3 , nonfocal. Objective Data Active Medications Acetaminophen (Acetaminophen 325 Mg Tablet) 650 mg PO Q6H PRN PRN Reason: Pain, Mild 1-3,fever,headache Albuterol Sulfate (Albuterol Sulfate 90 Mcg 8 Gm Inhaler) 2 puff INHALE Q4H PRN PRN Reason: cough Aspirin (Aspirin Enteric Coated 81 Mg Tablet.) 81 mg PO DAILY [facility] Atorvastatin Calcium (Atorvastatin Calcium 40 Mg Tablet) 40 mg PO BEDTIME [facility] Last Admin: 01/04/25 22:44 Dose: 40 mg Documented By: ERIN Calcium Carbonate (Calcium Carbonate 750 Mg Tab.Chew) 750 mg PO Q4H PRN PRN Reason: Heartburn Dextrose (Dextrose 50 % 25 Gm/50 Ml Syringe) 25 gm IVPUSH Q15M PRN; Protocol PRN Reason: per Hypoglycemia Standing Ord. Docusate Sodium (Docusate Sodium 100 Mg Capsule) 100 mg PO BEDTIME [facility] Duloxetine HCl (Duloxetine Hcl 30 Mg Capsule.) 30 mg PO BID [facility] Last Admin: 01/04/25 22:44 Dose: 30 mg Documented By: ERIN Enoxaparin Sodium (Enoxaparin Sodium 40 Mg/0.4 Ml Syringe) 40 mg SUBCUT Q24H [facility] Last Admin: 01/04/25 22:44 Dose: 40 mg Documented By: ERIN Ferrous Sulfate (Ferrous Sulfate 324 Mg Tablet.) 324 mg PO Q48H [facility] Last Admin: 01/04/25 22:44 Dose: 324 mg Documented By: ERIN Fluticasone Propionate (Fluticasone Propionate Nasal 16 Gm Purlear) 2 spray NOSTRIL-B DAILY PRN PRN Reason: Allergy Symptoms Glucose (Glucose Gel 15 Gm Gel..Gram.) 15 gm PO Q15M PRN; Protocol PRN Reason: per Hypoglycemia Standing Ord. Insulin Human Lispro (Insulin Lispro 100 Unit/Ml 3 Ml Vial) 0 unit SUBCUT QIDACHS [facility]; Protocol Last Admin: 01/05/25 07:57 Dose: Not Given Documented By: LUCILLE Non-Admin Reason: No Insulin Coverage Lactic Acid (Ammonium Lactate 12 % Cream 140 Gm Tube) 1 appl TOPICAL DAILY PRN; Protocol PRN Reason: Dry Skin Lactulose (Lactulose 20 Gm/30 Ml Solution) 10 gm PO DAILY PRN PRN Reason: Constipation Levothyroxine Sodium (Levothyroxine Sodium 125 Mcg Tablet) 125 mcg PO DAILY@0600 [facility] Last Admin: 01/05/25 05:17 Dose: 125 mcg Documented By: ERIN Magnesium Hydroxide (Milk Of Magnesia 30 Ml Oral.Susp) 30 ml PO DAILY PRN PRN Reason: Constipation Magnesium Oxide (Magnesium Oxide 400 Mg Tablet) 400 mg PO BEDTIME [facility] Last Admin: 01/04/25 22:44 Dose: 400 mg Documented By: ERIN Melatonin (Melatonin 3 Mg Tablet) 6 mg PO BEDTIME PRN PRN Reason: Insomnia Ondansetron HCl (Ondansetron Hcl 4 Mg/2 Ml Vial) 4 mg IVPUSH Q8H PRN PRN Reason: Nausea and Vomiting Polyethylene Glycol (Polyethylene Glycol 3350 17 Gm Powd.Pack) 17 gm PO DAILY [facility] Sodium Chloride (0.9 % Sodium Chloride Flush 3 Ml Syringe) 3 ml IVFLUSH QSHIFT [facility] Last Admin: 01/05/25 07:58 Dose: Not Given Documented By: LUCILLE Non-Admin Reason: IV Running Trazodone HCl (Trazodone Hcl 100 Mg Tablet) 100 mg PO BEDTIME PRN PRN Reason: Sleep Vitamin D (Cholecalciferol (Vitamin D3) 25 Mcg Tablet) 50 mcg PO DAILY [facility] Labs 01/05/25 04:40 01/05/25 04:40 Labs: Laboratory Results - last 24 hr 01/04/25 01/04/25 01/05/25 16:44 17:20 04:01 MCV 90.6 MCH 30.0 MCHC 33.1 RDW 13.2 Plt Count 254 MPV 9.2 L Immature Gran % (Auto) 0.3 Neut % (Auto) 71.7 Lymph % (Auto) 14.9 L Aiken % (Auto) 9.3 Eos % (Auto) 3.2 Baso % (Auto) 0.6 Lymph # (Auto) 1.7 Aiken # (Auto) 1.1 Eos # (Auto) 0.4 Baso # (Auto) 0.1 Abs Immat Gran (auto) 0.04 H Absolute Neuts (auto) 8.3 Absolute Nucleated RBC 0.000 Nucleated RBC % (auto) 0.0 Anion Gap 17 Estim Creat Clear Calc 89.6 Estimated GFR > 60 POC Glucose Random Glucose 125 H Calcium 9.6 D Total Bilirubin 0.3 Direct Bilirubin 0.1 AST 19 ALT 18 Alkaline Phosphatase 54 Total Creatine Kinase 72 B-Natriuretic Peptide 10 Total Protein 6.8 Albumin 4.0 Lipase 248 H Urine Color Yellow Urine Appearance Clear Urine pH 5.5 Ur Specific Kintyre 1.025 Urine Protein Negative Urine Glucose (UA) >=1000 H Urine Ketones 40 Urine Blood Negative Urine Nitrite Negative Ur Leukocyte Esterase Negative Urine RBC 0-2 Urine WBC 0-5 Ur Squamous Epith Cells 0-2 Urine Bacteria None Seen Hyaline Casts 0-2 Influenza Type A (PCR) NEGATIVE Influenza Type B (PCR) NEGATIVE RSV RNA Qual (PCR) NEGATIVE SARS-CoV-2 RNA (RT-PCR) NEGATIVE 01/05/25 01/05/25 04:40 07:19 MCV 89.7 MCH 29.7 MCHC 33.1 RDW 13.2 Plt Count 249 MPV 9.6 Immature Gran % (Auto) 0.2 Neut % (Auto) 56.1 Lymph % (Auto) 26.8 Aiken % (Auto) 10.8 Eos % (Auto) 5.0 H Baso % (Auto) 1.1 Lymph # (Auto) 1.8 Aiken # (Auto) 0.7 Eos # (Auto) 0.3 Baso # (Auto) 0.1 Abs Immat Gran (auto) 0.01 Absolute Neuts (auto) 3.7 Absolute Nucleated RBC 0.000 Nucleated RBC % (auto) 0.0 Anion Gap 15 Estim Creat Clear Calc 104.1 Estimated GFR > 60 POC Glucose 80 Random Glucose 81 Calcium 9.2 Total Bilirubin Direct Bilirubin AST ALT Alkaline Phosphatase Total Creatine Kinase B-Natriuretic Peptide Total Protein Albumin Lipase Urine Color Urine Appearance Urine pH Ur Specific Kintyre Urine Protein Urine Glucose (UA) Urine Ketones Urine Blood Urine Nitrite Ur Leukocyte Esterase Urine RBC Urine WBC Ur Squamous Epith Cells Urine Bacteria Hyaline Casts Influenza Type A (PCR) Influenza Type B (PCR) RSV RNA Qual (PCR) SARS-CoV-2 RNA (RT-PCR) Assessment and Plan (1) Orthostatic hypotension: Status: Acute Assessment and Plan: 74-year-old male with a past medical history significant for HLD, constipation, type 2 diabetes, iron-deficiency anemia and hypothyroidism, presented to the ED due to a syncopal episode earlier this morning around 08:30. Syncope secondary to orthostatic hypotension- WBC 11.6, no obvious infection source, likely reactive positive orthostatics,EKG normal lipase elevated at [address] negative for pancreatitis therefore unlikely patient given 1 L NS, added IVF and jakob stocking moniter for orthostasis Type 2 diabetes - diabetic diet - sliding scale insulin - hold p.o. meds HLD - continue home meds DK - continue iron hypothyroid - continue levothryroxine pT Eval. DNR/DNI VTE prophy: lovenox Patient with syncopal episode secondary to orthostatic hypotension-need ivf and monitering for orthostasis . Quality Stroke Does the patient have a stroke diagnosis?: No VTE Prior VTE?: No VTE Risk Level:: Medical - moderate - high VTE Device Contraindication: Treatment Not Indicated VTE Drug Contraindication: N/A - Med Ordered
[2025-01-05 11:09] LABS: Glucose, Whole Blood 115 mg/dL (60-115)
[2025-01-05] MEDS: Aspirin Enteric Coated 81 MG TABLET.DR PO (11:21)
[2025-01-05] MEDS: DULoxetine HCl 30 MG CAPSULE.DR PO ×2 (11:21→22:15)
[2025-01-05] MEDS: Lactated Ringers 1,000 ML 80 ML IVCONT ×2 (11:21→22:17)
[2025-01-05] MEDS: Cholecalciferol (Vitamin D3) 25 MCG TABLET 50 MCG PO (11:21)
[2025-01-05] MEDS: polyethylene glycoL 3350 17 GM POWD.PACK PO (11:24)
--- NOTE | 2025-01-05 14:44 | MHC.CM.PN ---
ANU 01/05/25, Pt lives with a lady whom he said is blind. he has 3 hrs of [employer] services per day and a nurse that comes in daily to give his meds. PCP is Rose Mary Pimentel, for DME he has a cane and a walker (he uses to go outdoors). His [employer]CTION[employer] ANALYST will transport home at DC. DCP: home, resume services. CM to follow for DC needs.
[2025-01-05 16:15] LABS: Glucose, Whole Blood 151 mg/dL (60-115)
[2025-01-05] MEDS: Insulin Lispro 100 UNIT/ML 3 ML VIAL SUBCUT (17:00)
[2025-01-05 20:53] LABS: Glucose, Whole Blood 129 mg/dL (60-115)
[2025-01-05] MEDS: Docusate Sodium 100 MG CAPSULE PO (22:14)
[2025-01-05] MEDS: Atorvastatin Calcium 40 MG TABLET PO (22:14)
[2025-01-05] MEDS: Magnesium Oxide 400 MG TABLET PO (22:14)
[2025-01-05] MEDS: Enoxaparin Sodium 40 MG/0.4 ML SYRINGE SUBCUT (22:15)
[2025-01-06] VITALS (9 sets, daily range): BP systolic 104–136; BP diastolic 54–77; PULSE 75–103; RESP 17–20; TEMP 36.1–36.9; O2SAT 95–98
[2025-01-06] MEDS: Levothyroxine Sodium 125 MCG TABLET PO (05:48)
[2025-01-06 07:18] LABS: Glucose, Whole Blood 90 mg/dL (60-115)
[2025-01-06] MEDS: Aspirin Enteric Coated 81 MG TABLET.DR PO (08:27)
[2025-01-06] MEDS: Cholecalciferol (Vitamin D3) 25 MCG TABLET 50 MCG PO (08:28)
[2025-01-06] MEDS: DULoxetine HCl 30 MG CAPSULE.DR PO ×2 (08:28→20:59)
[2025-01-06] MEDS: polyethylene glycoL 3350 17 GM POWD.PACK PO (08:35)
[2025-01-06] MEDS: Lactated Ringers 1,000 ML 80 ML IVCONT (11:11)
--- NOTE | 2025-01-06 15:05 | MHC.CM.PN ---
Pt. has been medically cleared for DC. PT had rec. STR, however, pt. is moving around his room well. CM met with him and discussed STR vs. home with services. He said is it his preference to go home with [facility], he is in agreement with referral to [facility]. [employer] will transport home.
[2025-01-06 15:39] LABS: Glucose, Whole Blood 132 mg/dL (60-115)
[2025-01-06 16:18] LABS: Glucose, Whole Blood 157 mg/dL (60-115)
--- NOTE | 2025-01-06 16:27 | P.PNIM_ITS ---
Subjective Subjective Date of Service: 01/06/25 Interval History: Orthostasis Review of Systems seems improving no new symptoms Physical Exam 2 Vital Signs: Vital Signs: Last Vital Signs Temp 97.5 F 01/06/25 16:00 Pulse 85 01/06/25 16:00 Resp 18 01/06/25 16:00 BP 120/67 01/06/25 16:00 Pulse Ox 98 01/06/25 16:00 O2 Del Method Room Air 01/06/25 16:00 BMI result Body Mass Index 28.6 Appearance: Alert.? Oriented X3.? cvs: rrr, [id number] . res: clear to auscultation ,no rhonchii or wheezing abd: no rebound or guarding ,nt, bs present. ext pulses present , no cyanosis . neuro: axo3 , nonfocal. Objective Data Active Medications Acetaminophen (Acetaminophen 325 Mg Tablet) 650 mg PO Q6H PRN PRN Reason: Pain, Mild 1-3,fever,headache Albuterol Sulfate (Albuterol Sulfate 90 Mcg 8 Gm Inhaler) 2 puff INHALE Q4H PRN PRN Reason: cough Aspirin (Aspirin Enteric Coated 81 Mg Tablet.) 81 mg PO DAILY [facility] Last Admin: 01/06/25 08:27 Dose: 81 mg Documented By: MARA Atorvastatin Calcium (Atorvastatin Calcium 40 Mg Tablet) 40 mg PO BEDTIME [facility] Last Admin: 01/05/25 22:14 Dose: 40 mg Documented By: WINDY Calcium Carbonate (Calcium Carbonate 750 Mg Tab.Chew) 750 mg PO Q4H PRN PRN Reason: Heartburn Clotrimazole (Clotrimazole 1 % Cream 15 Gm Tube) 1 appl TOPICAL BID PRN PRN Reason: Rash Dextrose (Dextrose 50 % 25 Gm/50 Ml Syringe) 25 gm IVPUSH Q15M PRN; Protocol PRN Reason: per Hypoglycemia Standing Ord. Docusate Sodium (Docusate Sodium 100 Mg Capsule) 100 mg PO BEDTIME [facility] Last Admin: 01/05/25 22:14 Dose: 100 mg Documented By: WINDY Duloxetine HCl (Duloxetine Hcl 30 Mg Capsule.) 30 mg PO BID [facility] Last Admin: 01/06/25 08:28 Dose: 30 mg Documented By: MARA Enoxaparin Sodium (Enoxaparin Sodium 40 Mg/0.4 Ml Syringe) 40 mg SUBCUT Q24H [facility] Last Admin: 01/05/25 22:15 Dose: 40 mg Documented By: WINDY Ferrous Sulfate (Ferrous Sulfate 324 Mg Tablet.Dr) 324 mg PO Q48H [facility] Last Admin: 01/04/25 22:44 Dose: 324 mg Documented By: ERIN Fluticasone Propionate (Fluticasone Propionate Nasal 16 Gm [place]) 2 spray NOSTRIL-B DAILY PRN PRN Reason: Allergy Symptoms Glucose (Glucose Gel 15 Gm Gel..Gram.) 15 gm PO Q15M PRN; Protocol PRN Reason: per Hypoglycemia Standing Ord. Lactated Ringer's (Lr) 1,000 mls @ 80 mls/hr IVCONT .[id number] [facility] Last Admin: 01/06/25 11:11 Dose: 80 mls/hr Documented By: MARA Insulin Human Lispro (Insulin Lispro 100 Unit/Ml 3 Ml Vial) 0 unit SUBCUT QIDACHS [facility]; Protocol Last Admin: 01/06/25 11:23 Dose: Not Given Documented By: MARA Non-Admin Reason: No Insulin Coverage Lactic Acid (Ammonium Lactate 12 % Cream 140 Gm Tube) 1 appl TOPICAL DAILY PRN; Protocol PRN Reason: Dry Skin Lactulose (Lactulose 20 Gm/30 Ml Solution) 10 gm PO DAILY PRN PRN Reason: Constipation Levothyroxine Sodium (Levothyroxine Sodium 125 Mcg Tablet) 125 mcg PO DAILY@0600 [facility] Last Admin: 01/06/25 05:48 Dose: 125 mcg Documented By: WINDY Magnesium Hydroxide (Milk Of Magnesia 30 Ml Oral.Susp) 30 ml PO DAILY PRN PRN Reason: Constipation Magnesium Oxide (Magnesium Oxide 400 Mg Tablet) 400 mg PO BEDTIME [facility] Last Admin: 01/05/25 22:14 Dose: 400 mg Documented By: WINDY Melatonin (Melatonin 3 Mg Tablet) 6 mg PO BEDTIME PRN PRN Reason: Insomnia Mupirocin (Mupirocin 2 % Oint 22 Gm Tube) 1 appl TOPICAL TID PRN; Protocol PRN Reason: Rash Ondansetron HCl (Ondansetron Hcl 4 Mg/2 Ml Vial) 4 mg IVPUSH Q8H PRN PRN Reason: Nausea and Vomiting Polyethylene Glycol (Polyethylene Glycol 3350 17 Gm Powd.Pack) 17 gm PO DAILY [facility] Last Admin: 01/06/25 08:35 Dose: 17 gm Documented By: MARA Sodium Chloride (0.9 % Sodium Chloride Flush 3 Ml Syringe) 3 ml IVFLUSH QSHIFT [facility] Last Admin: 01/06/25 15:02 Dose: Not Given Documented By: MARA Non-Admin Reason: IV Running Trazodone HCl (Trazodone Hcl 100 Mg Tablet) 100 mg PO BEDTIME PRN PRN Reason: Sleep Vitamin D (Cholecalciferol (Vitamin D3) 25 Mcg Tablet) 50 mcg PO DAILY [facility] Last Admin: 01/06/25 08:28 Dose: 50 mcg Documented By: MARA Labs 01/05/25 04:40 01/05/25 04:40 Labs: Laboratory Results - last 24 hr 01/05/25 01/06/25 01/06/25 20:40 07:14 11:21 POC Glucose 129 H 90 132 H 01/06/25 16:14 POC Glucose 157 H Assessment and Plan (1) Orthostatic hypotension: Status: Acute Assessment and Plan: 74-year-old male with a past medical history significant for HLD, constipation, type 2 diabetes, iron-deficiency anemia and hypothyroidism, presented to the ED due to a syncopal episode earlier this morning around 08:30. Syncope secondary to orthostatic hypotension- WBC 11.6, no obvious infection source, likely reactive positive orthostatics,EKG normal lipase elevated at [address] negative for pancreatitis therefore unlikely patient given 1 L NS, added IVF and jakob stocking improved ,awaiting rehab. Type 2 diabetes - diabetic diet - sliding scale insulin - hold p.o. meds HLD - continue home meds DK - continue iron hypothyroid - continue levothryroxine pT Eval. DNR/DNI VTE prophy: lovenox need forstay-awaiting rehab Quality Stroke Does the patient have a stroke diagnosis?: No VTE Prior VTE?: No VTE Risk Level:: Medical - moderate - high VTE Device Contraindication: Treatment Not Indicated VTE Drug Contraindication: N/A - Med Ordered
[2025-01-06] MEDS: Insulin Lispro 100 UNIT/ML 3 ML VIAL SUBCUT ×2 (16:50→20:59)
[2025-01-06 20:14] LABS: Glucose, Whole Blood 204 mg/dL (60-115)
[2025-01-06] MEDS: Magnesium Oxide 400 MG TABLET PO (20:59)
[2025-01-06] MEDS: Atorvastatin Calcium 40 MG TABLET PO (20:59)
[2025-01-06] MEDS: Docusate Sodium 100 MG CAPSULE PO (20:59)
[2025-01-06] MEDS: Ferrous Sulfate 324 MG TABLET.DR PO (21:00)
[2025-01-06] MEDS: Enoxaparin Sodium 40 MG/0.4 ML SYRINGE SUBCUT (21:00)
[2025-01-07] VITALS: BP 102/59; PULSE 67; RESP 18; TEMP 36.4; O2SAT 97
[2025-01-07] MEDS: Lactated Ringers 1,000 ML 80 ML IVCONT (00:33)
[2025-01-07 03:25] VITALS: BP 119/68; PULSE 79; RESP 18; TEMP 36.1; O2SAT 96
[2025-01-07] MEDS: Milk of Magnesia 30 ML ORAL.SUSP PO (05:12)
[2025-01-07] MEDS: Levothyroxine Sodium 125 MCG TABLET PO (05:12)
[2025-01-07 08:00] VITALS: BP 96/56; PULSE 93; RESP 18; TEMP 36.8; O2SAT 94
[2025-01-07 08:11] LABS: Glucose, Whole Blood 151 mg/dL (60-115)
[2025-01-07] MEDS: DULoxetine HCl 30 MG CAPSULE.DR PO (08:46)
[2025-01-07] MEDS: polyethylene glycoL 3350 17 GM POWD.PACK PO (08:46)
[2025-01-07] MEDS: Insulin Lispro 100 UNIT/ML 3 ML VIAL SUBCUT (08:46)
[2025-01-07] MEDS: Cholecalciferol (Vitamin D3) 25 MCG TABLET 50 MCG PO (08:46)
[2025-01-07] MEDS: Aspirin Enteric Coated 81 MG TABLET.DR PO (08:46)
[2025-01-07 09:51] VITALS: BP 109/70
[2025-01-07] MEDS: Midodrine HCl 2.5 MG TABLET PO ×2 (09:51→13:10)
[2025-01-07 11:22] VITALS: BP 95/65; PULSE 82; RESP 18; TEMP 36.7; O2SAT 97
[2025-01-07 11:34] LABS: Glucose, Whole Blood 127 mg/dL (60-115)
--- NOTE | 2025-01-07 13:39 | PM.DS ---
DS: Providers Provider Date of Service: 01/07/25 Date of admission: 01/04/25 20:54 Date of discharge: 01/07/25 Primary care physician: YONAS Poon Attending physician on discharge: Chris Thompson Discharging clinician: Chris Thompson DS: Diagnosis Discharge Diagnosis (1) Orthostatic hypotension: Status: Acute DS: Summary Hospital Course Hospital Course: HPI:74-year-old male with a past medical history significant for HLD, constipation, type 2 diabetes, iron-deficiency anemia and hypothyroidism, presented to the ED due to a syncopal episode earlier this morning around 08:30. He reports that he ate breakfast and stood up and was walking over to his balcony where he experienced lightheadedness and blurry vision followed by a syncopal episode. He reports that he hit his head and lost consciousness. He was found by his PRINCIPAL TRAINER around 14:00. He denied any chest pain or shortness of breath leading up to this syncopal episode. He also vaguely intermittently reports left lower quadrant pain reports that he has been very constipated recently but states that he was not straining for a bowel movement prior to the syncopal episode. He did urinate about 30 minutes prior. He had a similar episode about 2 years ago and he is unsure which the workup was inconclusive for. He reports that he has been eating and drinking normally. Hospital course: 74-year-old male with a past medical history significant for HLD, constipation, type 2 diabetes, iron-deficiency anemia and hypothyroidism, presented to the ED due to a syncopal episode . Syncope secondary to orthostatic hypotension- imaging including CT head, face, C-spine abdomen done ( please see imaging section below for details ) grossly negative, telemetry seems fine-given IV hydration and Jakob stocking: His symptoms seems to be improved significantly,Seen by PT-recommended rehab. Incidental finding on CT head: [id number] ventriculomegaly which may be secondary to central volume loss, less likely NPH: Patient denies any significant dementia or any urinary complaints. Further management out patiently with PCP. mild leucocytosis: no obvious infection source, likely reactive positive orthostatics,EKG normal,lipase elevated at [address] negative for pancreatitis therefore unlikely. leucocytosis seems resolved. plan: Patient was strongly advised for hydration, compliance with the stocking. Monitor for orthostasis symptoms in rehab. Consider midodrine if needed. For ventriculomegaly in CT head-outpatient follow-up with PCP and consider outpatient neurology evaluation if needed. Above management discussed with the patient in detail length with the help of conservation specialist-he understand and in agreement with the above plan, total time spent 40 minute. Time Attestation Total time managing care of this patient today: 40 mintues. Discharge Coordination Time (in mins): 40 min Quality: Safe Use of Opioids Does Pt have an Active Cancer Diagnosis on the Problem List?: No Quality: Stroke Does the patient have a stroke diagnosis?: No Physical Exam Vital Signs: Vital Signs: Last Vital Signs Temp 98.1 F 01/07/25 11:22 Pulse 82 01/07/25 11:22 Resp 18 01/07/25 11:22 BP 95/65 01/07/25 11:22 Pulse Ox 97 01/07/25 11:22 O2 Del Method Room Air 01/07/25 11:22 BMI result Body Mass Index 28.6 Appearance: Alert.? Oriented X3.? cvs: rrr, [id number] . res: clear to auscultation ,no rhonchii or wheezing abd: no rebound or guarding ,nt, bs present. ext pulses present , no cyanosis . neuro: axo3 , nonfocal. DS: Data Data Completed and Pending Labs on day of discharge: Laboratory Results - last 24 hr 01/06/25 01/06/25 01/06/25 11:21 16:14 20:00 POC Glucose 132 H 157 H 204 H 01/07/25 01/07/25 08:07 11:24 POC Glucose 151 H 127 H Imaging Chest x-ray: My impression: face ct: No acute displaced facial bone fracture. head ct scan:1. No skull fracture or intracranial hemorrhage. 2. [id number] ventriculomegaly which may be secondary to central volume loss or normal pressure hydrocephalus. cervical ct scan:No cervical spine fracture. Discharge Plan Discharge Anticipated Discharge Date/Time: 01/06/25 12:21 Patient Disposition: Home Health Service Discharge Diagnosis: syncope ,orthostasis Referrals: Rose Mary Pimentel FNP [Primary Care Provider] - 1 Week Discharge Medications: New (DME) Ultra-Light Rollator Misc See Rx Instructions .ROUTE .MEDSUPPLY Qty: 1 0RF Rx Instructions: As directed (DME) Vince Knee Phucub-L-Tzlbwog Misc See Rx Instructions .Route Qty: 24 0RF Rx Instructions: As directed Continued atorvastatin 40 mg Tablet 40 mg PO BEDTIME Qty: 30 0RF acetaminophen 325 mg Tablet 650 mg PO Q6H PRN (Reason: Pain, Mild (Pain Scale 1-3)) Qty: 30 0RF aspirin 81 mg Tablet,Delayed Release (Dr/Ec) 81 mg PO DAILY Qty: 30 0RF duloxetine 30 mg Capsule,Delayed Release(Dr/Ec) 30 mg PO BID Qty: 60 0RF Jardiance 25 mg Tablet 25 mg PO DAILY Qty: 30 0RF melatonin 3 mg Tablet 6 mg PO BEDTIME Qty: 60 0RF metformin 1,000 mg Tablet 1,000 mg PO BIDWM Qty: 60 0RF magnesium oxide 400 mg (241.3 mg magnesium) tablet 400 mg PO BEDTIME econazole nitrate 1 % cream 1 appl topical BID PRN (Reason: Rash) Rx Instructions: between toes ammonium lactate 12 % cream 1 appl topical DAILY PRN (Reason: Dry Skin) Rx Instructions: Heels mupirocin 2 % ointment 1 appl topical TID PRN (Reason: Rash) albuterol sulfate 90 mcg/actuation HFA aerosol inhaler 2 puff INHALATION Q4H PRN (Reason: cough) Ozempic 2 mg/dose (8 mg/3 mL) pen injector 2 mg subcut MO trazodone 100 mg tablet 100 mg PO BEDTIME PRN (Reason: Sleep) polyethylene glycol 3350 [Miralax] 17 gram/dose powder 17 g PO DAILY PRN (Reason: Constipation) fluticasone propionate 50 mcg/actuation spray,suspension 2 spray intranasal DAILY PRN (Reason: Allergy Symptoms) levothyroxine 125 mcg tablet 125 mcg PO DAILY ferrous gluconate 324 mg (38 mg iron) tablet 324 mg PO Q OTHER DAY (DME) lancets [TRUEplus Lancets] 33 gauge misc See Rx Instructions .ROUTE BID Qty: 100 Rx Instructions: As directed (DME) FreeStyle Lite Strips Strip See Rx Instructions .ROUTE BID Qty: 10 Rx Instructions: As directed cholecalciferol (vitamin D3) [Vitamin D3] 50 mcg (2,000 unit) capsule 50 mcg PO DAILY lactulose 10 gram/15 mL solution 15 ml PO DAILY PRN (Reason: Constipation) Discharge Orders: Discharge Order (Routine); Ordered 01/07/25 Ordered By: Chris Thompson Diet: Advance to usual diet Activity on Discharge: As tolerated Stand Alone Forms: Patient Portal Discharge page Print Language: Palestinian Care Plan Goals: Patient was admitted to the hospital due to syncopal episode found to have orthostasis-telemetry seems fine, CTA head grossly negative except mild to moderate ventriculomegaly. C-spine and face CT-negative. Patient was given IV fluid, Jakob stocking and his orthostasis seems to be improved significantly, patient also asymptomatic currently. Patient was seen by PT recommended rehab but patient refused to go to rehab, patient will be going home with VNA and PT. Health Concerns: As above. Plan of Treatment: encourage hydration , jakob stocking, walker . Assessment: as above.
--- NOTE | 2025-01-07 14:17 | MHC.CM.PN ---
Pt to DC today to [facility] for STR. via BLS this afternoon.
[2025-01-07 16:01] VITALS: BP 103/72; PULSE 88; RESP 18; TEMP 36.1; O2SAT 96
== END 2025-01-07 17:06 | disposition skilled nursing facility (03) ==
LOC: HO.ED 18:41 → HO.EDOVER 21:00 → HO.IMC 01-05 08:05
PROVIDERS: Admitting Provider Student in an Organized Health Care Education/Training Program; Emergency Provider Emergency Medicine; PCP Registered Nurse; Visit Provider Internal Medicine
DX: I95.1 Orthostatic hypotension (principal); R26.2 Difficulty in walking, not elsewhere classified; H53.8 Other visual disturbances; E11.9 Type 2 diabetes mellitus without complications; I10 Essential (primary) hypertension; E03.9 Hypothyroidism, unspecified; M25.552 Pain in left hip; R10.9 Unspecified abdominal pain; D50.9 Iron deficiency anemia, unspecified; D72.829 Elevated white blood cell count, unspecified; Z79.899 Other long term (current) drug therapy
CPT/HCPCS: 0241U; 36415; 70450; 70486; 71045; 72125; 74176; 80048; 80076; 81001; 82550; 82947; 83690; 83880; 84484; 85025; 93005; 96360; 96361; 96372; 97116; 97162; 97530; 99222; 99285; J1650; J7120

== ENCOUNTER → 2025-01-04 16:32 | Outpatient (BNV) | payer OTHER, SELFPAY | PROVIDERS: Emergency Provider Emergency Medicine; PCP Registered Nurse; Visit Provider Radiology Diagnostic Radiology | DX: R10.32 Left lower quadrant pain (principal); M25.542 Pain in joints of left hand; S05.91XA Unspecified injury of right eye and orbit, initial encounter; S00.03XA Contusion of scalp, initial encounter; M43.12 Spondylolisthesis, cervical region; J98.6 Disorders of diaphragm; R55 Syncope and collapse | CPT/HCPCS: 70450; 70486; 71045; 72125; 74176 ==

== ENCOUNTER → 2025-01-04 16:34 | Outpatient (BNV) | payer OTHER, SELFPAY | PROVIDERS: Admitting Provider Student in an Organized Health Care Education/Training Program; Emergency Provider Emergency Medicine; PCP Registered Nurse; Visit Provider Internal Medicine | DX: R55 Syncope and collapse (principal); R94.31 Abnormal electrocardiogram [ECG] [EKG] | CPT/HCPCS: 93010 ==

== ENCOUNTER → 2025-01-04 20:54 | Outpatient (BNV) | payer OTHER, SELFPAY | PROVIDERS: Admitting Provider Student in an Organized Health Care Education/Training Program; Emergency Provider Emergency Medicine; PCP Registered Nurse; Visit Provider Physician Assistant | DX: I95.1 Orthostatic hypotension (principal) | CPT/HCPCS: 99222; 99231; 99239 ==

== ENCOUNTER 2025-02-16 18:20 | Inpatient (IN) | payer OTHER, SELFPAY ==
--- NOTE | ~2025-02-16 | CT_ITS ---
CLINICAL HISTORY: diffuse ABD pain, TTP, vomiting x5 today CT abdomen and pelvis with contrast Comparison: CT of the abdomen and pelvis from 01/04/2025 Findings: New bibasilar pulmonary opacities concerning for pneumonitis and/or pulmonary edema superimposed on chronic lung disease. Mild cardiomegaly. Mild fat deposition of the liver. Borderline wall thickening of the gallbladder less pronounced than comparison. Adrenal glands and spleen appear unchanged. Mild-moderate volume loss of the pancreas again noted. Mild fluid persists in the mesentery with overall decrease relative to comparison. No significant change in 5 cm cystic lesion of the left kidney. No hydronephrosis. Mild distention of the stomach is nonspecific. No small bowel obstruction. Severe stool burden is present, including the cecum. Imaged appendix is within normal limits (imaged 569 of series 5). Postprocedural metal and/or clip redemonstrated in the imaged cecum. The prostate gland measures 4 cm transverse. Moderate wall thickening of the urinary bladder is new and nonspecific. Mild pelvis deformities appear old/chronic. Again there is partial ankylosis of the SI joints, right greater than left. Degenerative changes of the hips, and spine. No significant change in mild vertebral height losses-old compression fractures. Facet arthropathy is multifocal. IMPRESSION: 1. New bilateral pulmonary opacities concerning for pneumonitis. 2. Severe stool burden. 3. No small bowel obstruction. 4. Moderate wall thickening of the urinary bladder is nonspecific. This document has been electronically signed by: José Antonio Escobar MD on 02/16/2025 23:26:11
--- NOTE | 2025-02-16 18:27 | ED_ITS ---
HPI - General Adult General Chief complaint: Psychiatric Symptoms Stated complaint: anxiety Time Seen by Provider: 02/16/25 18:25 Source: patient and EMS Mode of arrival: EMS Limitations: no limitations History of Present Illness ED Provider: Macie Owens NP HPI narrative: patient is a 74 old male who presents emergency department via EMS for evaluation. Evidently he had a panic attack at home today, he has been having increasing anxiety as of recently, has a history of depression as well. He currently resides on the 10th floor of a housing unit, he is blind in the right eye, lives with his spouse who is also blind, he has been trying to move to the 1st floor but requires a form from his landlord evidently something to do with the forearm was denied today, so he became quite upset surrounding this. When asked, he admits to suicidal ideations, saying that he just does not want to live anymore, does not provide any specific plan. Denies homicidal ideations. Denies recreational drug or alcohol usage. He states that earlier today he had a few episodes of vomiting after eating a soup that he had made, and endorses having lower abdominal pain. At this time he denies any nausea. Denies any genitourinary symptoms. Admits last bowel movement being yesterday but does have ongoing issues with constipation Related Data Home Medications ?Medication ?Instructions ?Recorded ?Confirmed ferrous gluconate 324 mg (38 mg 324 mg PO Q OTHER DAY 05/13/23 02/17/25 iron) tablet fluticasone propionate 50 2 spray intranasal DAILY PRN 05/13/23 02/17/25 mcg/actuation nasal Allergy Symptoms spray,suspension levothyroxine 125 mcg tablet 125 mcg PO DAILY@0600 05/13/23 02/17/25 cholecalciferol (vitamin D3) 50 50 mcg PO DAILY 06/04/23 02/17/25 mcg (2,000 unit) capsule (Vitamin D3) lactulose 10 gram/15 mL oral 15 ml PO DAILY PRN Constipation 10/24/23 02/17/25 solution albuterol sulfate 90 mcg/actuation 2 puff inhalation Q4H PRN cough 01/04/25 02/17/25 aerosol inhaler ammonium lactate 12 % topical cream 1 appl topical DAILY PRN Dry Skin 01/04/25 02/17/25 econazole nitrate 1 % topical cream 1 appl topical BID PRN Rash 01/04/25 02/17/25 mupirocin 2 % topical ointment 1 appl topical TID PRN Rash 01/04/25 02/17/25 polyethylene glycol 3350 17 17 g PO DAILY PRN Constipation 01/04/25 02/17/25 gram/dose oral powder (Miralax) semaglutide 2 mg/dose (8 mg/3 mL) 2 mg subcut MO 01/04/25 02/17/25 subcutaneous pen injector (Ozempic) trazodone 100 mg tablet 100 mg PO BEDTIME PRN Sleep 01/04/25 02/17/25 hydroxyzine HCl 10 mg tablet 10 mg PO BEDTIME PRN itch 02/17/25 02/17/25 midodrine 5 mg tablet 5 mg PO TID 02/17/25 02/17/25 Previous Rx's ?Medication ?Instructions ?Recorded acetaminophen 325 mg tablet 650 mg (2 x 325 mg) PO Q6H PRN 02/08/23 Pain, Mild (Pain Scale 1-3) #30 tabs aspirin 81 mg tablet,delayed 81 mg PO DAILY #30 tabs 02/08/23 release atorvastatin 40 mg tablet 40 mg PO BEDTIME #30 tabs 02/08/23 duloxetine 30 mg capsule,delayed 30 mg PO BID #60 caps 02/08/23 release empagliflozin 25 mg tablet 25 mg PO DAILY #30 tabs 02/08/23 (Jardiance) melatonin 3 mg tablet 6 mg (2 x 3 mg) PO BEDTIME #60 tabs 02/08/23 metformin 1,000 mg tablet 1,000 mg PO BIDWM #60 tabs 02/08/23 Allergies Allergy/AdvReac Type Severity Reaction Status Date / Time No Known Allergies Allergy Verified 02/16/25 18:47 Review of Systems 2 Review of Systems: Yes all other systems are reviewed and are negative PMFSH Past Medical History Attestation statement: The following information was validated with the patient. 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 If so, by whom?: No Do you feel safe in your current relationship?: Yes Is there a partner from a previous relationship who is making you feel unsafe now?: No Are you made to feel afraid or neglected: No Advance Directives: No Advance Directives Information Provided: Yes Advance Directives on File: Yes Advance Directives Date on File: 08/13/22 Do you have thoughts of harming others: None Do you have a plan to hurt others: No Plan Recently lost weight without trying: No Eating poorly because of decreased appetite: No Nutrition Risks: No Nutritional Risk Poor oral hygiene: Yes (Pt has many missing teeth.) service: No Sexual orientation: Straight/Heterosexual Physical Exam ED Vital Signs: Vital Signs - 24 hr 02/17/25 20:30 02/17/25 20:33 02/18/25 06:30 Temperature 98.6 F 98.0 F Pulse Rate 92 86 Respiratory Rate 16 16 Blood Pressure 126/63 126/63 122/73 Pulse Oximetry 97 98 Oxygen Delivery Method Room Air Room Air 02/18/25 09:49 02/18/25 09:55 Temperature 97.9 F Pulse Rate 91 Respiratory Rate 14 Blood Pressure 110/69 110/69 Pulse Oximetry 94 Oxygen Delivery Method Room Air BMI result Body Mass Index 40.3 Appearance: Alert.?Oriented to person, place and time. No acute distress.?Normal affect. Eyes: Pupils equal, round and reactive to light.? ENT: Pharynx normal.?? Neck: Normal inspection.? Neck supple.?? CVS: Heart sounds normal. Normal heart rate and rhythm.? Pulses normal.?? Respiratory: No respiratory distress.? Lung sounds clear to auscultation bilaterally?? Abdomen: Soft With diffuse tenderness on palpation, except for the right upper quadrant. Normoactive bowel sounds. Skin: Skin warm and dry.? Normal skin color.? Extremities: No lower extremity edema.? Neuro: Moves all extremities spontaneously. Sensation intact bilaterally. CN II- XII intact. No focal neuro deficits. Ambulates with normal steady gait. Course Reevaluation(s) Reevaluation #1: CT of the abdomen and pelvis reveals significant stool burden, no evidence of bowel obstruction, on evaluation, does not appear to have fecal impaction or stool within the rectal vault that would be amenable to manual disimpaction. Given his degree of tenderness, prior episodes of vomiting though he has tolerated oral intake while in the ED feel that he would benefit from an enema. There is also mention of bibasilar pulmonary opacities concerning for pneumonitis, patient is without any respiratory symptoms, no respiratory distress, lung sounds are clear to the apices bilaterally, viral serologies are negative, no tachypnea or hypoxia to favor such. I do not suspect infectious etiology. No history of CHF, clinically does not appear to be volume overloaded. Reevaluation #2: soapsuds enema produced a very large bowel movement with subjective improvement in abdominal pain afterwards. Reevaluation #3: 02/17/2025 09:10 stable overnight seen by crisis patient will be psychiatric inpatient level of care Time: 09:12 Consultations Consultation #1: 02/18/2025 DR. Rowland's progress note: Patient will be admitted for Ceci psych. Discontinue physician observation now 1453 Time: 14:53 Medications Administered Generic Name Dose Route Start Last Admin Trade Name Benedictq PRN Reason Stop Dose Admin Aspirin 81 mg 02/17/25 18:45 02/24/25 08:27 Aspirin Enteric Coated 81 Mg Tablet. PO 81 mg DAILY FARHAT Administration Atorvastatin Calcium 40 mg 02/17/25 21:00 02/23/25 21:04 Atorvastatin Calcium 40 Mg Tablet PO 40 mg BEDTIME FARHAT Administration Duloxetine HCl 30 mg 02/20/25 21:00 02/23/25 21:04 Duloxetine Hcl 30 Mg Capsule. PO 30 mg BEDTIME FARHAT Administration Duloxetine HCl 60 mg 02/20/25 09:00 02/24/25 08:27 Duloxetine Hcl 60 Mg Capsule. PO 60 mg DAILY FARHAT Administration Empagliflozin 25 mg 02/17/25 18:45 02/24/25 08:27 Empagliflozin 25 Mg Tablet PO 25 mg DAILY FARHAT Administration Ferrous Sulfate 324 mg 02/17/25 21:00 02/23/25 21:04 Ferrous Sulfate 324 Mg Tablet. PO 324 mg Q48H FARHAT Administration Levothyroxine Sodium 125 mcg 02/18/25 06:00 02/24/25 06:32 Levothyroxine Sodium 125 Mcg Tablet PO 125 mcg DAILY@0600 FARHAT Administration Melatonin 6 mg 02/17/25 21:00 02/23/25 21:04 Melatonin 3 Mg Tablet PO 6 mg BEDTIME FARHAT Administration Metformin HCl 1,000 mg 02/18/25 23:00 02/24/25 16:57 Metformin Hcl 1,000 Mg Tablet PO 1,000 mg BIDWM FARHAT Administration Midodrine 5 mg 02/22/25 17:00 02/24/25 16:56 Midodrine Hcl 5 Mg Tablet PO 5 mg TID@0800,1200,1700 FARHAT Administration Vitamin D 50 mcg 02/18/25 09:00 02/24/25 08:26 Cholecalciferol (Vitamin D3) 25 Mcg Tablet PO 50 mcg DAILY FARHAT Administration Discontinued Medications Generic Name Dose Route Start Last Admin Trade Name Freq PRN Reason Stop Dose Admin Duloxetine HCl 30 mg 02/17/25 21:00 02/19/25 20:24 Duloxetine Hcl 30 Mg Capsule. PO 30 mg BID FARHAT Administration Sodium Chloride 1,000 mls @ 999 mls/hr 02/16/25 22:15 02/17/25 00:00 Ns IV 02/16/25 23:15 Infused .Q1H1M FARHAT Infusion Iohexol 85 ml 02/16/25 22:47 02/16/25 22:48 Iohexol 350 Mg/Ml 100 Ml Infus..Btl IV 02/16/25 22:48 85 ml ONCE ONE Administration Lorazepam 1 mg 02/16/25 18:44 02/16/25 19:32 Lorazepam 1 Mg Tablet PO 02/16/25 18:45 1 mg ONCE ONE Administration Midodrine 5 mg 02/17/25 21:00 02/22/25 16:07 Midodrine Hcl 5 Mg Tablet PO Not Given TID FARHAT Medical Decision Making Medical Decision Making MDM Narrative: patient is a 74-year-old male with past medical history of hypothyroidism, hyperlipidemia, hypertension, diabetes, constipation who presents emergency department via EMS for evaluation as per HPI anxiety, panic attack, suicidal ideations, abdominal pain with vomiting. He is notably anxious, tearful intermittently throughout examination, feel that he would benefit from an anxiolytic, will trial lorazepam. He has not actively experiencing nausea, vomiting was earlier today, he does however have diffuse pain throughout his abdomen upon palpation excluding the right upper quadrant. Additionally endorsed some minor chest pain very vague nonspecific diffuse throughout the chest without associated shortness of breath or recent URI symptoms. Will obtain CBC to evaluate for leukocytosis/ anemia, CMP and lipase to evaluate for abnormal electrolytes /abnormal renal function/ abnormal hepatic/biliary function, EKG and troponin to evaluate for ischemia/ACS and Urinalysis. Differential Diagnosis Differential Diagnoses: The differential diagnosis associated with the presentation includes (See narrative above) Admission/Observation Consideration of admission/observation: Escalation of care including admission/observation considered Lab Data MDM Lab Attestation statement: I reviewed the patient's lab results. 02/16/25 19:14 02/18/25 19:11 Labs: Lab Results 02/16/25 02/16/25 Range/Units 19:14 21:22 WBC 9.9 (4.8-10.8) X10*3/uL RBC 4.37 L (4.60-5.80) X10*6/uL Hgb 13.2 L (14.0-18.0) g/dl Hct 38.7 L (42.0-52.0) % MCV 88.6 (80.0-98.0) fL MCH 30.2 (27.0-33.0) pg MCHC 34.1 (31.0-36.0) g/dl RDW 13.6 (11.0-16.0) % Plt Count 308 (160-400) X10*3/uL MPV 9.5 (9.4-12.4) fL Immature Gran % (Auto) 0.3 (0.0-0.4) % Neut % (Auto) 68.3 (45-73) % Lymph % (Auto) 18.6 L (20-40) % [place] % (Auto) 8.1 (2-11) % Eos % (Auto) 3.7 (0-4) % Baso % (Auto) 1.0 (0-2) % Lymph # (Auto) 1.9 (1.2-4.9) X10*3/uL [place] # (Auto) 0.8 (0.1-1.2) X10*3/uL Eos # (Auto) 0.4 (0.0-0.4) X10*3/uL Baso # (Auto) 0.1 (0.0-0.2) X10*3/uL Abs Immat Gran (auto) 0.03 (0.00-0.03) X10*3/uL Absolute Neuts (auto) 6.8 (2.0-8.3) x10*3/uL Absolute Nucleated RBC 0.000 (0.0-0.012) X10*3/uL Nucleated RBC % (auto) 0.0 (0.0-0.2) /100WBC Sodium 138 (135-145) mmol/L Potassium 3.9 (3.3-5.1) mmol/L Chloride 104 (96-108) mmol/L Carbon Dioxide 24 (22-29) mmol/L Anion Gap 14 (12-20) BUN 15 (9-16) mg/dL Creatinine 0.75 (0.5-1.4) mg/dL Estim Creat Clear Calc 102.2 Estimated GFR > 60 Random Glucose 201 H (60-115) mg/dL Calcium 10.0 D (8.4-10.2) mg/dL Magnesium 2.0 (1.6-2.6) mg/dL Troponin I High Sens < 2.7 (<3.5-35.0) ng/L Lipase 26 (8-78) U/L TSH 3.92 (0.32-4.0) uIU/mL Urine Color Yellow Urine Appearance Clear Urine pH 7.0 (5.0-9.0) Ur Specific [place] >= 1.030 H (1.005-1.025) Urine Protein Negative (Neg-Trace) mg/dL Urine Glucose (UA) >=1000 H (Negative) mg/dL Urine Ketones 15 (Negative) mg/dL Urine Blood Negative (Negative) Urine Nitrite Negative (Negative) Ur Leukocyte Esterase Negative (Negative) Urine RBC 0-2 (0-2) /HPF Urine WBC 0-5 (0-5) /HPF Ur Squamous Epith Cells 0-2 (0-2) /HPF Urine Bacteria None Seen (None Seen) Hyaline Casts 0-2 (0-2) /LPF Urine Opiates Screen Not Detected (Not Detect) Ur Buprenorphine Scrn Not Detected (Not Detect) ng/mL Ur Oxycodone Screen Not Detected (Not Detect) ng/mL Urine Methadone Screen Not Detected (Not Detect) ng/mL Urine Fentanyl Screen Not Detected (Not Detect) Ur Barbiturates Screen Not Detected (Not Detect) Ur Phencyclidine Scrn Not Detected (Not Detect) Ur Amphetamines Screen Not Detected (Not Detect) U Benzodiazepines Scrn Not Detected (Not Detect) Urine Cocaine Screen Not Detected (Not Detect) U Marijuana (THC) Screen Not Detected (Not Detect) Influenza Type A (PCR) NEGATIVE (Negative) Influenza Type B (PCR) NEGATIVE (Negative) RSV RNA Qual (PCR) NEGATIVE (Negative) SARS-CoV-2 RNA (RT-PCR) NEGATIVE (Negative) Independent Interpretation I performed an independent interpretation of an: EKG and CT Scan ( significant constipation) Radiology Impression Discussion of test interpretation with radiology: I have reviewed the radiologist's reading. Radiologist Impression: IMPRESSION: CT AP w/ IV contrast 1. New bilateral pulmonary opacities concerning for pneumonitis. 2. Severe stool burden. 3. No small bowel obstruction. 4. Moderate wall thickening of the urinary bladder is nonspecific. Independent Historian Clinical information obtained from an independent historian. History obtained from or confirmed by: EMS External Record Review External record reviewed: Outpatient record Discharge Plan Discharge Clinical Impression: Suicidal ideation, Anxiety, Constipation Patient Disposition: Admitted As Inpatient Interventions: Admission Worksheet (ED) Last Done: 02/18/25 15:36 Discharge Date/Time: 02/18/25 16:50
[2025-02-16 18:32] VITALS: BP 126/74; PULSE 95; O2SAT 95
[2025-02-16 18:39] VITALS: BMI 40.3
--- NOTE | 2025-02-16 18:44 | ECG_ITS ---
Test Reason : chest pain Blood Pressure : */* mmHG Vent. Rate : 93 BPM Atrial Rate : 93 BPM P-R Int : 206 ms QRS Dur : 116 ms QT Int : 408 ms P-R-T Axes : 36 -49 82 degrees QTcB Int : 507 ms Normal sinus rhythm Left anterior fascicular block Anteroseptal infarct (cited on or before 04-Jan-2025) Abnormal ECG When compared with ECG of 04-Jan-2025 16:41, No significant changes seen Referred By: Macie Owens Electronically Signed By: DORI DUARTE
--- OUTSIDE RECORDS SUMMARY | 2025-02-16 19:23 | XMS_ITS | Encounter Summary ---
Author Organization [employer] Address [address] [place] [address] Care Team Providers Care Rags Laborer Name Role Phone Rose Mary Pimentel Primary Care Provider [phone] Encounter Details Date Type Department Care Team (Late Contact Info) Description 06/13/2023 Telephone [facility] MEDICINE [address] [place] [address] Laura Pardo LPN Social History Tobacco Use Types Packs/Day Years Used Date Smoking Tobacco: Never Smokeless Tobacco: Never Alcohol Use Standard Drinks/Week Comments Never 0 (1 standard drink = 0.6 oz pur e alcohol) Depression Answer Date Recorded Patient Health Questionnaire-9 Score 19 03/25/2023 Depression Answer Date Recorded Patient Health Questionnaire-2 Score 6 03/25/2023 Sex and Gender Information Value Date Recorded Sex Assigned at Male 09/17/2022 10:17 AM EDT Legal Sex Male 10:17 AM EDT Gender Identity Male 09/17/2022 10:17 AM EDT Sexual Orientation Choose not to disclose 2021 10:17 AM EDT documented as of this encounter Plan of Treatment Upcoming Encounters Date Type Department Care Team (Late Contact Info) Description 02/22/2025 9:30 AM EDT Office Visit [facility] CHC MED & PEDS [address], [place] [phone] Rose Mary Pimentel FNP [address] [place] [address] documented as of this encounter Visit Diagnoses Not on filedocumented in this encounter Additional Health Concerns Assessment Noted Time PHQ-9 Depression Total Score: 19 05/08/2 023 2:54 PM EDT documented as of this encounter Care Teams Rags Laborer Relationship Specialty Start Date End Date Rose Mary Pimentel FNP [address] [place] [address] PCP - General Family Medicine 07/15/22 [facility] 09/05/22 documented as of this encounter
--- OUTSIDE RECORDS SUMMARY | 2025-02-16 19:23 | XMS_ITS | Encounter Summary ---
Author Organization [employer] Address [address] [place] [address] Care Team Providers Care Senior Courtroom Clerk Name Role Phone Rose Mary Pimentel Primary Care Provider [phone] Reason for Visit * Reason Onset Date Comments Durable Medical Equipment 02/15/2025 Encounter Details Date Type Department Care Team ([facility] st Contact Info) Description 02/15/2025 Telephone [facility] MEDICINE [address] [place] [address] Rose Mary Pimentel FNP [address] [place] [address] Durable Medical Equipment Social History Tobacco Use Types Packs/Day Years Used Date Smoking Tobacco: Never Passive Smoke Exposure: Never Smokeless Tobacco: Never Alcohol Use Standard Drinks/Week Comments Never 0 (1 standard drink = 0.6 oz pur e alcohol) Depression Answer Date Recorded Patient Health Questionnaire-9 Score 7 10/23/2023 Patient Health Questionnaire-9 Score 7 10/23/2023 Last PHQ-9: Questionnaire Data Not on file 1 12/24/2022 Housing Stability Answer Date Recorded What is your housing situation today? I have armond stevens 11/09/[address] you li ve. Do you have problems with any of the following? None of the above 11/09/2024 Food Insecurity Answer Date Recorded Within the past 12 months, y ou worried that your food would run out before you got money to buy more: Never True 11/09/2024 Within the past 12 months,th e food you bought just didn't last and you didn't have enough money to get more: Never True Transportation Answer Date Recorded In the past 12 months, has l ack of transportation kept you from medical appts, meetings, work or from getting things needed for daily living? No 11/09/2024 Utilities Answer Date Recorded In the past 12 months, has t he electric, gas, oil or water company threatened to shut off services in your home? No 11/09/2024 Depression Answer Date Recorded Patient Health Questionnaire-2 Score 6 11/09/2024 Internet Access Answer Date Recorded Internet Access Q1 Yes 11/09/2024 Internet Access Q2 Not on file 11/09/2024 Sex and Gender Information Value Date Recorded Sex Assigned at Male 09/17/2022 10:17 AM EDT Legal Sex Male 10:17 AM EDT Gender Identity Male 09/17/2022 10:17 AM EDT Sexual Orientation Choose not to disclose 2021 10:17 AM EDT documented as of this encounter Miscellaneous Notes * Telephone Encounter - YONAS Poon - 02/16/2025 6:12 PM EDT I agree with order, please let me know if documentation is needed for this particular item. He had previously been referred to [facility]. 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 Contact Barbara at [phone] documented in this encounter Plan of Treatment Upcoming Encounters Date Type Department Care Team (Sofiya Contact Info) Description 02/22/2025 9:30 AM EDT Office Visit [facility] CHC MED & PEDS [address] [place] [address] Rose Mary Pimentel FNP [address] [place] [address] documented as of this encounter Visit Diagnoses Not on filedocumented in this encounter Additional Health Concerns Assessment Noted Time PHQ-9 Depression Total Score: 7 10/23/20 23 12:27 PM EST documented as of this encounter Care Teams Senior Courtroom Clerk Relationship Specialty Start Date End Date Rose Mary Pimentel FNP [address] [place] [address] PCP - General Family Medicine 07/15/22 [facility] 09/05/22 documented as of this encounter
--- OUTSIDE RECORDS SUMMARY | 2025-02-16 19:23 | XMS_ITS | Encounter Summary ---
Author Organization [employer] Address [address] [place] [address] Care Team Providers Care Resource Development Director Name Role Phone Rose Mary Pimentel Primary Care Provider Encounter Details Date Type Department Care Team (Late st Contact Info) Description 02/01/2023 Orders Only [facility] MEDICINE [address] [place] [address] Rose Mary Pimentel FNP [address] [place], [place] [phone] Social History Tobacco Use Types Packs/Day Years Used Date Smoking Tobacco: Never Smokeless Tobacco: Never Sex and Gender Information Value Date Recorded Sex Assigned at Male 09/17/2022 10:17 AM EDT Legal Sex Male 10:17 AM EDT Gender Identity Male 09/17/2022 10:17 AM EDT Sexual Orientation Choose not to disclose 2021 10:17 AM EDT COVID-19 Exposure Response Date Recorded In the last 10 days, have yo u been in contact with someone who was confirmed or suspected to have Coronavirus/COVID-19? No / Unsure 01/28/2023 10:17 AM EDT documented as of this encounter Plan of Treatment Upcoming Encounters Date Type Department Care Team (Late st Contact Info) Description 02/22/2025 9:30 AM EDT Office Visit [facility] CHC MED & PEDS [address] [place], [place] [phone] Rose Mary Pimentel FNP [address], [place] [phone] documented as of this encounter Visit Diagnoses Not on filedocumented in this encounter Care Teams Resource Development Director Relationship Specialty Start Date End Date Rose Mary Pimentel FNP [address] [place] [address] PCP - General Family Medicine 07/15/22 [facility] 09/05/22 documented as of this encounter
--- OUTSIDE RECORDS SUMMARY | 2025-02-16 19:23 | XMS_ITS | Clinical Summary ---
Author Organization [employer] Address [address] [facility] [address] [place] [address] Care Team Providers Care Social Services Technician Name Role Phone Rose Mary Pimentel YONAS Primary Care Provider Allergies Active Allergy Reactions Criticality Noted Date Comments Tristin Inhibitors Cough,Rash Low 04/04/2016 Lidocaine Rash Low 02/22/2023 Medications * This document contains information received from the source organization and may not represent a complete record from that organization. docusate sodium (Colace) 100 MG capsuleIndicati ons:Constipatio n, unspecified constipation type TAKE 1 CAPSULE BY MOUTH TWICE DAILY NEEDED FOR CONSTIPATION 60 capsule 3 022 Active acetaminophen (Tylenol) 325 MG tablet TAKE 2 TABLETS BY MOUTH EVERY 6 HOURS NEEDED MILD PAIN (1-3 ON PAIN SCALE) 023 Active Blood Glucose Monitoring Suppl (FreeStyle [place] Lite) w/Device kit TEST BLOOD SUGAR ONCE DAILY 022 Active TRUEplus Lancets 33G miscIndications :Type 2 diabetes mellitus with other specified complication, without long-term current use of insulin ([facility]) 1 each 2 times daily. 100 each 11 023 Active Ventolin HFA 108 (90 Base) MCG/ACT inhalerIndicati ons:COVID-19 virus infection INHALE 2 PUFFS EVERY 4 HOURS NEEDED FOR WHEEZING OR SHORTNESS OF BREATH. 18 g 1 023 Active Additional Information Patient not taking.Reported on 07/04/2023 Desitin Rapid Relief 13 % cream 023 Active naloxone (Narcan) 4 mg/0.1 mL nasal spray FOR SUSPECTED OPIOID OVERDOSE. SPRAY 0.1mL IN ONE NOSTRIL. REPEAT IN ALTERNATE NOSTRIL 2-3 MINUTES IF NEEDED. SEEK MEDICAL ATTENTION IMMEDIATELY EVEN IF PATIENT RESPONDS. Active aspirin (Aspirin Low Dose) 81 MG EC tablet TAKE 1 TABLET BY MOUTH EVERY MORNING 90 tablet 3 Active atorvastatin (Lipitor) 40 MG tablet TAKE 1 TABLET BY MOUTH AT BEDTIME 90 tablet 3 Active melatonin 3 MG tablet TAKE 2 TABLETS BY MOUTH EVERY DAY AT BEDTIME 180 tablet 3 024 Active camphor-Menthol -Methyl [place] 4-10-30 % creamIndication s:DDD (degenerative disc disease), lumbar Apply thin layer by topical route to affected area 2 times daily as needed for muscle pain 60 g 2 Active FREESTYLE LITE test strip TEST BLOOD SUGAR TWICE DAILY 50 strip 11 Active Alcohol Swabs (Alcohol Prep) 70 % padsIndications :Type 2 diabetes mellitus with other specified complication, without long-term current use of insulin ([facility]) USE TWICE DAILY DIRECTED 100 each 11 Active lactulose (Chronulac) 10 GM/15ML solutionIndicat ions:Constipati on, unspecified constipation type TAKE 15 ML BY MOUTH EVERY DAY NEEDED FOR CONSTIPATION 150 mL Active empagliflozin (Jardiance) 25 MG TAKE 1 TABLET BY MOUTH EVERY MORNING 90 tablet 1 Active metFORMIN (Glucophage) 1000 MG tablet TAKE 1 TABLET BY MOUTH TWICE DAILY IN THE MORNING AND IN THE EVENING WITH FOOD 180 tablet 1 Active cholecalciferol (D3 Super Strength) 50 MCG (2000 UT) capsule TAKE 1 CAPSULE BY MOUTH EVERY MORNING 90 capsule 1 Active fluticasone (Flonase) 50 MCG/ACT nasal sprayIndication s:Allergic rhinitis, unspecified seasonality, unspecified trigger INSTILL 2 SPRAYS IN EACH NOSTRIL ONCE DAILY IN THE MORNING NEEDED 16 g 6 Active levothyroxine (Synthroid, Levoxyl) 125 MCG tablet TAKE 1 TABLET BY MOUTH EVERY MORNING BEFORE BREAKFAST 90 tablet 3 024 Active ammonium lactate (Amlactin) 12 % creamIndication s:Xerosis of skin Apply a thin layer to bilateral heels daily before putting on socks. Use: dry skin 385 g 3 024 Active econazole nitrate 1 % creamIndication s:Tinea pedis of both feet Apply topically 2 times daily. Apply to affected area between toes x 2-4 weeks. 30 g 2 024 2024 Active Semaglutide, 2 MG/DOSE, (Ozempic, 2 MG/DOSE,) 8 MG/3ML solution pen-injectorInd ications:Type 2 diabetes mellitus with other specified complication, without long-term current use of insulin ([facility]) Inject 0.75 mL (2 mg) under the skin 1 (one) time per week. 3 mL 3 024 Active doxepin (SINEquan) 10 MG capsuleIndicati ons:Sleep difficulties Take 1 capsule (10 mg) by mouth at bedtime. 90 capsule 1 025 2025 Active mupirocin (Bactroban) 2 % ointmentIndicat ions:Abrasion Apply topically 3 times daily as needed for up to 10 days for infection prevention 22 g 1 025 Active traZODone (Desyrel) 100 MG tabletIndicatio ns:Depression, unspecified depression type TAKE 1 TABLET BY MOUTH AT BEDTIME NEEDED FOR SLEEP 90 tablet 1 025 Active ferrous gluconate (Fergon) 324 (38 Fe) MG tablet TAKE 1 TABLET BY MOUTH EVERY OTHER DAY IN THE MORNING 45 tablet 1 025 Active DULoxetine (Cymbalta) [address] capsuleIndicati ons:Depression, unspecified depression type TAKE 1 CAPSULE BY MOUTH TWICE DAILY IN THE MORNING AND IN THE EVENING 60 capsule 5 025 Active hydrOXYzine HCl (Atarax) 10 MG tablet TAKE 1 TABLET BY MOUTH AT BEDTIME NEEDED (for itching) OR FOR ANXIETY 90 tablet 3 025 Active midodrine (Proamatine) 5 MG tablet Take 1 tablet by mouth 3 times daily. Active hydrOXYzine HCl (Atarax) 10 MG tablet TAKE 1 TABLET BY MOUTH AT BEDTIME NEEDED FOR ITCHING OR FOR ANXIETY 90 tablet 3 024 2024 Discontinued DULoxetine (Cymbalta) [address] capsule TAKE 1 CAPSULE BY MOUTH TWICE DAILY IN THE MORNING AND IN THE EVENING 60 capsule 5 024 2024 Discontinued Ozempic, 1 MG/DOSE, 4 MG/3ML solution pen-injector Inject 1 MG SUBCUTANEOUSLY EVERY 7 DAYS IN THE ABDOMEN, THIGHS OR UPPER ARM. ROTATE INJECTION SITES. 3 mL 5 024 2024 Discontinued(D uplicate order (will not trigger notification to Pharmacy)) Active Problems Problem Noted Date Diagnosed Date Sleep difficulties 12/14/2024 Assessment & Plan (12/14/2024 4:59 PM EST): Acute on chronic concern Sleeping approx 4-5 hours per night Previous med trials: melatonin, magnesium, trazodone Plan: start doxepin 10mg nightly. Reviewed med safety and SE. Reviewed sleep hygiene, plan to turn off all screens 1-2 hours before bed. Constipation 11/15/2024 Assessment & Plan (11/15/2024 9:02 PM EST): - Recommended to use miralax during GI consult Aug 2024. Pt reports not currently taking daily. Using also combination of OTC options PRN, but then side effects very strong. Taking iron supplement, which may be contributing to constipation. Also with some difficulty sleeping. Plan: start magnesium-ox 400mg nightly. Reviewed med use and SE. F/up in 1 month to re-eval symptoms. Anemia 07/12/2024 Assessment & Plan (12/14/2024 5:02 PM EST): -Hx of DK with Hbg range 12.5-14.6 over the past 3 years -Last ferritin 10 in Aug 2022. Continues on ferrous gluconate 3x/week -Asymptomatic, reviewed follow up precautions -Scheduled for colonoscopy February 2025 -Repeat Labs Assessment & Plan (07/12/2024 5:09 PM EDT): -Hx of DK with Hbg range 12.5-14.6 over the past 3 years -Last ferritin 10 in Aug 2022. Continues on ferrous gluconate 3x/week -Asymptomatic, reviewed follow up precautions -Included in referral to GI -Repeat Labs Healthcare maintenance 03/08/2024 Overview (11/15/2024): Optometry: [facility] at [facility] 01/15/24. No diabetic retinopathy or macular edema of left eye. Dental: [facility] Dental Colonoscopy: scheduled February 2025 Intermittent urinary incontinence 03/08/2024 Assessment & Plan (07/12/2024 4:53 PM EDT): DME item request sent 07/12/24: reusable incont pads Assessment & Plan (03/08/2024 7:17 AM EDT): Refill of the following DME requested 03/08/24: pull ups (size medium), wipes, incont pads DDD (degenerative disc disease), lumbar 10/23/20 Overview (07/12/2024): Following with [facility] CT Lumbar Spine w/o contrast 08/20/23: IMPRESSION: - This study is technically limited due to poor intrathecal contrast opacification with no myelographic contrast agent. There is no myelographic block. - Accounting for technical limitations, there is no severe central canal stenosis within the lumbar spine. There is bilateral subarticular zone stenosis at L3-L4 where there is severe degenerative disc disease. Multilevel foraminal encroachment as discussed in detail above. Assessment for subtle disc herniations is limited given technique. Nov 2023: Bilateral diagnostic L3, L4 DRL5 MBB provided approx 75% pain relief. However repeat procedure provided limited relief, and pt declines interest in further injections/procedures at this time Assessment & Plan (07/12/2024 4:53 PM EDT): -Cont with symptomatic management - APAP PRN. Did receive short term tramadol rx from Pain specialist, but prefers to avoid narcotics -Follow up precautions -DME request for shower chair sent 07/12/24 Assessment & Plan (03/08/2024 7:16 AM EDT): -Cont with symptomatic management - APAP PRN. Did receive short term tramadol rx from Pain specialist, but prefers to avoid narcotics if possible -Follow up precautions -DME request for bathtub transfer bench 03/08/24 Assessment & Plan (11/28/2023 9:44 AM EST): -Plan for upcoming diagnostic bilateral L3-L4 DR L5 MBB with local and fluoroscopy for potential RFA procedure vs therapeutic injections. (scheduled 12/03/23) -Cont following with specialist Assessment & Plan (10/23/2023 9:35 PM EST): -No red flag symptoms -Provider & pt called specialty office during appt, scheduled for follow up tomorrow, 10/24/23 to discuss results and further plan of care. Cyst of left kidney 10/22/2023 Overview (10/22/2023): ? ? 05/13/23: [facility] Urology for evaluation of left renal cyst. 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 No follow up imaging needed, but will eval the PSA ? ? 06/12/23: [facility] Urology Dr. Martinez. exophytic cyst in the left upper pole of the kidney. 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 2x1cm pink/skin-colored papule of right ear ?? Evaluated by [facility] Derm team on 06/15/22 and diagnosed as a congenital nevus. Benign appearing, and excision deferred at that time Assessment & Plan (08/23/2023 11:13 AM EDT): ?? Reassured patient there does not appear to be any malignant features. He will monitor for changes and notify the Clinic if changes occur. Follow-up as needed. Assessment & Plan (07/07/2023 10:35 AM EDT): Pt interested in re-eval, re-referred to [facility] Derm team on 07/04/23 Depression 03/24/2023 Assessment & Plan (11/15/2024 9:11 PM EST): Continues with dysphoric mood and daily episodes of sadness. Endorsing hopeless and question of purpose of living, but no active plan for SI/HI/thoughts of self harm Companionship at home, as well as [employer] 20 hours per week Pt reports Depression still present. Denies SI Continues with current med regimen: Trazodone 100mg at bedtime Cymbalta 30mg BID Continue hydroxyzine 10mg at bedtime BE conducted by Dr. Mccloud in March 2023 Pt denies any safety concerns, not interested in BE today Continue following with mental health team Continue with [employer]/companionship (protective factors) Safety/crisis info reviewed Assessment & Plan (07/07/2023 10:40 AM EDT): ?? Continues with dysphoric mood and daily episodes of sadness. Endorsing hopeless and question of purpose of living, but no active plan for SI/HI/thoughts of self harm ?? Companionship at home, as well as [employer] 20 hours per week ?? Pt reports Depression still present. Denies SI ?? Continues with current med regimen: ?? Trazodone 100mg at bedtime ?? Cymbalta 30mg BID ?? Continue hydroxyzine 10mg at bedtime BE conducted by Dr. Mccloud in March 2023 Pt denies any safety concerns, not interested in BE today Continue following with mental health team Continue with [employer]/companionship (protective factors) Safety/crisis info reviewed Assessment & Plan (03/28/2023 1:36 PM EDT): ?? Continues with dysphoric mood and daily episodes of sadness. Endorsing hopeless and question of purpose of living, but no active plan for SI/HI/thoughts of self harm ?? Companionship at home, as well as [employer] 20 hours per week ?? Pt reports Depression still present. Denies SI ?? Continues with current med regimen: ?? Trazodone 100mg at bedtime ?? Cymbalta 30mg BID ?? Continue hydroxyzine 10mg at bedtime BE conducted by Dr. Mccloud. See her note for further details. Mild intermittent asthma 02/11/2023 Overview (07/07/2023): ?? Well controlled, using albuterol <2x/week ?? Continue albuterol PRN ?? Reviewed Rule of 2s Vitamin D deficiency 02/11/2023 Hypothyroidism 05/04/2021 Overview (10/22/2023): Lab Results Component Value Date TSH 6.15 (H) 07/17/2023 TSH 17.75 (H) 03/25/2023 -Cont Levothyroxine 125mcg daily Type 2 diabetes mellitus 02/17/2019 Assessment & Plan (12/14/2024 4:59 PM EST): Lab Results Component Value Date HGBA1C 9.1 (A) 11/09/2024 HGBA1C 9.6 (A) 07/03/2024 HGBA1C 9.7 (A) 03/06/2024 HGBA1C 8.2 (H) 10/09/2021 HGBA1C 8.5 (H) 05/03/2021 A1c goal </= 8.0%, above goal. Plan: increase Ozempic to 2mg subcutaneous weekly. Optometry: [facility] at [facility] 01/15/24. No diabetic retinopathy or macular edema of left eye. Medications: -metformin 1000mg BID -Jardiance 25mg daily -Ozempic 2mg subcutaneous weekly -Reviewed lifestyle modifications -DME request for diabetic shoes: 03/08/24 -Referral to new podiatry clinic placed 11/09/24 Assessment & Plan (11/15/2024 9:08 PM EST): Lab Results Component Value Date HGBA1C 9.1 (A) 11/09/2024 HGBA1C 9.6 (A) 07/03/2024 HGBA1C 9.7 (A) 03/06/2024 HGBA1C 8.2 (H) 10/09/2021 HGBA1C 8.5 (H) 05/03/2021 A1c goal </= 8.0%, above goal. Plan: increase Ozempic to 2mg subcutaneous weekly. Optometry: RA[facility] at [facility] 01/15/24. No diabetic retinopathy or macular edema of left eye. Medications: -metformin 1000mg BID -Jardiance 25mg daily -Ozempic 2mg subcutaneous weekly -Reviewed lifestyle modifications -DME request for diabetic shoes: 03/08/24 -Referral to new podiatry clinic placed 11/09/24 Assessment & Plan (07/12/2024 5:00 PM EDT): Lab Results Component Value Date HGBA1C 9.6 (A) 07/03/2024 HGBA1C 9.7 (A) 03/06/2024 HGBA1C 9.5 (A) 10/23/2023 HGBA1C 8.2 (H) 10/09/2021 HGBA1C 8.5 (H) 05/03/2021 A1c goal </= 8.0%, above goal. Pt declines medication adjustments at this time. Will plan to trial nutrition adjustments, and if not sufficient, consider medication changes. Optometry: [facility] at [facility] 01/15/24. No diabetic retinopathy or macular edema of left eye. Medications: -metformin 1000mg BID -Jardiance 25mg daily -Ozempic 1mg subcutaneous weekly -Reviewed lifestyle modifications -DME request for diabetic shoes: 03/08/24 Assessment & Plan (03/08/2024 7:16 AM EDT): Lab Results Component Value Date HGBA1C 9.7 (A) 03/06/2024 HGBA1C 9.5 (A) 10/23/2023 HGBA1C 8.2 (A) 07/04/2023 HGBA1C 8.2 (H) 10/09/2021 HGBA1C 8.5 (H) 05/03/2021 A1c goal </= 8.0%, above goal Optometry: [facility] at [facility] 01/15/24. No diabetic retinopathy or macular edema of left eye. -Continue metformin 1000mg BID -Continue Jardiance 25mg daily -Increase Trulicity to 4.5mg SQ weekly -Reviewed lifestyle modifications -DME request for diabetic shoes: 03/08/24 Assessment & Plan (11/28/2023 9:47 AM EST): Lab Results Component Value Date HGBA1C 9.5 (A) 10/23/2023 HGBA1C 8.2 (A) 07/04/2023 HGBA1C 9.8 (A) 02/22/2023 HGBA1C 8.2 (H) 10/09/2021 HGBA1C 8.5 (H) 05/03/2021 -A1c goal </= 8.0%. -Continue metformin 1000mg BID -Continue Jardiance 25mg daily -Contine Trulicity to 3.0mg SQ weekly -Reviewed lifestyle modifications Assessment & Plan (10/23/2023 9:37 PM EST): Lab Results Component Value Date HGBA1C 9.5 (A) 10/23/2023 HGBA1C 8.2 (A) 07/04/2023 HGBA1C 9.8 (A) 02/22/2023 HGBA1C 8.2 (H) 10/09/2021 HGBA1C 8.5 (H) 05/03/2021 -A1c goal </= 8.0%. A1c increased from last reading -Continue metformin 1000mg BID -Continue Jardiance 25mg daily -INCREASE Trulicity to 3.0mg SQ weekly -Reviewed lifestyle modifications Assessment & Plan (07/07/2023 10:38 AM EDT): Lab Results Component Value Date HGBA1C 8.2 (A) 07/04/2023 -A1c goal </= 8.0%. Pt approx at goal, and A1c improved from previous value -Continues with metformin 1000mg BID -Continue Jardiance 25mg daily -Continue Trulicity 1.5mg SQ weekly -Reviewed lifestyle modifications Assessment & Plan (03/24/2023 8:43 PM EDT): -Continues with metformin 1000mg BID -Continue Jardiance 25mg daily -Continue Trulicity 1.5mg SQ weekly -Pt reports history of hypoglycemic episodes with more intense regimen, but has felt well with current regimen. Given hx of falls and hypoglycemia, will not make changes to DM regimen at this time. 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 Referred to rn office - Eye and Lasik in February 2023 (referral previously placed for [facility] in Sep 2022) ?? Reports missed appt and unable to be seen by office. Requesting referral to [facility]. Advised there are some limitations in services our office is able to provide, but may have consult for RAFAEL right eye. 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 Additionally, reports visual hallucinations in November which also led to inpatient stay. Sy reported dysphoric mood (feeling depressed/down every day), difficulty falling and staying asleep, decreased energy, poor appetite, low self concept, restlessness, easily startled, constant SI w/o active plan or intention, crying spells, isolation, hopelessness and helplessness. Sy indicates long hx of depressed mood, but exacerbation of sxs and presentation since June 2022 after sister who lived with him . He also reported feelings of hopelessness and helplessness, as well as low self concept have also exacerbated, as physical decline has increased. Provided praise around reaching out to [facility] for support to access care. We discussed possible treatment alternatives (such as OP BH therapy). Additionally, we explored behavioral activation activities such as short walks and engaging on small social interactions with roommate and neighbors. Sy was receptive and open to presented skills, as well as to OP therapy referral. Patient will benefit from individual outpatient therapy to mange sxs, process complex grieving process through CBT and ACT frames. 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 Willingness to seek and engage in Op therapy to manage sxs. PLAN: 1. Follow up with [facility]: Recommended for follow-up: On next [facility] medical appt. 2. Patient goal is Decrease depressive mood 3. Behavioral Recommendations a. Sy will continue reaching out to [facility] for support to access care (like crisis or connecting to [facility] staff. b. Sy agreed to try engaging in behavioral activation such as short walks at least once a day. c. Sy agreed to referral for individual outpatient therapy to pattie sxs, process complex grieving process through CBT and ACT frames. d. 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 Additionally, reports visual hallucinations in November which also led to inpatient stay. Sy reported dysphoric mood (feeling depressed/down every day), difficulty falling and staying asleep, decreased energy, poor appetite, low self concept, restlessness, easily startled, constant SI w/o active plan or intention, crying spells, isolation, hopelessness and helplessness. Sy indicates long hx of depressed mood, but exacerbation of sxs and presentation since June 2022 after sister who lived with him . He also reported feelings of hopelessness and helplessness, as well as low self concept have also exacerbated, as physical decline has increased. Provided praise around reaching out to [facility] for support to access care. We discussed possible treatment alternatives (such as OP BH therapy). Additionally, we explored behavioral activation activities such as short walks and engaging on small social interactions with roommate and neighbors. Sy was receptive and open to presented BH skills, as well as to OP Bh therapy referral. Patient will benefit from individual outpatient therapy to [facility], process complex grieving process through CBT and ACT frames. 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 Willingness to seek and engage in Op BH therapy to manage sxs. PLAN: 1. Follow up with [facility]: Recommended for follow-up: On next [facility] medical appt. 2. Patient goal is Decrease depressive mood 3. Behavioral Recommendations a. Sy will continue reaching out to [facility] for support to access care (like crisis or connecting to [facility] BH staff. b. Sy agreed to try engaging in behavioral activation such as short walks at least once a day. c. Sy agreed to referral for individual outpatient therapy to [facility], process complex grieving process through CBT and ACT frames. d. 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 07/12/20 24 Encounters Date Type Department Care Team Description 02/15/2025 Telephone [facility] [address] [place] [address] Rose Mary Pimentel FNP Durable Medical Equipment 02/10/2025 Patient Outreach [facility] [address] [place] [address] Rose Mary Pimentel FNP Transition Of Care (Tcm) (HDF scheduled.) 01/31/2025 Refill [facility] [address], [place] [id number] Rose Mary Pimentel FNP 01/28/2025 Refill [facility] [address] [place] [address] Rose Mary Pimentel FNP Depression, unspecified depression type 01/22/2025 Telephone [facility] [address] [place] [address] Rose Mary Pimentel FNP No Show 01/22/2025 [facility]phone [facility] [facility] [address] [place] [address] Edison Donaldson MA Chart Prep 01/08/2025 Patient Outreach [facility] [address] [place] [phone] Rose Mary Pimentel FNP Transition Of Care (Tcm) (HDF- unscheduled patient transferred to Rehab) 01/05/2025 Telephone [facility] [address] [place] [phone] Rose Mary Pimentel FNP FYI 01/04/2025 Orders Only [facility] External Provider, [facility] 12/21/2024 Refill [facility] [address] [place] [phone] Rose Mary Pimentel FNP Depression, unspecified depression type 12/11/2024 11:00 AM EST Office Visit [facility] [address] [place] [address] Rose Mary Pimentel FNP Sleep difficulties (Primary Dx); Type 2 diabetes mellitus with other specified complication, without long-term current use of insulin ([facility]); Abrasion; Anemia, unspecified type 12/11/2024 Travel 12/10/2024 Telephone [facility] [address] [place] [address] Edison Donaldson MA Chart Prep 11/30/2024 10:20 AM EST Office Visit [facility] [address] [place] [phone] Ha Liu MD Mild intermittent asthma with (acute) exacerbation (Primary Dx) 11/20/2024 Telephone [facility] [address] [place] [address] [phone] Rose Mary Pimentel FNP from Last 3 Months Immunizations Name Administration Dates Next Due Influenza High-dose Quadriva lent Preservative Free 08/21/2022,11/23/2020 Influenza injectable quadriv alent IIV4 with preservative 08/11/2015 Influenza injectable quadriv alent preservative free 07/19/2021,08/19/2019,10/20/2018,09/29 Influenza, IIV3, injectable 08/23/2011 Influenza, Split (incl. alexis fied surface antigen) 09/18/2013,07/18/2012 Influenza, seasonal, injecta ble, preservative free 08/09/2016 Pneumococcal Conjugate PCV 13 11/09/2015 Pneumococcal Polysaccharide PPSV23 11/21/2016, TD (adult), 2 Lf tetanus tox oid, preservative free, adsorbed 02/22/2023,12/12/2020 Td (adult), 5 Lf tetanus tox oid, preservative free, adsorbed 02/22/2023 Tdap 09/29/2010 Zoster, Recombinant 06/02/2021,03/31/2021 Zoster, live 07/28/2015 Family History Medical History Relation Name Comments Diabetes Father Tuberculosis Father Tuberculosis Mother Relation Name Status Comments Father Mother Social History Tobacco Use Types Packs/Day Years Used Date Smoking Tobacco: Never Passive Smoke Exposure: Never Smokeless Tobacco: Never Tobacco Cessation:Counseling Given: Not Answered Alcohol Use Standard Drinks/Week Comments Never 0 [...] not to disclose 2021 10:17 AM EDT Last Filed Vital Signs Vital Sign Reading Time Taken Comments Blood Pressure 118/73 12/11/2024 11:17 AM EST Pulse 92 12/11/2024 11:17 AM EST Temperature 36.3 ??C (97.4 ??F) 12/11/2024 11:[address] Respiratory Rate 19 12/11/2024 11:17 AM EST Oxygen Saturation 98% 12/11/2024 11:17 AM EST Inhaled Oxygen Concentration - - Weight 78.5 kg (173 lb) 12/11/2024 11:17 AM EST Height 167.6 cm (5' 6 ) 12/11/2024 11:17 AM EST Body Mass Index 27.92 12/11/2024 11:17 AM EST Plan of Treatment Upcoming Encounters Date Type Department Care Team (Late st Contact Info) Description 02/22/2025 9:30 AM EDT Office Visit [facility] [address] [place] [address] Rose Mary Pimentel FNP [address] [place] [address] Health Maintenance Due Date Last Done Comments CT Colonography 1950 Colonoscopy 1950 Colorectal Cancer Screening 1950 Dental X-Ray: Bitewings 1950 FIT DNA/Cologuard 1950 FIT 1950 FOBT 1950 Sigmoidoscopy 1950 Hepatitis C Screening 1968 RSV Patients and Patients Aged 60 years or older (1 - Risk 60-74 years 1-dose series) 2010 Dental X-Ray: Full Mouth 09/11/2016 09/10/2013 Diabetes: Urine Protein Screening 07/17/2024 07/17/2023, 05/03/2021 Lipid Panel 07/17/2024 07/17/2023, 05/03/2021 COVID-19 Vaccine ( season) 2024 10/09/2022, 09/27/2021, 02/08/2021 Influenza Vaccine (#1) 2024 , 07/19/2021, 11/23/2020, Additional history exists Dental Oral Exam 09/16/2024 03/16/2024, 09/10/2013 Dental Prophylaxis 09/16/2024 03/16/2024 Diabetes: Hemoglobin A1C 02/07/2025 024, 07/03/2024, 03/06/2024, Additional history exists Alcohol/Substance Use Screening 11/09/2025 11/09/2024 Depression Screening 11/09/2025 11/09/2024, 10/23/20 Diabetes: Foot Exam 11/09/2025 11/09/2024, 11/09/2024, 11/09/2024, Additional history exists SDOH Screening 11/09/2025 11/09/2024 Tobacco Screening 12/11/2025 12/11/2024 Eye Exam 01/15/2026 01/15/2024, 12/20, 01/15/2024, Additional history exists DTaP/Tdap/Td Vaccines (5 - Td or Tdap) 02/22/2033 02/22/2023, 02/22/2023, 02/22/2023, Additional history exists Pneumococcal Vaccine: 50+ Years Completed 11/21/2016, 11/09/2015, 09/29/2010 Zoster Vaccines Completed 06/02/2021, 03/18, 07/28/2015 HIB Vaccines Aged Out No longer eligi ble based on patient's age to complete this topic HPV Vaccines Aged Out No longer eligi ble based on patient's age to complete this topic Hepatitis A Vaccines Aged Out No long er eligible based on patient's age to complete this topic Hepatitis B Vaccines Aged Out No long er eligible based on patient's age to complete this topic IPV Vaccines Aged Out No longer eligi ble based on patient's age to complete this topic Meningococcal Vaccine Aged Out No edith maverick eligible based on patient's age to complete this topic RSV under 20 months Aged Out No longe r eligible based on patient's age to complete this topic Rotavirus Vaccines Aged Out No longer eligible based on patient's age to complete this topic Procedures Procedure Name Priority Date/Time Associated Diagnosis Comments CT SINUS FACIAL BONES WO CONTRAST Routine 01/04/2025 6:[address] CERVICAL SPINE WO CONTRAST Routine 01/04/2025 6:[address] HEAD WO CONTRAST Routine 01/04/2025 6 :[address] ABDOMEN PELVIS WO CONTRAST Routine 01/04/2025 5:53 PM EST XR CHEST 1 VIEW Routine 01/04/2025 5:27 PM EST POCT GLUCOSE Routine 12/11/2024 11:23 AM EST Type 2 diabetes mellitus with other specified complication, without long-term current use of insulin ([facility]) POC WATSON ID NOW STREP A Routine 11/30/2024 10:53 AM EST Mild intermittent asthma with (acute) exacerbation POCT INFLUENZA B (ID NOW RAPID MOLECULAR) Routine 11/30/2024 10:53 AM EST Mild intermittent asthma with (acute) exacerbation POCT INFLUENZA A (ID NOW RAPID MOLECULAR) Routine 11/30/2024 10:53 AM EST Mild intermittent asthma with (acute) exacerbation POCT RAPID COVID ANTIGEN Routine 11/30/2024 10:53 AM EST Mild intermittent asthma with (acute) exacerbation POCT GLYCATED HEMOGLOBIN, TOTAL Routine 11/09/2024 12:21 PM EST Type 2 diabetes mellitus with other specified complication, without long-term current use of insulin ([facility]) Full PROPHYLAXIS - ADULT Routine 03/16/2024 11:00 AM EDT Periodontal disease Dental caries PERIODIC ORAL EVALUATION - ESTABLISHED PATIENT Routine 03/16/2024 11:00 AM EDT Periodontal disease Dental caries LIPID PANEL, STANDARD Routine 07/17/2023 9:36 AM EDT Type 2 diabetes mellitus with other specified complication, without long-term current use of insulin ([facility]) ALBUMIN, RANDOM URINE W/CREATININE Routine 07/17/2023 8:36 AM EDT Type 2 diabetes mellitus with other specified complication, without long-term current use of insulin ([facility]) PANORAMIC RADIOGRAPHIC IMAGE Routine 09/10/2013 12:00 AM EDT from Last 3 Months or Most Recently Relevant to Health Maintenance Results * CT Sinus Facial Bones w/o Contrast (01/04/2025 6:23 PM EST) Anatomical Region Laterality Modality Computed Tomogra phy 01/04/2025 6:23 PM EST Narrative 01/04/2025 6:25 PM EST ? [facility] ?[address] ?[place] [address] ? CT Scan Report ? Signed ? Patient: Arroyo,Rolando ?MR#: [id number] ?? [id number] ? : 1950 ?Acct:[id number] ? Age/Sex: 74 / M ?ADM Date: 01/04/ ? Loc: HO.ED ? Attending Dr: ? Ordering Physician: Clive Rowland MD ?? Date of Service: 01/04/25 ?? Procedure(s): CT facial bones wo IV con ?? Accession Number(s): [id number] ? cc: Clive Rowland MD; Rose Mary Pimentel AIRCRAFT INSPECTOR ? Report Number: ?? [id number]: Total DLP = ?0.00 mGy-cm ? CLINICAL HISTORY: Syncope, fall, right orbital injury ? CT maxillofacial without contrast ? Comparison: CT/SR - CT HEAD/BRAIN WO CON - 04/29/22 14:40 EDT ? Findings: ?? No acute fractures. ?? Temporomandibular joints are intact. ?? Left maxillary mucocele. Opacification of the left frontal and anterior ?? ethmoid sinuses. No air-fluid levels. Clear mastoid air cells. ? Right globe prosthesis. Small metallic foreign body immediately posterior ?? to the right globe prosthesis. ?? Visualized intracranial contents are within normal limits. ?? No foreign bodies. ? IMPRESSION: ?? No acute displaced facial bone fracture. ? This document has been electronically signed by: Delilah Asher MD on ?? 01/04/2025 18:23:31 ? Dictated By: ?Delilah Asher MD ? Signed By: ?<Electronically signed by Delilah Asher MD in OV> ? 01/04/25 1824 ? DD/ 1823 ? TD/TT: 01/04/25 1823 ? [employer] Sales Representative: ? Procedure Note Bentley, Leia - 01/04/[address] [place] [address] [address] Scan Report Signed Patient: Sy Arroyo LMR#: [id number] : 1950Acct:[id number] Age/Sex: 74 / MADM Date: 01/04/25 Loc: HO.ED Attending Dr: Ordering Physician: Clive Rowland MD Date of Service: 01/04/25 Procedure(s): CT facial bones wo IV con Accession Number(s): [id number] cc: Clive Rowland MD; Rose Mary Pimentel AIRCRAFT INSPECTOR Report Number: [id number]: Total DLP = 0.00 mGy-cm CLINICAL HISTORY: Syncope, fall, right orbital injury CT maxillofacial without contrast Comparison: CT/SR - CT HEAD/BRAIN WO CON - 04/29/22 14:40 EDT Findings: No acute fractures. Temporomandibular joints are intact. Left maxillary mucocele. Opacification of the left frontal and anterior ethmoid sinuses. No air-fluid levels. Clear mastoid air cells. Right globe prosthesis. Small metallic foreign body immediately posterior to the right globe prosthesis. Visualized intracranial contents are within normal limits. No foreign bodies. IMPRESSION: No acute displaced facial bone fracture. This document has been electronically signed by: Delilah Asher MD on 01/04/2025 18:23:31 Dictated By: Delilah Asher MD Signed By: <Electronically signed by Delilah Asher MD in OV> 01/04/251823 DD/ 22 TD/TT: 01/04/251822 [employer] Sales Representative: [facility] External Provider IMG CT PROCEDURES Edited Result - Final * CT Cervical Spine w/o Contrast (01/04/2025 6:23 PM EST) Anatomical Region Laterality Modality Spine, C-spine Computed Tomogra phy 01/04/2025 6:23 PM EST Narrative 01/04/2025 6:25 PM EST ? [facility] ?[address] ?[place] [address] ? CT Scan Report ? Signed ? Patient: Sy Arroyo ?MR#: [id number] ?? [id number] ? : 1950 ?Acct:[id number] ? Age/Sex: 74 / M ?ADM Date: 01/04/25 ? Loc: HO.ED ? Attending Dr: ? Ordering Physician: Clive Rowland MD ?? Date of Service: 01/04/25 ?? Procedure(s): CT cervical spine wo IV con ?? Accession Number(s): [id number] ? cc: Clive Rowland MD; Rose Mary Pimentel AIRCRAFT INSPECTOR ? Report Number: ?? [id number]: Total DLP = 2111.00 mGy-cm ? CLINICAL HISTORY: Syncope and fall ? CT cervical spine without contrast ? Comparison: 04/29/2022 ? Findings: ?? Grade 1 anterolisthesis of C4 on C5. ?? Partial ankylosis of C2, C3 and C4. ?? Multilevel degenerative disc disease and facet osteoarthritis. No ?? high-grade central canal stenosis. ?? No acute fractures or dislocations. ? Visualized intracranial contents are unremarkable. ?? Soft tissues of the neck are normal. ?? No consolidation or effusion at the lung apices. ? IMPRESSION: ?? No cervical spine fracture. ? This document has been electronically signed by: Delilah Asher MD on ?? 01/04/2025 18:23:18 ? Dictated By: ?Delilah Asher MD ? Signed By: ?<Electronically signed by Delilah Asher MD in OV> ? 01/04/251823 ? DD/ 22 ? TD/TT: 01/04/251822 ? [employer] Sales Representative: ? Procedure Note Donotunrulyinterpreter, Image - 01/04/[address] [address] [address] Scan Report Signed Patient: Sy Arroyo LMR#: [id number] : 1950Acct:[id number] Age/Sex: 74 / MADM Date: 01/04/25 Loc: HO.ED Attending Dr: Ordering Physician: Clive Rowland MD Date of Service: 01/04/25 Procedure(s): CT cervical spine wo IV con Accession Number(s): [id number] cc: Clive Rowland MD; Rose Mary Pimentel AIRCRAFT INSPECTOR Report Number: [id number]: Total DLP = 2111.00 mGy-cm CLINICAL HISTORY: Syncope and fall CT cervical spine without contrast Comparison: 04/29/2022 Findings: Grade 1 anterolisthesis of C4 on C5. Partial ankylosis of C2, C3 and C4. Multilevel degenerative disc disease and facet osteoarthritis. No high-grade central canal stenosis. No acute fractures or dislocations. Visualized intracranial contents are unremarkable. Soft tissues of the neck are normal. No consolidation or effusion at the lung apices. IMPRESSION: No cervical spine fracture. This document has been electronically signed by: Delilah Asher MD on 01/04/2025 18:23:18 Dictated By: Delilah Asher MD Signed By: <Electronically signed by Delilah Asher MD in OV> 01/04/251823 DD/ 22 TD/TT: 01/04/251822 [employer] Sales Representative: [facility] External Provider IMG CT PROCEDURES Edited Result - Final * CT Head w/o Contrast (01/04/2025 6:21 PM EST) Anatomical Region Laterality Modality Head, Neck Computed Tomogra phy 01/04/2025 6:21 PM EST Narrative 01/04/2025 6:23 PM EST ? [facility] ?[address] ?[place], [place] [address] ? CT Scan Report ? Signed ? Patient: Arroyo,Rolando ?MR#: [id number] ?? [id number] ? : 1950 ?Acct:[id number] ? Age/Sex: 74 / M ?ADM Date: 01/04/25 ? Loc: HO.ED ? Attending Dr: ? Ordering Physician: Clive Rowland MD ?? Date of Service: 01/04/25 ?? Procedure(s): CT head/brain wo IV con ?? Accession Number(s): [id number] ? cc: Clive Rowland MD; Rose Mary PimentelP ? Report Number: ?? [id number]: Total DLP = ?0.00 mGy-cm ? CLINICAL HISTORY: Syncope and fall ? CT head without contrast ? Comparison: CT/SR - CT HEAD/BRAIN WO CON - 04/29/22 14:40 EDT ? Findings: ?? Involutional change of brain parenchyma, compatible with age. ?? Vxbe-ks-vcdjcqkn ventriculomegaly without change. ?? No mass, mass effect or intracranial hemorrhage. ? 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 Opacification of the left ?? frontal and left anterior ethmoid sinuses. No air-fluid levels. Clear ?? mastoid air cells. ?? Right globe prosthesis. ?? Right frontal scalp contusion. No skull fracture. ? IMPRESSION: ?? 1. No skull fracture or intracranial hemorrhage. ?? 2. Hiis-gz-eghtimkw ventriculomegaly which may be secondary to central ?? volume loss or normal pressure hydrocephalus. ? This document has been electronically signed by: Delilah Asher MD on ?? 01/04/2025 18:21:37 ? Dictated By: ?Delilah Asher MD ? Signed By: ?<Electronically signed by Delilah Asher MD in OV> ? 01/04/25 182 ? DD/ 182 ? TD/TT: 01/04/25 182 ? [employer] Sales Representative: ? Procedure Note Leia Hagan - 01/04/[address] [address] [address] Scan Report Signed Patient: Sy Arroyo LMR#: [id number] : 1950Acct:[id number] Age/Sex: 74 / MADM Date: 01/04/25 Loc: HO.ED Attending Dr: Ordering Physician: Clive Rowland MD Date of Service: 01/04/25 Procedure(s): CT head/brain wo IV con Accession Number(s): [id number] cc: Clive Rowland MD; Rose Mary Pimentel AIRCRAFT INSPECTOR Report Number: [id number]: Total DLP = 0.00 mGy-cm CLINICAL HISTORY: Syncope and fall CT head without contrast Comparison: CT/SR - CT HEAD/BRAIN WO CON - 04/29/22 14:40 EDT Findings: Involutional change of brain parenchyma, compatible with age. Pyxn-yq-drvhclgm ventriculomegaly without change. No mass, mass effect or intracranial hemorrhage. 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 Opacification of the left frontal and left anterior ethmoid sinuses. No air-fluid levels. Clear mastoid air cells. Right globe prosthesis. Right frontal scalp contusion. No skull fracture. IMPRESSION: 1. No skull fracture or intracranial hemorrhage. 2. Pnoz-yj-uegwlecd ventriculomegaly which may be secondary to central volume loss or normal pressure hydrocephalus. This document has been electronically signed by: Delilah Asher MD on 01/04/2025 18:21:37 Dictated By: Delilah Asher MD Signed By: <Electronically signed by Delilah Asher MD in OV> 01/04/251821 DD/ 20 TD/TT: 01/04/251820 [employer] Sales Representative: [facility] External Provider IMG CT PROCEDURES Edited Result - Final * CT Abdomen Pelvis w/o Contrast (01/04/2025 5:53 PM EST) Anatomical Region Laterality Modality Body, Pelvis, Abdomen Computed T omography 01/04/2025 5:53 PM EST Narrative 01/04/2025 5:55 PM EST ? [facility] ?[address] ?[place] [address] ? CT Scan Report ? Signed ? Patient: Arroyo,Rolando ?MR#: [id number] ?? [id number] ? : 1950 ?Acct:[id number] ? Age/Sex: 74 / M ?ADM Date: 01/04/25 ? Loc: HO.ED ? Attending Dr: ? Ordering Physician: Clive Rowland MD ?? Date of Service: 01/04/25 ?? Procedure(s): CT abdomen pelvis wo IV con ?? Accession Number(s): [id number] ? cc: Clive Rowland MD; Rose Mary Pimentel AIRCRAFT INSPECTOR ? Report Number: ?? [id number]: Total DLP = 1072.00 mGy-cm ? CLINICAL HISTORY: Syncope and fall, left hip pain, left abd pain ? CT abdomen and pelvis without contrast ? Comparison: CT/SR - CT ABDOMEN PELVIS WO IV CON - 11/23/22 11:25 EST ? Findings: ?? Mild ground-glass opacities at the bilateral lung bases. No consolidation. ? 4.4 cm left kidney cyst, similar to the prior study. Small foci of ?? calcification associated with the cortex of the spleen. Fkqc-da-djgkexgu ?? pancreatic volume loss. Unremarkable liver and bilateral adrenal glands. ?? Poorly distended gallbladder with no calcified gallstones. ?? No bowel obstruction, pneumoperitoneum, or pneumatosis. ? Pelvic contents unremarkable. Normal appendix. ?? No acute fracture or dislocation. Endplate irregularity at the L3-L4 level ?? without change. Mild compression fracture at L1 without change. ? IMPRESSION: ?? 1. No hemoperitoneum or abdominal organ injury. ?? 2. No acute displaced fracture. ? This document has been electronically signed by: Delilah Asher MD on ?? 01/04/2025 17:53:09 ? Dictated By: ?Delilah Asher MD ? Signed By: ?<Electronically signed by Delilah Asher MD in OV> ? 01/04/25 1754 ? DD/ 1753 ? TD/TT: 01/04/25 1753 ? [employer] Sales Representative: ? Procedure Note Leia Hagan - 01/04/2025 [place] [id number] [facility] [place] [address] CT Scan Report Signed Patient: Sy Arroyo LMR#: [id number] : 1950Acct:[id number] Age/Sex: 74 / MADM Date: 01/04/25 Loc: HO.ED Attending Dr: Ordering Physician: Clive Rowland MD Date of Service: 01/04/25 Procedure(s): CT abdomen pelvis wo IV con Accession Number(s): [id number] cc: Clive Rowland MD; Rose Mary Pimentel [facility] Report Number: [id number]: Total DLP = 1072.00 mGy-cm CLINICAL HISTORY: Syncope and fall, left hip pain, left abd pain CT abdomen and pelvis without contrast Comparison: CT/SR - CT ABDOMEN PELVIS WO IV CON - 11/23/22 11:25 EST Findings: Mild ground-glass opacities at the bilateral lung bases. No consolidation. 4.4 cm left kidney cyst, similar to the prior study. Small foci of calcification associated with the cortex of the spleen. Rsdt-jp-ixmoybev pancreatic volume loss. Unremarkable liver and bilateral adrenal glands. Poorly distended gallbladder with no calcified gallstones. No bowel obstruction, pneumoperitoneum, or pneumatosis. Pelvic contents unremarkable. Normal appendix. No acute fracture or dislocation. Endplate irregularity at the L3-L4 level without change. Mild compression fracture at L1 without change. IMPRESSION: 1. No hemoperitoneum or abdominal organ injury. 2. No acute displaced fracture. This document has been electronically signed by: Delilah Asher MD on 01/04/2025 17:53:09 Dictated By: Delilah Asher MD Signed By: <Electronically signed by Delilah Asher MD in OV> 01/04/251753 DD/ 52 TD/TT: 01/04/251752 [employer] Sales Representative: [facility] External Provider IMG CT PROCEDURES Edited Result - Final * XR Chest 1 View (01/04/2025 5:27 PM EST) Anatomical Region Laterality Modality Chest Radiographic Pily ging 01/04/2025 5:27 PM EST Narrative 01/04/2025 5:28 PM EST ? [facility] ?[address] ?[place] [address] ?XRay Report ? Signed ? Patient: Arroyo,Rolando ?MR#: [id number] ?? [id number] ? : 1950 ?Acct:[id number] ? Age/Sex: 74 / M ?ADM Date: 01/04/25 ? Loc: HO.ED ? Attending Dr: ? Ordering Physician: Clive Rowland MD ?? Date of Service: 01/04/25 ?? Procedure(s): XR chest 1V ?? Accession Number(s): [id number] ? cc: Clive Rowland MD; Rose Mary Pimentel ? CLINICAL HISTORY: Syncope ? 1 view chest x-ray ? Comparison: CR/SR - XR CHEST 2V - 11/23/22 11:49 EST ? Findings: ?? The lungs are clear. ?? Mild elevation of the left hemidiaphragm without change. No consolidative ?? process. ?? Normal heart size. Tortuous aorta. ?? No acute fracture. ? IMPRESSION: ?? 1. No acute findings. ? This document has been electronically signed by: Delilah Asher MD on ?? 01/04/2025 17:27:39 ? Dictated By: ?Delilah Asher MD ? Signed By: ?<Electronically signed by Delilah Asher MD in OV> ? 01/04/25 1728 ? DD/ ? TD/TT: 01/04/251726 ? [employer] Sales Representative: ? Procedure Note Leia Hagan - 01/04/2025 [place] [address] XRay Report Signed Patient: Sy Arroyo LMR#: [id number] : 1950Acct:[id number] Age/Sex: 74 / MADM Date: 01/04/25 Loc: HO.ED Attending Dr: Ordering Physician: Clive Rowland MD Date of Service: 01/04/25 Procedure(s): XR chest 1V Accession Number(s): [id number] cc: Clive Rowland MD; Rose Mary Pimentel CLINICAL HISTORY: Syncope 1 view chest x-ray Comparison: CR/SR - XR CHEST 2V - 11/23/22 11:49 EST Findings: The lungs are clear. Mild elevation of the left hemidiaphragm without change. No consolidative process. Normal heart size. Tortuous aorta. No acute fracture. IMPRESSION: 1. No acute findings. This document has been electronically signed by: Delilah Asher MD on 01/04/2025 17:27:39 Dictated By: Delilah Asher MD Signed By: <Electronically signed by Delilah Asher MD in OV> 01/04/251727 DD/ 26 TD/TT: 01/04/251726 [employer] Sales Representative: [facility] External Provider IMG XR PROCEDURES Edited Result - Final * (ABNORMAL) POCT Glucose (12/11/2024 11:23 AM EST) [facility] Glucose Blood, POC 242(A) 60 - 200 mg/dL Comment:random QC Media Lot # [id number] Lot# Expiration Date 48 Blood Capillary blood specimen / Unknown 12/11/2024 11:23 AM EST Result [facility] [place] Rose Mary Pimentel AIRCRAFT INSPECTOR POINT OF CARE TEST ENTER/EDIT ORDERABLES Final Result * POCT Rapid Influenza B WATSON ID NOW (11/30/2024 10:53 AM EST) [facility] Influenza B Negative Negative, Indeterminate [facility] Swab 11/30/2024 10:5 3 AM EST Result [facility] Ha Liu MD POINT OF CARE TEST ENTER/ED IT ORDERABLES Final Result [facility] [address] [place] [phone] * POCT Rapid Influenza A WATSON ID NOW (11/30/2024 10:53 AM EST) [facility] Influenza A Negative Negative, Indeterminate [facility] Swab 11/30/2024 10:5 3 AM EST Ha Liu MD POINT OF CARE TEST ENTER/ED IT ORDERABLES Final Result Performing Organization Address City/[facility]/ZIP Co de Phone Number [facility] [address] [place] [address] [phone] * POCT Rapid Strep A WATSON ID NOW (11/30/2024 10:53 AM EST) [facility] Rapid Strep A Screen Negative Negative, None Detected Swab 11/30/2024 10:5 3 AM EST us Ha Lui MD POINT OF CARE TEST ENTER/ED IT ORDERABLES Final Result * POCT Rapid Covid-19 BinaxNOW (11/30/2024 10:53 AM EST) [facility] Rapid COVID Ag Negative [facility] Swab 11/30/2024 10:5 3 AM EST us Ha Liu MD POINT OF CARE TEST ENTER/ED IT ORDERABLES Final Result Performing Organization Address [facility] Hospital/[facility]/ZIP Co de Phone Number [facility] [address] [place] [phone] * (ABNORMAL) POCT HGB A1C (11/09/2024 12:21 PM EST) [facility] Hemoglobin A1C 9.1(A) 4.0 - 6.0 % QC Media Lot # [id number] Lot# Expiration Date [id number] Blood 11/09/2024 12:2 1 PM EST us Rose Mary Pimentel [employer] POINT OF CARE TEST ENTER/EDIT ORDERABLES Final Result * Lipid Panel, Standard (07/17/2023 9:36 AM EDT) [facility] Triglycerides 57 <150 mg/dL [facility] Comment:Desirable Triglyceri de: less than 150 mg/dLBorderline High Triglyceride 150-199 mg/dLHigh Triglyceride: 200-499 mg/dLVery High Triglyceride: greater than or equal to 5OO mg/dL Cholesterol 133 <200 mg/dL [facility] Comment:Desirable Cholestero l: less than 200 mg/dLBorderline High Cholesterol: 200-239 mg/dLHigh Cholesterol: greater than 239 mg/dL LDL Cholesterol Calculated 63 <100 mg/dL [facility] Comment:Desirable LDL: less than 100 mg/dLNear Optimal/Above Optimal LDL: 110- 129 mg/dLBorderline High LDL: 130-159 mg/dLHigh LDL: 160-189 mg/dLVery High LDL: greater than or equal to 190 mg/dL HDL Cholesterol 59 >40 mg/dL [facility] Comment:Desirable HDL: great er than 40 mg/dL Note: This HDL assay may give artificially low results in patients with liver disease. Blood Venous blood specimen / Unknown 07/17/2023 9:36 AM EDT 07/17/2023 11:25 AM EDT Rose Mary Pimentel [facility] BLOOD ORDERABLES Final Res ult Performing Organization Address City/[facility]/ZIP Co de Phone Number [facility] [address] [place] [phone] * (ABNORMAL) Albumin, Random Urine W/Creatinine (07/17/2023 8:36 AM EDT) Creatinine, Urine 55.28 mg/dL [facility] Microalbumin Urine 20.0 mg/L [facility] Microalbum Creatinine Ratio Ur 36.1(H) <30 ug/mg cr [facility] Comment:Albumin/Creatinine R atio Reference Ranges: Normal: < 30 ug/mg creatinine Microalbuminuria: 30 - 300 ug/mg creatinineClinical Albuminuria: > 300 ug/mg creatinine Urine 07/17/2023 8:36 AM EDT 07/17/2023 11:38 AM EDT Rose Mary Pimentel [employer] LAB URINE ORDERABLES Final Res ult [facility] [address] [place] [phone] from Last 3 Months or Most Recently Relevant to Health Maintenance Insurance DENTAL - [facility] Care Teams Social Services Technician Relationship Specialty Start Date End Date Rose Mary Pimentel FNP [address] [place] [address] PCP - General Family Medicine 07/15/22 [facility] 09/05/22
--- OUTSIDE RECORDS SUMMARY | 2025-02-16 19:23 | XMS_ITS | Clinical Summary ---
Author Organization [facility] Address [address] [facility] [address] [place] [address] Phone Care Team Providers Care Drencher Name Role Phone Unavailable Primary Care Provider Unavailabl e Allergies Active Allergy Reactions Criticality Noted Date Comments Tristin Inhibitors Other (see comments) 04/04/2016 Medications acetaminophen (TYLENOL 8 HOUR) 650 MG 8 hr tablet Take 2 tablets by mouth 4 (four) times a day Active SM Aspirin Adult Low Strength 81 MG EC tablet Take 81 mg by mouth 01/10/2021 Active atorvastatin (LIPITOR) 40 MG tablet Take 1 tablet by mouth at bed time Active Cholecalciferol 50 MCG (1999 UT) capsule Take 1 capsule by mouth 1 (one) time each day Active DULoxetine (CYMBALTA) [address] capsule Take 1 capsule by mouth 2 (two) times a day Active Empagliflozin (Jardiance) 25 MG tablet Take 1 tablet by mouth 1 (one) time each day Active levothyroxine (SYNTHROID, LEVOTHROID) 137 MCG tablet Take 1 tablet by mouth 1 (one) time each day Active losartan (COZAAR) 25 MG tablet Take 1 tablet by mouth 1 (one) time each day Active metFORMIN (GLUCOPHAGE) 1000 MG tablet Take 1 tablet by mouth 2 (two) times a day Active pioglitazone (Actos) 30 MG tablet Take 1 tablet by mouth 1 (one) time each day Active ferrous gluconate (FERGON) 324 (38 Fe) MG tablet TAKE 1 TABLET BY MOUTH EVERY OTHER DAY IN THE MORNING 07/03/2023 Active traZODone (DESYREL) 100 MG tablet Take 100 mg by mouth every night Active Active Problems Problem Noted Date Diagnosed Date Chronic kidney disease, stage 2 (mild) 3 Proteinuria 07/29/2023 Vitamin D deficiency 02/11/2023 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 Mild intermittent asthma 02/11/2023 Hypothyroidism 05/04/2021 Renal disorder due to type 2 diabetes mellitus 0 04/03/2021 Type 2 diabetes mellitus 04/03/2021 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 Obesity 11/09/2015 Finding of prosthesis of eyeball 11/09/2015 Cervical spondylosis without myelopathy 11/09/20 15 Family History Medical History Relation Comments Stroke Sibling 1 Kidney disease Sibling 2 Diabetes Sibling 3 Relation Status Comments Father Mother Sibling 1 Sibling 2 Sibling 3 Social History Tobacco Use Types Packs/Day Years Used Date Smoking Tobacco: Never Smokeless Tobacco: Never Alcohol Use Standard Drinks/Week Comments No 0 (1 standard drink = 0.6 oz pur e alcohol) Sex and Gender Information Value Date Recorded Sex Assigned at Not on file Legal Sex Male 4:54 PM EST Gender Identity Not on file Sexual Orientation Not on file Last Filed Vital Signs Vital Sign Reading Time Taken Comments Blood Pressure 116/60 07/29/2023 8:38 AM EDT Pulse 90 07/29/2023 8:38 AM EDT Temperature - - Respiratory Rate - - Oxygen Saturation 97% 07/29/2023 8:38 AM EDT Inhaled Oxygen Concentration - - Weight 77 kg (169 lb 12.8 oz) 07/29/2023 8:38 AM EDT Height 170.2 cm (5' 7 ) 09/26/2020 12:00 PM EST Body Mass Index 26.59 09/26/2020 12:00 PM EST Plan of Treatment Upcoming Encounters Date Type Department Care Team (Late st Contact Info) Description 06/07/2025 3:00 PM EDT Office Visit [facility] [address] [place] [phone] Nguyễn Calderon MD [address] [facility] [address] [place] [address] Health Maintenance Due Date Last Done Comments Colorectal Cancer Screening: Annual FOBT 1999 Colorectal Cancer Screening: Colonoscopy 1999 Colorectal Cancer Screening: Sigmoidoscopy 1999 Diabetes: Ophthalmology Exam 12/19/2020 Diabetes: Pedal Pulse Checked 12/19/2020 Diabetes: Sensory Foot Exam 12/19/2020 Diabetes: Visual Foot Exam 12/19/2020 Influenza Vaccine (#1) 2024 , 08/19/2019, 10/20/2018, Additional history exists Diabetes: Hemoglobin A1C 02/07/2025 024, 07/03/2024, 07/04/2023, Additional history exists Pneumococcal Vaccine: 65+ Years Completed 11/21/2016, 11/09/2015, 09/29/2010 Hepatitis B Vaccine Aged Out No longe r eligible based on patient's age to complete this topic Insurance MCR ([id number]) [place] [id number] ([id number])
--- OUTSIDE RECORDS SUMMARY | 2025-02-16 19:24 | XMS_ITS | Data Portability ---
Author Organization [facility] Serious Business [facility], Main Office Address [address], [address] [place] [address] Care Team Providers Care Education Department Registrar Name Role Phone NICOLE APPIAH - 2ND FLOOR OTHER Assessment No assessment recorded. Plan of Treatment Reminders Order Date Submit Date Provider Last Modified By Organization Details Last Modified Time Details Appointments None record ed. Lab None record ed. Referral None record ed. Procedures None record ed. Surgeries None record ed. Imaging None record ed. Medication Orders None record ed. Patient TargetsNo targets recorded. Patient InstructionsNo instructions recorded. Reason for Referral None Reported. Problems Name Problem SNOMED Code Status Onset Date Resolution Date Notes Provider Name and Address Organization Details Recorded Time Mixed anxiety and depressive disorder 575331441 Active 2024 Jerilyn Devlin NP [address], [address], [place], [address], [facility] [employer]ious Business [facility] 5 09:22:26 Insomnia 173466591 Active 2024 Jerilyn Devlin NP [address], [address], [place], [address], [facility] [employer] 5 09:23:05 Anemia 315096652 Active 2024 Jerilyn Devlin NP [address], [place], [address], [facility] [employer] 5 09:24:38 Environmental allergy 247624707 Active 2024 Jerilyn Devlin NP [address], [address], [place], [address], [facility] [employer] 5 09:25:42 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 Jerilyn Devlin NP [address], [address], [place], [address], [facility] [employer] [facility] 5 09:28:54 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 Cecily contreras, [facility] 7 09:14:42 Charcot-Dionne- Tooth disease, 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 2016 Cecily contreras, [facility] 7 09:18:55 Essential hypertension 03444570 Active 2016 Cecily contreras, [facility] 7 09:19:05 Diabetes mellitus 77101203 Active 2016 Cecily Sargent null, [facility] 7 09:20:05 Hypothyroidism 58682729 Active 2016 Cecily contreras, [facility] 7 09:20:11 Hyperlipidemia 90857166 Active 2016 Cecily contreras, [facility] 7 09:20:22 Constipation 09031256 Active 2016 Patricia Solorzano MD [address], [address], [place], [address], [facility] [employer] [facility] 7 10:25:55 Eruption 632365907 Active 2016 Patricia Solorzano MD [address] [place] [address], [address], [place], [address], [facility] [employer]ious [employer] [facility] 7 10:37:19 Problem Notes None recorded. Medical Equipment None Reported. Allergies No known drug allergies Medications Not known to be on any medication Vitals Date Recorded Body height Heart rate Respiratory rate Body temperature Oxygen saturation Oxygen saturation in Arterial blood by Pulse oximetry Systolic blood pressure Diastolic blood pressure Provider Name and Address Organization Details Last Updated DateTime 5 45.72 cm 83 /min 18 /min 97.9 [degF] 95 % 95 % 100 mm[Hg] 63 mm[Hg] CLEMENT BRUNO NP [address], [address], [place], [address], [facility] [employer] 5 15:30:19 Date Recorded Body height Heart rate Respiratory rate Body temperature Oxygen saturation Oxygen saturation in Arterial blood by Pulse oximetry Systolic blood pressure Diastolic blood pressure Provider Name and Address Organization Details Last Updated DateTime 5 45.72 cm 98 /min 18 /min 97.6 [degF] 95 % 95 % 90 mm[Hg] 68 mm[Hg] CLEMENT BRUNO NP [address], [facility] [address], [place], [address], [facility] 5 14:54:57 Date Recorded Body height Heart rate Respiratory rate Body temperature Oxygen saturation Oxygen saturation in Arterial blood by Pulse oximetry Systolic blood pressure Diastolic blood pressure Provider Name and Address Organization Details Last Updated DateTime 5 45.72 cm 93 /min 18 /min 98.6 [degF] 97 % 97 % 97 mm[Hg] 46 mm[Hg] CLEMENT BRUNO NP [address], [address], [place], [address], [facility] 5 15:11:16 Date Recorded Body height Heart rate Respiratory rate Body temperature Oxygen saturation Oxygen saturation in Arterial blood by Pulse oximetry Systolic blood pressure Diastolic blood pressure Provider Name and Address Organization Details Last Updated DateTime 5 45.72 cm 80 /min 18 /min 96 [degF] 96 % 96 % 94 mm[Hg] 65 mm[Hg] CLEMENT BRUNO NP [address], [facility] [address], [place], [address], [facility] 5 12:27:43 Date Recorded Body height Heart rate Respiratory rate Body temperature Oxygen saturation Oxygen saturation in Arterial blood by Pulse oximetry Systolic blood pressure Diastolic blood pressure Provider Name and Address Organization Details Last Updated DateTime 5 45.72 cm 86 /min 18 /min 97.6 [degF] 94 % 94 % 97 mm[Hg] 60 mm[Hg] Jerilyn Devlin NP [address], [facility] [address], [place], [address], [facility] 5 19:09:15 Social History Question Answer Notes LastModified by Organizat ion Details LastModified Time Tobacco Smoking Status Never Smoker Not Available [facility] 09/13/2020 03:13:02 Do You Have An Advance Directive? Yes Information not available 01/08/2025 What Is Your Level Of Alcohol Consumption? None Information not available 01/08/2025 What Is Your Code Status? DNR/DNI Okay To Transfer To [facility] If Needed. Dialysis If Needed, No Art Nurtrition, Ivf Okay Information not available 01/08/2025 Where Do You Live? Apartment Information not available 01/08/2025 What Is Your Relationship Status? Single Information not available 01/08/2025 Do You Use Any Illicit Or Recreational Drugs? No Information not available 01/08/2025 Has Tobacco Cessation Counseling Been Provided? No Information not available 01/08/2025 Sex: Male Functional Status None recorded. Mental Status None recorded. Family History Nothing Reported Notes:Father: DM Medical History No medical history recorded. Immunizations Vaccine Type Date Status Note Provider Nam e and Address Organization Details Recorded Time Tdap 3 completed Alireza Juliana [facility] 01/13/2025 12:23:43 Pneumococcal conjugate PCV 13 5 completed Alireza Andrews [facility] 01/13/2025 12:23:57 pneumococcal polysaccharide PPV23 7 completed Alireza Andrews [facility] 01/13/2025 12:24:12 influenza, unspecified formulation 1 completed Alireza Juliana [facility] 01/13/2025 12:24:26 influenza, unspecified formulation 1 completed Alireza Andrews [facility] 01/13/2025 12:24:31 influenza, unspecified formulation 2 completed Alireza Andrews [facility] 01/13/2025 12:24:37 SARS-COV-2 (COVID-19) vaccine, UNSPECIFIED 1 completed Alireza Andrews [facility] 01/13/2025 12:24:58 SARS-COV-2 (COVID-19) vaccine, UNSPECIFIED 1 completed Alireza Andrews [facility] 01/13/2025 12:25:08 SARS-COV-2 (COVID-19) vaccine, UNSPECIFIED 2 completed Alireza Andrews [facility], [facility] 01/13/2025 12:25:15 zoster, unspecified formulation 5 completed Alireza Andrews [facility] 01/13/2025 12:25:27 zoster, unspecified formulation 1 completed Alireza Andrwes [facility] 01/13/2025 12:25:31 zoster, unspecified formulation 1 completed Alireza Andrews [facility] 01/13/2025 12:25:36 Past Encounters Encounter ID Performer Location Encounter Start Date Encounter Closed Date Diagnosis/Indication Diagnosis SNOMED-CT Code Diagnosis ICD10 Code Diagnosis Note [id number] Cecily Sargent [address] [address] 05/16/2017 09:04:14 05/26/2017 13:31:40 Cavovarus deformity of foot 637006940 Q66.1 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 s/p surgical interventi on, see HPIfollow ortho recsNWB on left legPercoce t for painLoveno x daily x 30 daysAvoid NSAIDs for 6 weeksF/u in 2-3 weeks with ortho Charcot-Ma harry-Tooth disease, type [place] 29803483 G60.0 Hx of Charcot-Ma harry-Tooth, as above Essential hypertension 80162206 I10 Losartan 25 mg dailyMonit or bp and labs Diabetes mellitus 495292 09 E11.9 Metformin 1000 mg dailyGlipi zide 10 mg BIDGlyburi de 5 mg BIDPioglit azone 30 mg dailyMonit or accuchecks -reports checks blood sugars in AM at home, will increase to BID here given patient's many diabetic medication s Hypothyroidism 31917393 E03.8 Levothyrox ine 137 mcg daily Hyperlipidemia 59069695 E78.2 Atorvastat in 40 mg daily, ASA 81 mg daily Constipation 67728031 K5 9.09 Initiate bowel protocol [id number] Patricia Solorzano MD [address] [address] 05/20/2017 10:02:21 05/29/2017 11:35:41 Cavovarus deformity of foot 623464803 Q66.1 PT/OT as instructed by ortho, continue NWB status on left until f/u with ortho. Percocet working well for pain. Continue Lovenox daily x 30 days for DVT prevention .Avoid NSAIDs for 6 weeksF/u in 2-3 weeks with ortho Charcot-Ma harry-Tooth disease, type [place] 06712292 G60.0 Hx of Charcot-Ma harry-Tooth, as above Essential hypertension 25931695 I10 Good control on losartan 25 mg daily, actually some fairly low BPS, follow bp and labs Diabetes mellitus 191430 09 E11.9 Good control on metformin 1000 mg daily, glipizide 10 mg BID, glyburide 5 mg BID and pioglitazo ne 30 mg dailyBS all 80-100, continue to follow BID. Not sure why he is on both glyburide and glipizide? Hypothyroidism 51930694 E03.8 Continue levothyrox ine 137 mcg daily, TSH prn. Hyperlipidemia 78245433 E78.2 Continue atorvastat in 40 mg daily and ASA 81 mg daily Constipation 01398070 K5 9.03 Had good BMs yest. Follow, Continue docusate sodium BID and add miralax. Eruption 937167924 R21 looks like it was a scratch that had a rxn. No sxs, follow [id number] Sheng Rosado [address] [address] 07/08/2017 09:57:40 07/11/2017 14:45:10 Cavovarus deformity of foot 455311162 Q66.1 Therapy has progressed very well. Pt has outpatient follow up with surgeon on July 17. Has not been taking pain medication s. 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 Hx of Charcot-Ma harry-Tooth, as above Essential hypertension 01583963 I10 Good control on losartan 25 mg daily, follow up as outpatient Diabetes mellitus 006581 09 E11.9 Has had good control on metformin 1000 mg daily, glipizide 10 mg BID, glyburide 5 mg BID and pioglitazo ne 30 mg dailyFollo w up as outpatient Hypothyroidism 63231793 E03.8 levothyrox ine 137 mcg qdfollow up as outpatient Hyperlipidemia 62896504 E78.2 atorvastat in 40 mg qdASA 81 mg qd [id number] Jerilyn Devlin NP [facility] [address] [address] 01/08/2025 08:42:14 01/12/2025 09:21:05 Essential hypertension 93150856 I10 Good controlmon itor Diabetes mellitus 128954 09 E11.9 metformin 1000 mg bidozempic 2mg sc monthlyjar diance 25 mg po qdmonitor prn Hypothyroidism 47627152 E03.8 levothyrox ine 125 mcg qdtsh prn Hyperlipidemia 27432605 E78.2 atorvastat in 40 mg qdASA 81 mg qdmonitor Charcot-Ma harry-Tooth disease, type [place] 40485261 G60.0 Hx of Charcot-Ma harry-Toothm onitor Constipation 91992336 K5 9.00 miralax qd prnlactulo se 15 ml prnhouse bowel protocolmo nitor Mixed anxi ety and depressive disorder 646430754 F41.8 duloxetine 30 mg po bidtrazodo ne 100 mg po qhsmonitor Insomnia 385944411 G47.0 0 melatonin 6 mg po qhsmagnesi um oxide 400 mg po qhsmonitor Anemia 865536198 D64.9 ferrous sulfate 324 mg po qod Environmental allergy 42 2626473 T78.49XD hx ofpt reports no sob or other resp hxalbutero l inh 2 puffs prn q 4 hoursfluti sasone 50 mcg qd prnmonitor Orthostati c hypotension 58407063 I95.1 seems orthostati c hypotensio n with syncopal episode resolved with fluidsTEDS on in am off in pmPT OT eval and treat for conditioni ng and strengthen ingwalker recmonitor orthostati c bp qd x 2 weeks, doc in pcccbc and bmp on wed x3 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 Recurrent falls 50638671 2 R29.6 hx of syncope and fallspt ot eval and treatsuppo rtive [facility] monitor [id number] Delta Mancuso MD [facility] [address] [place] [address] 01/11/2025 11:33:13 01/14/2025 11:24:12 Orthostatic hypotension 41265265 I95.1 question orthostati c syncopemon [facility] tidmonitor need to titrate Essential hypertension 47786568 I10 off bp meds now in midodrinem onitor need to titrate Diabetes mellitus 790766 09 E11.9 stable on out patient medication scontinued Hypothyroidism 02049758 E03.8 synthroid 125 mcg qdtsh prn Hyperlipidemia 40685883 E78.2 lipitor 40 mg qdcontinue d Charcot-Ma harry-Tooth disease, type [place] 42780953 G60.0 added to PMH Constipation 49550655 K5 9.09 bowel protocolmo nitor for effect Insomnia 137845809 G47.0 0 continue melatoninm onitor need to adjust dose Recurrent falls 74247805 2 R29.6 PT OT Eval and treatmonit or fall risk and need for increased support in community [id number] CLEMENT BRUNO NP [facility] [address] [place] [address] 01/12/2025 15:17:04 01/14/2025 11:33:20 Orthostatic hypotension 80398688 I95.1 BP remains soft, but asymptomat ic at this time.Reass ured nursing current VS are ok, but need to continue to monitor.Co ntinue midodrine 5 mg tid - monitor need to increase dosing Recurrent falls 09100744 2 R29.6 PT OT Eval and treatCurre ntly working with therapy, goal is to return home.monit or fall risk and need for increased support in community Essential hypertension 95921433 I10 off bp meds, now in midodrineB P soft but not ctically low at this time.Monit or VS, sx. closely, adjust meds prn Diabetes mellitus 035426 09 E11.9 stable on glucophage 1000 mg bid and empagliflo zin 25 mg qdmonitor BS prn Hypothyroidism 03493216 E03.8 Continue synthroid 125 mcg qdtsh prn Hyperlipidemia 96507954 E78.2 Continue lipitor 40 mg qd Charcot-Ma harry-Tooth disease, type [place] 07146767 G60.0 added to PMH Constipation 17998781 K5 9.09 utilize bowel protocol prnschedul e laxatives if neededmoni tor Insomnia 467208176 G47.0 0 continue melatoninm onitor need to adjust dose [id number] CLEMENT BRUNO NP [facility] [address] 01/20/2025 14:54:14 01/21/2025 11:17:46 Orthostatic hypotension 18791730 I95.1 BP remains soft, but asymptomat ic at this time.Ayesha nue midodrine 5 mg tid - monitor need to increase dosingLabs stable. Recurrent falls 94159906 2 R29.6 PT OT Eval and treatCurre ntly working with therapy, goal is to return home.monit or fall risk and need for increased support in community Essential hypertension 06824340 I10 off bp meds, now in midodrine as above.BP soft but not ctically low at this time.Monit or VS, sx. closely, adjust meds prn Diabetes mellitus 837910 09 E11.9 stable on glucophage 1000 mg bid and empagliflo zin 25 mg qdmonitor BS prn Hypothyroidism 31874002 E03.8 Continue synthroid 125 mcg qdtsh prn Hyperlipidemia 11165171 E78.2 Continue lipitor 40 mg qd Charcot-Ma harry-Tooth disease, type [place] 13518898 G60.0 added to PMH Constipation 93495820 K5 9.09 Schedule miralax 17 gm dailyMonit or bowels, adjust meds prn Insomnia 968539923 G47.0 0 continue melatoninm onitor need to adjust dose [id number] CLEMENT BRUNO NP [facility] [address] [address] 01/27/2025 15:10:28 01/28/2025 14:17:39 Orthostatic hypotension 24787966 I95.1 BP remains soft; asymptomat icContinue midodrine 5 mg tid - monitor need to increase dosingLabs stable. Constipation 69397675 K5 9.09 Scheduled miralax 17 gm dailyMonit or bowels, adjust meds prn Recurrent falls 00150346 2 R29.6 PT OT Eval and treatCurre ntly working with therapy, goal is to return home.monit or fall risk and need for increased support in community Essential hypertension 25530167 I10 off bp meds, now in midodrine as above.BP soft, monitor need to adjust medsMonito r VS, sx. closely, adjust meds prn Diabetes mellitus 744995 09 E11.9 stable on glucophage 1000 mg bid and empagliflo zin 25 mg qdmonitor BS prn Hypothyroidism 94215390 E03.8 Continue synthroid 125 mcg qdtsh prn Hyperlipidemia 20939208 E78.2 Continue lipitor 40 mg qd Charcot-Ma harry-Tooth disease, type [place] 62805554 G60.0 added to PMH Insomnia 825144080 G47.0 0 continue melatoninm onitor need to adjust dose [id number] CLEMENT BRUNO NP [facility] [address] 02/03/2025 10:39:49 02/05/2025 14:40:43 Orthostatic hypotension 56516966 I95.1 BP remains soft; asymptomat icContinue midodrine 5 mg tid - monitor need to increase dosingLabs remaining stable. Constipation 24195986 K5 9.09 Continue miralax 17 gm daily, working well.Monit or bowels, adjust meds prn Recurrent falls 27452466 2 R29.6 Continue PT OTMonitor VS/orthost asisGoal is to return home.monit or fall risk and need for increased support in community Essential hypertension 71530962 I10 off bp meds, now in midodrine 5 mg tid as above.mait ain hydrationB P soft, monitor need to adjust medsMonito r VS, sx. closely, adjust meds prn Diabetes mellitus 522191 09 E11.9 stable on glucophage 1000 mg bid and empagliflo zin 25 mg qdmonitor BS prn Hypothyroidism 54952786 E03.8 Continue synthroid 125 mcg qdtsh prn Hyperlipidemia 61871246 E78.2 Continue lipitor 40 mg qdLFTs, lipid panel prn Charcot-Ma harry-Tooth disease, type IA 01461205 G60.0 added to PMH Insomnia 804906127 G47.0 0 continue melatoninm onitor need to adjust dose [id number] Jerilyn Devlin NP [facility] [address] [place] [address] 02/10/2025 07:50:41 02/15/2025 08:47:02 Orthostatic hypotension 78052220 I95.1 BP remains soft/boder lineContin ue midodrine 5 mg tid - monitor need to increase dosing, hold bp >110 systolic (script sent)fu with pcp outpt Constipation 83759603 K5 9.09 Continue miralax 17 gm daily, working well.Monit or bowels, adjust meds prn outpt with pcp Recurrent falls 55383733 2 R29.6 Continue PT OT prn outptGoal is to return home.monit or fall risk and need for increased support in communitym onitor outpt with pcp Essential hypertension 55975211 I10 off all bp meds for soft bpnow in midodrine 5 mg tid as above.main tain hydrationm onitor outpt with pcp Diabetes mellitus 276410 09 E11.9 stable on glucophage 1000 mg bid and empagliflo zin 25 mg qdmonitor BS prn outpt and fu with pcp Hypothyroidism 28831506 E03.8 Continue synthroid 125 mcg qdtsh prn outpt with pcp Hyperlipidemia 66498014 E78.2 Continue lipitor 40 mg qdLFTs, lipid panel prn outpt with pcp Insomnia 870304684 G47.0 0 continue melatoninm onitor need to adjust dose outpt with pcp Health Concerns Section Related Observation LastModified by Organization Detai ls LastModified Time None Recorded Concern Status LastModified by Organization Details LastModified Time None Recorded Advance Directives Directive Y: Payers Encounter Date Sequence Insurance Name Policy Number Policy Delatorre Covered Member ID Delatorre Member ID Guarantor Name 01/12/2025 2 [place] [facility] [id number] Sy Arroyo 01/12/2025 1 [facility] - DOS ON OR AFTER 2023 - [place]ANT[place] - PPO) Sy Arroyo [id number] Sy Arroyo 01/20/2025 2 [place] [facility] Sy Arroyo [id number] Sy Arroyo 01/20/2025 1 [facility] - DOS ON OR AFTER 2023 - [place]ANT[place] - [place]PO) Sy Davison [id number] Sy Nguyễnderon 01/27/2025 2 [place] [facility] Sy Nguyễnderon [id number] Sy Nguyễnderon 01/27/2025 1 [facility] - DOS ON OR AFTER 2023 - [place] - [place]PO) Sy Nguyễnderon [id number] Sy Nguyễnderon 02/03/2025 2 [place] [facility] Sy Nguyễnderon [id number] Sy Nguyễnderon 02/03/[address] [facility] - DOS ON OR AFTER 2023 - [place] - [place]PO) Sy Nguyễnderon [id number] Sy Nguyễnderon 02/10/2025 2 [place] [facility] Sy Nguyễnderon [id number] Sy Nguyễnderon 02/10/[address] [facility] - DOS ON OR AFTER 2023 - [place]AC[place] - PPO) Sy Nguyễnderon [id number] Sy Arroyo Notes Date Note Type Note Provider Name and Address Organization Details Recorded Time 5 text/htm laura Dan is seen today for an acute visit. He is a 74 yo male admit from hospital presenting after syncopal episode. Workup including telemetry and CT imaging negative for acute issue. Supported with IVF felt to be orthostatic hypotension. Not felt safe to return home at that time. Asked to check pt. today due to low BP.VS reviewed, BP soft but stable.MAR - remains on midodrine 5 mg tid. Is not on antihypertensives at this time.Labs 01/08 stable. Upon exam, Sy is in bed resting, easily arousable, in good spirits. He denies any complaints, no dizziness or lightheadedness, no SOB, CP. He says he is eating good and has no GI or complaints.Working with rehab, no reports of symptomatic low BP during therapy. PMH is significant fordmhldhypothyroidblind right eye injury at age 18htnanxiety / depression CLEMENT BRUNO NP [address], [address], [place], [address], [facility] [employer]ious [employer] [facility] 01/13/2025 12:18:06 5 text/htm laura Dan is seen today for an acute visit. He is a 74 yo male admit from hospital presenting after syncopal episode. Workup including telemetry and CT imaging negative for acute issue. Supported with IVF felt to be orthostatic hypotension. Not felt safe to return home at that time. Since admission, BP running on the soft side, but not drastically low and pt. remaining symptomatic. Remains on tid midodrine.Working with PT OT, making gains.Labs trended, stable. Upon exam, Sy is in up in a chair, alert, NAD, in good spirits. He denies any dizziness or lightheadedness, no headaches. No SOB, CP. He says he is eating good. Feeling a little constipated, agreeable to starting a daily laxative. Has prn miralax and lactulose in place, but no sched. meds. PMH is significant fordmhldhypothyroidblind right eye injury at age 18htnanxiety / depression CLEMENT BRUNO NP [address], [address], [place], [address], [facility] [employer]ious [employer] [facility] 01/20/2025 15:06:17 5 text/htm laura Dan is seen today for an acute visit. He is a 74 yo male admit from hospital presenting after syncopal episode. Workup including telemetry and CT imaging negative for acute issue. Supported with IVF felt to be orthostatic hypotension. Not felt safe to return home at that time. Since admission, Pt. has been doing well.Continues to work with rehab, feeling stronger.MIralax added to help with bowelsBP still soft, remains asymptomatic.Labs 01/27 stable. No concerns per nsg. Upon exam, Sy is resting in bed, alert, NAD. In good spirits, denies any complaints. He says he is eating well. PMH is significant fordmhldhypothyroidblind right eye injury at age 18htnanxiety / depression CLEMENT BRUNO NP [address], [address], [place], [address], [facility] 01/27/2025 15:16:34 5 text/htm laura Dan is seen today for a routine 30 day visit. He is a 74 yo male admit from hospital presenting after syncopal episode. Workup including telemetry and CT imaging negative for acute issue. Supported with IVF felt to be orthostatic hypotension. Not felt safe to return home at that time. Since admission, Pt. has been doing well.Continues to work with rehab, feeling stronger.BPs still soft, but remains asymptomatic.Intake good.OOB daily in w/c.No further bowel issues since adding miralax.Alert, NAD, in good spirits, wants to return home.Labs 01/27 stable.No concerns per nsg. PMH is significant fordmhldhypothyroidblind right eye injury at age 18htnanxiety / depression CLEMENT BRUNO NP [address], [address], [place], [address], [facility] [employer] 02/03/2025 12:32:27 5 text/htm laura Pt is seen for a discharge summary. PMH significant for hld, hypothyroidism, DM, htn, Charcot Dionne Tooth disease, depression/anxiety, blind in right eye Sy is a 66 yo male admit from hospital with hx above who presented to [facility] for a syncopal episode on 01/04/25-01/06/25 felt due to orthostatic hypotension. He was admitted to SNF for rehab and strengthening now ready to go home. Workup in hospital inconclusive and rehab recommended. Imaging including CT head, face, C spine, abdomen grossly negative. IV fluids given and symptoms improved. lipase elevated at [address] neg for pancreatitis and unlikely. Leukocytosis resolved. CT head showed ventriculomegaly and rec to follow up outpt with neurology if needed in the future. No meds changes. DELGADO stockings and rollator scripts from hospital sent already. Since at [facility] he has worked with therapy and making progress. Overall, BP boderline low but stable. He was started on midodrine 5 mg po tid with decrease in dizziness while here. On exam, Sy is in the activity room in [facility]. He denies any acute concerns or lightheadedness, dizziness, or chest pain. He will need to fu with his pcp outpt in 1-2 weeks. MOLST: DNR/DNI/okay to transfer to [facility], dialysis and ivf hydration, no art feedings signed on 01/08/25 Jerilyn Devlin NP [address] [place] [address], [address], [place], [address], [facility] 02/10/2025 19:21:24
--- OUTSIDE RECORDS SUMMARY | 2025-02-16 19:24 | XMS_ITS | Encounter Summary ---
Author Organization [employer] Address [address] [place] [address] Care Team Providers Care Marine Equipment Design Engineer Name Role Phone Rose Mary Pimentel Primary Care Provider [phone] Reason for Visit * Reason Onset Date Comments FYI 03/20/2024 Encounter Details Date Type Department Care Team ([facility] Contact Info) Description 03/20/2024 Telephone [facility] MED & PEDS [address], [place] [phone] Rose Mary Pimentel FNP [address] [place] [address] FYI Social History Tobacco Use Types Packs/Day Years [...] housing situation today? I have armond stevens 09/04/[address] you li ve. Do you have problems with any of the following? None of the above 09/04/2023 Food Insecurity Answer Date Recorded Within the past 12 months, y ou worried that your food would run out before you got money to buy more: Never True 09/04/2023 Within the past 12 months,th e food you bought just didn't last and you didn't have enough money to get more: Never True Transportation Answer Date Recorded In the past 12 months, has l ack of transportation kept you from medical appts, meetings, work or from getting things needed for daily living? No 09/04/2023 Utilities Answer Date Recorded In the past 12 months, has t he electric, gas, oil or water company threatened to shut off services in your home? No 09/04/2023 Depression Answer Date Recorded Patient Health Questionnaire-2 Score 3 10/23/2023 Sex and Gender Information Value Date Recorded Sex Assigned at Male 09/17/2022 10:17 AM EDT Legal Sex Male 10:17 AM EDT Gender Identity Male 09/17/2022 10:17 AM EDT Sexual Orientation Choose not to disclose 2021 10:17 AM EDT documented as of this encounter Miscellaneous Notes * Telephone Encounter - Clau Alvarado - 03/20/2024 11:13 AM EDT Tc from [facility] with [facility] calling to advise provider they no longer dispense diabetic shoes and recommends POS. documented in this encounter Plan of Treatment Upcoming Encounters Date Type Department Care Team (Late st Contact Info) Description 02/22/2025 9:30 AM EDT Office Visit [facility] [address] [place] [address] Rose Mary Pimentel FNP [address] [place] [address] documented as of this encounter Visit Diagnoses Not on filedocumented in this encounter Additional Health Concerns Assessment Noted Time PHQ-9 Depression Total Score: 7 10/23/20 23 12:27 PM EST documented as of this encounter Care Teams Marine Equipment Design Engineer Relationship Specialty Start Date End Date Rose Mary Pimentel FNP [address] [place] [address] PCP - General Family Medicine 07/15/22 [facility] 09/05/22 documented as of this encounter
--- OUTSIDE RECORDS SUMMARY | 2025-02-16 19:24 | XMS_ITS | Encounter Summary ---
Author Organization [employer] Address [address] [place] [address] Care Team Providers Care Qc Manager Name Role Phone Rose Mary Pimentel Primary Care Provider [phone] Encounter Details Date Type Department Care Team (Late Contact Info) Description 12/11/2022 Orders Only [facility] MEDICINE [address] [place] [address] Helen Veliz LPN Social History Tobacco Use Types Packs/Day [...] suspected to have Coronavirus/COVID-19? No / Unsure 12/04/2022 10:19 AM EST documented as of this encounter Plan of Treatment Upcoming Encounters Date Type Department Care Team (Late st Contact Info) Description 02/22/2025 9:30 AM EDT Office Visit [facility] MED & PEDS [address] [place], [place] [phone] Rose Mary Pimentel FNP [address] [place] [address] documented as of this encounter Visit Diagnoses Not on filedocumented in this encounter Care Teams Qc Manager Relationship Specialty Start Date End Date Rose Mary Pimentel FNP [address] [place] [address] PCP - General Family Medicine 07/15/22 [facility] 09/05/22 documented as of this encounter
--- OUTSIDE RECORDS SUMMARY | 2025-02-16 19:24 | XMS_ITS | Data Portability ---
Author Organization [employer] [place] [facility] [place] Address [address] [place] [address] Care Team Providers Care Brand Marketing Intern Name Role Phone HIM CCA OTHER Assessment Encounter Date Assessment Date Assessment LastModified by Organization Details LastModified Time 11/26/2022 11/26/2022 72 DM, HTN, HLD diagnosed with covid 5 days ago being seen for continued cough, and abdominal cramping. PT tolerating PO currently. Non-focal abdo exam. No signs of resp distress with sat of 100%on RA PT currently past window for paxlovid and on medications that interact. Pt encouraged to discuss with PCP further any possible utility Not available 11/26/2022 17:03:04 12/31/2022 12/31/2022 I provided real -time medical direction via phone for this encounter, and was available for additional phone based assistance as needed. I have reviewed and agree with the Assessment and Plan as documented by the Quill Stripper. Patient given the opportunity to ask questions. Verbalized understanding of instructions to medic. [email or web address] Not available 12/31/2022 13:06:22 02/14/2023 02/14/2023 72 YOM with rece nt hospitalization for mental health, being seen for constipation. BMP with glucos of 218, of metabolic disarray. Pt encouraged to try home regimen for bowels with fleets enema, mag citrate followed 24 hours later by starting miralax Red flag symptoms discussed and pt/family expressed understanding. Not available 02/14/2023 13:10:27 11/28/2024 11/28/2024 As noted, we fang e called to see this patient regarding concerns of cough Evaluation in the field was performed by my filling room operator colleague, as noted above, I provided real-time direction and supervision for this visit. The evaluation revealed a 74 y/o male with past medical hx of Hypertension, COPD/Asthma, Diabetes Mellitus Type 2 who presents with a cough for about a week. No history of chest pain or shortness of breath. No nausea vomiting or diarrhea. No fever or body aches. No runny nose. He has episodes of pretty bad coughing. Otherwise he's eating and drinking normally. On the physical exam done by the filling room operator the patient has normal vital signs. He has a normal oxygen saturation. He has clear lung sounds. He has no bronchi, no wheezing and no crackles on exam. He appears well. He has normal mentation. Impression: acute viral bronchitis Plan: 1) Tessolon Perles 2) albuterol inhaler 3) covid and flu tests negative Disposition: stay at home We discussed the diagnostic uncertainty of home visits and the risk associated with this. In this case, the patient and I felt this to be an acceptable and reasonable amount of risk given the benefit of avoiding an ED visit. We discussed the need to seek care urgently/emergentl y in the setting of any new or worsening serious symptoms, particularly SOB or Chest pain [email or web address] Not available 11/28/2024 14:54:15 01/04/2025 01/04/2025 Evaluation in e field was performed by my filling room operator colleague, as noted above, I provided real-time direction and supervision for this visit. This is a 74yo M presenting for evaluation after a fall this morning. The patient became dizzy and fell and struck his head and right knee. Unsure if LOC. Takes ASA but not other blood thinners. PE: General: Awake & alert, NAD HEENT: Normocephalic. There is a right forehead abrasion with contusion. Respiratory: Chest rise equal bilat, no increased wob CV: Regular rate, normal peripheral perfusion MSK: Moving all 4 extremities without restriction in ROM or pain. RLE: knee contusion present without significant edema. Impression: Fall Dizziness Forehead contusion Knee contusion Plan: -VSS -74yo M with fall due to dizziness and head strike. Needs head CT to r/o ICH as well as evaluation for dizziness. -Right knee injury doesn't appear significant at this time but can be evaluated there as well. -Pt agreeable to transfer via EMS. Disposition: Transport to [facility] [email or web address] Not available 01/04/2025 16:32:01 Plan of Treatment Reminders Order Date Submit Date Provider Last Modified By Organization Details Last Modified Time Details Appointments None recorded. Lab rapid SARS CoV 2 Ag, QL IA, respiratory specimen 2024 025 [email or web address] 7 [facility], [address] [place] [address], [phone], 5 14:53:52 rapid flu (A+B) 2024 025 [email or web address] 7 [facility], [address] [place] [address], [address], 5 14:53:52 culture, urine 2022 023 KRISTOPHER [facility] (Centralized Electronic Ordering - All Locations), Patient Can Go To The Location Of Their Choice, [id number] 3 09:35:29 urinalysis, dipstick 2022 023 [email or web address] 0 [facility], [address] [place] [address], [address], 3 13:13:12 glucose, fingerstick , blood 2022 023 [email or web address] 0 [facility], [address] [place] [address], [address], 3 13:13:12 BMP, serum or plasma 2022 023 [email or web address] 0 [facility], [address] [place] [address], [address], 3 13:13:12 Referral None recorded. Procedures None recorded. Surgeries None recorded. Imaging None recorded. Medication Orders benzonatate 200 mg capsule 2024 025 [facility][id number], [address] [place], [address], 5 14:47:27 albuterol sulfate HFA 90 mcg/actuati on aerosol inhaler 2024 025 [facility] #[id number], [address] [facility], [place], [address], 5 14:49:09 ketorolac 30 mg/mL (1 mL) injection solution 2022 023 [email or web address] 0 Not available 3 12:53:06 Patient TargetsNo targets recorded. Patient InstructionsNo instructions recorded. Reason for Referral None Reported. Results Created Date Observation Date Name Description Value Unit Range Abnormal Flag Note LastModifiedBy Organization Detail LastModifiedTime 12/31/1912/31/2022 URINE CULTU RE specimen description URINE Not Available [facility] (Centralized Electronic Ordering - All Locations) Patient Can Go To The Location Of Their Choice, 01/02/2023 09:35:29 12/31/1912/31/2022 URINE CULTU RE special requests NONE Not Available [facility] (Centralized Electronic Ordering - All Locations) Patient Can Go To The Location Of Their Choice, 01/02/2023 09:35:29 12/31/1901/02/2023 URINE CULTU RE culture abnormal 10-50 ,000 COL/M L STREP TOCOC CUS AGALA CTIAE SERO GROUP B This isola te was ident ified using Maldi -TOF yovanye dl WATKINS PTIBI LITY TESTI NG NOT ROUTI MIK PERFO RMED ON THIS ISOLA TE. Not Available [facility] (Centralized Electronic Ordering - All Locations) Patient Can Go To The Location Of Their Choice, 01/02/2023 09:35:29 12/31/1901/02/2023 URINE CULTU RE report status FINAL 2022 Not Available [facility] (Centralized Electronic Ordering - All Locations) Patient Can Go To The Location Of Their Choice, 01/02/2023 09:35:29 12/31/1912/31/2022 BMP, serum or plasm a BUN 11 Not Available [facility] - [facility] [address], [address], 12/31/2022 13:12:04 12/31/1912/31/2022 BMP, serum or plasm a Ca ( I dario 1.17) Not Available [facility] - [facility] [address], [address], 12/31/2022 13:12:04 12/31/1912/31/2022 BMP, serum or plasm a CI- 101 Not Available [facility] - [facility] [address], [address], 12/31/2022 13:12:04 12/31/1912/31/2022 BMP, serum or plasm a CRE 0.7 Not Available [facility] - [facility] [address], [address], 12/31/2022 13:12:04 12/31/1912/31/2022 BMP, serum or plasm a GLU 282 Not Available [facility] - [facility] [address], [address], 12/31/2022 13:12:04 12/31/1912/31/2022 BMP, serum or plasm a K+ 4.7 Not Available Main - [facility] [address], [address], 12/31/2022 13:12:04 12/31/19 23 12/31/2022 BMP, serum or plasm a Na+ 136 Not Available Main - [facility] [address], [address], 12/31/2022 13:12:04 12/31/1912/31/2022 BMP, serum or plasm a tCO2 23 Not Available Main - [facility] [address], [address], 12/31/2022 13:12:04 12/31/1912/31/2022 gluco se, finge rstic k, blood Blood Glucose: mg/dl 290 Not Available [facility] [address] [place] [address], [address], 12/31/2022 12:53:54 12/31/1912/31/2022 urina lysis , dipst ick Leukocytes neg Not Available [facility] - [facility] [address] [place] [address], [address], 12/31/2022 12:53:30 12/31/1912/31/2022 urina lysis , dipst ick Nitrite negati ve Not Available [facility] [address] [place] [address], [address], 12/31/2022 12:53:30 12/31/19 23 12/31/2022 urina lysis , dipst ick Protein neg Not Available [facility] - [facility] [address] [place] [address], [address], 12/31/2022 12:53:30 12/31/19 23 12/31/2022 urina lysis , dipst ick pH 5 Not Available [facility] - [facility] [address] [place] [address], [address], 12/31/2022 12:53:30 12/31/19 23 12/31/2022 urina lysis , dipst ick Blood neg Not Available [facility] - [facility] [address] [place] [address], [address], 12/31/2022 12:53:30 12/31/19 23 12/31/2022 urina lysis , dipst ick Specific [place] 1.025- 1.030 Not Available [facility] [address] [place] [address], [address], 12/31/2022 12:53:30 12/31/19 23 12/31/2022 urina lysis , dipst ick Ketone neg Not Available Main - [facility] [address], [address], 12/31/2022 12:53:30 12/31/19 23 12/31/2022 urina lysis , dipst ick Glucose 4+ Not Available Main - [facility] [address], [address], 12/31/2022 12:53:30 12/31/19 23 12/31/2022 urina lysis , dipst ick Appearance clear Not Available [facility] - [facility] [address] [place] [address], [address], 12/31/2022 12:53:30 12/31/19 23 12/31/2022 urina lysis , dipst ick Color pale yellow Not Available Main - [facility] ed [address] [place] [address], [address], 12/31/2022 12:53:30 Result Notes None recorded. Medical Equipment None Reported. Allergies No known drug allergies Medications Name Sig Start Date Stop Date Status Note LastModified by Organization Details LastModified Time medbox status USE DIRECTED active Not Available Not Available No t Available atorvastatin 40 mg tablet TAKE 1 TABLET BY MOUTH AT BEDTIME active Not Available Not Available No t Available benzonatate 200 mg capsule Take 1 capsule 3 times a day by oral route. 2024 active Not Available Not Available Not Avai lable senna 8.6 mg tablet TAKE 2 TABLETS BY MOUTH ONCE DAILY active Not Available Not Available No t Available prednisone 20 mg tablet TAKE 1 TABLET BY MOUTH EVERY DAY FOR 5 DAYS active Not Available Not Available No t Available melatonin 3 mg tablet TAKE 2 TABLETS BY MOUTH EVERY DAY AT BEDTIME active Not Available Not Available No t Available aspirin 81 mg tablet,delay ed release TAKE 1 TABLET BY MOUTH EVERY MORNING active Not Available Not Available No t Available tramadol 50 mg tablet TAKE 1 TABLET BY MOUTH EVERY TWELVE HOURS NEEDED FOR PAIN active Not Available Not Available No t Available acetaminophe n 500 mg tablet TAKE 1 TABLET BY MOUTH 2 TO 3 TIMES PER DAY NEEDED FOR PAIN active Not Available Not Available No t Available ketorolac 30 mg/mL (1 mL) injection solution 25 mg IM x 1 for Left LBP 2022 active Not Available Not Available Not Avai lable acetaminophe n ER 650 mg tablet,exten ded release TAKE 1 TO 2 TABLETS BY MOUTH EVERY 6 HOURS NEEDED FOR PAIN. NO MORE THAN 6 TABLETS PER DAY active Not Available Not Available No t Available magnesium oxide 400 mg (241.3 mg magnesium) tablet TAKE 1 TABLET BY MOUTH AT BEDTIME active Not Available Not Available No t Available trazodone 100 mg tablet TAKE 1 TABLET BY MOUTH AT BEDTIME NEEDED FOR SLEEP active Not Available Not Available No t Available econazole nitrate 1 % topical cream APPLY TOPICALLY TO THE AFFECTED AREA(S) (BETWEEN TOES) TWICE DAILY FOR UP TO 28 DAYS active Not Available Not Available No t Available metformin 1,000 mg tablet TAKE 1 TABLET BY MOUTH TWICE DAILY IN THE MORNING AND IN THE EVENING WITH FOOD active Not Available Not Available No t Available levothyroxin e 125 mcg tablet TAKE 1 TABLET BY MOUTH EVERY MORNING BEFORE BREAKFAST active Not Available Not Available No t Available docusate sodium 100 mg capsule TAKE 1 CAPSULE BY MOUTH TWICE DAILY NEEDED FOR CONSTIPATIO N active Not Available Not Available No t Available ammonium lactate 12 % topical cream APPLY A THIN LAYER TOPICALLY TO AFFECTED AREA(S) OF HEELS ONCE DAILY DIRECTED active Not Available Not Available No t Available mupirocin 2 % topical ointment active Not Available Not Available Not Available albuterol sulfate HFA 90 mcg/actuatio n aerosol inhaler INHALE 2 PUFFS BY MOUTH EVERY 4 HOURS NEEDED FOR COUGH. active Not Available Not Available No t Available pioglitazone 30 mg tablet TAKE 1 TABLET BY MOUTH EVERY MORNING active Not Available Not Available No t Available hydroxyzine HCl 10 mg tablet TAKE 1 TABLET BY MOUTH AT BEDTIME NEEDED (for itching) OR FOR ANXIETY active Not Available Not Available Not Available fluticasone propionate 50 mcg/actuatio n nasal spray,suspen vu USE 2 SPRAYS IN EACH NOSTRIL ONCE DAILY IN THE MORNING NEEDED active Not Available Not Available No t Available levothyroxin e 112 mcg tablet TAKE 1 TABLET BY MOUTH EVERY MORNING (ON SATURDAY THROUGH SATURDAY OF EACH WEEK) active Not Available Not Available N ot Available Alcohol Prep Pads USE TWICE DAILY DIRECTED active Not Available Not Available No t Available duloxetine 20 mg capsule,chace yed release TAKE 1 CAPSULE BY MOUTH TWICE DAILY IN THE MORNING AND IN THE EVENING active Not Available Not Available No t Available duloxetine 30 mg capsule,chace yed release TAKE 1 CAPSULE BY MOUTH TWICE DAILY IN THE MORNING AND IN THE EVENING active Not Available Not Available No t Available lactulose 10 gram/15 mL oral solution TAKE 15 ML BY MOUTH EVERY DAY NEEDED FOR CONSTIPATIO N active Not Available Not Available No t Available ferrous gluconate 324 mg (38 mg iron) tablet TAKE 1 TABLET BY MOUTH EVERY OTHER DAY IN THE MORNING active Not Available Not Available No t Available peg 3350-electro lytes 236 gram-22.74 gram-6.74 gram-5.86 gram solution MIX WITH WATER AND DRINK DIRECTED BY GI OFFICE active Not Available Not Available No t Available FreeStyle Lite Strips TEST BLOOD SUGAR TWICE DAILY active Not Available Not Available No t Available FeroSul 325 mg (65 mg iron) tablet TAKE 1 TABLET BY MOUTH EVERY OTHER DAY IN THE MORNING active Not Available Not Available No t Available melatonin 5 mg tablet TAKE 2 TABLETS BY MOUTH AT BEDTIME active Not Available Not Available No t Available Gavilax 17 gram/dose oral powder DISSOLVE 17 GRAMS IN 8 OUNCES WATER OR JUICE AND DRINK DAILY NEEDED FOR CONSTIPATIO N. MAY INCREASE TO 2-3 TIMES PER DAY NEEDED active Not Available Not Available No t Available Vitamin D3 50 mcg (2,000 unit) capsule TAKE 1 TABLET BY MOUTH EVERY MORNING active Not Available Not Available No t Available TRUEplus Lancets 33 gauge TEST BLOOD SUGAR TWICE DAILY active Not Available Not Available No t Available Jardiance 25 mg tablet TAKE 1 TABLET BY MOUTH EVERY MORNING active Not Available Not Available No t Available Trulicity 1.5 mg/0.5 mL subcutaneous pen injector INJECT ONE PEN (=1.5MG) SUBCUTANEOU SLY ONCE A WEEK DIRECTED active Not Available Not Available No t Available Trulicity 0.75 mg/0.5 mL subcutaneous pen injector INJECT ONE PEN (=0.75MG) SUBCUTANEOU SLY ONCE A WEEK DIRECTED active Not Available Not Available No t Available Ceci-Dryl 25 mg tablet TAKE 1 TABLET BY MOUTH AT BEDTIME NEEDED active Not Available Not Available No t Available naloxone 4 mg/actuation nasal spray FOR SUSPECTED OPIOID OVERDOSE. SPRAY 0.1mL IN ONE NOSTRIL. REPEAT IN ALTERNATE NOSTRIL 2-3 MINUTES IF NEEDED. SEEK MEDICAL ATTENTION IMMEDIATELY EVEN IF PATIENT RESPONDS. active Not Available Not Available No t Available Trulicity 3 mg/0.5 mL subcutaneous pen injector active Not Available Not Available Not Available Ozempic 1 mg/dose (4 mg/3 mL) subcutaneous pen injector Inject 1 MG SUBCUTANEOU SLY EVERY 7 DAYS IN THE ABDOMEN, THIGHS OR UPPER ARM. ROTATE INJECTION SITES. active Not Available Not Available No t Available Ozempic 2 mg/dose (8 mg/3 mL) subcutaneous pen injector Inject 2 MG SUBCUTANEOU SLY EVERY 7 DAYS IN THE ABDOMEN, THIGHS OR UPPER ARM. ROTATE INJECTION SITES. active Not Available Not Available No t Available Vitals Date Recorded Body weight Body temperature Respiratory rate Heart rate Oxygen saturation Oxygen saturation in Arterial blood by Pulse oximetry Systolic blood pressure Diastolic blood pressure Provider Name and Address Organization Details Last Updated DateTime 5 66801.8 24 g 97.8 [degF] 16 /min 92 /min 96 % 96 % 100 mm[Hg] 64 mm[Hg] Not Available [facility] - production 5 14:45:12 Date Recorded Heart rate Respiratory rate Body temperature Oxygen saturation Oxygen saturation in Arterial blood by Pulse oximetry Systolic blood pressure Diastolic blood pressure Provider Name and Address Organization Details Last Updated DateTime 5 98 /min 16 /min 98.6 [degF] 96 % 96 % 120 mm[Hg] 70 mm[Hg] Not Available [facility] - [facility] 5 15:42:00 Date Recorded Oxygen saturation Oxygen saturation in Arterial blood by Pulse oximetry Heart rate Respiratory rate Body temperature Systolic blood pressure Diastolic blood pressure Provider Name and Address Organization Details Last Updated DateTime 3 100 % 100 % 80 /min 16 /min 98.6 [degF] 96 mm[Hg] 62 mm[Hg] Not Available [facility] - [facility] 3 11:44:48 Date Recorded Heart rate Body weight Body temperature Respiratory rate Oxygen saturation Oxygen saturation in Arterial blood by Pulse oximetry Body temperature Oxygen saturation Oxygen saturation in Arterial blood by Pulse oximetry Body weight Heart rate Respiratory rate Systolic blood pressure Diastolic blood pressure Systolic blood pressure Diastolic blood pressure Provider Name and Address Organization Details Last Updated DateTime 3 96 /min 95589.3 76 g 97.6 [degF] 18 /min 98 % 98 % 97.6 [degF] 98 % 98 % 87393.3 76 g 96 /min 18 /min 103 mm[Hg] 74 mm[Hg] 103 mm[Hg] 74 mm[Hg] Not Available [facility] - [facility] 3 13:18:06 Date Recorded Body weight Body temperature Respiratory rate Oxygen saturation Oxygen saturation in Arterial blood by Pulse oximetry Heart rate Heart rate Body weight Oxygen saturation Oxygen saturation in Arterial blood by Pulse oximetry Body temperature Respiratory rate Systolic blood pressure Diastolic blood pressure Systolic blood pressure Diastolic blood pressure Provider Name and Address Organization Details Last Updated DateTime 3 28718.8 24 g 98.5 [degF] 14 /min 98 % 98 % 82 /min 82 /min 74613.8 24 g 98 % 98 % 98.5 [degF] 14 /min 102 mm[Hg] 62 mm[Hg] 102 mm[Hg] 62 mm[Hg] Not Available [facility] - [facility] 3 12:45:34 Social History None recorded. Functional Status None recorded. Mental Status None recorded. Family History Nothing Reported. Medical History No medical history recorded. Past Encounters Encounter ID Performer Location Encounter Start Date Encounter Closed Date Diagnosis/Indication Diagnosis SNOMED-CT Code Diagnosis ICD10 Code Diagnosis Note [id number] Buffy Mosquera MD [facility] [address] [place] [phone] 05/26/2022 10:48:03 07/18/2022 15:11:52 Dizziness 438051170 R42 worsens turning head side to side and up and down. no change with standing, describes room spinning. presumably vertigo. UA negative for nitrites and LE. blood glucose 125. non-orthos tatic. Likely BPPV.- recommendi ng eval with PCP re meclizine and/or referral to inner ear PT [id number] Rizwan Willett MD [facility] [address] [place] [id number] 11/26/2022 11:44:46 11/28/2022 10:30:51 COVID-19 [id number] U07.1 [id number] Savanna Nunez MD [facility] [address] [place] [id number] 12/31/2022 12:45:19 01/02/2023 10:20:28 Chronic low back pain 074630866 M54.50 acute on chronic -possible sciatica- doubt UTI- explained given neg ua dip(except glucose) would treat with antibiotic s only if culture indicated need.- offered ketorolac for pain- has nl renal function- not anticoagul ated per med list provided- advised to f/u with pcp for pain management Hyperglycemia 72932781 R 73.9 advised via interprete r to eat more complex carbs not fatty fried foods/ hi sugar content foods avoid soda- patient would benefit from nutritiona l counsellin g- on Jardiance and metformin- advised need to f/u with PCP re med adjustment for elevated BSHypergly cemia may be driving the increased u/o rather than uti [id number] Rizwan Willett MD [facility] [address] [place] [id number] 02/14/2023 12:01:54 02/18/2023 09:57:00 Constipation [id number] K59.00 [id number] SIMRAN ARANDA MD [facility] [address] [place] [phone] 11/28/2024 14:45:10 11/28/2024 17:52:08 Acute bronchitis 33498088 J20.9 [id number] Patricia Penaloza MD [facility] [address] [place] [id number] 01/04/2025 15:34:37 01/05/2025 12:28:11 Fall W19.XXXA Contusion of forehead 11 6419403 S00.83XA Dizziness 395980406 R42 Contusion of right knee 6915148787 8320782 S80.01XA Health Concerns Section Related Observation LastModified by Organization Detai ls LastModified Time None Recorded Concern Status LastModified by Organization Details LastModified Time None Recorded Advance Directives Directive None Recorded Payers Encounter Date Sequence Insurance Name Policy Number Policy Delatorre Covered Member ID Delatorre Member ID Guarantor Name 11/26/2022 1 [facility] PRIOR TO 2023 - DUAL ELIGIBLE (MEDICARE REPLACEMENT/ADV ANTAGE - HMO) Sy Arroyo [id number] Sy Arroyo 12/31/2022 1 [employer] - DOS PRIOR TO 2023 - DUAL ELIGIBLE (MEDICARE REPLACEMENT/ADV ANTAGE - HMO) Sy Arroyo [id number] Sy Arroyo 02/14/2023 1 [employer] - DOS PRIOR TO 2023 - DUAL ELIGIBLE (MEDICARE REPLACEMENT/ADV ANTAGE - HMO) Sy Arroyo [id number] Sy Arroyo 11/28/2024 1 [facility] C[facility] [employer] - DOS ON OR AFTER 2023 - DUAL ELIGIBLE - [facility] AND ONE CARE (MEDICARE REPLACEMENT/ADV ANTAGE - HMO) Sy Arroyo [id number] Sy Arroyo 01/04/2025 1 [facility] - DOS ON OR AFTER 2023 - DUAL ELIGIBLE - [facility] AND ONE CARE (MEDICARE REPLACEMENT/ADV ANTAGE - HMO) Sy Arroyo [id number] Sy Arroyo Notes Date Note Type Note Provider Name and Address Organization Details Recorded Time 11/26/2022 text/html HPI: Allergy: TRISTIN inhibitors. Treated at the [facility] ER for cough, fever and SOB, tested Positive for Covid. Today, has chills, weakness, coughing and stated unable [...] at this time, but is worried about weakness, persistent cough and inability to eat or sleep. Inquired about Albuterol. Asthma hx, not meds listed at this time for Asthma ................... ................... ................... ................... ................... ................... ................... ........ CRC Nursing Assessment: Comments: CRC RN DID NOT NEED FURTHER INFO ................... ................... ................... ................... ................... ................... ................... ........ Quill Stripper Note: Pt found fox to baseline sitting in chair in home. Pt presented normal color/temp and condition with patent airway and normal respirations. Lung sounds clear in all butcher. Pt requested information on Paxlovid for covid which he was diagnosed with saturday in the ER. Pt reports ongoing symptoms. Pt reports he will use supportive care measures and follow up with PCP. ................... ................... ................... ................... ................... ................... ................... ........ Disposition: Fulfilled Rizwan Willett MD [address] [place] [address],[address] [facility], [place], [phone] 11/26/2022 17:03:21 12/31/2022 text/html HPI: ALLERGIC TO: Tristin Inhibitors, pollen. Call received from [facility]. Patient with low back pain and foul urine. Triage call to patient who confirms foul urine no blood or pus. No fever. ................... ................... ................... ................... ................... ................... ................... ........ CRC Nursing Assessment: Comments: CRC RN DID NOT NEED FURTHER INFO SEGMD: patient reports left lower back pain radiating to left > right buttock and legs- worse with movement/ambulation . NO fevers/ chills/n/v/d- no dysuria/hematuria. Has had pain for > 1month- sitting a lot. Does report foul odor to urine/ some increased urinary frequency. Eating fried food / diet soda while medic present- hi fat/hi carb............... ................... ................... ................... ................... ................... ................... ............. Quill Stripper Note From Rasheed Zuniga: NARRATIVE PT PRESENTS A@0X4 PINK WARM AND DRY. PT C/O LOWER BACK BILATERALLY THAT MOVES DOWN HIS LEGS FOR PAST 3 WEEKS. PT ALSO STATED FOUL SMELLING URINE AND FREQUENT URININATION. PT DENIES SOB CP F/N/V/D. BASELINE VITALS ASSESSED, VITALS STABLE, POC BLOODWORK UNREMARKABLE, POC GLUCOSE 290,URINE DIP UNREMARKABLE, URINE CULTURE LABS SENT TO [facility] [place] AND 15MG TORADOL ADMINISTERED IM IN LEFT DELTOID AND ENCOURAGED TO DRINK PLENTY OF FLUIDS. PT ADVISED TO FOLLOW UP WITH PCP IN REGARDS TO HIS SUGAR LEVELS AND MEDICATION ADJUSTMENT. PT EDUCATED ON SIGNS THAT WOULD INDICATE THE ED ................... ................... ................... ................... ................... ................... ................... ........ Disposition: Fulfilled Savanna Nunez MD [address] [facility] [place],[address], [place], [address], [employer] 12/31/2022 16:38:07 02/14/2023 text/html HPI: Call to pt, reports having no BM in over 4 days. Per pt having abdominal pain and swelling. Pt denies any Nausea or vomiting. Pt denies any fever. Per pt has passed only very small amount with last BM but pt unable to recall when this was. Pt prefers instED eval prior to going to ED. ................... ................... ................... ................... ................... ................... ................... ........ CRC Nursing Assessment: Comments: Spoke with members via director of strategic sourcing. d/c from hospital on Saturday for nerve crisis Difficulty moving bowels since discharge, + generalized diffuse abd pain. Has not taken OTC laxitive. would like for member to be evaluated in the home and given medicine to help relieve bowels. Also requesting skin assessment to low back area that she noticed after member released from hospital. ? skin breakdown. does not wish to try OTC medication first to see if that gives relief. Requesting visit for evaluation ................... ................... ................... ................... ................... ................... ................... ........ Quill Stripper Note From Ivan Gallego: Pt CO abd pn X5 - 8 days. Pt stated through septic tank servicer that he has not had a bowel movement in 5 - 8 days. Pt stated has tried many times to attempt to go to the bathroom Pt able to drink and hold down fluids. Pt abd slight distention, tenderness, minimal bowel sounds. UA conducted, no significant findings, ISTAT Chem 8 BGL was slightly elevated [address] and told caregiver to administer an enema, half bottle of mag citrate ant follow on with miralax ................... ................... ................... ................... ................... ................... ................... ........ Disposition: Fulfilled Rizwan Willett MD [address] [place] [address],[address], [place], [address], [employer] 02/14/2023 13:10:47 11/28/2024 text/html CRC Nurse Triage Notes (Rose Mary Cannon - RN): Reason For Request: Patient is having problems breathing, and coughing. worse at night. Can't stop coughing. Patient Reports: Cough; Shortness of breath with exertionDenies: Increased work of breathing/labored ? with or without fever Unable to speak in full sentences without distress Discoloration of skin -cyanosis Needs to sleep sitting up, can? t catch breath Shortness of breath in setting of confusion Chief Complaints: Cough, Breathing problemsPMH: Hypertension, COPD/Asthma, Diabetes Mellitus Type 2PMH Reviewed at 11/28/2024 - 12:37Allergies Reviewed at 11/28/2024 - 12:37Comments: Ellie nurse reports patient has a cough and congestion over the last week that is becoming worse. Difficulty breathing with coughing episodes. Breathing easily in between coughing. 02 sat 96% RA. Afebrile. Taking Robitussin with no relief. Education provided on the response time and the member was advised to monitor reported s/s and seek emergency treatment if needed. ................... ................... ................... ................... ................... ................... ................... ........ Quill Stripper Note From Rasheed Zuniga: Pt co cough with some production clear in color for 1 week. Pt denies Fever, body aches, NC, sore throat, NVD, runny nose, dizziness, abdominal pain, CP or SOB. Pt using robitussin with some relief. Baseline vitals assessed, WNL, Afebrile, Lungs clear bilaterally, covid and flu swab negative, good skin color and turgor. [facility] [place] and RX for albuterol inhaler called in along with benzonatate. Pt education on signs indicating the ER, Pt advised to monitor symptoms. Pt advised to follow up with PCP. ................... ................... ................... ................... ................... ................... ................... ........ [facility] Consulted: Simran Aranda ................... ................... ................... ................... ................... ................... ................... ........ Disposition: Fulfilled SIMRAN ARANDA MD [address] [place] [address],[address], [place], [address], [employer] 11/28/2024 15:09:16 01/04/2025 text/html CRC Nurse Triage Notes (Rose Mary Cannon - RN): Denies: Worst Headache of life New onset of vision loss Sudden onset -unilateral weakness/gait disturbance Fall with head strike and altered LOC New onset of Slurred speech or difficulty finding words Sudden Mental status changes Head pain with fever chills and neck pain Seizure activity Chief Complaints: Falls, Wound care PMH: Hypertension, COPD/Asthma, Diabetes Mellitus Type 2 PMH Reviewed at 01/04/2025 - 14:28 Allergies Reviewed at 01/04/2025 - 14:28 Comments: Visiting nurse calling to request visit to evaluate s/p fall. Fall occured approx 830am. Mechanical fall. [place] dizzy and LOC. Hit front right side of head. Feel like head is pulsating or throbbing. VSS. Patient is on ASA. Denies visual changes, changes in mental status, or dizziness.Education provided on the response time and the member was advised to monitor reported s/s and seek emergency treatment if needed. ................... ................... ................... ................... ................... ................... ................... ........ Quill Stripper Note From Jameson Murguia: Dispatched to the call address for the male who fell this morning and has a bump to his head and feels like his head is pulsating. Pt states he was walking to the back door and was feeling dizzy, next thing he knew he was on the floor. He does not remember the fall. He advises he is still dizzy but denies vision changes, back or neck pain, n/v at this time. Pt takes ASA but is otherwise not on anticoagulants. Pt was found sitting in living room chair, CAOx3, in no obvious distress, airway open and patent, breathing non labored, able to speak in full sentences, -JVD, +hematoma to right anterior head, skin color appropriate for race/WD with good turgor, mucous membranes pink and moist, lungs CTA, abd soft non tender/distended, left pupils round and reactive, Pt blind in right eye, +CMSx4. -spinal stepoff/tenderness. right knee with bruising. [facility] [place]. 911 called on behalf of the Pt. [facility] transported Pt to [facility]. ALL times are approx. ................... ................... ................... ................... ................... ................... ................... ........ [facility] Consulted: Patricia Penaloza ................... ................... ................... ................... ................... ................... ................... ........ Disposition: Fulfilled Patricia Penaloza MD [address] [place] [address],[address] [facility], [place], [address], [employer]ONSAL[employer] 01/04/2025 16:32:05
--- OUTSIDE RECORDS SUMMARY | 2025-02-16 19:24 | XMS_ITS | Encounter Summary ---
Author Organization [employer] Address [address] [facility] 7[address] [place] [address] Care Team Providers Care Motor Vehicle Assembler Name Role Phone Rose Mary Pimentel Primary Care Provider [phone] Reason for Visit * Reason Onset Date Comments Call Back Request 03/20/2024 Encounter Details Date Type Department Care Team ([facility] Contact Info) Description 03/20/2024 Telephone [facility] CHC MED & PEDS [address] [place], [place] [phone] Rose Mary Pimentel FNP [address] [place] [address] Call Back Request Social History Tobacco Use Types Packs/Day Years [...] encounter Miscellaneous Notes * Telephone Encounter - Ashlie Jimenez RN - 03/25/2024 9:28 AM EDT Noted. Pt was aware and mistakenly took 3mg of Ozempic vs 1mg as prescribed. TC encounter in chart regarding triage. * Telephone Encounter - YNOAS Poon - 03/23/2024 5:27 PM EDT Please let pt know that Trulicity was switched to similar medication - Ozempic 1mg subcutaneous weekly and sent to [facility] pharmacy. Please let us know if any difficulties picking up med. Thank you! * Telephone Encounter - Brittni Cutler RN - 03/23/2024 2:13 PM EDT Telephone call to [facility], patient wants to switch medications due to of backorder on truclicity. Explained there might be further delays with needing a PA or even the new medication going on backorder as well. * Telephone Encounter - Clau Alvarado - 03/20/2024 2:34 PM EDT Tc from darci with [facility] requesting to speak a nurse in regards to dulaglutide (Trulicity) 4.5 MG/0.5ML solution pen-injector. Please contact darci at [phone] documented in this encounter Plan of Treatment Upcoming Encounters Date Type Department Care Team ([facility] st Contact Info) Description 02/22/2025 9:30 AM EDT Office Visit [facility] MED & PEDS [address] [place] [address] Rose Mary Pimentel FNP [address] [place] [address] documented as of this encounter Visit Diagnoses Not on filedocumented in this encounter Additional Health Concerns Assessment Noted Time PHQ-9 Depression Total Score: 7 10/23/20 23 12:27 PM EST documented as of this encounter Care Teams Motor Vehicle Assembler Relationship Specialty Start Date End Date Rose Mary Pimentel FNP [address] [place] [address] PCP - General Family Medicine 07/15/22 [facility] 09/05/22 documented as of this encounter
--- OUTSIDE RECORDS SUMMARY | 2025-02-16 19:24 | XMS_ITS | Encounter Summary ---
Author Organization [employer] Address [address] [facility] [address] [place] [address] Care Team Providers Care Phone Operator Name Role Phone Rose Mary Pimentel Primary Care Provider Reason for Visit * Reason Onset Date Comments Verbal orders 06/26/2024 Encounter Details Date Type Department Care Team ([facility] Contact Info) Description 06/26/2024 Telephone [facility] MEDICINE [address] [place] [address] Rose Mary Pimentel FNP [address] [place] [address] Verbal orders Social History Tobacco Use Types Packs/Day Years [...] encounter Miscellaneous Notes * Telephone Encounter - Wing Harvey RN - 06/26/2024 1:08 PM EDT Tc to [facility] to relay agreement to verbal order. Charmaine verbalized understanding and agreement withplan. * Telephone Encounter - YONAS Poon - 06/26/2024 12:20 PM EDT I agree to verbal orders, thank you! * Telephone Encounter - Rah Esparza RN - 06/26/2024 11:52 AM EDT Please see message below and advise if agreeable to verbal orders. Thanks. * Telephone Encounter - Farooq Park - 06/26/2024 11:16 AM EDT Tc from [facility] with [facility] Home care requesting Verbal orders to re-establish care for Daily home visits, Medication management, re-evaluation documented in this encounter Plan of Treatment Upcoming Encounters Date Type Department Care Team (Late st Contact Info) Description 02/22/2025 9:30 AM EDT Office Visit [facility] CHC MED & PEDS [address] [place] [address] Rose Mary Pimentel FNP [address] [place] [address] documented as of this encounter Visit Diagnoses Not on filedocumented in this encounter Additional Health Concerns Assessment Noted Time PHQ-9 Depression Total Score: 7 10/23/20 23 12:27 PM EST documented as of this encounter Care Teams Phone Operator Relationship Specialty Start Date End Date Rose Mary Pimentel FNP [address] [place] [address] PCP - General Family Medicine 07/15/22 [facility] 09/05/22 documented as of this encounter
--- OUTSIDE RECORDS SUMMARY | 2025-02-16 19:24 | XMS_ITS | Encounter Summary ---
Author Organization [employer] Address [address] [facility] [address] [place] [address] Care Team Providers Care Boilermaker Fitter Name Role Phone Rose Mary Pimentel Primary Care Provider [phone] Reason for Visit * Reason Onset Date Comments triage 01/25/2023 Encounter Details Date Type Department [facility] Team ([facility] Contact Info) Description 01/25/2023 Telephone [facility] MEDICINE [address] [place] [address] Rose Mary Pimentel FNP [address] [place] [address] triage Social History Tobacco Use Types Packs/Day Years [...] encounter Miscellaneous Notes * Telephone Encounter - Mariaa Welsh RN - 01/25/2023 3:00 PM EST Call to Darci. Reports that patient friend Kristy reported that pt has mentioned having some suicidal thoughts. Pt does not currently have any MH medication. Per Darci pt denies any self harm and any SI when asked during his visit. Pt expressed wanting to be started on Meds to help with Depression. Call to pt, reports has increased anxiety and depression. Pt also having difficulty with insomnia. Per pt has therapy appt on Saturday01/29/23 with a new therapist. Per pt sometimes has thoughts of self harm . Denies any HI. Pt contracts for safety right now. Feels safe in home. At home with Kristy friend. Pt given number to crisis. Pt advised to seek [facility] today or Saturday to speak with [facility] provider. . Advised pt to seek ER if has any thoughts of harming self. Pt verbalized understanding and agrees. Sent to team and PCP as FYI and for status check PRN. Protocol Used: Depression (Adult) Protocol-Based Disposition: See in Office or Video Visit Today Video visit offer not recorded Positive Triage Question: * Sometimes has thoughts of suicide * All higher-acuity triage questions were negative Care Advice Discussed: * Reasons To Call Back - Sadness or depression symptoms persist over 2 weeks - You want to talk with a counselor - You feel like harming yourself - You become worse * Telephone Encounter - Yue Lee - 01/25/2023 2:05 PM EST Symptom: Depression Outcome: Schedule an urgent appointment (within 4 hours) or talk to a nurse or provider soon Reason: Getting worse The caller accepted this outcome Darci otto calling to inform she sees an increase with pt depression and also informs therapist informed pt has mentioned suicide thoughts . Please call pt . If no answer call darci at [phone] documented in this encounter Plan of Treatment Upcoming Encounters Date Type Department Care Team ([facility] st Contact Info) Description 02/22/2025 9:30 AM EDT Office Visit [facility] MED & PEDS [address] [place] [address] Rose Mary Pimentel FNP [address] [place] [address] documented as of this encounter Visit Diagnoses Not on filedocumented in this encounter Care Teams Boilermaker Fitter Relationship Specialty Start Date End Date Rose Mary Pimentel FNP [address] [place] [address] PCP - General Family Medicine 07/15/22 [facility] 09/05/22 documented as of this encounter
--- OUTSIDE RECORDS SUMMARY | 2025-02-16 19:24 | XMS_ITS | Encounter Summary ---
Author Organization [employer] Address [address] [facility] [address] [place] [address] Care Team Providers Care Shared Services Representative Name Role Phone Rose Mary Pimentel Primary Care Provider [phone] Reason for Visit * Reason Onset Date Comments Durable Medical Equipment 03/11/2024 Encounter Details Date Type Department Care Team ([facility] Contact Info) Description 03/11/2024 Telephone [facility] CHC MED & PEDS [address] [place], [place] [phone] Rose Mary Pimentel FNP [address] [place] [address] Durable Medical Equipment Social History Tobacco Use [...] * Telephone Encounter - YONAS Poon - 03/12/2024 11:35 AM EDT Merlin Bhat - DME for bathtub shower bench was faxed earlier this month (03/09/24). I suspect they wouldtypically use one or the other? Can you please call [facility] to confirm pt wants the shower bench AND shower chair? Thanks! * Telephone Encounter - Tenisha Fraga LPN - 03/12/2024 11:28 AM EDT YONAS Power , Can you please review Sy Arroyo 's chart and advised on next steps to complete request for this patient. Tenisha Fraga LPN Tc from [facility] with [employer] requesting DME Shower chair * Telephone Encounter - Yue Lee - 03/11/2024 12:48 PM EDT Tc from [facility] with [employer] requesting DME Shower chair documented in this encounter Plan of Treatment Upcoming Encounters Date Type Department Care Team (Late st Contact Info) Description 02/22/2025 9:30 AM EDT Office Visit [facility] MED & PEDS [address] [place] [address] Rose Mary Pimentel FNP [address] [place] [address] documented as of this encounter Visit Diagnoses Not on filedocumented in this encounter Additional Health Concerns Assessment Noted Time PHQ-9 Depression Total Score: 7 10/23/20 23 12:27 PM EST documented as of this encounter Care Teams Shared Services Representative Relationship Specialty Start Date End Date Rose Mary Pimentel FNP [address] [place] [address] PCP - General Family Medicine 07/15/22 [facility] 09/05/22 documented as of this encounter
--- OUTSIDE RECORDS SUMMARY | 2025-02-16 19:24 | XMS_ITS | Encounter Summary ---
Author Organization [employer] Address [address] [facility] [address] [place] [address] Care Team Providers Care Obgyn Hospitalist Physician Name Role Phone Rose Mary Pimentel Primary Care Provider [phone] Reason for Visit * Reason Onset Date Comments FYI 01/05/2025 Encounter Details Date Type Department Care Team ([facility] Contact Info) Description 01/05/2025 Telephone [facility] MEDICINE [address] [place] [address] Rose Mary Pimentel FNP [address] [place] [address] FYI Social History Tobacco Use Types Packs/Day [...] encounter Miscellaneous Notes * Telephone Encounter - Tomer Mary - 01/05/2025 11:15 AM EST Tc from pt Visiting Nurse (Barbara Gonzalez) stating that pt had a fall yesterday and [facility]. Questions or concerns: [phone] documented in this encounter Plan of Treatment Upcoming Encounters Date Type Department Care Team ([facility] st Contact Info) Description 02/22/2025 9:30 AM EDT Office Visit [facility] MED & PEDS [address] [place] [address] Rose Mary Pimentel FNP [address] [place] [address] documented as of this encounter Visit Diagnoses Not on filedocumented in this encounter Additional Health Concerns Assessment Noted Time PHQ-9 Depression Total Score: 7 10/23/20 23 12:27 PM EST documented as of this encounter Care Teams Obgyn Hospitalist Physician Relationship Specialty Start Date End Date Rose Mary Pimentel FNP [address] [place] [address] PCP - General Family Medicine 07/15/22 [facility] 09/05/22 documented as of this encounter
[2025-02-16 19:28] LABS: MANUAL DIFF FLAG NO
[2025-02-16] MEDS: LORazepam 1 MG TABLET PO (19:32)
[2025-02-16 19:35] LABS: Basophils Absolute Auto 0.1 X10*3/uL (0.0-0.2); Eosinophils Absolute Auto 0.4 X10*3/uL (0.0-0.4); Eosinophils Percent Auto 3.7 % (0-4); Hematocrit 38.7 % (42.0-52.0); Hemoglobin 13.2 g/dl (14.0-18.0); Imm Gran Abs Auto 0.03 X10*3/uL (0.00-0.03); Imm Gran Pct Auto 0.3 % (0.0-0.4); Lymphocytes Absolute Auto 1.9 X10*3/uL (1.2-4.9); Lymphocytes Percent Auto 18.6 % (20-40); Mean Corpuscular HGB Conc 34.1 g/dl (31.0-36.0); Mean Corpuscular Hemoglobin 30.2 pg (27.0-33.0); Mean Corpuscular Volume 88.6 fL (80.0-98.0); Mean Platelet Volume 9.5 fL (9.4-12.4); Monocytes Absolute Auto 0.8 X10*3/uL (0.1-1.2); Monocytes Percent Auto 8.1 % (2-11); Neutrophils Absolute Auto 6.8 x10*3/uL (2.0-8.3); Neutrophils Percent Auto 68.3 % (45-73); Platelet Count 308 X10*3/uL (160-400); Red Blood Count 4.37 X10*6/uL (4.60-5.80); Red Cell Distribution Width 13.6 % (11.0-16.0); White Blood Count 9.9 X10*3/uL (4.8-10.8)
[2025-02-16 19:54] LABS: Anion Gap 14 (12-20); Blood Urea Nitrogen 15 mg/dL (9-16); Carbon Dioxide 24 mmol/L (22-29); Chloride 104 mmol/L (96-108); Creatinine Clr Calc Pharmacy 102.2; Estimated Glomerular Filt Rate > 60; Glucose Random 201 mg/dL (60-115); Lipase 26 U/L (8-78); Potassium 3.9 mmol/L (3.3-5.1); Sodium 138 mmol/L (135-145)
[2025-02-16 19:57] LABS: Troponin-I High Sensitivity < 2.7 ng/L (<3.5-35.0)
[2025-02-16 19:58] VITALS: BP 108/71; PULSE 94; RESP 18; TEMP 37.1; O2SAT 96
[2025-02-16 20:09] LABS: TSH reflex Free T4 3.92 uIU/mL (0.32-4.0)
[2025-02-16 20:25] LABS: Influenza A PCR NEGATIVE (Negative); Influenza B PCR NEGATIVE (Negative); Resp Syncy Virus RNA Qual PCR NEGATIVE (Negative); SARS COV2 PCR INHOUSE NEGATIVE (Negative)
[2025-02-16 21:31] LABS: Appearance Urine Clear; Color Urine Yellow; Glucose Urine UA >=1000 mg/dL (Negative); Leukocyte Esterase Urine Negative (Negative); Nitrite Urine Negative (Negative); Specific Gravity - Urine >= 1.030 (1.005-1.025); UMIC TRIGGER UACC YES; Urine Blood Negative (Negative); Urine Ketones 15 mg/dL (Negative); Urine Protein Negative (Neg-Trace)
[2025-02-16 22:00] VITALS: BP 90/47; PULSE 96; RESP 16; TEMP 37.1; O2SAT 95
[2025-02-16 22:25] LABS: Bacteria Urine None Seen (None Seen); Hyaline Casts Urine 0-2 /LPF (0-2); RBC Urine 0-2 /HPF (0-2); Squamous Epithelial Cell Urine 0-2 /HPF (0-2); WBC Urine 0-5 /HPF (0-5)
[2025-02-16] MEDS: iohexoL 350 MG/ML 100 ML INFUS..BTL 85 ML IV (22:48)
[2025-02-16] MEDS: 0.9 % Sodium Chloride 1,000 ML 999 ML IV (22:55)
--- NOTE | 2025-02-16 23:45 | PC.NURSE ---
This typewriters functional tester assumed care of this Pt at 2300. Pt A&Ox3, reports lower ABD pain, tender on palpation. Pt denies urinary burning/pain. Pt reports last BM yesterday. Pt reports SI with plan to hang self or stab self. Pt denies any previous attempts, reports life stresses of having to move to new apartment. 1:1 sitter at bedside.
[2025-02-17] VITALS (7 sets, daily range): BP systolic 97–126; BP diastolic 29–69; PULSE 84–95; RESP 16–20; TEMP 36.3–37; O2SAT 95–97
--- NOTE | 2025-02-17 03:00 | PC.NURSE ---
Soap suds enema administered. Pt sitting on bedside commode. Large amount of brown stool. Pt reports relief of ABD pain. Provider Pacheco Owens made aware.
--- NOTE | 2025-02-17 08:35 | PC.NURSE ---
pt is alert and oriented, skin appropriate for ethnicity, respirations even and unlabored, pt denies pain at this time, pt reports that his depression seems a little better but is having suicidal thoughts, pt is changed over and sitter in place pt set up with his breakfast zechariah
--- NOTE | 2025-02-17 09:38 | PC.NURSE ---
AMB WELL WITH WALKER
--- NOTE | 2025-02-17 10:10 | PC.NURSE ---
called pharmacy do to the med rec pt is going in patient psych
--- NOTE | 2025-02-17 10:41 | MHC.CARE ---
Patient seen by CARE team, will be IPLOC, marcia at this time. He is agreeable with admission.
--- NOTE | 2025-02-17 11:08 | PHA.MEDREC ---
Addendum entered by Stewart Kramer RPh 02/17/25 12:46: Med rec was reviewed by [facility]. Original Note: Pharmacy Consult ? Medication Reconciliation Pharmacy has completed the medication reconciliation. Spoke to patient [facility] visiting nurse Barbara [phone] to confirm med list. Barbara was able to confirm all of patients medications. Nurse states patient no longer takes Magnesium Oxide 400 mg. Dionne confirmed Ozempic 2 mg every Saturday, last dose was 02/15/25. Barbara was not sure when patient last took his medications.
--- NOTE | 2025-02-17 11:17 | PC.NURSE ---
adolph's phone number [phone] he is the brother of the pt
[2025-02-17] MEDS: Atorvastatin Calcium 40 MG TABLET PO (20:28)
[2025-02-17] MEDS: DULoxetine HCl 30 MG CAPSULE.DR PO (20:28)
[2025-02-17] MEDS: Ferrous Sulfate 324 MG TABLET.DR PO (20:33)
[2025-02-17] MEDS: Aspirin Enteric Coated 81 MG TABLET.DR PO (20:33)
[2025-02-17] MEDS: Midodrine HCl 5 MG TABLET PO (20:33)
[2025-02-17] MEDS: Empagliflozin 25 MG TABLET PO (20:33)
[2025-02-17] MEDS: Melatonin 3 MG TABLET 6 MG PO (20:33)
--- NOTE | 2025-02-18 00:30 | PC.NURSE ---
patient appears to remain at rest presently appears to remain asleep, in prior last hour did ambulate to BR an d friendly, quiet. appears in no distress.
[2025-02-18 06:30] VITALS: BP 122/73; PULSE 86; RESP 16; TEMP 36.7; O2SAT 98
--- NOTE | 2025-02-18 07:10 | PC.NURSE ---
Care of Pt assumed at change of shift. Pt currently resting comfortably with eye closed. Breakfast try provided at bedside.
--- NOTE | 2025-02-18 09:20 | MHC.EDTECH ---
Utox order added. Call to lab, stuart Garcia from the [facility] to use previous specimen collectedon 02/16/25.
[2025-02-18 09:46] LABS: Amphetamine Screen Urine Not Detected (Not Detect); Barbiturates, Urine Not Detected (Not Detect); Benzodiazepines Screen Urine Not Detected (Not Detect); Buprenorphine Scr Not Detected (Not Detect); Cannabinoid Screen Urine Not Detected (Not Detect); Cocaine Screen Urine Not Detected (Not Detect); Fentanyl, urine Not Detected (Not Detect); Methadone Screen, Urine Not Detected (Not Detect); Opiate Screen Urine Not Detected (Not Detect); Oxycodone Screen Urine Not Detected (Not Detect); Phencyclidine Screen Urine Not Detected (Not Detect)
[2025-02-18 09:49] VITALS: BP 110/69
[2025-02-18] MEDS: Midodrine HCl 5 MG TABLET PO ×3 (09:49→20:26)
[2025-02-18] MEDS: DULoxetine HCl 30 MG CAPSULE.DR PO ×2 (09:49→20:26)
[2025-02-18] MEDS: Aspirin Enteric Coated 81 MG TABLET.DR PO (09:49)
[2025-02-18] MEDS: Cholecalciferol (Vitamin D3) 25 MCG TABLET 50 MCG PO (09:52)
[2025-02-18 09:55] VITALS: BP 110/69; PULSE 91; RESP 14; TEMP 36.6; O2SAT 94
[2025-02-18] MEDS: Levothyroxine Sodium 125 MCG TABLET PO (11:18)
[2025-02-18] MEDS: Empagliflozin 25 MG TABLET PO (11:18)
[2025-02-18 16:39] VITALS: BP 96/65
[2025-02-18 16:45] VITALS: BP 96/65; PULSE 98; RESP 16; TEMP 36.2; O2SAT 95
--- NOTE | 2025-02-18 18:50 | PC.NURSE ---
Pt arrived to the unit via wheelchair, with security present, at 1655, from ED pod. The patient is a 74 old male who presented to the emergency department via EMS for evaluation. He had a panic attack at home, he had been having increasing anxiety as of recently, has a history of depression as well. He currently resides on the 10th floor of a housing unit, he is blind in the right eye, lives with his spouse who is also blind, he has been trying to move to the 1st floor but requires a form from his landlord evidently something to do with the form was denied, so he became quite upset surrounding this. Pt reports depression, but denies SI. Denies recreational drug or alcohol usage. The patient is able to walk independently with a walker. His skin is intact, he has a scar mid back, left side, his feet are dry. The admission assessments were completed with the assist of the hospital sign language interpreter. The patient was calm and cooperative throughout admission process.
--- NOTE | 2025-02-18 19:05 | PC.NURSE ---
Pt declined to complete SHAWN and paperwork tonight, will attempt tomorrow.
[2025-02-18 19:46] LABS: Alanine Aminotransferase 15 U/L (0-40); Albumin Level 4.1 g/dL (3.5-5.0); Alkaline Phosphatase 65 U/L (39-117); Anion Gap 17 (12-20); Aspartate Amino Transferase 17 U/L (5-37); Bilirubin Total 0.4 mg/dL (0.0-1.0); Blood Urea Nitrogen 19 mg/dL (9-16); Calcium 10.2 mg/dL (8.4-10.2); Carbon Dioxide 26 mmol/L (22-29); Chloride 103 mmol/L (96-108); Creatinine Clr Calc Pharmacy 94.6; Estimated Glomerular Filt Rate > 60; Glucose Random 292 mg/dL (60-115); Potassium 4.5 mmol/L (3.3-5.1); Sodium 141 mmol/L (135-145); Total Protein 6.8 g/dL (6.5-8.0)
[2025-02-18] MEDS: Atorvastatin Calcium 40 MG TABLET PO (20:25)
[2025-02-18] MEDS: Melatonin 3 MG TABLET 6 MG PO (20:26)
[2025-02-18 21:25] VITALS: BP 102/56; PULSE 84; RESP 16; TEMP 36; O2SAT 97
[2025-02-19] MEDS: metFORMIN HCl 1,000 MG TABLET 1000 MG PO ×3 (00:11→17:46)
[2025-02-19] MEDS: Levothyroxine Sodium 125 MCG TABLET PO (06:10)
[2025-02-19 07:53] VITALS: BP 113/64; PULSE 83; RESP 18; TEMP 36.5; O2SAT 95
[2025-02-19] MEDS: Empagliflozin 25 MG TABLET PO (08:32)
[2025-02-19] MEDS: Midodrine HCl 5 MG TABLET PO ×3 (08:32→20:24)
[2025-02-19] MEDS: Cholecalciferol (Vitamin D3) 25 MCG TABLET 50 MCG PO (08:33)
[2025-02-19] MEDS: Aspirin Enteric Coated 81 MG TABLET.DR PO (08:33)
[2025-02-19] MEDS: DULoxetine HCl 30 MG CAPSULE.DR PO ×2 (08:33→20:24)
[2025-02-19 08:56] LABS: Cholesterol 141 mg/dL (<200); HDL Cholesterol 49 mg/dL (>40); LDL Cholesterol Calculated 73 mg/dL (<100); Triglycerides 96 mg/dL (<150)
--- NOTE | 2025-02-19 09:02 | HO.PSYADMNOT ---
HPI Date of Service: 02/19/25 Chief Complaint: SI Sources of Information: patient interviewed, chart reviewed and crisis/core team assessment reviewed HPI Subjective Notes: Irby Warning and Conditional Voluntary Narrative: Mr. Arroyo is a 74 year-old male with hx of MDD who self presented to [facility] reporting increased depression, anxious mood and suicidal ideation with plan to either stab himself or hand himself due to housing stressors. Pt reports he resides with his manager intermediate partner and they have been asking housing management to move them to a lower floor due to both being legally blind. In the ED, utox was negative. CBC with normocytic anemia. CMP slightly elevated BUN 19, Cr 0.81, creatinine clearance 94.6. UA with >1000 glucose, no ketones. BS 200's. A1c 7.9%. He is known to [facility] through previous admission back in 01/2023 due to increase depression and SI. On the unit, pt presents as pleasant. He reports he was feeling very anxious due to ongoing conflict with housing management due to requests to move to an apartment on the lower floor. He reports his partner is loud at times and this makes him feel anxious, although reports their relationship is good and supportive of one another. He reports he felt overwhelmed and describes intense anxious mood that led to thoughts of wanting to hurt himself. He reports he has been depressed on and off since he was discharged from the hospital 2 years ago. He denies hx of suicide attempts. No psychosis or delusional content. His thought process is disorganized at times making it difficult to understand in Irish. He is oriented to place, month and year. He also reports that he recently felt, was admitted medically here back in 01/04/2025. He was found to have orthostatic HOTN and was started on midodrine. He stepped down to STR and return back home a week or so ago. He reports he feels better just by being here on the unit as he reports is quiter. He currently denies any plan or intent to hurt himself. Past Psychiatric History: Inpt: S1 02/08/2023 for depression and SI. OP: none. 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 Substance History: denies Trauma History: Denies Diagnostics Vital Signs (24Hr): Vital Signs - 24 hr 02/18/25 09:49 02/18/25 09:55 02/18/25 16:39 Temperature 97.9 F Pulse Rate 91 Respiratory Rate 14 Blood Pressure 110/69 110/69 96/65 Pulse Oximetry 94 Oxygen Delivery Method Room Air 02/18/25 16:45 02/18/25 21:25 02/19/25 07:53 Temperature 97.2 F 96.8 F 97.7 F Pulse Rate 98 84 83 Respiratory Rate 16 16 18 Blood Pressure 96/65 102/56 L 113/64 Pulse Oximetry 95 97 95 Oxygen Delivery Method Room Air Room Air Room Air BMI result Body Mass Index 40.3 Labs 02/16/25 19:14 02/18/25 19:11 Labs: Laboratory Results - last 48 hr 02/16/25 02/18/25 02/19/25 21:22 19:11 08:08 Sodium 141 Potassium 4.5 Chloride 103 Carbon Dioxide 26 Anion Gap 17 BUN 19 H Creatinine 0.81 Estim Creat Clear Calc 94.6 Estimated GFR > 60 Random Glucose 292 H Calcium 10.2 Total Bilirubin 0.4 AST 17 ALT 15 Alkaline Phosphatase 65 Total Protein 6.8 Albumin 4.1 Triglycerides 96 Cholesterol 141 LDL Cholesterol, Calc 73 HDL Cholesterol 49 Urine Opiates Screen Not Detected Ur Buprenorphine Scrn Not Detected Ur Oxycodone Screen Not Detected Urine Methadone Screen Not Detected Urine Fentanyl Screen Not Detected Ur Barbiturates Screen Not Detected Ur Phencyclidine Scrn Not Detected Ur Amphetamines Screen Not Detected U Benzodiazepines Scrn Not Detected Urine Cocaine Screen Not Detected U Marijuana (THC) Screen Not Detected Meds/Allergies Meds Home Medications ?Medication ?Instructions ?Recorded ?Confirmed ?Type ferrous gluconate 324 mg (38 mg 324 mg PO Q OTHER DAY 05/13/23 02/17/25 History iron) tablet fluticasone propionate 50 2 spray intranasal DAILY PRN 05/13/23 02/17/25 History mcg/actuation nasal Allergy Symptoms spray,suspension levothyroxine 125 mcg tablet 125 mcg PO DAILY@0600 05/13/23 02/17/25 History cholecalciferol (vitamin D3) 50 50 mcg PO DAILY 06/04/23 02/17/25 History mcg (2,000 unit) capsule (Vitamin D3) lactulose 10 gram/15 mL oral 15 ml PO DAILY PRN Constipation 10/24/23 02/17/25 History solution albuterol sulfate 90 mcg/actuation 2 puff inhalation Q4H PRN cough 01/04/25 02/17/25 History aerosol inhaler ammonium lactate 12 % topical cream 1 appl topical DAILY PRN Dry Skin 01/04/25 02/17/25 History econazole nitrate 1 % topical cream 1 appl topical BID PRN Rash 01/04/25 02/17/25 History mupirocin 2 % topical ointment 1 appl topical TID PRN Rash 01/04/25 02/17/25 History polyethylene glycol 3350 17 17 g PO DAILY PRN Constipation 01/04/25 02/17/25 History gram/dose oral powder (Miralax) semaglutide 2 mg/dose (8 mg/3 mL) 2 mg subcut MO 01/04/25 02/17/25 History subcutaneous pen injector (Ozempic) trazodone 100 mg tablet 100 mg PO BEDTIME PRN Sleep 01/04/25 02/17/25 History hydroxyzine HCl 10 mg tablet 10 mg PO BEDTIME PRN itch 02/17/25 02/17/25 History midodrine 5 mg tablet 5 mg PO TID 02/17/25 02/17/25 History Allergies Allergies Allergy/AdvReac Type Severity Reaction Status Date / Time No Known Allergies Allergy Verified 02/16/25 18:47 Mental Status Exam Mental Status Exam Narrative: Appearance: wearing casual clothing, fair hygiene, in NAD Behavior: cooperative Psychomotor: no agitation or retardation noted Speech: mostly clear, normal rate/rhythm/volume, spontaneous TP: disorganized at times, eventually able to tell a more coherent story TC: feeling better here on the unit Mood: better Affect: congruent SI: passive denies any plan or intent HI: none VH/AH: none Delusions: no overt signs Insight/judgment: poor x 2. Memory/cog: alert, oriented to place, month, year and situation. Pending MOCA Assessment & Plan Assessment & Plan (1) MDD (major depressive disorder), recurrent episode, moderate: Status: Acute Code(s): F33.1 - Major depressive disorder, recurrent, moderate (2) Diabetes mellitus: Status: Acute Code(s): E11.9 - Type 2 diabetes mellitus without complications (3) Orthostatic hypotension: Status: Acute Code(s): I95.1 - Orthostatic hypotension Plan Mr. Arroyo is a 74 year-old male with hx of depression who self presented to [facility] ED reporting increase anxious mood, depression and suicidal ideation in the context of housing stressors. He reports he lives with his retirement partner who is blind and they have been requesting an apartment in the lower floor. He does say that they may get an apartment soon, but unclear if this is accurate. His thought process at times is disorganized and difficult to follow, but eventually able to tell somewhat of a coherent story. We discussed risks, benefits and alternative treatment options, will increase cymbalta to 90mg po daily-->60mg po daily and 30mg po qhs. PLAN 1. Admit to S1, CV, 5 miuntes checks 2. increase cymbalta 60mg po daily and 30mg po qhs 3. obtain collateral information 4. aftercare plan Patient educated on: diagnosis and medication risk/benefits Reason for continued inpatient stay Substantial Risk for: harm to self Statement Statement: I have reviewed the history and physical and performed a pertinent examination on my patient. No changes have occurred unless specified. If the History and Physical was not performed prior to admission, the Hospitalist's service will be consulted for completing the admission physical. Time Spent With Patient Time: Total time managing care of this patient today ____ minutes.
[2025-02-19 11:25] LABS: Estimated Average Glucose 180 mg/dL; Hemoglobin A1C 223.1817 umol/L; Hemoglobin A1c % 7.9 % (<6.0); Total Hemoglobin (HGBA1C) 3572.6751 umol/L
[2025-02-19 14:40] VITALS: BP 109/61
[2025-02-19 20:00] VITALS: BP 102/58; PULSE 88; RESP 18; TEMP 36.2; O2SAT 96
[2025-02-19] MEDS: Atorvastatin Calcium 40 MG TABLET PO (20:23)
[2025-02-19] MEDS: Ferrous Sulfate 324 MG TABLET.DR PO (20:23)
[2025-02-19] MEDS: Melatonin 3 MG TABLET 6 MG PO (20:24)
[2025-02-20] MEDS: Levothyroxine Sodium 125 MCG TABLET PO (05:48)
[2025-02-20 10:11] VITALS: BP 96/68; PULSE 99; RESP 18; TEMP 36.4; O2SAT 98
[2025-02-20] MEDS: Aspirin Enteric Coated 81 MG TABLET.DR PO (10:15)
[2025-02-20] MEDS: Empagliflozin 25 MG TABLET PO (10:15)
[2025-02-20] MEDS: Midodrine HCl 5 MG TABLET PO ×3 (10:15→20:37)
[2025-02-20] MEDS: metFORMIN HCl 1,000 MG TABLET 1000 MG PO ×2 (10:16→16:57)
[2025-02-20] MEDS: Cholecalciferol (Vitamin D3) 25 MCG TABLET 50 MCG PO (10:16)
[2025-02-20] MEDS: DULoxetine HCl 60 MG CAPSULE.DR PO (11:10)
[2025-02-20 15:14] VITALS: BP 103/67
--- NOTE | 2025-02-20 18:03 | HO.PSYCHPN ---
Subjective Subjective Date of Service: 02/20/25 Reason For Visit: SI Interim History: Met with patient; discussed with team Patient pleasant and friendly on approach. Says he is not too bad and denies any SI. Mental Status Exam Mental Status Exam Narrative: Appearance: wearing casual clothing, fair hygiene, in NAD; missing right eye Behavior: cooperative Psychomotor: no agitation or retardation noted Speech: mostly clear, normal rate/rhythm/volume, spontaneous TP: Goal oriented; disorganized at times, eventually able to tell a more coherent story TC: On Mood Mood: Not too bad... Good Affect: congruent SI: Denied HI: none VH/AH: none Delusions: no overt signs Insight/judgment: poor x 2. Memory/cog: alert, oriented to place, month, year and situation. Pending MOCA Diagnostics Vital Signs (24Hr): Vital Signs - 24 hr 02/19/25 20:00 02/20/25 10:11 02/20/25 15:14 Temperature 97.1 F 97.6 F Pulse Rate 88 99 Respiratory Rate 18 18 Blood Pressure 102/58 L 96/68 103/67 Pulse Oximetry 96 98 Oxygen Delivery Method Room Air Room Air BMI result Body Mass Index 40.3 Labs 02/16/25 19:14 02/18/25 19:11 Labs: Laboratory Results - last 48 hr 02/18/25 02/19/25 19:11 08:08 Sodium 141 Potassium 4.5 Chloride 103 Carbon Dioxide 26 Anion Gap 17 BUN 19 H Creatinine 0.81 Estim Creat Clear Calc 94.6 Estimated GFR > 60 Random Glucose 292 H Estimat Average Glucose 180 Hemoglobin A1c % 7.9 H Calcium 10.2 Total Bilirubin 0.4 AST 17 ALT 15 Alkaline Phosphatase 65 Total Protein 6.8 Albumin 4.1 Triglycerides 96 Cholesterol 141 LDL Cholesterol, Calc 73 HDL Cholesterol 49 Medications Medications Current Medications Acetaminophen (Acetaminophen 325 Mg Tablet) 650 mg PO Q6H PRN PRN Reason: Headache/Pain, Scale 1-10 Al Hydroxide/Mg Hydroxide (Magnesium Hydrox/Alum Hydrox 30 Ml Oral.Susp) 30 ml PO Q6H PRN PRN Reason: Heartburn/Nausea Albuterol Sulfate (Albuterol Sulfate 90 Mcg 8 Gm Inhaler) 2 puff INHALE Q4H PRN PRN Reason: cough Aspirin (Aspirin Enteric Coated 81 Mg Tablet.) 81 mg PO DAILY [facility] Last Admin: 02/20/25 10:15 Dose: 81 mg Atorvastatin Calcium (Atorvastatin Calcium 40 Mg Tablet) 40 mg PO BEDTIME [facility] Last Admin: 02/19/25 20:23 Dose: 40 mg Clotrimazole (Clotrimazole 1 % Cream 15 Gm Tube) 1 appl TOPICAL BID PRN PRN Reason: Rash Duloxetine HCl (Duloxetine Hcl 30 Mg Capsule.Dr) 30 mg PO BEDTIME [facility] Duloxetine HCl (Duloxetine Hcl 60 Mg Capsule.Dr) 60 mg PO DAILY [facility] Last Admin: 02/20/25 11:10 Dose: 60 mg Empagliflozin (Empagliflozin 25 Mg Tablet) 25 mg PO DAILY [facility] Last Admin: 02/20/25 10:15 Dose: 25 mg Ferrous Sulfate (Ferrous Sulfate 324 Mg Tablet.Dr) 324 mg PO Q48H [facility] Last Admin: 02/19/25 20:23 Dose: 324 mg Fluticasone Propionate (Fluticasone Propionate Nasal 16 Gm [place]) 2 spray NOSTRIL-B DAILY PRN PRN Reason: Allergy Symptoms Lactic Acid (Ammonium Lactate 12 % Cream 140 Gm Tube) 1 appl TOPICAL DAILY PRN; Protocol PRN Reason: Dry Skin Lactulose (Lactulose 20 Gm/30 Ml Solution) 10 gm PO DAILY PRN PRN Reason: Constipation Levothyroxine Sodium (Levothyroxine Sodium 125 Mcg Tablet) 125 mcg PO DAILY@0600 [facility] Last Admin: 02/20/25 05:48 Dose: 125 mcg Magnesium Hydroxide (Milk Of Magnesia 30 Ml Oral.Susp) 30 ml PO DAILY PRN PRN Reason: Constipation Melatonin (Melatonin 3 Mg Tablet) 6 mg PO BEDTIME [facility] Last Admin: 02/19/25 20:24 Dose: 6 mg Metformin HCl (Metformin Hcl 1,000 Mg Tablet) 1,000 mg PO BIDWM [facility] Last Admin: 02/20/25 16:57 Dose: 1,000 mg Midodrine (Midodrine Hcl 5 Mg Tablet) 5 mg PO TID [facility] Last Admin: 02/20/25 15:16 Dose: 5 mg Mupirocin (Mupirocin 2 % Oint 22 Gm Tube) 1 appl TOPICAL TID PRN; Protocol PRN Reason: Rash Polyethylene Glycol (Polyethylene Glycol 3350 17 Gm Powd.Pack) 17 gm PO DAILY PRN PRN Reason: Constipation Trazodone HCl (Trazodone Hcl 100 Mg Tablet) 100 mg PO BEDTIME PRN PRN Reason: Sleep Vitamin D (Cholecalciferol (Vitamin D3) 25 Mcg Tablet) 50 mcg PO DAILY [facility] Last Admin: 02/20/25 10:16 Dose: 50 mcg Allergies Allergies Allergy/AdvReac Type Severity Reaction Status Date / Time No Known Allergies Allergy Verified 02/16/25 18:47 Assessment & Plan Assessment & Plan (1) MDD (major depressive disorder), recurrent episode, moderate: Status: Acute Code(s): F33.1 - Major depressive disorder, recurrent, moderate (2) Diabetes mellitus: Status: Acute Code(s): E11.9 - Type 2 diabetes mellitus without complications (3) Orthostatic hypotension: Status: Acute Code(s): I95.1 - Orthostatic hypotension Plan Mr. Arroyo is a 74 year-old male with hx of depression who self presented to [facility] ED reporting increase anxious mood, depression and suicidal ideation in the context of housing stressors. He reports he lives with his detention partner who is blind and they have been requesting an apartment in the lower floor. He does say that they may get an apartment soon, but unclear if this is accurate. His thought process at times is disorganized and difficult to follow, but eventually able to tell somewhat of a coherent story. We discussed risks, benefits and alternative treatment options, will increase cymbalta to 90mg po daily-->60mg po daily and 30mg po qhs. 4/5 patient reports that mood is good; denies any SI PLAN 1. Admit to S1, CV, 5 miuntes checks 2. increase cymbalta 60mg po daily and 30mg po qhs 3. obtain collateral information 4. aftercare plan Patient educated on: diagnosis Informed Consent: understands Reason for continued inpatient stay Substantial Risk for: rapid decompensation Time Spent With Patient Time: Total time managing care of this patient today ____ minutes.
[2025-02-20 20:00] VITALS: BP 97/54; PULSE 78; RESP 18; TEMP 36.5; O2SAT 96
[2025-02-20] MEDS: Melatonin 3 MG TABLET 6 MG PO (20:37)
[2025-02-20] MEDS: Atorvastatin Calcium 40 MG TABLET PO (20:38)
[2025-02-20] MEDS: DULoxetine HCl 30 MG CAPSULE.DR PO (20:38)
[2025-02-21] MEDS: Levothyroxine Sodium 125 MCG TABLET PO (06:03)
[2025-02-21 08:21] VITALS: BP 119/73; PULSE 97; RESP 18; TEMP 36.6; O2SAT 96
[2025-02-21] MEDS: Aspirin Enteric Coated 81 MG TABLET.DR PO (08:26)
[2025-02-21] MEDS: Cholecalciferol (Vitamin D3) 25 MCG TABLET 50 MCG PO (08:26)
[2025-02-21] MEDS: Empagliflozin 25 MG TABLET PO (08:26)
[2025-02-21] MEDS: metFORMIN HCl 1,000 MG TABLET 1000 MG PO ×2 (08:26→17:10)
[2025-02-21] MEDS: DULoxetine HCl 60 MG CAPSULE.DR PO (08:26)
[2025-02-21] MEDS: Midodrine HCl 5 MG TABLET PO ×3 (08:26→20:22)
[2025-02-21 15:19] VITALS: BP 101/57
--- NOTE | 2025-02-21 17:40 | HO.PSYCHPN ---
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 Says he is much better... Chill and denies any depression; says he may have momentary SI but it goes away quickly Mental Status Exam Mental Status Exam Narrative: Appearance: wearing casual clothing, fair hygiene, in NAD; missing right eye Behavior: cooperative Psychomotor: no agitation or retardation noted Speech: mostly clear, normal rate/rhythm/volume, spontaneous TP: Goal oriented; disorganized at times, eventually able to tell a more coherent story TC: On Mood Mood: chill Affect: congruent SI: Denied HI: none VH/AH: none Delusions: no overt signs Insight/judgment: poor x 2. Memory/cog: alert, oriented to place, month, year and situation. Pending MOCA Diagnostics Vital Signs (24Hr): Vital Signs - 24 hr 02/20/25 20:00 02/21/25 08:21 02/21/25 15:19 Temperature 97.7 F 97.9 F Pulse Rate 78 97 Respiratory Rate 18 18 Blood Pressure 97/54 L 119/73 101/57 L Pulse Oximetry 96 96 Oxygen Delivery Method Room Air Room Air BMI result Body Mass Index 40.3 Labs 02/16/25 19:14 02/18/25 19:11 Medications Medications Current Medications Acetaminophen (Acetaminophen 325 Mg Tablet) 650 mg PO Q6H PRN PRN Reason: Headache/Pain, Scale 1-10 Al Hydroxide/Mg Hydroxide (Magnesium Hydrox/Alum Hydrox 30 Ml Oral.Susp) 30 ml PO Q6H PRN PRN Reason: Heartburn/Nausea Albuterol Sulfate (Albuterol Sulfate 90 Mcg 8 Gm Inhaler) 2 puff INHALE Q4H PRN PRN Reason: cough Aspirin (Aspirin Enteric Coated 81 Mg Tablet.) 81 mg PO DAILY [facility] Last Admin: 02/21/25 08:26 Dose: 81 mg Atorvastatin Calcium (Atorvastatin Calcium 40 Mg Tablet) 40 mg PO BEDTIME [facility] Last Admin: 02/20/25 20:38 Dose: 40 mg Clotrimazole (Clotrimazole 1 % Cream 15 Gm Tube) 1 appl TOPICAL BID PRN PRN Reason: Rash Duloxetine HCl (Duloxetine Hcl 30 Mg Capsule.) 30 mg PO BEDTIME [facility] Last Admin: 02/20/25 20:38 Dose: 30 mg Duloxetine HCl (Duloxetine Hcl 60 Mg Capsule.) 60 mg PO DAILY [facility] Last Admin: 02/21/25 08:26 Dose: 60 mg Empagliflozin (Empagliflozin 25 Mg Tablet) 25 mg PO DAILY [facility] Last Admin: 02/21/25 08:26 Dose: 25 mg Ferrous Sulfate (Ferrous Sulfate 324 Mg Tablet.) 324 mg PO Q48H [facility] Last Admin: 02/19/25 20:23 Dose: 324 mg Fluticasone Propionate (Fluticasone Propionate Nasal 16 Gm [place]) 2 spray NOSTRIL-B DAILY PRN PRN Reason: Allergy Symptoms Lactic Acid (Ammonium Lactate 12 % Cream 140 Gm Tube) 1 appl TOPICAL DAILY PRN; Protocol PRN Reason: Dry Skin Lactulose (Lactulose 20 Gm/30 Ml Solution) 10 gm PO DAILY PRN PRN Reason: Constipation Levothyroxine Sodium (Levothyroxine Sodium 125 Mcg Tablet) 125 mcg PO DAILY@0600 [facility] Last Admin: 02/21/25 06:03 Dose: 125 mcg Magnesium Hydroxide (Milk Of Magnesia 30 Ml Oral.Susp) 30 ml PO DAILY PRN PRN Reason: Constipation Melatonin (Melatonin 3 Mg Tablet) 6 mg PO BEDTIME [facility] Last Admin: 02/20/25 20:37 Dose: 6 mg Metformin HCl (Metformin Hcl 1,000 Mg Tablet) 1,000 mg PO BIDWM [facility] Last Admin: 02/21/25 17:10 Dose: 1,000 mg Midodrine (Midodrine Hcl 5 Mg Tablet) 5 mg PO TID [facility] Last Admin: 02/21/25 15:20 Dose: 5 mg Mupirocin (Mupirocin 2 % Oint 22 Gm Tube) 1 appl TOPICAL TID PRN; Protocol PRN Reason: Rash Polyethylene Glycol (Polyethylene Glycol 3350 17 Gm Powd.Pack) 17 gm PO DAILY PRN PRN Reason: Constipation Trazodone HCl (Trazodone Hcl 100 Mg Tablet) 100 mg PO BEDTIME PRN PRN Reason: Sleep Vitamin D (Cholecalciferol (Vitamin D3) 25 Mcg Tablet) 50 mcg PO DAILY [facility] Last Admin: 02/21/25 08:26 Dose: 50 mcg Allergies Allergies Allergy/AdvReac Type Severity Reaction Status Date / Time No Known Allergies Allergy Verified 02/16/25 18:47 Assessment & Plan Assessment & Plan (1) MDD (major depressive disorder), recurrent episode, moderate: Status: Acute Code(s): F33.1 - Major depressive disorder, recurrent, moderate (2) Diabetes mellitus: Status: Acute Code(s): E11.9 - Type 2 diabetes mellitus without complications (3) Orthostatic hypotension: Status: Acute Code(s): I95.1 - Orthostatic hypotension Plan Mr. Arroyo is a 74 year-old male with hx of depression who self presented to [facility] reporting increase anxious mood, depression and suicidal ideation in the context of housing stressors. He reports he lives with his long-term partner who is blind and they have been requesting an apartment in the lower floor. He does say that they may get an apartment soon, but unclear if this is accurate. His thought process at times is disorganized and difficult to follow, but eventually able to tell somewhat of a coherent story. We discussed risks, benefits and alternative treatment options, will increase cymbalta to 90mg po daily-->60mg po daily and 30mg po qhs. 4/5 patient reports that mood is good; denies any SI 4/6 Patient remains pleasant, calm and cooperative. Says he is much better... Chill and denies any depression; says he may have momentary SI but it goes away quickly -continue current treatment plan PLAN 1. Admit to S1, CV, 5 miuntes checks 2. increase cymbalta 60mg po daily and 30mg po qhs 3. obtain collateral information 4. aftercare plan Patient educated on: diagnosis Informed Consent: understands Reason for continued inpatient stay Substantial Risk for: rapid decompensation Time Spent With Patient Time: Total time managing care of this patient today ____ minutes.
[2025-02-21 20:00] VITALS: BP 102/59; PULSE 84; RESP 16; TEMP 35.9; O2SAT 95
[2025-02-21 20:22] VITALS: BP 102/59
[2025-02-21] MEDS: Atorvastatin Calcium 40 MG TABLET PO (20:22)
[2025-02-21] MEDS: DULoxetine HCl 30 MG CAPSULE.DR PO (20:22)
[2025-02-21] MEDS: Melatonin 3 MG TABLET 6 MG PO (20:22)
[2025-02-21] MEDS: Ferrous Sulfate 324 MG TABLET.DR PO (20:22)
[2025-02-22] MEDS: Levothyroxine Sodium 125 MCG TABLET PO (04:59)
--- NOTE | 2025-02-22 08:30 | HO.PSYCHPN ---
Subjective Subjective Date of Service: 02/22/25 Reason For Visit: SI Subjective Notes: Conditional Voluntary Interim History: Pt slept through the night. He reports he is feeling better, in that he denies SI/HI. He reports he feels less anxious. No signs of psychosis or delusions. ambulating with walker, attending groups. Review of Systems Review of Systems No chest pain No SOB No GI symptoms including diarrhea or constipation No vision on right eye Yes all other systems are reviewed and are negative Mental Status Exam Mental Status Exam Narrative: Appearance: wearing casual clothing, fair hygiene, in NAD; missing right eye Behavior: cooperative Psychomotor: no agitation or retardation noted Speech: mostly clear, normal rate/rhythm/volume, spontaneous TP: Goal oriented; disorganized at times, eventually able to tell a more coherent story TC: On Mood Mood: chill Affect: congruent SI: Denied HI: none VH/AH: none Delusions: no overt signs Insight/judgment: poor x 2. Memory/cog: alert, oriented to place, month, year and situation. Pending [facility] Vital Signs (24Hr): Vital Signs - 24 hr 02/21/25 15:19 02/21/25 20:00 02/21/25 20:22 Temperature 96.7 F L Pulse Rate 84 Respiratory Rate 16 Blood Pressure 101/57 L 102/59 L 102/59 L Pulse Oximetry 95 Oxygen Delivery Method Room Air BMI result Body Mass Index 40.3 Labs 02/16/25 19:14 02/18/25 19:11 Medications Medications Current Medications Acetaminophen (Acetaminophen 325 Mg Tablet) 650 mg PO Q6H PRN PRN Reason: Headache/Pain, Scale 1-10 Al Hydroxide/Mg Hydroxide (Magnesium Hydrox/Alum Hydrox 30 Ml Oral.Susp) 30 ml PO Q6H PRN PRN Reason: Heartburn/Nausea Albuterol Sulfate (Albuterol Sulfate 90 Mcg 8 Gm Inhaler) 2 puff INHALE Q4H PRN PRN Reason: cough Aspirin (Aspirin Enteric Coated 81 Mg Tablet.) 81 mg PO DAILY [facility] Last Admin: 02/21/25 08:26 Dose: 81 mg Atorvastatin Calcium (Atorvastatin Calcium 40 Mg Tablet) 40 mg PO BEDTIME [facility] Last Admin: 02/21/25 20:22 Dose: 40 mg Clotrimazole (Clotrimazole 1 % Cream 15 Gm Tube) 1 appl TOPICAL BID PRN PRN Reason: Rash Duloxetine HCl (Duloxetine Hcl 30 Mg Capsule.) 30 mg PO BEDTIME [facility] Last Admin: 02/21/25 20:22 Dose: 30 mg Duloxetine HCl (Duloxetine Hcl 60 Mg Capsule.) 60 mg PO DAILY [facility] Last Admin: 02/21/25 08:26 Dose: 60 mg Empagliflozin (Empagliflozin 25 Mg Tablet) 25 mg PO DAILY [facility] Last Admin: 02/21/25 08:26 Dose: 25 mg Ferrous Sulfate (Ferrous Sulfate 324 Mg Tablet.) 324 mg PO Q48H [facility] Last Admin: 02/21/25 20:22 Dose: 324 mg Fluticasone Propionate (Fluticasone Propionate Nasal 16 Gm [place]) 2 spray NOSTRIL-B DAILY PRN PRN Reason: Allergy Symptoms Lactic Acid (Ammonium Lactate 12 % Cream 140 Gm Tube) 1 appl TOPICAL DAILY PRN; Protocol PRN Reason: Dry Skin Lactulose (Lactulose 20 Gm/30 Ml Solution) 10 gm PO DAILY PRN PRN Reason: Constipation Levothyroxine Sodium (Levothyroxine Sodium 125 Mcg Tablet) 125 mcg PO DAILY@0600 [facility] Last Admin: 02/22/25 04:59 Dose: 125 mcg Magnesium Hydroxide (Milk Of Magnesia 30 Ml Oral.Susp) 30 ml PO DAILY PRN PRN Reason: Constipation Melatonin (Melatonin 3 Mg Tablet) 6 mg PO BEDTIME [facility] Last Admin: 02/21/25 20:22 Dose: 6 mg Metformin HCl (Metformin Hcl 1,000 Mg Tablet) 1,000 mg PO BIDWM [facility] Last Admin: 02/21/25 17:10 Dose: 1,000 mg Midodrine (Midodrine Hcl 5 Mg Tablet) 5 mg PO TID [facility] Last Admin: 02/21/25 20:22 Dose: 5 mg Mupirocin (Mupirocin 2 % Oint 22 Gm Tube) 1 appl TOPICAL TID PRN; Protocol PRN Reason: Rash Polyethylene Glycol (Polyethylene Glycol 3350 17 Gm Powd.Pack) 17 gm PO DAILY PRN PRN Reason: Constipation Trazodone HCl (Trazodone Hcl 100 Mg Tablet) 100 mg PO BEDTIME PRN PRN Reason: Sleep Vitamin D (Cholecalciferol (Vitamin D3) 25 Mcg Tablet) 50 mcg PO DAILY [facility] Last Admin: 02/21/25 08:26 Dose: 50 mcg Allergies Allergies Allergy/AdvReac Type Severity Reaction Status Date / Time No Known Allergies Allergy Verified 02/16/25 18:47 Assessment & Plan Assessment & Plan (1) MDD (major depressive disorder), recurrent episode, moderate: Status: Acute Code(s): F33.1 - Major depressive disorder, recurrent, moderate (2) Diabetes mellitus: Status: Acute Code(s): E11.9 - Type 2 diabetes mellitus without complications (3) Orthostatic hypotension: Status: Acute Code(s): I95.1 - Orthostatic hypotension Plan Mr. Arroyo is a 74 year-old male with hx of depression who self [place] [facility] [place] increase anxious mood, depression and suicidal ideation in the context of housing stressors. 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 He does say that they may get an apartment soon, but unclear if this is accurate. His thought process at times is disorganized and difficult to follow, but eventually able to tell somewhat of a coherent story. We discussed risks, benefits and alternative treatment options, will increase cymbalta to 90mg po daily-->60mg po daily and 30mg po qhs. PLAN 02/22 continue tx. Reason for continued inpatient stay Substantial Risk for: inability to function Time Spent With Patient Time: Total time managing care of this patient today ____ minutes.
[2025-02-22 08:42] VITALS: BP 113/57; PULSE 99; RESP 18; TEMP 36.4; O2SAT 95
[2025-02-22] MEDS: Empagliflozin 25 MG TABLET PO (08:42)
[2025-02-22] MEDS: Aspirin Enteric Coated 81 MG TABLET.DR PO (08:42)
[2025-02-22] MEDS: Midodrine HCl 5 MG TABLET PO ×2 (08:42→16:14)
[2025-02-22] MEDS: DULoxetine HCl 60 MG CAPSULE.DR PO (08:42)
[2025-02-22] MEDS: Cholecalciferol (Vitamin D3) 25 MCG TABLET 50 MCG PO (08:42)
[2025-02-22] MEDS: metFORMIN HCl 1,000 MG TABLET 1000 MG PO ×2 (08:42→16:14)
[2025-02-22 15:40] VITALS: BP 121/62; PULSE 83
[2025-02-22 20:00] VITALS: BP 112/62; PULSE 76; RESP 16; TEMP 36.3; O2SAT 96
[2025-02-22] MEDS: Atorvastatin Calcium 40 MG TABLET PO (20:23)
[2025-02-22] MEDS: DULoxetine HCl 30 MG CAPSULE.DR PO (20:23)
[2025-02-22] MEDS: Melatonin 3 MG TABLET 6 MG PO (20:23)
[2025-02-23] MEDS: Levothyroxine Sodium 125 MCG TABLET PO (05:25)
[2025-02-23 07:55] VITALS: BP 119/71; PULSE 87; RESP 18; TEMP 36.4; O2SAT 97
[2025-02-23] MEDS: Cholecalciferol (Vitamin D3) 25 MCG TABLET 50 MCG PO (08:25)
[2025-02-23] MEDS: Aspirin Enteric Coated 81 MG TABLET.DR PO (08:25)
[2025-02-23] MEDS: Midodrine HCl 5 MG TABLET PO ×3 (08:25→16:45)
[2025-02-23] MEDS: Empagliflozin 25 MG TABLET PO (08:26)
[2025-02-23] MEDS: DULoxetine HCl 60 MG CAPSULE.DR PO (08:26)
[2025-02-23] MEDS: metFORMIN HCl 1,000 MG TABLET 1000 MG PO ×2 (08:26→16:45)
[2025-02-23 11:41] VITALS: BP 129/66
[2025-02-23 16:45] VITALS: BP 109/62
[2025-02-23 20:00] VITALS: BP 112/60; PULSE 84; RESP 18; TEMP 36.1; O2SAT 97
[2025-02-23] MEDS: DULoxetine HCl 30 MG CAPSULE.DR PO (21:04)
[2025-02-23] MEDS: Melatonin 3 MG TABLET 6 MG PO (21:04)
[2025-02-23] MEDS: Ferrous Sulfate 324 MG TABLET.DR PO (21:04)
[2025-02-23] MEDS: Atorvastatin Calcium 40 MG TABLET PO (21:04)
--- NOTE | 2025-02-23 22:40 | P.PNPSI_ITS ---
Subjective Subjective Date of Service: 02/23/25 Reason For Visit: SI Interim History: Pt slept through the night. He reports he is feeling better, in that he denies SI/HI. He reports he feels less anxious. No signs of psychosis or delusions. ambulating with walker, attending groups. Review of Systems Review of Systems No chest pain No SOB No GI symptoms including diarrhea or constipation No vision on right eye Yes all other systems are reviewed and are negative Mental Status Exam Mental Status Exam Narrative: Appearance: wearing casual clothing, fair hygiene, in NAD; missing right eye Behavior: cooperative Psychomotor: no agitation or retardation noted Speech: mostly clear, normal rate/rhythm/volume, spontaneous TP: Goal oriented; disorganized at times, eventually able to tell a more coherent story TC: feeling better Mood: good Affect: congruent SI: Denied HI: none VH/AH: none Delusions: no overt signs Insight/judgment: poor x 2. Memory/cog: alert, oriented to place, month, year and situation. Pending [facility] Vital Signs (24Hr): Vital Signs - 24 hr 02/23/25 07:55 02/23/25 11:41 02/23/25 16:45 Temperature 97.6 F Pulse Rate 87 Respiratory Rate 18 Blood Pressure 119/71 129/66 109/62 Pulse Oximetry 97 Oxygen Delivery Method Room Air 02/23/25 20:00 Temperature 97 F Pulse Rate 84 Respiratory Rate 18 Blood Pressure 112/60 Pulse Oximetry 97 Oxygen Delivery Method Room Air BMI result Body Mass Index 40.3 Labs 02/16/25 19:14 02/18/25 19:11 Medications Medications Current Medications Acetaminophen (Acetaminophen 325 Mg Tablet) 650 mg PO Q6H PRN PRN Reason: Headache/Pain, Scale 1-10 Al Hydroxide/Mg Hydroxide (Magnesium Hydrox/Alum Hydrox 30 Ml Oral.Susp) 30 ml PO Q6H PRN PRN Reason: Heartburn/Nausea Albuterol Sulfate (Albuterol Sulfate 90 Mcg 8 Gm Inhaler) 2 puff INHALE Q4H PRN PRN Reason: cough Aspirin (Aspirin Enteric Coated 81 Mg Tablet.) 81 mg PO DAILY [facility] Last Admin: 02/23/25 08:25 Dose: 81 mg Atorvastatin Calcium (Atorvastatin Calcium 40 Mg Tablet) 40 mg PO BEDTIME [facility] Last Admin: 02/23/25 21:04 Dose: 40 mg Clotrimazole (Clotrimazole 1 % Cream 15 Gm Tube) 1 appl TOPICAL BID PRN PRN Reason: Rash Duloxetine HCl (Duloxetine Hcl 30 Mg Capsule.Dr) 30 mg PO BEDTIME [facility] Last Admin: 02/23/25 21:04 Dose: 30 mg Duloxetine HCl (Duloxetine Hcl 60 Mg Capsule.Dr) 60 mg PO DAILY [facility] Last Admin: 02/23/25 08:26 Dose: 60 mg Empagliflozin (Empagliflozin 25 Mg Tablet) 25 mg PO DAILY [facility] Last Admin: 02/23/25 08:26 Dose: 25 mg Ferrous Sulfate (Ferrous Sulfate 324 Mg Tablet.Dr) 324 mg PO Q48H [facility] Last Admin: 02/23/25 21:04 Dose: 324 mg Fluticasone Propionate (Fluticasone Propionate Nasal 16 Gm [place]) 2 spray NOSTRIL-B DAILY PRN PRN Reason: Allergy Symptoms Lactic Acid (Ammonium Lactate 12 % Cream 140 Gm Tube) 1 appl TOPICAL DAILY PRN; Protocol PRN Reason: Dry Skin Lactulose (Lactulose 20 Gm/30 Ml Solution) 10 gm PO DAILY PRN PRN Reason: Constipation Levothyroxine Sodium (Levothyroxine Sodium 125 Mcg Tablet) 125 mcg PO DAILY@0600 [facility] Last Admin: 02/23/25 05:25 Dose: 125 mcg Magnesium Hydroxide (Milk Of Magnesia 30 Ml Oral.Susp) 30 ml PO DAILY PRN PRN Reason: Constipation Melatonin (Melatonin 3 Mg Tablet) 6 mg PO BEDTIME [facility] Last Admin: 02/23/25 21:04 Dose: 6 mg Metformin HCl (Metformin Hcl 1,000 Mg Tablet) 1,000 mg PO BIDWM [facility] Last Admin: 02/23/25 16:45 Dose: 1,000 mg Midodrine (Midodrine Hcl 5 Mg Tablet) 5 mg PO TID@0800,1200,1700 [facility] Last Admin: 02/23/25 16:45 Dose: 5 mg Mupirocin (Mupirocin 2 % Oint 22 Gm Tube) 1 appl TOPICAL TID PRN; Protocol PRN Reason: Rash Polyethylene Glycol (Polyethylene Glycol 3350 17 Gm Powd.Pack) 17 gm PO DAILY PRN PRN Reason: Constipation Trazodone HCl (Trazodone Hcl 100 Mg Tablet) 100 mg PO BEDTIME PRN PRN Reason: Sleep Vitamin D (Cholecalciferol (Vitamin D3) 25 Mcg Tablet) 50 mcg PO DAILY [facility] Last Admin: 02/23/25 08:25 Dose: 50 mcg Allergies Allergies Allergy/AdvReac Type Severity Reaction Status Date / Time No Known Allergies Allergy Verified 02/16/25 18:47 Assessment & Plan Assessment & Plan (1) MDD (major depressive disorder), recurrent episode, moderate: Status: Acute Code(s): F33.1 - Major depressive disorder, recurrent, moderate (2) Diabetes mellitus: Status: Acute Code(s): E11.9 - Type 2 diabetes mellitus without complications (3) Orthostatic hypotension: Status: Acute Code(s): I95.1 - Orthostatic hypotension Plan Mr. Arroyo is a 74 year-old male with hx of depression who self presented to [facility] [place] [facility] reporting increase anxious mood, depression and suicidal ideation in the context of housing stressors. He reports he lives with his senior living partner who is blind and they have been requesting an apartment in the lower floor. He does say that they may get an apartment soon, but unclear if this is accurate. His thought process at times is disorganized and difficult to follow, but eventually able to tell somewhat of a coherent story. We discussed risks, benefits and alternative treatment options, will increase cymbalta to 90mg po daily-->60mg po daily and 30mg po qhs. 4/5 patient reports that mood is good; denies any SI 4/6 Patient remains pleasant, calm and cooperative. Says he is much better... Chill and denies any depression; says he may have momentary SI but it goes away quickly -continue current treatment plan 02/23 continue tx. plan for dc next week PLAN 1. Admit to S1, CV, 5 miuntes checks 2. increase cymbalta 60mg po daily and 30mg po qhs 3. obtain collateral information 4. aftercare plan Reason for continued inpatient stay Substantial Risk for: inability to function Time Spent With Patient Time: Total time managing care of this patient today ____ minutes.
[2025-02-24] MEDS: Levothyroxine Sodium 125 MCG TABLET PO (06:32)
[2025-02-24 07:50] VITALS: BP 100/63; PULSE 88; RESP 18; TEMP 36.6; O2SAT 97
[2025-02-24] MEDS: Cholecalciferol (Vitamin D3) 25 MCG TABLET 50 MCG PO (08:26)
[2025-02-24] MEDS: Midodrine HCl 5 MG TABLET PO ×3 (08:27→16:56)
[2025-02-24] MEDS: Empagliflozin 25 MG TABLET PO (08:27)
[2025-02-24] MEDS: DULoxetine HCl 60 MG CAPSULE.DR PO (08:27)
[2025-02-24] MEDS: metFORMIN HCl 1,000 MG TABLET 1000 MG PO ×2 (08:27→16:57)
[2025-02-24] MEDS: Aspirin Enteric Coated 81 MG TABLET.DR PO (08:27)
[2025-02-24 11:41] VITALS: BP 107/67
--- NOTE | 2025-02-24 14:37 | P.PNPSI_ITS ---
Subjective Subjective Date of Service: 02/24/25 Reason For Visit: SI Subjective Notes: Conditional Voluntary Interim History: Pt slept through the night. He reports he is feeling better, in that he denies SI/HI. He reports he feels less anxious. No signs of psychosis or delusions. ambulating with walker, attending groups. Review of Systems Review of Systems No chest pain No SOB No GI symptoms including diarrhea or constipation No vision on right eye Yes all other systems are reviewed and are negative Mental Status Exam Mental Status Exam Narrative: Appearance: wearing casual clothing, fair hygiene, in NAD; missing right eye Behavior: cooperative Psychomotor: no agitation or retardation noted Speech: mostly clear, normal rate/rhythm/volume, spontaneous TP: Goal oriented; disorganized at times, eventually able to tell a more coherent story TC: feeling better Mood: good Affect: congruent SI: Denied HI: none VH/AH: none Delusions: no overt signs Insight/judgment: poor x 2. Memory/cog: alert, oriented to place, month, year and situation. Pending [facility] Vital Signs (24Hr): Vital Signs - 24 hr 02/23/25 16:45 02/23/25 20:00 02/24/25 07:50 Temperature 97 F 97.9 F Pulse Rate 84 88 Respiratory Rate 18 18 Blood Pressure 109/62 112/60 100/63 Pulse Oximetry 97 97 Oxygen Delivery Method Room Air Room Air 02/24/25 11:41 Temperature Pulse Rate Respiratory Rate Blood Pressure 107/67 Pulse Oximetry Oxygen Delivery Method BMI result Body Mass Index 40.3 Labs 02/16/25 19:14 02/25/25 07:39 Medications Medications Current Medications Acetaminophen (Acetaminophen 325 Mg Tablet) 650 mg PO Q6H PRN PRN Reason: Headache/Pain, Scale 1-10 Al Hydroxide/Mg Hydroxide (Magnesium Hydrox/Alum Hydrox 30 Ml Oral.Susp) 30 ml PO Q6H PRN PRN Reason: Heartburn/Nausea Albuterol Sulfate (Albuterol Sulfate 90 Mcg 8 Gm Inhaler) 2 puff INHALE Q4H PRN PRN Reason: cough Aspirin (Aspirin Enteric Coated 81 Mg Tablet.) 81 mg PO DAILY [facility] Last Admin: 02/24/25 08:27 Dose: 81 mg Atorvastatin Calcium (Atorvastatin Calcium 40 Mg Tablet) 40 mg PO BEDTIME [facility] Last Admin: 02/23/25 21:04 Dose: 40 mg Clotrimazole (Clotrimazole 1 % Cream 15 Gm Tube) 1 appl TOPICAL BID PRN PRN Reason: Rash Duloxetine HCl (Duloxetine Hcl 30 Mg Capsule.Dr) 30 mg PO BEDTIME [facility] Last Admin: 02/23/25 21:04 Dose: 30 mg Duloxetine HCl (Duloxetine Hcl 60 Mg Capsule.Dr) 60 mg PO DAILY [facility] Last Admin: 02/24/25 08:27 Dose: 60 mg Empagliflozin (Empagliflozin 25 Mg Tablet) 25 mg PO DAILY [facility] Last Admin: 02/24/25 08:27 Dose: 25 mg Ferrous Sulfate (Ferrous Sulfate 324 Mg Tablet.Dr) 324 mg PO Q48H [facility] Last Admin: 02/23/25 21:04 Dose: 324 mg Fluticasone Propionate (Fluticasone Propionate Nasal 16 Gm [place]) 2 spray NOSTRIL-B DAILY PRN PRN Reason: Allergy Symptoms Lactic Acid (Ammonium Lactate 12 % Cream 140 Gm Tube) 1 appl TOPICAL DAILY PRN; Protocol PRN Reason: Dry Skin Lactulose (Lactulose 20 Gm/30 Ml Solution) 10 gm PO DAILY PRN PRN Reason: Constipation Levothyroxine Sodium (Levothyroxine Sodium 125 Mcg Tablet) 125 mcg PO DAILY@0600 [facility] Last Admin: 02/24/25 06:32 Dose: 125 mcg Magnesium Hydroxide (Milk Of Magnesia 30 Ml Oral.Susp) 30 ml PO DAILY PRN PRN Reason: Constipation Melatonin (Melatonin 3 Mg Tablet) 6 mg PO BEDTIME [facility] Last Admin: 02/23/25 21:04 Dose: 6 mg Metformin HCl (Metformin Hcl 1,000 Mg Tablet) 1,000 mg PO BIDWM [facility] Last Admin: 02/24/25 08:27 Dose: 1,000 mg Midodrine (Midodrine Hcl 5 Mg Tablet) 5 mg PO TID@0800,1200,1700 [facility] Last Admin: 02/24/25 11:41 Dose: 5 mg Mupirocin (Mupirocin 2 % Oint 22 Gm Tube) 1 appl TOPICAL TID PRN; Protocol PRN Reason: Rash Polyethylene Glycol (Polyethylene Glycol 3350 17 Gm Powd.Pack) 17 gm PO DAILY PRN PRN Reason: Constipation Trazodone HCl (Trazodone Hcl 100 Mg Tablet) 100 mg PO BEDTIME PRN PRN Reason: Sleep Vitamin D (Cholecalciferol (Vitamin D3) 25 Mcg Tablet) 50 mcg PO DAILY [facility] Last Admin: 02/24/25 08:26 Dose: 50 mcg Allergies Allergies Allergy/AdvReac Type Severity Reaction Status Date / Time No Known Allergies Allergy Verified 02/16/25 18:47 Assessment & Plan Assessment & Plan (1) MDD (major depressive disorder), recurrent episode, moderate: Status: Acute Code(s): F33.1 - Major depressive disorder, recurrent, moderate (2) Diabetes mellitus: Status: Acute Code(s): E11.9 - Type 2 diabetes mellitus without complications (3) Orthostatic hypotension: Status: Acute Code(s): I95.1 - Orthostatic hypotension Plan Mr. Arroyo is a 74 year-old male with hx of depression who self presented to [facility] [place] [facility] reporting increase anxious mood, depression and suicidal ideation in the context of housing stressors. 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 He does say that they may get an apartment soon, but unclear if this is accurate. His thought process at times is disorganized and difficult to follow, but eventually able to tell somewhat of a coherent story. We discussed risks, benefits and alternative treatment options, will increase cymbalta to 90mg po daily-->60mg po daily and 30mg po qhs. 4/5 patient reports that mood is good; denies any SI 4/6 Patient remains pleasant, calm and cooperative. Says he is much better... Chill and denies any depression; says he may have momentary SI but it goes away quickly -continue current treatment plan 02/23 continue tx. plan for dc next week 02/24 continue tx. PLAN 1. Admit to S1, CV, 5 miuntes checks 2. increase cymbalta 60mg po daily and 30mg po qhs 3. obtain collateral information 4. aftercare plan Reason for continued inpatient stay Substantial Risk for: inability to function Time Spent With Patient Time: Total time managing care of this patient today ____ minutes.
[2025-02-24 16:56] VITALS: BP 117/67
[2025-02-24 20:00] VITALS: BP 101/61; PULSE 96; RESP 16; TEMP 36.1; O2SAT 96
[2025-02-24] MEDS: Melatonin 3 MG TABLET 6 MG PO (20:41)
[2025-02-24] MEDS: Atorvastatin Calcium 40 MG TABLET PO (20:41)
[2025-02-24] MEDS: DULoxetine HCl 30 MG CAPSULE.DR PO (20:41)
[2025-02-25] MEDS: Levothyroxine Sodium 125 MCG TABLET PO (05:32)
[2025-02-25 07:00] VITALS: BMI 25.8
[2025-02-25 08:02] LABS: Creatinine Clr Calc Pharmacy 93.4; Estimated Glomerular Filt Rate > 60
[2025-02-25 08:10] VITALS: BP 101/51; PULSE 96; RESP 20; TEMP 36.4; O2SAT 96
[2025-02-25] MEDS: DULoxetine HCl 60 MG CAPSULE.DR PO (08:12)
[2025-02-25] MEDS: metFORMIN HCl 1,000 MG TABLET 1000 MG PO ×2 (08:12→16:49)
[2025-02-25] MEDS: Aspirin Enteric Coated 81 MG TABLET.DR PO (08:13)
[2025-02-25] MEDS: Midodrine HCl 5 MG TABLET PO ×3 (08:13→18:04)
[2025-02-25] MEDS: Cholecalciferol (Vitamin D3) 25 MCG TABLET 50 MCG PO (08:13)
[2025-02-25] MEDS: Empagliflozin 25 MG TABLET PO (08:13)
[2025-02-25 13:57] VITALS: BP 104/63; PULSE 93; RESP 20; O2SAT 98
--- NOTE | 2025-02-25 17:09 | HO.PSYCHPN ---
Subjective Subjective Date of Service: 02/25/25 Reason For Visit: SI Subjective Notes: Conditional Voluntary Interim History: Pt slept through the night. He is ambulating with his walker, social with select peers. He is smiling. he reports he is doing much better, not suicidal. No psychosis or delusions. He is taking medications as prescribed. No side effects noted or reported. looking forward to ne next week. Review of Systems Review of Systems No chest pain No SOB No GI symptoms including diarrhea or constipation No vision on right eye Yes all other systems are reviewed and are negative Mental Status Exam Mental Status Exam Narrative: Appearance: wearing casual clothing, fair hygiene, in NAD; missing right eye Behavior: cooperative Psychomotor: no agitation or retardation noted Speech: mostly clear, normal rate/rhythm/volume, spontaneous TP: Goal oriented; disorganized at times, eventually able to tell a more coherent story TC: feeling better Mood: good Affect: congruent SI: Denied HI: none VH/AH: none Delusions: no overt signs Insight/judgment: poor x 2. Memory/cog: alert, oriented to place, month, year and situation. Pending [facility] Vital Signs (24Hr): Vital Signs - 24 hr 02/24/25 20:00 02/25/25 08:10 02/25/25 13:57 Temperature 96.9 F 97.5 F Pulse Rate 96 96 93 Respiratory Rate 16 20 20 Blood Pressure 101/61 101/51 L 104/63 Pulse Oximetry 96 96 98 Oxygen Delivery Method Room Air Room Air Room Air BMI result Body Mass Index 40.3 Labs 02/16/25 19:14 02/25/25 07:39 Labs: Laboratory Results - last 48 hr 02/25/25 07:39 Creatinine 0.82 Estim Creat Clear Calc 93.4 Estimated GFR > 60 Medications Medications Current Medications Acetaminophen (Acetaminophen 325 Mg Tablet) 650 mg PO Q6H PRN PRN Reason: Headache/Pain, Scale 1-10 Al Hydroxide/Mg Hydroxide (Magnesium Hydrox/Alum Hydrox 30 Ml Oral.Susp) 30 ml PO Q6H PRN PRN Reason: Heartburn/Nausea Albuterol Sulfate (Albuterol Sulfate 90 Mcg 8 Gm Inhaler) 2 puff INHALE Q4H PRN PRN Reason: cough Aspirin (Aspirin Enteric Coated 81 Mg Tablet.) 81 mg PO DAILY [facility] Last Admin: 02/25/25 08:13 Dose: 81 mg Atorvastatin Calcium (Atorvastatin Calcium 40 Mg Tablet) 40 mg PO BEDTIME [facility] Last Admin: 02/24/25 20:41 Dose: 40 mg Clotrimazole (Clotrimazole 1 % Cream 15 Gm Tube) 1 appl TOPICAL BID PRN PRN Reason: Rash Duloxetine HCl (Duloxetine Hcl 30 Mg Capsule.Dr) 30 mg PO BEDTIME [facility] Last Admin: 02/24/25 20:41 Dose: 30 mg Duloxetine HCl (Duloxetine Hcl 60 Mg Capsule.Dr) 60 mg PO DAILY [facility] Last Admin: 02/25/25 08:12 Dose: 60 mg Empagliflozin (Empagliflozin 25 Mg Tablet) 25 mg PO DAILY [facility] Last Admin: 02/25/25 08:13 Dose: 25 mg Ferrous Sulfate (Ferrous Sulfate 324 Mg Tablet.Dr) 324 mg PO Q48H [facility] Last Admin: 02/23/25 21:04 Dose: 324 mg Fluticasone Propionate (Fluticasone Propionate Nasal 16 Gm [place]) 2 spray NOSTRIL-B DAILY PRN PRN Reason: Allergy Symptoms Lactic Acid (Ammonium Lactate 12 % Cream 140 Gm Tube) 1 appl TOPICAL DAILY PRN; Protocol PRN Reason: Dry Skin Lactulose (Lactulose 20 Gm/30 Ml Solution) 10 gm PO DAILY PRN PRN Reason: Constipation Levothyroxine Sodium (Levothyroxine Sodium 125 Mcg Tablet) 125 mcg PO DAILY@0600 [facility] Last Admin: 02/25/25 05:32 Dose: 125 mcg Magnesium Hydroxide (Milk Of Magnesia 30 Ml Oral.Susp) 30 ml PO DAILY PRN PRN Reason: Constipation Melatonin (Melatonin 3 Mg Tablet) 6 mg PO BEDTIME [facility] Last Admin: 02/24/25 20:41 Dose: 6 mg Metformin HCl (Metformin Hcl 1,000 Mg Tablet) 1,000 mg PO BIDWM [facility] Last Admin: 02/25/25 16:49 Dose: 1,000 mg Midodrine (Midodrine Hcl 5 Mg Tablet) 5 mg PO TID@0800,1200,1700 [facility] Last Admin: 02/25/25 13:59 Dose: 5 mg Mupirocin (Mupirocin 2 % Oint 22 Gm Tube) 1 appl TOPICAL TID PRN; Protocol PRN Reason: Rash Polyethylene Glycol (Polyethylene Glycol 3350 17 Gm Powd.Pack) 17 gm PO DAILY PRN PRN Reason: Constipation Trazodone HCl (Trazodone Hcl 100 Mg Tablet) 100 mg PO BEDTIME PRN PRN Reason: Sleep Vitamin D (Cholecalciferol (Vitamin D3) 25 Mcg Tablet) 50 mcg PO DAILY [facility] Last Admin: 02/25/25 08:13 Dose: 50 mcg Allergies Allergies Allergy/AdvReac Type Severity Reaction Status Date / Time No Known Allergies Allergy Verified 02/16/25 18:47 Assessment & Plan Assessment & Plan (1) MDD (major depressive disorder), recurrent episode, moderate: Status: Acute Code(s): F33.1 - Major depressive disorder, recurrent, moderate (2) Diabetes mellitus: Status: Acute Code(s): E11.9 - Type 2 diabetes mellitus without complications (3) Orthostatic hypotension: Status: Acute Code(s): I95.1 - Orthostatic hypotension Plan Mr. Arroyo is a 74 year-old male with hx of depression who self presented to [facility] reporting increase anxious mood, depression and suicidal ideation in the context of housing stressors. 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 He does say that they may get an apartment soon, but unclear if this is accurate. His thought process at times is disorganized and difficult to follow, but eventually able to tell somewhat of a coherent story. We discussed risks, benefits and alternative treatment options, will increase cymbalta to 90mg po daily-->60mg po daily and 30mg po qhs. 4/ patient reports that mood is good; denies any SI /6 Patient remains pleasant, calm and cooperative. Says he is much better... Chill and denies any depression; says he may have momentary SI but it goes away quickly -continue current treatment plan 02/23 continue tx. plan for dc next week 02/24 continue tx. 02/25 continue tx. PLAN 1. Admit to S1, CV, 5 miuntes checks 2. increase cymbalta 60mg po daily and 30mg po qhs 3. obtain collateral information 4. aftercare plan Reason for continued inpatient stay Substantial Risk for: inability to function Time Spent With Patient Time: Total time managing care of this patient today ____ minutes.
[2025-02-25 18:03] VITALS: BP 98/66; PULSE 94; RESP 20; TEMP 36.1; O2SAT 98
[2025-02-25 20:00] VITALS: BP 105/78; PULSE 89; RESP 16; TEMP 36; O2SAT 98
[2025-02-25] MEDS: DULoxetine HCl 30 MG CAPSULE.DR PO (20:03)
[2025-02-25] MEDS: Atorvastatin Calcium 40 MG TABLET PO (20:03)
[2025-02-25] MEDS: Melatonin 3 MG TABLET 6 MG PO (20:03)
[2025-02-25] MEDS: Ferrous Sulfate 324 MG TABLET.DR PO (20:03)
[2025-02-26] MEDS: Levothyroxine Sodium 125 MCG TABLET PO (05:36)
[2025-02-26] MEDS: Cholecalciferol (Vitamin D3) 25 MCG TABLET 50 MCG PO (08:34)
[2025-02-26] MEDS: metFORMIN HCl 1,000 MG TABLET 1000 MG PO ×2 (08:35→17:26)
[2025-02-26] MEDS: DULoxetine HCl 60 MG CAPSULE.DR PO (08:35)
[2025-02-26] MEDS: Aspirin Enteric Coated 81 MG TABLET.DR PO (08:36)
[2025-02-26] MEDS: Empagliflozin 25 MG TABLET PO (08:36)
[2025-02-26 10:00] VITALS: BP 100/61
[2025-02-26] MEDS: Midodrine HCl 5 MG TABLET PO ×3 (10:00→17:26)
[2025-02-26 10:02] VITALS: BP 100/61; PULSE 89; TEMP 36.1; O2SAT 97
--- NOTE | 2025-02-26 10:46 | P.PNPSI_ITS ---
Subjective Subjective Date of Service: 02/26/25 Reason For Visit: SI Subjective Notes: Conditional Voluntary Interim History: Pt slept through the night. He is ambulating with his walker, social with select peers. He continues to present with bright, non labile affect. He is smiling. he reports he is doing much better, not suicidal. No psychosis or delusions. He is taking medications as prescribed. No side effects noted or reported. looking forward to ca next week. Review of Systems Review of Systems No chest pain No SOB No GI symptoms including diarrhea or constipation No vision on right eye Yes all other systems are reviewed and are negative Mental Status Exam Mental Status Exam Narrative: Appearance: wearing casual clothing, fair hygiene, in NAD; missing right eye Behavior: cooperative Psychomotor: no agitation or retardation noted Speech: mostly clear, normal rate/rhythm/volume, spontaneous TP: Goal oriented; disorganized at times, eventually able to tell a more coherent story TC: feeling better Mood: good Affect: congruent SI: Denied HI: none VH/AH: none Delusions: no overt signs Insight/judgment: poor x 2. Memory/cog: alert, oriented to place, month, year and situation. Pending [facility] Diagnostics Vital Signs (24Hr): Vital Signs - 24 hr 02/25/25 13:57 02/25/25 18:03 02/25/25 20:00 Temperature 96.9 F 96.8 F Pulse Rate 93 94 89 Respiratory Rate 20 20 16 Blood Pressure 104/63 98/66 105/78 Pulse Oximetry 98 98 98 Oxygen Delivery Method Room Air Room Air Room Air 02/26/25 10:00 02/26/25 10:02 Temperature 96.9 F Pulse Rate 89 Respiratory Rate Blood Pressure 100/61 100/61 Pulse Oximetry 97 Oxygen Delivery Method Room Air BMI result Body Mass Index 25.8 Labs 02/16/25 19:14 02/25/25 07:39 Labs: Laboratory Results - last 48 hr 02/25/25 07:39 Creatinine 0.82 Estim Creat Clear Calc 93.4 Estimated GFR > 60 Medications Medications Current Medications Acetaminophen (Acetaminophen 325 Mg Tablet) 650 mg PO Q6H PRN PRN Reason: Headache/Pain, Scale 1-10 Al Hydroxide/Mg Hydroxide (Magnesium Hydrox/Alum Hydrox 30 Ml Oral.Susp) 30 ml PO Q6H PRN PRN Reason: Heartburn/Nausea Albuterol Sulfate (Albuterol Sulfate 90 Mcg 8 Gm Inhaler) 2 puff INHALE Q4H PRN PRN Reason: cough Aspirin (Aspirin Enteric Coated 81 Mg Tablet.) 81 mg PO DAILY [facility] Last Admin: 02/26/25 08:36 Dose: 81 mg Atorvastatin Calcium (Atorvastatin Calcium 40 Mg Tablet) 40 mg PO BEDTIME [facility] Last Admin: 02/25/25 20:03 Dose: 40 mg Clotrimazole (Clotrimazole 1 % Cream 15 Gm Tube) 1 appl TOPICAL BID PRN PRN Reason: Rash Duloxetine HCl (Duloxetine Hcl 30 Mg Capsule.) 30 mg PO BEDTIME [facility] Last Admin: 02/25/25 20:03 Dose: 30 mg Duloxetine HCl (Duloxetine Hcl 60 Mg Capsule.) 60 mg PO DAILY [facility] Last Admin: 02/26/25 08:35 Dose: 60 mg Empagliflozin (Empagliflozin 25 Mg Tablet) 25 mg PO DAILY [facility] Last Admin: 02/26/25 08:36 Dose: 25 mg Ferrous Sulfate (Ferrous Sulfate 324 Mg Tablet.) 324 mg PO Q48H [facility] Last Admin: 02/25/25 20:03 Dose: 324 mg Fluticasone Propionate (Fluticasone Propionate Nasal 16 Gm [place]) 2 spray NOSTRIL-B DAILY PRN PRN Reason: Allergy Symptoms Lactic Acid (Ammonium Lactate 12 % Cream 140 Gm Tube) 1 appl TOPICAL DAILY PRN; Protocol PRN Reason: Dry Skin Lactulose (Lactulose 20 Gm/30 Ml Solution) 10 gm PO DAILY PRN PRN Reason: Constipation Levothyroxine Sodium (Levothyroxine Sodium 125 Mcg Tablet) 125 mcg PO DAILY@0600 [facility] Last Admin: 02/26/25 05:36 Dose: 125 mcg Magnesium Hydroxide (Milk Of Magnesia 30 Ml Oral.Susp) 30 ml PO DAILY PRN PRN Reason: Constipation Melatonin (Melatonin 3 Mg Tablet) 6 mg PO BEDTIME [facility] Last Admin: 02/25/25 20:03 Dose: 6 mg Metformin HCl (Metformin Hcl 1,000 Mg Tablet) 1,000 mg PO BIDWM [facility] Last Admin: 02/26/25 08:35 Dose: 1,000 mg Midodrine (Midodrine Hcl 5 Mg Tablet) 5 mg PO TID@0800,1200,1700 [facility] Last Admin: 02/26/25 10:00 Dose: 5 mg Mupirocin (Mupirocin 2 % Oint 22 Gm Tube) 1 appl TOPICAL TID PRN; Protocol PRN Reason: Rash Polyethylene Glycol (Polyethylene Glycol 3350 17 Gm Powd.Pack) 17 gm PO DAILY PRN PRN Reason: Constipation Trazodone HCl (Trazodone Hcl 100 Mg Tablet) 100 mg PO BEDTIME PRN PRN Reason: Sleep Vitamin D (Cholecalciferol (Vitamin D3) 25 Mcg Tablet) 50 mcg PO DAILY [facility] Last Admin: 02/26/25 08:34 Dose: 50 mcg Allergies Allergies Allergy/AdvReac Type Severity Reaction Status Date / Time No Known Allergies Allergy Verified 02/16/25 18:47 Assessment & Plan Assessment & Plan (1) MDD (major depressive disorder), recurrent episode, moderate: Status: Acute Code(s): F33.1 - Major depressive disorder, recurrent, moderate (2) Diabetes mellitus: Status: Acute Code(s): E11.9 - Type 2 diabetes mellitus without complications (3) Orthostatic hypotension: Status: Acute Code(s): I95.1 - Orthostatic hypotension Plan Mr. Arroyo is a 74 year-old male with hx of depression who self presented to [facility] ED reporting increase anxious mood, depression and suicidal ideation in the context of housing stressors. 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 He does say that they may get an apartment soon, but unclear if this is accurate. His thought process at times is disorganized and difficult to follow, but eventually able to tell somewhat of a coherent story. We discussed risks, benefits and alternative treatment options, will increase cymbalta to 90mg po daily-->60mg po daily and 30mg po qhs. / patient reports that mood is good; denies any SI 02/21 Patient remains pleasant, calm and cooperative. Says he is much better... Chill and denies any depression; says he may have momentary SI but it goes away quickly -continue current treatment plan 02/23 continue tx. plan for dc next week 02/24 continue tx. 02/25 continue tx. 02/26 continue tx. Reason for continued inpatient stay Substantial Risk for: inability to function Time Spent With Patient Time: Total time managing care of this patient today ____ minutes.
[2025-02-26 13:03] VITALS: BP 112/62
[2025-02-26 17:26] VITALS: BP 90/57
[2025-02-26 20:00] VITALS: BP 102/61; PULSE 83; RESP 17; TEMP 36; O2SAT 96
[2025-02-26] MEDS: Atorvastatin Calcium 40 MG TABLET PO (21:38)
[2025-02-26] MEDS: DULoxetine HCl 30 MG CAPSULE.DR PO (21:38)
[2025-02-26] MEDS: Melatonin 3 MG TABLET 6 MG PO (21:38)
[2025-02-27] MEDS: Levothyroxine Sodium 125 MCG TABLET PO (05:32)
[2025-02-27 08:35] VITALS: BP 110/57; PULSE 100; RESP 18; TEMP 36.5; O2SAT 96
[2025-02-27] MEDS: Cholecalciferol (Vitamin D3) 25 MCG TABLET 50 MCG PO (09:33)
[2025-02-27] MEDS: DULoxetine HCl 60 MG CAPSULE.DR PO (09:33)
[2025-02-27] MEDS: Aspirin Enteric Coated 81 MG TABLET.DR PO (09:34)
[2025-02-27] MEDS: Empagliflozin 25 MG TABLET PO (09:34)
[2025-02-27] MEDS: metFORMIN HCl 1,000 MG TABLET 1000 MG PO ×2 (09:34→16:16)
[2025-02-27] MEDS: Midodrine HCl 5 MG TABLET PO ×3 (09:34→16:16)
--- NOTE | 2025-02-27 10:06 | HO.PSYCHPN ---
Subjective Subjective Date of Service: 02/27/25 Reason For Visit: SI Subjective Notes: Conditional Voluntary Healthcare Proxy: No Guardianship: No Medical Problems Affecting Mental Status: Yes (bp on medatrin, poor dentition, blind one eye ) Interim History: Nursing reports that pleasent confusion- watches tv, doesn't talk much- With provider patient was pleasant denied sys and says sleeping and medications no problems Medication Compliance: Yes Side effects from medications: No Attending Groups: No Review of Systems Acute medical concerns: No Review of Systems: heels have cracked skin- wrote for lachydrine for them Mental Status Exam Mental Status Exam Patient Appearance: Appropriate Patient Orientation: Person Level of Consciousness: Awake Patient Behavior: Appropriate and Passive Mood Description: Calm Affect Description: Appropriate Patient Cognition Impaired: Yes Ability to Follow Directions: Fair Speech Pattern: Clear Thought Process: Intact Thought Content: positive for [place] and positive for Poverty of Content Judgement: Fair Diagnostics Vital Signs (24Hr): Vital Signs - 24 hr 02/26/25 13:03 02/26/25 17:26 02/26/25 20:00 Temperature 96.8 F Pulse Rate 83 Respiratory Rate 17 Blood Pressure 112/62 90/57 L 102/61 Pulse Oximetry 96 Oxygen Delivery Method Room Air 02/27/25 08:35 Temperature 97.7 F Pulse Rate 100 Respiratory Rate 18 Blood Pressure 110/57 L Pulse Oximetry 96 Oxygen Delivery Method Room Air BMI result Body Mass Index 25.8 Labs 02/16/25 19:14 02/25/25 07:39 Medications Medications Current Medications Acetaminophen (Acetaminophen 325 Mg Tablet) 650 mg PO Q6H PRN PRN Reason: Headache/Pain, Scale 1-10 Al Hydroxide/Mg Hydroxide (Magnesium Hydrox/Alum Hydrox 30 Ml Oral.Susp) 30 ml PO Q6H PRN PRN Reason: Heartburn/Nausea Albuterol Sulfate (Albuterol Sulfate 90 Mcg 8 Gm Inhaler) 2 puff INHALE Q4H PRN PRN Reason: cough Aspirin (Aspirin Enteric Coated 81 Mg Tablet.) 81 mg PO DAILY [facility] Last Admin: 02/27/25 09:34 Dose: 81 mg Atorvastatin Calcium (Atorvastatin Calcium 40 Mg Tablet) 40 mg PO BEDTIME [facility] Last Admin: 02/26/25 21:38 Dose: 40 mg Clotrimazole (Clotrimazole 1 % Cream 15 Gm Tube) 1 appl TOPICAL BID PRN PRN Reason: Rash Duloxetine HCl (Duloxetine Hcl 30 Mg Capsule.Dr) 30 mg PO BEDTIME [facility] Last Admin: 02/26/25 21:38 Dose: 30 mg Duloxetine HCl (Duloxetine Hcl 60 Mg Capsule.) 60 mg PO DAILY [facility] Last Admin: 02/27/25 09:33 Dose: 60 mg Empagliflozin (Empagliflozin 25 Mg Tablet) 25 mg PO DAILY [facility] Last Admin: 02/27/25 09:34 Dose: 25 mg Ferrous Sulfate (Ferrous Sulfate 324 Mg Tablet.) 324 mg PO Q48H [facility] Last Admin: 02/25/25 20:03 Dose: 324 mg Fluticasone Propionate (Fluticasone Propionate Nasal 16 Gm [place]) 2 spray NOSTRIL-B DAILY PRN PRN Reason: Allergy Symptoms Lactic Acid (Ammonium Lactate 12 % Cream 140 Gm Tube) 1 appl TOPICAL DAILY PRN; Protocol PRN Reason: Dry Skin Lactulose (Lactulose 20 Gm/30 Ml Solution) 10 gm PO DAILY PRN PRN Reason: Constipation Levothyroxine Sodium (Levothyroxine Sodium 125 Mcg Tablet) 125 mcg PO DAILY@0600 [facility] Last Admin: 02/27/25 05:32 Dose: 125 mcg Magnesium Hydroxide (Milk Of Magnesia 30 Ml Oral.Susp) 30 ml PO DAILY PRN PRN Reason: Constipation Melatonin (Melatonin 3 Mg Tablet) 6 mg PO BEDTIME [facility] Last Admin: 02/26/25 21:38 Dose: 6 mg Metformin HCl (Metformin Hcl 1,000 Mg Tablet) 1,000 mg PO BIDWM [facility] Last Admin: 02/27/25 09:34 Dose: 1,000 mg Midodrine (Midodrine Hcl 5 Mg Tablet) 5 mg PO TID@0800,1200,1700 [facility] Last Admin: 02/27/25 09:34 Dose: 5 mg Mupirocin (Mupirocin 2 % Oint 22 Gm Tube) 1 appl TOPICAL TID PRN; Protocol PRN Reason: Rash Polyethylene Glycol (Polyethylene Glycol 3350 17 Gm Powd.Pack) 17 gm PO DAILY PRN PRN Reason: Constipation Trazodone HCl (Trazodone Hcl 100 Mg Tablet) 100 mg PO BEDTIME PRN PRN Reason: Sleep Vitamin D (Cholecalciferol (Vitamin D3) 25 Mcg Tablet) 50 mcg PO DAILY [facility] Last Admin: 02/27/25 09:33 Dose: 50 mcg Allergies Allergies Allergy/AdvReac Type Severity Reaction Status Date / Time No Known Allergies Allergy Verified 02/16/25 18:47 Assessment & Plan Assessment & Plan (1) MDD (major depressive disorder), recurrent episode, moderate: Status: Acute Code(s): F33.1 - Major depressive disorder, recurrent, moderate (2) Diabetes mellitus: Status: Acute Code(s): E11.9 - Type 2 diabetes mellitus without complications (3) Orthostatic hypotension: Status: Acute Code(s): I95.1 - Orthostatic hypotension Plan Mr. Arroyo is a 74 year-old male with hx of depression who self presented to [facility] reporting increase anxious mood, depression and suicidal ideation in the context of housing stressors. 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 He does say that they may get an apartment soon, but unclear if this is accurate. His thought process at times is disorganized and difficult to follow, but eventually able to tell somewhat of a coherent story. We discussed risks, benefits and alternative treatment options, will increase cymbalta to 90mg po daily-->60mg po daily and 30mg po qhs. 4/ patient reports that mood is good; denies any SI /6 Patient remains pleasant, calm and cooperative. Says he is much better... Chill and denies any depression; says he may have momentary SI but it goes away quickly -continue current treatment plan 02/23 continue tx. plan for dc next week 02/24 continue tx. 02/25 continue tx. 02/26 continue tx. 02/27/25- ongoing dementia doing better on current, cooperative- [facility] Reason for continued inpatient stay Substantial Risk for: rapid decompensation Time Spent With Patient Time: Total time managing care of this patient today ____ minutes.
[2025-02-27 12:00] VITALS: BP 108/63; PULSE 93
[2025-02-27 16:14] VITALS: BP 88/52; PULSE 84
[2025-02-27 20:00] VITALS: BP 95/60; PULSE 99; RESP 16; TEMP 36.4; O2SAT 97
[2025-02-27] MEDS: Atorvastatin Calcium 40 MG TABLET PO (20:56)
[2025-02-27] MEDS: DULoxetine HCl 30 MG CAPSULE.DR PO (20:57)
[2025-02-27] MEDS: Melatonin 3 MG TABLET 6 MG PO (20:57)
[2025-02-27] MEDS: Ferrous Sulfate 324 MG TABLET.DR PO (20:57)
[2025-02-28] MEDS: Levothyroxine Sodium 125 MCG TABLET PO (05:34)
--- NOTE | 2025-02-28 08:01 | P.PNPSI_ITS ---
Subjective Subjective Date of Service: 02/28/25 Reason For Visit: SI Subjective Notes: Conditional Voluntary Interim History: 74 yo HM lying in bed reporting he is doing ok - slept ok, no bad thoughts/feelings- no side effect of medications Medication Compliance: Yes Side effects from medications: No Attending Groups: Intermittent Review of Systems Acute medical concerns: No Medical Review of Systems: unchanged Mental Status Exam Mental Status Exam Patient Appearance: Appropriate Patient Orientation: Person, Place and Situation Level of Consciousness: Awake Patient Behavior: Appropriate, Cooperative and Good Eye Contact Mood Description: Calm Affect Description: Appropriate Patient Cognition Impaired: No Ability to Follow Directions: Good Speech Pattern: Clear Thought Process: Intact and Goal Oriented Judgement: Fair Diagnostics Vital Signs (24Hr): Vital Signs - 24 hr 02/27/25 08:35 02/27/25 12:00 02/27/25 16:14 Temperature 97.7 F Pulse Rate 100 93 84 Respiratory Rate 18 Blood Pressure 110/57 L 108/63 88/52 L Pulse Oximetry 96 Oxygen Delivery Method Room Air 02/27/25 20:00 Temperature 97.6 F Pulse Rate 99 Respiratory Rate 16 Blood Pressure 95/60 Pulse Oximetry 97 Oxygen Delivery Method Room Air BMI result Body Mass Index 25.8 Labs 02/16/25 19:14 02/25/25 07:39 Medications Medications Current Medications Acetaminophen (Acetaminophen 325 Mg Tablet) 650 mg PO Q6H PRN PRN Reason: Headache/Pain, Scale 1-10 Al Hydroxide/Mg Hydroxide (Magnesium Hydrox/Alum Hydrox 30 Ml Oral.Susp) 30 ml PO Q6H PRN PRN Reason: Heartburn/Nausea Albuterol Sulfate (Albuterol Sulfate 90 Mcg 8 Gm Inhaler) 2 puff INHALE Q4H PRN PRN Reason: cough Aspirin (Aspirin Enteric Coated 81 Mg Tablet.) 81 mg PO DAILY [facility] Last Admin: 02/27/25 09:34 Dose: 81 mg Atorvastatin Calcium (Atorvastatin Calcium 40 Mg Tablet) 40 mg PO BEDTIME [facility] Last Admin: 02/27/25 20:56 Dose: 40 mg Clotrimazole (Clotrimazole 1 % Cream 15 Gm Tube) 1 appl TOPICAL BID PRN PRN Reason: Rash Duloxetine HCl (Duloxetine Hcl 30 Mg Capsule.) 30 mg PO BEDTIME [facility] Last Admin: 02/27/25 20:57 Dose: 30 mg Duloxetine HCl (Duloxetine Hcl 60 Mg Capsule.) 60 mg PO DAILY [facility] Last Admin: 02/27/25 09:33 Dose: 60 mg Empagliflozin (Empagliflozin 25 Mg Tablet) 25 mg PO DAILY [facility] Last Admin: 02/27/25 09:34 Dose: 25 mg Ferrous Sulfate (Ferrous Sulfate 324 Mg Tablet.) 324 mg PO Q48H [facility] Last Admin: 02/27/25 20:57 Dose: 324 mg Fluticasone Propionate (Fluticasone Propionate Nasal 16 Gm [place]) 2 spray NOSTRIL-B DAILY PRN PRN Reason: Allergy Symptoms Lactic Acid (Ammonium Lactate 12 % Cream 140 Gm Tube) 1 appl TOPICAL DAILY PRN; Protocol PRN Reason: Dry Skin Lactic Acid (Ammonium Lactate 12 % Cream 140 Gm Tube) 1 appl TOPICAL BID PRN; Protocol PRN Reason: Dry Skin Lactulose (Lactulose 20 Gm/30 Ml Solution) 10 gm PO DAILY PRN PRN Reason: Constipation Levothyroxine Sodium (Levothyroxine Sodium 125 Mcg Tablet) 125 mcg PO DAILY@0600 [facility] Last Admin: 02/28/25 05:34 Dose: 125 mcg Magnesium Hydroxide (Milk Of Magnesia 30 Ml Oral.Susp) 30 ml PO DAILY PRN PRN Reason: Constipation Melatonin (Melatonin 3 Mg Tablet) 6 mg PO BEDTIME [facility] Last Admin: 02/27/25 20:57 Dose: 6 mg Metformin HCl (Metformin Hcl 1,000 Mg Tablet) 1,000 mg PO BIDWM [facility] Last Admin: 02/27/25 16:16 Dose: 1,000 mg Midodrine (Midodrine Hcl 5 Mg Tablet) 5 mg PO TID@0800,1200,1700 [facility] Last Admin: 02/27/25 16:16 Dose: 5 mg Mupirocin (Mupirocin 2 % Oint 22 Gm Tube) 1 appl TOPICAL TID PRN; Protocol PRN Reason: Rash Polyethylene Glycol (Polyethylene Glycol 3350 17 Gm Powd.Pack) 17 gm PO DAILY PRN PRN Reason: Constipation Trazodone HCl (Trazodone Hcl 100 Mg Tablet) 100 mg PO BEDTIME PRN PRN Reason: Sleep Vitamin D (Cholecalciferol (Vitamin D3) 25 Mcg Tablet) 50 mcg PO DAILY [facility] Last Admin: 02/27/25 09:33 Dose: 50 mcg Allergies Allergies Allergy/AdvReac Type Severity Reaction Status Date / Time No Known Allergies Allergy Verified 02/16/25 18:47 Assessment & Plan Assessment & Plan (1) MDD (major depressive disorder), recurrent episode, moderate: Status: Acute Code(s): F33.1 - Major depressive disorder, recurrent, moderate (2) Diabetes mellitus: Status: Acute Code(s): E11.9 - Type 2 diabetes mellitus without complications (3) Orthostatic hypotension: Status: Acute Code(s): I95.1 - Orthostatic hypotension Plan Mr. Arroyo is a 74 year-old male with hx of depression who self presented to [facility] reporting increase anxious mood, depression and suicidal ideation in the context of housing stressors. 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 He does say that they may get an apartment soon, but unclear if this is accurate. His thought process at times is disorganized and difficult to follow, but eventually able to tell somewhat of a coherent story. We discussed risks, benefits and alternative treatment options, will increase cymbalta to 90mg po daily-->60mg po daily and 30mg po qhs. 02/20 patient reports that mood is good; denies any SI 02/21 Patient remains pleasant, calm and cooperative. Says he is much better... Chill and denies any depression; says he may have momentary SI but it goes away quickly -continue current treatment plan 02/23 continue tx. plan for dc next week 02/24 continue tx. 02/25 continue tx. 02/26 continue tx. 02/27/25- improved mood doing better on current, cooperative- CTP CTP - Patient educated on: diagnosis and medication risk/benefits Informed Consent: understands Reason for continued inpatient stay Substantial Risk for: rapid decompensation Time Spent With Patient Time: Total time managing care of this patient today ____ minutes.
[2025-02-28 08:35] VITALS: BP 108/62; PULSE 105; RESP 18; TEMP 35.9; O2SAT 98
[2025-02-28] MEDS: Empagliflozin 25 MG TABLET PO (08:37)
[2025-02-28] MEDS: Cholecalciferol (Vitamin D3) 25 MCG TABLET 50 MCG PO (08:37)
[2025-02-28] MEDS: DULoxetine HCl 60 MG CAPSULE.DR PO (08:37)
[2025-02-28] MEDS: metFORMIN HCl 1,000 MG TABLET 1000 MG PO ×2 (08:38→17:00)
[2025-02-28] MEDS: Midodrine HCl 5 MG TABLET PO ×3 (08:38→17:00)
[2025-02-28] MEDS: Aspirin Enteric Coated 81 MG TABLET.DR PO (08:38)
[2025-02-28 12:00] VITALS: BP 100/60; PULSE 100
[2025-02-28 16:55] VITALS: BP 102/64; PULSE 99
[2025-02-28 20:00] VITALS: BP 97/54; PULSE 90; RESP 16; TEMP 36; O2SAT 97
[2025-02-28] MEDS: Atorvastatin Calcium 40 MG TABLET PO (20:52)
[2025-02-28] MEDS: DULoxetine HCl 30 MG CAPSULE.DR PO (20:52)
[2025-02-28] MEDS: Melatonin 3 MG TABLET 6 MG PO (20:52)
[2025-03-01] MEDS: Levothyroxine Sodium 125 MCG TABLET PO (05:44)
[2025-03-01 08:00] VITALS: BP 111/64; PULSE 108; RESP 16; TEMP 36.3; O2SAT 96
[2025-03-01] MEDS: Cholecalciferol (Vitamin D3) 25 MCG TABLET 50 MCG PO (08:33)
[2025-03-01] MEDS: Midodrine HCl 5 MG TABLET PO ×3 (08:33→16:48)
[2025-03-01] MEDS: Empagliflozin 25 MG TABLET PO (08:33)
[2025-03-01] MEDS: DULoxetine HCl 60 MG CAPSULE.DR PO (08:33)
[2025-03-01] MEDS: Aspirin Enteric Coated 81 MG TABLET.DR PO (08:33)
[2025-03-01] MEDS: metFORMIN HCl 1,000 MG TABLET 1000 MG PO ×2 (08:33→16:48)
[2025-03-01 11:28] VITALS: BP 85/60; PULSE 85
[2025-03-01 20:00] VITALS: BP 95/57; PULSE 18; RESP 18; TEMP 36.1; O2SAT 97
[2025-03-01] MEDS: Ferrous Sulfate 324 MG TABLET.DR PO (21:14)
[2025-03-01] MEDS: DULoxetine HCl 30 MG CAPSULE.DR PO (21:14)
[2025-03-01] MEDS: Melatonin 3 MG TABLET 6 MG PO (21:14)
[2025-03-01] MEDS: Atorvastatin Calcium 40 MG TABLET PO (21:15)
[2025-03-02] MEDS: Levothyroxine Sodium 125 MCG TABLET PO (05:51)
[2025-03-02 08:00] VITALS: BP 130/63; PULSE 94; RESP 14; TEMP 36.4; O2SAT 96
--- NOTE | 2025-03-02 08:22 | P.PNPSI_ITS ---
Subjective Subjective Date of Service: 03/01/25 Reason For Visit: SI Subjective Notes: Conditional Voluntary Interim History: Pt slept through the night. Pt ambulating with walker, smiling. He reports he is doing well. He is looking forward to d/c home tomorrow. No behavioral concerns. taking medications as prescribed. Medication Compliance: Yes Review of Systems Review of Systems No chest pain No SOB No GI symptoms including diarrhea or constipation No vision on right eye Yes all other systems are reviewed and are negative Mental Status Exam Mental Status Exam Narrative: Appearance: wearing casual clothing, fair hygiene, in NAD; missing right eye Behavior: cooperative Psychomotor: no agitation or retardation noted Speech: mostly clear, normal rate/rhythm/volume, spontaneous TP: Goal oriented; disorganized at times, eventually able to tell a more coherent story TC: feeling better Mood: good Affect: congruent SI: Denied HI: none VH/AH: none Delusions: no overt signs Insight/judgment: poor x 2. Memory/cog: alert, oriented to place, month, year and situation. Pending MOCA Diagnostics Vital Signs (24Hr): Vital Signs - 24 hr 03/01/25 11:28 03/01/25 20:00 Temperature 97 F Pulse Rate 85 18 L Respiratory Rate 18 Blood Pressure 85/60 L 95/57 L Pulse Oximetry 97 Oxygen Delivery Method Room Air BMI result Body Mass Index 25.8 Labs 02/16/25 19:14 02/25/25 07:39 Medications Medications Current Medications Acetaminophen (Acetaminophen 325 Mg Tablet) 650 mg PO Q6H PRN PRN Reason: Headache/Pain, Scale 1-10 Al Hydroxide/Mg Hydroxide (Magnesium Hydrox/Alum Hydrox 30 Ml Oral.Susp) 30 ml PO Q6H PRN PRN Reason: Heartburn/Nausea Albuterol Sulfate (Albuterol Sulfate 90 Mcg 8 Gm Inhaler) 2 puff INHALE Q4H PRN PRN Reason: cough Aspirin (Aspirin Enteric Coated 81 Mg Tablet.) 81 mg PO DAILY [facility] Last Admin: 03/01/25 08:33 Dose: 81 mg Atorvastatin Calcium (Atorvastatin Calcium 40 Mg Tablet) 40 mg PO BEDTIME [facility] Last Admin: 03/01/25 21:15 Dose: 40 mg Clotrimazole (Clotrimazole 1 % Cream 15 Gm Tube) 1 appl TOPICAL BID PRN PRN Reason: Rash Duloxetine HCl (Duloxetine Hcl 30 Mg Capsule.) 30 mg PO BEDTIME [facility] Last Admin: 03/01/25 21:14 Dose: 30 mg Duloxetine HCl (Duloxetine Hcl 60 Mg Capsule.) 60 mg PO DAILY [facility] Last Admin: 03/01/25 08:33 Dose: 60 mg Empagliflozin (Empagliflozin 25 Mg Tablet) 25 mg PO DAILY [facility] Last Admin: 03/01/25 08:33 Dose: 25 mg Ferrous Sulfate (Ferrous Sulfate 324 Mg Tablet.) 324 mg PO Q48H [facility] Last Admin: 03/01/25 21:14 Dose: 324 mg Fluticasone Propionate (Fluticasone Propionate Nasal 16 Gm Wilsey) 2 spray NOSTRIL-B DAILY PRN PRN Reason: Allergy Symptoms Lactic Acid (Ammonium Lactate 12 % Cream 140 Gm Tube) 1 appl TOPICAL DAILY PRN; Protocol PRN Reason: Dry Skin Lactic Acid (Ammonium Lactate 12 % Cream 140 Gm Tube) 1 appl TOPICAL BID PRN; Protocol PRN Reason: Dry Skin Lactulose (Lactulose 20 Gm/30 Ml Solution) 10 gm PO DAILY PRN PRN Reason: Constipation Levothyroxine Sodium (Levothyroxine Sodium 125 Mcg Tablet) 125 mcg PO DAILY@0600 [facility] Last Admin: 03/02/25 05:51 Dose: 125 mcg Magnesium Hydroxide (Milk Of Magnesia 30 Ml Oral.Susp) 30 ml PO DAILY PRN PRN Reason: Constipation Melatonin (Melatonin 3 Mg Tablet) 6 mg PO BEDTIME [facility] Last Admin: 03/01/25 21:14 Dose: 6 mg Metformin HCl (Metformin Hcl 1,000 Mg Tablet) 1,000 mg PO BIDWM [facility] Last Admin: 03/01/25 16:48 Dose: 1,000 mg Midodrine (Midodrine Hcl 5 Mg Tablet) 5 mg PO TID@0800,1200,1700 [facility] Last Admin: 03/01/25 16:48 Dose: 5 mg Mupirocin (Mupirocin 2 % Oint 22 Gm Tube) 1 appl TOPICAL TID PRN; Protocol PRN Reason: Rash Polyethylene Glycol (Polyethylene Glycol 3350 17 Gm Powd.Pack) 17 gm PO DAILY PRN PRN Reason: Constipation Trazodone HCl (Trazodone Hcl 100 Mg Tablet) 100 mg PO BEDTIME PRN PRN Reason: Sleep Vitamin D (Cholecalciferol (Vitamin D3) 25 Mcg Tablet) 50 mcg PO DAILY [facility] Last Admin: 03/01/25 08:33 Dose: 50 mcg Allergies Allergies Allergy/AdvReac Type Severity Reaction Status Date / Time No Known Allergies Allergy Verified 02/16/25 18:47 Assessment & Plan Assessment & Plan (1) MDD (major depressive disorder), recurrent episode, moderate: Status: Acute Code(s): F33.1 - Major depressive disorder, recurrent, moderate (2) Diabetes mellitus: Status: Acute Code(s): E11.9 - Type 2 diabetes mellitus without complications (3) Orthostatic hypotension: Status: Acute Code(s): I95.1 - Orthostatic hypotension Plan Mr. Arroyo is a 74 year-old male with hx of depression who self presented to [facility] reporting increase anxious mood, depression and suicidal ideation in the context of housing stressors. 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 He does say that they may get an apartment soon, but unclear if this is accurate. His thought process at times is disorganized and difficult to follow, but eventually able to tell somewhat of a coherent story. We discussed risks, benefits and alternative treatment options, will increase cymbalta to 90mg po daily-->60mg po daily and 30mg po qhs. 02/20 patient reports that mood is good; denies any SI 02/21 Patient remains pleasant, calm and cooperative. Says he is much better... Chill and denies any depression; says he may have momentary SI but it goes away quickly -continue current treatment plan 02/23 continue tx. plan for dc next week 02/24 continue tx. 02/25 continue tx. 02/26 continue tx. 02/27/25- ongoing dementia doing better on current, cooperative- CTP 02/28 continue tx 03/01 continue tx. Reason for continued inpatient stay Substantial Risk for: inability to function Time Spent With Patient Time: Total time managing care of this patient today ____ minutes.
[2025-03-02] MEDS: Empagliflozin 25 MG TABLET PO (08:24)
[2025-03-02] MEDS: Aspirin Enteric Coated 81 MG TABLET.DR PO (08:24)
--- NOTE | 2025-03-02 08:24 | P.DS_ITS ---
DS: Providers Provider Date of Service: 03/02/25 Date of admission: 02/18/25 15:03 Date of discharge: 03/02/25 Primary care physician: Nonstaff Physician DS: Diagnosis Discharge Diagnosis (1) MDD (major depressive disorder), recurrent episode, moderate: Status: Acute (2) Diabetes mellitus: Status: Acute (3) Orthostatic hypotension: Status: Acute DS: Medications Discharge Medications Home Medications: Home Medications ?Medication ?Instructions ?Recorded ?Confirmed ferrous gluconate 324 mg (38 mg 324 mg PO Q OTHER DAY 05/13/23 02/17/25 iron) tablet fluticasone propionate 50 2 spray intranasal DAILY PRN 05/13/23 02/17/25 mcg/actuation nasal Allergy Symptoms spray,suspension levothyroxine 125 mcg tablet 125 mcg PO DAILY@0600 05/13/23 02/17/25 cholecalciferol (vitamin D3) 50 50 mcg PO DAILY 06/04/23 02/17/25 mcg (2,000 unit) capsule (Vitamin D3) lactulose 10 gram/15 mL oral 15 ml PO DAILY PRN Constipation 10/24/23 02/17/25 solution albuterol sulfate 90 mcg/actuation 2 puff inhalation Q4H PRN cough 01/04/25 02/17/25 aerosol inhaler ammonium lactate 12 % topical cream 1 appl topical DAILY PRN Dry Skin 01/04/25 02/17/25 econazole nitrate 1 % topical cream 1 appl topical BID PRN Rash 01/04/25 02/17/25 mupirocin 2 % topical ointment 1 appl topical TID PRN Rash 01/04/25 02/17/25 polyethylene glycol 3350 17 17 g PO DAILY PRN Constipation 01/04/25 02/17/25 gram/dose oral powder (Miralax) semaglutide 2 mg/dose (8 mg/3 mL) 2 mg subcut MO 01/04/25 02/17/25 subcutaneous pen injector (Ozempic) trazodone 100 mg tablet 100 mg PO BEDTIME PRN Sleep 01/04/25 02/17/25 hydroxyzine HCl 10 mg tablet 10 mg PO BEDTIME PRN itch 02/17/25 02/17/25 midodrine 5 mg tablet 5 mg PO TID 02/17/25 02/17/25 Previous Rx's ?Medication ?Instructions ?Recorded acetaminophen 325 mg tablet 650 mg (2 x 325 mg) PO Q6H PRN 02/08/23 Pain, Mild (Pain Scale 1-3) #30 tabs aspirin 81 mg tablet,delayed 81 mg PO DAILY #30 tabs 02/08/23 release atorvastatin 40 mg tablet 40 mg PO BEDTIME #30 tabs 02/08/23 duloxetine 30 mg capsule,delayed 30 mg PO BID #60 caps 02/08/23 release empagliflozin 25 mg tablet 25 mg PO DAILY #30 tabs 02/08/23 (Jardiance) melatonin 3 mg tablet 6 mg (2 x 3 mg) PO BEDTIME #60 tabs 02/08/23 metformin 1,000 mg tablet 1,000 mg PO BIDWM #60 tabs 02/08/23 Mental Status Exam Mental Status Exam Narrative: Appearance: wearing casual clothing, fair hygiene, in NAD; missing right eye Behavior: cooperative Psychomotor: no agitation or retardation noted Speech: mostly clear, normal rate/rhythm/volume, spontaneous TP: Goal oriented; disorganized at times, eventually able to tell a more coherent story TC: feeling better Mood: good Affect: congruent SI: Denied HI: none VH/AH: none Delusions: no overt signs Insight/judgment: poor x 2. Memory/cog: alert, oriented to place, month, year and situation. Data Data Completed and Pending Completed studies during hospitalization [Text1]: 02/25/25 07:39 Creatinine 0.82 Estim Creat Clear Calc 93.4 Estimated GFR > 60 DS: Summary Hospital Course Hospital Course: Mr. Arroyo is a 74 year-old male with hx of MDD who self presented to [facility] reporting increased depression, anxious mood and suicidal ideation with plan to either stab himself or hand himself due to housing stressors. 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 In the ED, utox was negative. CBC with normocytic anemia. CMP slightly elevated BUN 19, Cr 0.81, creatinine clearance 94.6. UA with >1000 glucose, no ketones. BS 200's. A1c 7.9%. He is known to [facility] through previous admission back in 01/2023 due to increase depression and SI. On the unit, pt presents as pleasant. He reports he was feeling very anxious due to ongoing conflict with housing management due to requests to move to an apartment on the lower floor. He reports his partner is loud at times and this makes him feel anxious, although reports their relationship is good and supportive of one another. He reports he felt overwhelmed and describes intense anxious mood that led to thoughts of wanting to hurt himself. He reports he has been depressed on and off since he was discharged from the hospital 2 years ago. He denies hx of suicide attempts. No psychosis or delusional content. His thought process is disorganized at times making it difficult to understand in English. He is oriented to place, month and year. He also reports that he recently felt, was admitted medically here back in 01/04/2025. He was found to have orthostatic HOTN and was started on midodrine. He stepped down to STR and return back home a week or so ago. He reports he feels better just by being here on the unit as he reports is quiter. He currently denies any plan or intent to hurt himself. Past Psychiatric History: Inpt: S1 02/08/2023 for depression and SI. HOSPITAL COURSE On the unit, pt was admitted on a CV and placed on 15 minutes checks. He ambulated with walker. He reported feeling anxious and depressed at home. He reported the structure of the unit along was very beneficial as he felt calmer, less anxious. We discussed risks, benefits and alternative treatment options. We discussed increasing cymbalta to 90mg/day in divided doses, 60mg po daily, 30mg po qhs. His affect was increasingly brighter, he was not as social mostly because of language barriers, but he was very pleasant on approach. He denied suicidal or homicidal ideation throughout the hospital stay. He was sleeping and eating well. No behavioral concerns. There were no incidences of disruptive behaviors, nor need for restraints. Status at Discharge Cognitive/behavioral status at discharge: Pt with bright, non labile affect. No SI/HI. No psychosis or delusions. sleeping and eating well. No behavioral concerns. Functional status at discharge: uses cane/walker Overall status at discharge: patient is back to baseline Time Spent with Patient Time attestation: Total time managing care of this patient today __40__ minutes. Time spent: Greater than 30 minutes Discharge Plan Discharge Anticipated Discharge Date/Time: 03/02/25 08:24 Patient Disposition: Home, Self-Care Discharge Diagnosis: MDD, recurrent, moderate [facility] (Your transitional care nurse will follow up with you following discharge. ) [facility] [Other] - 03/03/25 (Your [facility] services will restart on 03/03. ) Dr Libby Garcia [facility] [Other] - 03/05/25 10:30 am (Your next PCP appointment at [facility] is scheduled for 03/05/25 at 10:30am. ) Discharge Medications: New atorvastatin 40 mg Tablet 40 mg PO BEDTIME Qty: 30 0RF polyethylene glycol 3350 17 gram Powder In Packet 17 g PO DAILY PRN (Reason: Constipation) Qty: 30 0RF midodrine 5 mg Tablet 5 mg PO TID@0800,1200,1700 Qty: 90 0RF aspirin 81 mg Tablet,Delayed Release (Dr/Ec) 81 mg PO DAILY Qty: 30 0RF albuterol sulfate [Ventolin HFA] 90 mcg/actuation Hfa Aerosol Inhaler 2 puff inhalation Q4H PRN (Reason: cough) Qty: 6.7 0RF fluticasone propionate 50 mcg/actuation [place],Suspension 2 spray intranasal DAILY PRN (Reason: Allergy Symptoms) Qty: 16 0RF duloxetine 30 mg Capsule,Delayed Release(Dr/Ec) 30 mg PO BEDTIME Qty: 30 0RF duloxetine 60 mg Capsule,Delayed Release(Dr/Ec) 60 mg PO DAILY Qty: 30 0RF ferrous sulfate 324 mg (65 mg iron) Tablet,Delayed Release (Dr/Ec) 324 mg PO Q48H Qty: 30 0RF Jardiance 25 mg Tablet 25 mg PO DAILY Qty: 30 0RF melatonin 3 mg Tablet 6 mg PO BEDTIME Qty: 60 0RF metformin 1,000 mg Tablet 1,000 mg PO BIDWM Qty: 60 0RF levothyroxine 125 mcg Tablet 125 mcg PO DAILY@0600 Qty: 30 0RF cholecalciferol (vitamin D3) 25 mcg (1,000 unit) Tablet 50 mcg PO DAILY Qty: 30 0RF Continued Ozempic 2 mg/dose (8 mg/3 mL) pen injector 2 mg subcut MO Discontinued atorvastatin 40 mg Tablet 40 mg PO BEDTIME Qty: 30 0RF acetaminophen 325 mg Tablet 650 mg PO Q6H PRN (Reason: Pain, Mild (Pain Scale 1-3)) Qty: 30 0RF aspirin 81 mg Tablet,Delayed Release (Dr/Ec) 81 mg PO DAILY Qty: 30 0RF duloxetine 30 mg Capsule,Delayed Release(Dr/Ec) 30 mg PO BID Qty: 60 0RF Jardiance 25 mg Tablet 25 mg PO DAILY Qty: 30 0RF melatonin 3 mg Tablet 6 mg PO BEDTIME Qty: 60 0RF metformin 1,000 mg Tablet 1,000 mg PO BIDWM Qty: 60 0RF econazole nitrate 1 % cream 1 appl topical BID PRN (Reason: Rash) Rx Instructions: between toes ammonium lactate 12 % cream 1 appl topical DAILY PRN (Reason: Dry Skin) Rx Instructions: [place] mupirocin 2 % ointment 1 appl topical TID PRN (Reason: Rash) albuterol sulfate 90 mcg/actuation HFA aerosol inhaler 2 puff INHALATION Q4H PRN (Reason: cough) trazodone 100 mg tablet 100 mg PO BEDTIME PRN (Reason: Sleep) polyethylene glycol 3350 [Miralax] 17 gram/dose powder 17 g PO DAILY PRN (Reason: Constipation) midodrine 5 mg tablet 5 mg PO TID hydroxyzine HCl 10 mg tablet 10 mg PO BEDTIME PRN (Reason: itch) fluticasone propionate 50 mcg/actuation spray,suspension 2 spray intranasal DAILY PRN (Reason: Allergy Symptoms) levothyroxine 125 mcg tablet 125 mcg PO DAILY@0600 ferrous gluconate 324 mg (38 mg iron) tablet 324 mg PO Q OTHER DAY cholecalciferol (vitamin D3) [Vitamin D3] 50 mcg (2,000 unit) capsule 50 mcg PO DAILY lactulose 10 gram/15 mL solution 15 ml PO DAILY PRN (Reason: Constipation) Discharge Orders: Discharge Order (Routine); Ordered 03/02/25 Ordered By: Mana Montelongo Diet: Diabetic diet Activity on Discharge: Use cane or walker Stand Alone Forms: Patient Portal Discharge page Print Language: English Care Plan Goals: 1. maintain mood 2. No SI/HI Health Concerns: Follow up with PCP Plan of Treatment: 1. Take medications as prescribed 2. Go to nearest ED or call 911 in event of emergency Assessment: Pt with bright, non labile affect. No SI/HI. No psychosis or delusions. Sleeping and eating well.
[2025-03-02 08:25] VITALS: BP 130/63
[2025-03-02] MEDS: metFORMIN HCl 1,000 MG TABLET 1000 MG PO (08:25)
[2025-03-02] MEDS: DULoxetine HCl 60 MG CAPSULE.DR PO (08:26)
[2025-03-02] MEDS: Cholecalciferol (Vitamin D3) 25 MCG TABLET 50 MCG PO (08:26)
[2025-03-02 12:57] VITALS: BP 102/65
[2025-03-02] MEDS: Midodrine HCl 5 MG TABLET PO (12:57)
== END 2025-03-02 13:30 | disposition home or self-care (01) | DRG 885 ==
LOC: HO.ED 02-18 14:54 → HO.PGERI 02-18 15:28
PROVIDERS: Emergency Medicine; Nurse Practitioner Family; Admitting Provider Social Worker; Emergency Provider Emergency Medicine; Visit Provider Social Worker
DX: F33.1 Major depressive disorder, recurrent, moderate (principal); R45.851 Suicidal ideations; E03.9 Hypothyroidism, unspecified; E11.9 Type 2 diabetes mellitus without complications; I95.1 Orthostatic hypotension; K59.00 Constipation, unspecified; Z20.822 Contact with and (suspected) exposure to COVID-19; Z79.82 Long term (current) use of aspirin; Z79.890 Hormone replacement therapy; Z79.84 Long term (current) use of oral hypoglycemic drugs; Z79.899 Other long term (current) drug therapy
CPT/HCPCS: 0241U; 36415; 74177; 80048; 80053; 80061; 80307; 81001; 82565; 83036; 83690; 83735; 84443; 84484; 85025; 93005; 99285; Q9967; S9485

== ENCOUNTER → 2025-02-16 18:44 | Outpatient (BNV) | payer OTHER, SELFPAY | PROVIDERS: Emergency Provider Emergency Medicine; Visit Provider Internal Medicine | DX: I44.4 Left anterior fascicular block (principal); I25.2 Old myocardial infarction | CPT/HCPCS: 93010 ==

== ENCOUNTER → 2025-02-16 22:06 | Outpatient (BNV) | payer OTHER, SELFPAY | PROVIDERS: Emergency Provider Emergency Medicine; Visit Provider Radiology Neuroradiology | DX: N32.89 Other specified disorders of bladder (principal); R19.5 Other fecal abnormalities; R91.8 Other nonspecific abnormal finding of lung field | CPT/HCPCS: 74177 ==

== ENCOUNTER → 2025-02-18 15:03 | Outpatient (BNV) | payer OTHER, SELFPAY | PROVIDERS: Admitting Provider Social Worker; Emergency Provider Emergency Medicine; Visit Provider Social Worker | DX: F33.1 Major depressive disorder, recurrent, moderate (principal); E11.9 Type 2 diabetes mellitus without complications; I95.1 Orthostatic hypotension | CPT/HCPCS: 90792; 99231; 99232 ==

== ENCOUNTER 2025-03-09 11:15 | Emergency (ER) | payer OTHER, SELFPAY ==
--- NOTE | ~2025-03-09 | CT_ITS ---
EXAMINATION: CT CERVICAL SPINE WITHOUT CONTRAST CLINICAL INFORMATION: Frequent falls COMPARISON: None available. TECHNIQUE: Axial 3 mm thin and reformatted 2 mm thin sagittal and coronal images of cervical spine were obtained. This CT examination was performed using dose optimization techniques as appropriate, variously including the following: *Automated exposure control *Adjustment of mA and/or kV according to patient size (this includes techniques or standardized protocols for targeted exams where dose is matched to indication/reason for exam; i.e. extremities or head) *Use of iterative reconstruction technique DLP: 2111 mGy/cm. FINDINGS: There is normal cervical lordosis. The vertebral heights are normal. There is loss of C4-5, C6-7, C7-T1 and T1-T2 disc heights . The craniovertebral junction and the C1-C2 alignment is normal. There is no visible acute fracture, dislocation or lytic process seen. Mild facet joint arthropathy C2-C3, moderate C3-4 disc levels as noted. There is grade 1 anterolisthesis C4 over C5. The lung apices are clear. The central trachea and bronchi are widely patent. CT/CT cervical spine wo IV con IMPRESSION: No acute fracture or dislocation. Grade 1 anterolisthesis C4 over C5. There is facet joint arthropathy as described above. Fleischner guidelines were followed. Electronically signed by: Gerard Wood MD 03/09/2025 12:55 PM EDT
--- NOTE | ~2025-03-09 | CT_ITS ---
EXAMINATION: CT HEAD WITHOUT CONTRAST CLINICAL INFORMATION: Frequent falls COMPARISON: CT brain 01/04/2025. TECHNIQUE: Contiguous axial imaging was performed from the skull base to vertex without intravenous administration of contrast. This CT examination was performed using dose optimization techniques as appropriate, variously including the following: *Automated exposure control *Adjustment of mA and/or kV according to patient size (this includes techniques or standardized protocols for targeted exams where dose is matched to indication/reason for exam; i.e. extremities or head) *Use of iterative reconstruction technique DLP 14 18 mGy/cm. FINDINGS: There is no acute intra-axial, extra-axial bleed, masses or midline shift. There is no acute infarction evolution. There is no edema. The arias to white matter differentiation is maintained normal. The lateral ventricles are symmetrical but moderately enlarged bone windows reveal no calvarial abnormality no scalp soft tissue abnormality seen. There is mild mucoperiosteal thickening left frontal, ethmoid and maxillary sinuses. The mastoid sinuses are well-aerated and clear. There is obliteration of ostiomeatal complex and frontoethmoidal recess. Visualized left optic globe and optic nerve appears normal. 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 CT/CT head/brain wo IV con IMPRESSION: No acute intracranial process seen. Chronic left maxillary, ethmoid and frontal sinus inflammatory changes. Electronically signed by: Gerard Wood MD 03/09/2025 12:46 PM EDT RP
--- NOTE | ~2025-03-09 | XR_ITS ---
EXAMINATION: XR LUMBOSACRAL SPINE CLINICAL INFORMATION: back pain COMPARISON: Correlation made with x-rays 10/24/2023, and CT examination 08/20/2023. TECHNIQUE: Three views of the lumbosacral spine. FINDINGS: Minimal right convex scoliosis, apex at L3. Mild straightening of the normal lordosis. Chronic appearing concavity of the superior endplate of L1, stable. Minimal concavity of the superior endplate of L4, also chronic. No new compression deformity or acute fracture. No suspicious bone lesions. Severe disc degeneration T12-L1, and L3-4. Facet degeneration present spanning L4-S1. Partial ankylosis of both SI joints. Calcifications of the vas deferens, high correlation with diabetes. XR/XR lumbar spine 2-3V IMPRESSION: 1. No acute findings of the lumbar spine. 2. Chronic abnormalities as discussed. Electronically signed by: Rex Stafford MD 03/09/2025 12:06 PM EDT
[2025-03-09 11:33] VITALS: BP 103/51; PULSE 77; RESP 18; TEMP 36.6; O2SAT 100; BMI 27.8
--- NOTE | 2025-03-09 11:33 | ECG_ITS ---
Test Reason : FREQUENT FALLS/DIZZINESS Blood Pressure : */* mmHG Vent. Rate : 72 BPM Atrial Rate : 72 BPM P-R Int : 210 ms QRS Dur : 118 ms QT Int : 434 ms P-R-T Axes : 26 -44 49 degrees QTcB Int : 475 ms Sinus rhythm with 1st degree A-V block Left axis deviation Non-specific intra-ventricular conduction delay Abnormal ECG When compared with ECG of 16-Feb-2025 19:02, Criteria for Anteroseptal infarct are no longer Present Referred By: Onofre Cheng Electronically Signed By: DORI DUARTE
--- NOTE | 2025-03-09 11:35 | ED_ITS ---
HPI - General Adult General Chief complaint: Fall Stated complaint: Fall 4 days ago History of Present Illness HPI narrative: Patient left before completion of treatment by ED provider. Related Data Home Medications ?Medication ?Instructions ?Recorded ?Confirmed semaglutide 2 mg/dose (8 mg/3 mL) 2 mg subcut MO 01/04/25 02/17/25 subcutaneous pen injector (Ozempic) Previous Rx's ?Medication ?Instructions ?Recorded albuterol sulfate 90 mcg/actuation 2 puff inhalation Q4H PRN cough 03/02/25 aerosol inhaler (Ventolin HFA) #6.7 grams aspirin 81 mg tablet,delayed 81 mg PO DAILY #30 tabs 03/02/25 release atorvastatin 40 mg tablet 40 mg PO BEDTIME #30 tabs 03/02/25 cholecalciferol (vitamin D3) 25 50 mcg (2 x 25 mcg (1,000 unit)) 03/02/25 mcg (1,000 unit) tablet PO DAILY #30 tabs duloxetine 30 mg capsule,delayed 30 mg PO BEDTIME #30 caps 03/02/25 release duloxetine 60 mg capsule,delayed 60 mg PO DAILY #30 caps 03/02/25 release empagliflozin 25 mg tablet 25 mg PO DAILY #30 tabs 03/02/25 (Jardiance) ferrous sulfate 324 mg (65 mg 324 mg PO Q48H #30 tabs 03/02/25 iron) tablet,delayed release fluticasone propionate 50 2 spray intranasal DAILY PRN 03/02/25 mcg/actuation nasal Allergy Symptoms #16 grams spray,suspension levothyroxine 125 mcg tablet 125 mcg PO DAILY@0600 #30 tabs 03/02/25 melatonin 3 mg tablet 6 mg (2 x 3 mg) PO BEDTIME #60 tabs 03/02/25 metformin 1,000 mg tablet 1,000 mg PO BIDWM #60 tabs 03/02/25 midodrine 5 mg tablet 5 mg PO TID@0800,1200,1700 #90 tabs 03/02/25 polyethylene glycol 3350 17 gram 17 g PO DAILY PRN Constipation #30 03/02/25 oral powder packet ea Allergies Allergy/AdvReac Type Severity Reaction Status Date / Time No Known Allergies Allergy Verified 03/09/25 11:35 [facility] Past Medical History Medical History (Updated 03/10/25 @ 16:08 by GARRETT Paz) Degenerative disc disease, cervical Hypothyroidism (05/16/17) Hyperlipidemia (05/16/17) Essential hypertension (05/16/17) Constipation (05/20/17) 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) Flank pain Social History Social History Household Members: Spouse Housing: Apartment Do you presently have visiting nurse or other home services: Yes (Pt reports he has a ACADEMIC AFFAIRS DIRECTOR at home) Alcohol intake: former Comment: 5 MINUTE CHECKS Patient Tobacco Use Status: Never used Tobacco e-Cigarette/Vaping Use: Never Used Advance Directives: Yes Advance Directives on File: Yes Advance Directives Date on File: 08/13/22 service: No Sexual orientation: Straight/Heterosexual Physical Exam ED Vital Signs: BMI result Body Mass Index 27.8 Course Course Course Narrative: RME: 74-year-old male history of diabetes and low blood pressure presents to ED for dizziness and multiple fall episodes the past 5 days. Patient is sent for primary care for evaluation for multiple falls. Only complaint is low back pain. Patient's blood pressure soft and on midrone. labs, EkG, headCT ordered Medical Decision Making Lab Data 03/09/25 11:58 03/09/25 11:58 Labs: Lab Results 03/09/25 Range/Units 11:58 WBC 7.6 (4.8-10.8) X10*3/uL RBC 4.06 L (4.60-5.80) X10*6/uL Hgb 12.4 L (14.0-18.0) g/dl Hct 37.2 L (42.0-52.0) % MCV 91.6 (80.0-98.0) fL MCH 30.5 (27.0-33.0) pg MCHC 33.3 (31.0-36.0) g/dl RDW 13.4 (11.0-16.0) % Plt Count 263 (160-400) X10*3/uL MPV 9.3 L (9.4-12.4) fL Immature Gran % (Auto) 0.3 (0.0-0.4) % Neut % (Auto) 60.8 (45-73) % Lymph % (Auto) 23.2 (20-40) % [place] % (Auto) 8.0 (2-11) % Eos % (Auto) 6.9 H (0-4) % Baso % (Auto) 0.8 (0-2) % Lymph # (Auto) 1.8 (1.2-4.9) X10*3/uL [place] # (Auto) 0.6 (0.1-1.2) X10*3/uL Eos # (Auto) 0.5 H (0.0-0.4) X10*3/uL Baso # (Auto) 0.1 (0.0-0.2) X10*3/uL Abs Immat Gran (auto) 0.02 (0.00-0.03) X10*3/uL Absolute Neuts (auto) 4.6 (2.0-8.3) x10*3/uL Absolute Nucleated RBC 0.000 (0.0-0.012) X10*3/uL Nucleated RBC % (auto) 0.0 (0.0-0.2) /100WBC Sodium 137 (135-145) mmol/L Potassium 4.7 (3.3-5.1) mmol/L Chloride 102 (96-108) mmol/L Carbon Dioxide 30 H (22-29) mmol/L Anion Gap 10 L (12-20) BUN 11 (9-16) mg/dL Creatinine 0.70 (0.5-1.4) mg/dL Estim Creat Clear Calc 90.9 Estimated GFR > 60 Random Glucose 155 H (60-115) mg/dL Calcium 9.6 (8.4-10.2) mg/dL Total Bilirubin 0.3 (0.0-1.0) mg/dL AST 20 (5-37) U/L ALT 23 (0-40) U/L Alkaline Phosphatase 57 (39-117) U/L Total Creatine Kinase 50 (38-174) U/L Troponin I High Sens < 2.7 (<3.5-35.0) ng/L Total Protein 6.7 (6.5-8.0) g/dL Albumin 4.1 (3.5-5.0) g/dL Discharge Plan Discharge Clinical Impression: Fall Patient Disposition: Left W/O Completing Treatment Prescriptions: No Action Ozempic 2 mg/dose (8 mg/3 mL) pen injector 2 mg subcut MO atorvastatin 40 mg Tablet 40 mg PO BEDTIME Qty: 30 0RF polyethylene glycol 3350 17 gram Powder In Packet 17 g PO DAILY PRN (Reason: Constipation) Qty: 30 0RF midodrine 5 mg Tablet 5 mg PO TID@0800,1200,1700 Qty: 90 0RF aspirin 81 mg Tablet,Delayed Release (Dr/Ec) 81 mg PO DAILY Qty: 30 0RF albuterol sulfate [Ventolin HFA] 90 mcg/actuation Hfa Aerosol Inhaler 2 puff inhalation Q4H PRN (Reason: cough) Qty: 6.7 0RF fluticasone propionate 50 mcg/actuation [place],Suspension 2 spray intranasal DAILY PRN (Reason: Allergy Symptoms) Qty: 16 0RF duloxetine 30 mg Capsule,Delayed Release(Dr/Ec) 30 mg PO BEDTIME Qty: 30 0RF duloxetine 60 mg Capsule,Delayed Release(Dr/Ec) 60 mg PO DAILY Qty: 30 0RF ferrous sulfate 324 mg (65 mg iron) Tablet,Delayed Release (Dr/Ec) 324 mg PO Q48H Qty: 30 0RF Jardiance 25 mg Tablet 25 mg PO DAILY Qty: 30 0RF melatonin 3 mg Tablet 6 mg PO BEDTIME Qty: 60 0RF metformin 1,000 mg Tablet 1,000 mg PO BIDWM Qty: 60 0RF levothyroxine 125 mcg Tablet 125 mcg PO DAILY@0600 Qty: 30 0RF cholecalciferol (vitamin D3) 25 mcg (1,000 unit) Tablet 50 mcg PO DAILY Qty: 30 0RF Discharge Date/Time: 03/09/25 19:56
[2025-03-09 12:04] LABS: MANUAL DIFF FLAG NO
[2025-03-09 12:05] LABS: Basophils Absolute Auto 0.1 X10*3/uL (0.0-0.2); Basophils Percent Auto 0.8 % (0-2); Eosinophils Absolute Auto 0.5 X10*3/uL (0.0-0.4); Eosinophils Percent Auto 6.9 % (0-4); Hematocrit 37.2 % (42.0-52.0); Hemoglobin 12.4 g/dl (14.0-18.0); Imm Gran Abs Auto 0.02 X10*3/uL (0.00-0.03); Imm Gran Pct Auto 0.3 % (0.0-0.4); Lymphocytes Absolute Auto 1.8 X10*3/uL (1.2-4.9); Lymphocytes Percent Auto 23.2 % (20-40); Mean Corpuscular HGB Conc 33.3 g/dl (31.0-36.0); Mean Corpuscular Hemoglobin 30.5 pg (27.0-33.0); Mean Corpuscular Volume 91.6 fL (80.0-98.0); Mean Platelet Volume 9.3 fL (9.4-12.4); Monocytes Absolute Auto 0.6 X10*3/uL (0.1-1.2); Neutrophils Absolute Auto 4.6 x10*3/uL (2.0-8.3); Neutrophils Percent Auto 60.8 % (45-73); Platelet Count 263 X10*3/uL (160-400); Red Blood Count 4.06 X10*6/uL (4.60-5.80); Red Cell Distribution Width 13.4 % (11.0-16.0); White Blood Count 7.6 X10*3/uL (4.8-10.8)
[2025-03-09 12:21] LABS: Alanine Aminotransferase 23 U/L (0-40); Albumin Level 4.1 g/dL (3.5-5.0); Alkaline Phosphatase 57 U/L (39-117); Anion Gap 10 (12-20); Aspartate Amino Transferase 20 U/L (5-37); Bilirubin Total 0.3 mg/dL (0.0-1.0); Blood Urea Nitrogen 11 mg/dL (9-16); Calcium 9.6 mg/dL (8.4-10.2); Carbon Dioxide 30 mmol/L (22-29); Chloride 102 mmol/L (96-108); Creatinine Clr Calc Pharmacy 90.9; Estimated Glomerular Filt Rate > 60; Glucose Random 155 mg/dL (60-115); Potassium 4.7 mmol/L (3.3-5.1); Sodium 137 mmol/L (135-145); Total Protein 6.7 g/dL (6.5-8.0)
[2025-03-09 12:30] LABS: Troponin-I High Sensitivity < 2.7 ng/L (<3.5-35.0)
--- OUTSIDE RECORDS SUMMARY | 2025-03-09 19:06 | XMS_ITS | Encounter Summary ---
Author Organization [employer] Address [address] [facility] [address] [place] [address] Care Team Providers Care Motor Racer Name Role Phone Rose Mary Pimentel YONAS Primary Care Provider [phone] Encounter Details Date Type Department Care Team (Latest Contact Info) Description 03/09/2025 Travel Social History Tobacco Use Types Packs/Day Years [...] as of this encounter Plan of Treatment Not on file documented as of this encounter Visit Diagnoses Not on filedocumented in this encounter Additional Health Concerns Assessment Noted Time PHQ-9 Depression Total Score: 7 10/23/20 23 12:27 PM EST documented as of this encounter Care Teams Motor Racer Relationship Specialty Start Date End Date Rose Mary Pimentel FNP [address] [place] [id number] PCP - General Family Medicine 07/15/22 [facility] 09/05/22 documented as of this encounter
--- OUTSIDE RECORDS SUMMARY | 2025-03-09 19:06 | XMS_ITS | Encounter Summary ---
Author Organization [employer] Address [address] [facility] 7[address] [place] [address] Care Team Providers Care Paper Cup Machine Operator Name Role Phone Rose Mary Pimentel YONAS Primary Care Provider [phone] Reason for Visit * Reason Comments Fall Encounter Details Date Type Department Care Team ([facility] Contact Info) Description 03/09/2025 10:00 AM EDT Office Visit [facility] [address] [place] [address] Blue Sue MD [address] [place] [address] Falling (Primary Dx) Social History Tobacco Use Types Packs/Day Years [...] AM EDT documented as of this encounter Last Filed Vital Signs Vital Sign Reading Time Taken Comments Blood Pressure 111/68 03/09/2025 10:00 AM EDT Pulse 81 03/09/2025 10:00 AM EDT Temperature 36.4 ??C (97.6 ??F) 03/09/2025 10:00 AM E DT Respiratory Rate 17 03/09/2025 10:00 AM EDT Oxygen Saturation 95% 03/09/2025 10:00 AM EDT Inhaled Oxygen Concentration - - Weight 78.2 kg (172 lb 6.4 oz) 03/09/2025 10:00 AM EDT Height - - Body Mass Index 27.83 12/11/2024 11:17 AM EST documented in this encounter Progress Notes * Blue Sue MD - 03/09/2025 10:00 AM EDT Subjective Patient ID: Sy Arroyo is a 74 y.o. male. I&C Tech: PASTRY WRAPPER. [facility] Sy's PASTRY WRAPPER called [facility] 4 days ago after he fell when he got up from his chair and was walking to the bathroom. It is not clear if he had a syncopal episode. He denies any injury from the fall. There was a question of whether he felt dizzy prior to the fall but he is not certain. PASTRY WRAPPER states that he has been falling several times a month for a while , with falling episodes becoming more frequent. States had head injury from fall 1 month ago. I spoke with the [facility] pharmacy, and they state that on March 02, 2025 [facility] prescribed midodrine 5 mg 3 times daily for hypotension Was admitted to [facility]25 for syncopal episode. Discharge diagnosis was orthostatic hypotension. He was prescribed a rolling walker. Lives with girlfriend, who PASTRY WRAPPER states is legally blind. Never smoked. No EtOH No Illicit substances. 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 Hypothyroidism Prosthetic and other implants, materials and accessory ophthalmic devices associated with adverse incidents Mild intermittent asthma Prosthetic eye globe Type 2 diabetes mellitus ([facility]) Vitamin D deficiency Depression Congenital nevus Cyst of left kidney DDD (degenerative disc disease), lumbar Healthcare maintenance Intermittent urinary incontinence Anemia Constipation Sleep difficulties The following portions of the chart were reviewed this encounter and updated as appropriate: Tobacco Allergies Meds Problems Med Hx Surg Hx Fam Hx Review of Systems Constitutional: Negative for fever. Respiratory: Negative for shortness of breath. Cardiovascular: Negative for chest pain. Gastrointestinal: Negative for abdominal pain. Skin: Negative for rash. Neurological: Positive for dizziness. Negative for headaches. Objective Physical Exam Constitutional: Appearance: Normal appearance. HENT: Right Ear: Tympanic membrane, ear canal and external ear normal. Left Ear: Tympanic membrane, ear canal and external ear normal. Nose: Nose normal. Mouth/Throat: Mouth: Mucous membranes are moist. Pharynx: Oropharynx is clear. Eyes: Conjunctiva/sclera: Conjunctivae normal. Pupils: Pupils are equal, round, and reactive to light. Comments: Right eye: opacified cornea due to trauma. Cardiovascular: Rate and Rhythm: Normal rate and regular rhythm. Heart sounds: No murmur heard. Pulmonary: Effort: Pulmonary effort is normal. Breath sounds: Normal breath sounds. Musculoskeletal: General: Normal range of motion. Cervical back: No tenderness. Skin: Findings: No rash. Neurological: Mental Status: He is alert. Cranial Nerves: Cranial nerves 2-12 are intact. Gait: Gait is intact. Psychiatric: Mood and Affect: Mood normal. Behavior: Behavior normal. Procedures Assessment/Plan Diagnoses and all orders for this visit: Falling PASTRY WRAPPER states that episodes are getting more frequent, and she is concerned that when she leaves the patient at home he will sustain injury from fall. He is being referred to the ED now for further evaluation. * Alejandra Veliz RN - 03/09/2025 10:00 AM EDT [facility] expect called per verbal order per Dr. Sue. [facility] staff verbalized understanding. No questions at time of call. [facility] ED to F/U as needed. documented in this encounter Plan of Treatment Not on file documented as of this encounter Visit Diagnoses Diagnosis Falling- Primary Unspecified fall documented in this encounter Additional Health Concerns Assessment Noted Time PHQ-9 Depression Total Score: 7 10/23/20 23 12:27 PM EST documented as of this encounter Care Teams Paper Cup Machine Operator Relationship Specialty Start Date End Date Rose Mary Pimentel FNP [address] [place] [id number] PCP - General Family Medicine 07/15/22 [facility] 09/05/22 documented as of this encounter
--- OUTSIDE RECORDS SUMMARY | 2025-03-09 19:06 | XMS_ITS | Encounter Summary ---
Author Organization [employer] Address [address] [facility] [address] [place] [address] Care Team Providers Care Head Of Operation And Logistics Name Role Phone Rose Mary Pimentel Primary Care Provider [phone] Reason for Visit * Reason Comments Med Refill Encounter Details Date Type Department Care Team ([facility] Contact Info) Description 07/01/2023 Refill [facility] [address] [place] [address] Rose Mary Pimentel FNP [address] [place] [address] Social History Tobacco Use Types Packs/Day Years [...] Noted Time PHQ-9 Depression Total Score: 19 023 2:54 PM EDT documented as of this encounter Care Teams Head Of Operation And Logistics Relationship Specialty Start Date End Date Rose Mary Pimentel FNP [address] [place] [address] PCP - General Family Medicine 07/15/22 [facility] 09/05/22 documented as of this encounter
--- OUTSIDE RECORDS SUMMARY | 2025-03-09 19:06 | XMS_ITS | Encounter Summary ---
Author Organization [employer] Address [address] [facility] [address] [place] [address] Care Team Providers Care Marketing Technologist Name Role Phone Rose Mary Pimentel Primary Care Provider [phone] Encounter Details Date Type Department Care Team ([facility] st Contact Info) Description 06/13/2023 Telephone [facility] [address] [place] [address] Laura Pardo LPN Social History Tobacco Use [...] documented as of this encounter Care Teams Marketing Technologist Relationship Specialty Start Date End Date Rose Mary Pimentel FNP [address] [place] [address] PCP - General Family Medicine 07/15/22 [facility] 09/05/22 documented as of this encounter
--- OUTSIDE RECORDS SUMMARY | 2025-03-09 19:06 | XMS_ITS | Encounter Summary ---
Author Organization [employer] Address [address] [facility] [address] [place] [address] Care Team Providers Care Employment Clerk Name Role Phone Rose Mary Pimentel YONAS Primary Care Provider [phone] Encounter Details Date Type Department Care Team ([facility] st Contact Info) Description 02/25/2025 Telephone [facility] [address] [place] [address] JesusRaissa guerrero, OD [address] [place] [address] Social History Tobacco Use Types Packs/Day Years [...] documented as of this encounter Care Teams Employment Clerk Relationship Specialty Start Date End Date Rose Mary Pimentel FNP [address] [place] [address] PCP - General Family Medicine 07/15/22 [facility] 09/05/22 documented as of this encounter
--- OUTSIDE RECORDS SUMMARY | 2025-03-09 19:07 | XMS_ITS | Encounter Summary ---
Author Organization [employer] Address [address] [facility] 7t [place] [address] Care Team Providers Care Rocket Test Fire Worker Name Role Phone Rose Mary Pimentel Primary Care Provider [phone] Reason for Visit * Reason Onset Date Comments Durable Medical Equipment 03/11/2024 Encounter Details Date Type Department Care Team ([facility] Contact Info) Description 03/11/2024 Telephone [facility] [address] [place], [place] [phone] Rose Mary Pimentel FNP [address] [place] [address] Durable Medical Equipment Social History Tobacco Use [...] or the other? Can you please call [facility] to confirm pt wants the shower bench AND shower chair? Thanks! * Telephone Encounter - Tenisha Fraga LPN - 03/12/2024 11:28 AM EDT YONAS Power , Can you please review Sy Arroyo 's chart and advised on next steps to complete request for this patient. Tenisha Fraga LPN Tc from [facility] with [facility] requesting DME Shower chair * Telephone Encounter - Yue Lee - 03/11/2024 12:48 PM EDT Tc from [facility] with [facility] requesting DME Shower chair documented in this encounter Plan of Treatment Not on file documented as of this encounter Visit Diagnoses Not on filedocumented in this encounter Additional Health Concerns Assessment Noted Time PHQ-9 Depression Total Score: 7 10/23/20 23 12:27 PM EST documented as of this encounter Care Teams Rocket Test Fire Worker Relationship Specialty Start Date End Date Rose Mary Pimentel FNP [address] [place] [id number] PCP - General Family Medicine 07/15/22 [facility] 09/05/22 documented as of this encounter
--- OUTSIDE RECORDS SUMMARY | 2025-03-09 19:07 | XMS_ITS | Encounter Summary ---
Author Organization [employer] Address [address] [facility] [address] [place] [address] Care Team Providers Care Animal Attendant Name Role Phone Rose Mary Pimentel Primary Care Provider [phone] Reason for Visit * Reason Onset Date Comments Call Back Request 03/20/2024 Encounter Details Date Type Department Care Team ([facility] Contact Info) Description 03/20/2024 Telephone [facility] [address] [place], [place] [phone] Rose Mary Pimentel FNP [address] [place] [address] Call Back Request Social History Tobacco Use [...] chart regarding triage. * Telephone Encounter - YONAS Poon - 03/23/2024 5:27 PM EDT Please let pt know that Trulicity was switched to similar medication - Ozempic 1mg subcutaneous weekly and sent to [facility] pharmacy. Please let us know if [...] MG/0.5ML solution pen-injector. Please contact darci at [phone] documented in this encounter Plan of Treatment Not on file documented as of this encounter Visit Diagnoses Not on filedocumented in this encounter Additional Health Concerns Assessment Noted Time PHQ-9 Depression Total Score: 7 10/23/20 23 12:27 PM EST documented as of this encounter Care Teams Animal Attendant Relationship Specialty Start Date End Date Rose Mary Pimentel FNP [address] [place] [id number] PCP - General Family Medicine 07/15/22 [facility] 09/05/22 documented as of this encounter
--- OUTSIDE RECORDS SUMMARY | 2025-03-09 19:07 | XMS_ITS | Encounter Summary ---
Author Organization [facility] Address [address] [facility] [address] [place] [address] Care Team Providers Care Logistics Vice President Name Role Phone Rose Mary Pimentel YONAS Primary Care Provider [phone] Encounter Details Date Type Department Care Team ([facility] st Contact Info) Description 03/09/2025 Orders Only GENERIC EXTERNAL DATA DEPARTMENT Provider, Generic External Data Social History Tobacco Use Types Packs/Day Years [...] on file documented as of this encounter Procedures Procedure Name Priority Date/Time Associated Diagnosis Comments CT HEAD WO CONTRAST Routine 03/09/2025 1 2:[address] CERVICAL SPINE WO CONTRAST Routine 03/09/2025 12:13 PM EDT HIGH SENSITIVITY TROPONIN I Routine 03/09/2025 11:58 AM EDT CBC WITH AUTO DIFFERENTIAL Routine 03/09/2025 11:58 AM EDT CREATINE KINASE, TOTAL Routine 11:58 AM EDT COMPREHENSIVE METABOLIC PANEL Routine 03/09/2025 11:58 AM EDT XR LUMBAR SPINE 2-3 VIEWS Routine 03/09/2025 11:45 AM EDT documented in this encounter Results * CT Head w/o Contrast (03/09/2025 12:30 PM EDT) Anatomical Region Laterality Modality Head, Neck Computed Tomogra phy 03/09/2025 12:3 0 PM EDT Narrative 03/09/2025 12:49 PM EDT ? [facility] ?[address] ?[place] [address] ? CT Scan Report ? Signed ? Patient: Arroyo,Rolando ?MR#: [id number] ?? [id number] ? : 1950 ?Acct:[id number] ? Age/Sex: 74 / M ?ADM Date: 04/22/25 ? Loc: HO.ED ? Attending Dr: ? Ordering Physician: Onofre Cheng ?? Date of Service: 03/09/25 ?? Procedure(s): CT head/brain wo IV con ?? Accession Number(s): [id number] ? cc: Onofre Cheng; Rose Mary Pimentel ? Report Number: ?? [id number]: Total DLP = ?0.00 mGy-cm ?? EXAMINATION: ?? CT HEAD WITHOUT CONTRAST ? CLINICAL INFORMATION: ?? Frequent falls ? COMPARISON: ?? CT brain 01/04/2025. ? TECHNIQUE: ?? Contiguous axial imaging was performed from the skull base to vertex ?? without intravenous administration of contrast. ? This CT examination was performed using dose optimization techniques as ?? appropriate, variously including the following: ?? *Automated exposure control ?? *Adjustment of mA and/or kV according to patient size (this includes ?? techniques or standardized protocols for targeted exams where dose is ?? matched to indication/reason for exam; i.e. extremities or head) ?? *Use of iterative reconstruction technique ?? DLP 14 18 mGy/cm. ? FINDINGS: ?? There is no acute intra-axial, extra-axial bleed, masses or midline ?? shift. There is no acute infarction evolution. There is no edema. The ?? arias to white matter differentiation is maintained normal. The lateral ?? ventricles are symmetrical but moderately enlarged bone windows reveal ?? no calvarial abnormality no scalp soft tissue abnormality seen. There ?? is mild mucoperiosteal thickening left frontal, ethmoid and maxillary ?? sinuses. The mastoid sinuses are well-aerated and clear. There is ?? obliteration of ostiomeatal complex and frontoethmoidal recess. ?? Visualized left optic globe and optic nerve appears normal. 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 ? CT/CT head/brain wo IV con ?? IMPRESSION: ?? No acute intracranial process seen. ? Chronic left maxillary, ethmoid and frontal sinus inflammatory changes. ? Electronically signed by: ??Gerard Nina HAAS ??03/09/2025 12:46 PM EDT RP ? Dictated By: ?Nina,Gerard S MD ? Signed By: ?<Electronically signed by Gerard S Nina, MD in OV> ?03/09/25 1246 ? DD/ 1230 ? TD/TT: 03/09/25 1230 ? Crystal Mounter: MSM ? Procedure Note Donotuseinterpreter, Image - 03/09/[address] [place] [address] [address] Scan Report Signed Patient: Sy Arroyo LMR#: [id number] : 1950Acct:[id number] Age/Sex: 74 / MADM Date: 03/09/25 Loc: HO.ED Attending Dr: Ordering Physician: Onofre Cheng Date of Service: 03/09/25 Procedure(s): CT head/brain wo IV con Accession Number(s): [id number] cc: Onofre Cheng; Rose Mary Pimentel [facility] Report Number: [id number]: Total DLP = 0.00 mGy-cm EXAMINATION: CT HEAD WITHOUT CONTRAST CLINICAL INFORMATION: Frequent falls COMPARISON: CT brain 01/04/2025. TECHNIQUE: Contiguous axial imaging was performed from the skull base to vertex without intravenous administration of contrast. This CT examination was performed using dose optimization techniques as appropriate, variously including the following: *Automated exposure control *Adjustment of mA and/or kV according to patient size (this includes techniques or standardized protocols for targeted exams where dose is matched to indication/reason for exam; i.e. extremities or head) *Use of iterative reconstruction technique DLP 14 18 mGy/cm. FINDINGS: There is no acute intra-axial, extra-axial bleed, masses or midline shift. There is no acute infarction evolution. There is no edema. The arias to white matter differentiation is maintained normal. The lateral ventricles are symmetrical but moderately enlarged bone windows reveal no calvarial abnormality no scalp soft tissue abnormality seen. There is mild mucoperiosteal thickening left frontal, ethmoid and maxillary sinuses. The mastoid sinuses are well-aerated and clear. There is obliteration of ostiomeatal complex and frontoethmoidal recess. Visualized left optic globe and optic nerve appears normal. 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 CT/CT head/brain wo IV con IMPRESSION: No acute intracranial process seen. Chronic left maxillary, ethmoid and frontal sinus inflammatory changes. Electronically signed by: Gerard Wood MD 03/09/2025 12:46 PM EDT RP Dictated By: Gerard Wood MD Signed By: <Electronically signed by Gerard Wood MD in OV> 03/09/25 1246 DD/ 1230 TD/TT: 03/09/25 1230 Crystal Mounter: YOBANI us [facility] External Provider IMG CT PROCEDURES Final Result * CT Cervical Spine w/o Contrast (03/09/2025 12:13 PM EDT) Anatomical Region Laterality Modality Spine, C-spine Computed Tomogra phy 03/09/2025 12:1 3 PM EDT Narrative 03/09/2025 12:58 PM EDT ? [facility] ?[address] ?[place] [address] ? CT Scan Report ? Signed ? Patient: Sy Arroyo ?MR#: [id number] ?? [id number] ? : 1950 ?Acct:[id number] ? Age/Sex: 74 / M ?ADM Date: 03/09/25 ? Loc: HO.ED ? Attending Dr: ? Ordering Physician: Onofre Cheng ?? Date of Service: 03/09/25 ?? Procedure(s): CT cervical spine wo IV con ?? Accession Number(s): [id number] ? cc: Onofre Cheng; Rose Mary Pimentel REAL ESTATE MANAGEMENT SPECIALIST ? Report Number: ?? [id number]: Total DLP = 1418.00 mGy-cm ?? EXAMINATION: ?? CT CERVICAL SPINE WITHOUT CONTRAST ? CLINICAL INFORMATION: ?? Frequent falls ? COMPARISON: ?? None available. ? TECHNIQUE: ?? Axial 3 mm thin and reformatted 2 mm thin sagittal and coronal images ?? of cervical spine were obtained. ? This CT examination was performed using dose optimization techniques as ?? appropriate, variously including the following: ?? *Automated exposure control ?? *Adjustment of mA and/or kV according to patient size (this includes ?? techniques or standardized protocols for targeted exams where dose is ?? matched to indication/reason for exam; i.e. extremities or head) ?? *Use of iterative reconstruction technique ?? DLP: 2111 mGy/cm. ? FINDINGS: ?? There is normal cervical lordosis. The vertebral heights are normal. ?? There is loss of C4-5, C6-7, C7-T1 and T1-T2 disc heights ??. The ?? craniovertebral junction and the C1-C2 alignment is normal. There is no ?? visible acute fracture, dislocation or lytic process seen. Mild facet ?? joint arthropathy C2-C3, moderate C3-4 disc levels as noted. There is ?? grade 1 anterolisthesis C4 over C5. The lung apices are clear. The ?? central trachea and bronchi are widely patent. ? CT/CT cervical spine wo IV con ?? IMPRESSION: ?? No acute fracture or dislocation. Grade 1 anterolisthesis C4 over C5. ?? There is facet joint arthropathy as described above. ? Fleischner guidelines were followed. ? Electronically signed by: ??Gerard Wood MD ??03/09/2025 12:55 PM EDT RP ? Dictated By: ?Gerard Wood MD ? Signed By: ?<Electronically signed by Gerard Wood MD in OV> ?03/09/25 1255 ? DD/ 1213 ? TD/TT: 03/09/25 1230 ? Crystal Mounter: MSM ? Procedure Note Leia Hagan - 03/09/[address] [address] [address] Scan Report Signed Patient: Sy Arroyo LMR#: [id number] : 1950Acct:[id number] Age/Sex: 74 / MADM Date: 03/09/25 Loc: HO.ED Attending Dr: Ordering Physician: Onofre Cheng Date of Service: 03/09/25 Procedure(s): CT cervical spine wo IV con Accession Number(s): [id number] cc: Onofre Cheng; Rose Mary Pimentel [facility] Report Number: [id number]: Total DLP = 1418.00 mGy-cm EXAMINATION: CT CERVICAL SPINE WITHOUT CONTRAST CLINICAL INFORMATION: Frequent falls COMPARISON: None available. TECHNIQUE: Axial 3 mm thin and reformatted 2 mm thin sagittal and coronal images of cervical spine were obtained. This CT examination was performed using dose optimization techniques as appropriate, variously including the following: *Automated exposure control *Adjustment of mA and/or kV according to patient size (this includes techniques or standardized protocols for targeted exams where dose is matched to indication/reason for exam; i.e. extremities or head) *Use of iterative reconstruction technique DLP: 2111 mGy/cm. FINDINGS: There is normal cervical lordosis. The vertebral heights are normal. There is loss of C4-5, C6-7, C7-T1 and T1-T2 disc heights . The craniovertebral junction and the C1-C2 alignment is normal. There is no visible acute fracture, dislocation or lytic process seen. Mild facet joint arthropathy C2-C3, moderate C3-4 disc levels as noted. There is grade 1 anterolisthesis C4 over C5. The lung apices are clear. The central trachea and bronchi are widely patent. CT/CT cervical spine wo IV con IMPRESSION: No acute fracture or dislocation. Grade 1 anterolisthesis C4 over C5. There is facet joint arthropathy as described above. Fleischner guidelines were followed. Electronically signed by: Gerard Wood MD 03/09/2025 12:55 PM EDT Dictated By: Gerard Wood MD Signed By: <Electronically signed by Gerard Wood MD in OV> 03/09/25 1255 DD/ 1213 TD/TT: 03/09/25 1230 Crystal Mounter: YOBANI [facility] External Provider IMG CT PROCEDURES Final Result * High Sensitivity Troponin I (03/09/2025 11:58 AM EDT) TROPONIN I HIGH SENSITIVITY <2.7 <3.5 - 35.0 ng/L [facility] Comment:The [place] high sens itivity Troponin-I results should beused in conjunction with other diagnostic information suchas ECG, clinical observations and information, and patientsymptoms to aid in the diagnosis of [place]. 03/09/2025 11:5 8 AM EDT 03/09/2025 12:01 PM EDT Generic External Data Provider LAB BLOOD ORDERAB LES Final Result Performing Organization Address [facility]/ZIP Co de Phone Number [facility] [address] [place] [phone] * Creatine Kinase, Total (03/09/2025 11:58 AM EDT) Creatine Kinase Total 50 38 - 174 U/L [facility] 03/09/2025 11:5 8 AM EDT 03/09/2025 12:01 PM EDT Generic External Data Provider LAB BLOOD ORDERAB LES Final Result Performing Organization Address [facility] Co de Phone Number [facility] [address] [place] [phone] * (ABNORMAL) Comprehensive Metabolic Panel (03/09/2025 11:58 AM EDT) Pathologist [facility] Sodium 137 135 - 145 mmol/L [facility] Potassium 4.7 3.3 - 5.1 mmol/L [facility] Chloride 102 96 - 108 mmol/L [facility] Carbon Dioxide 30(H) 22 - 29 mmol/L [facility] Anion Gap 10(L) 12 - 20 [facility] Urea Nitrogen (BUN) 11 9 - 16 mg/dL [facility] Creatinine, Serum 0.70 0.5 - 1.4 mg/dL [facility] Creatinine Clr Calc Pharmacy 90.9 [facility] Comment:eGFR (calculated fro m the MDRD study equation) and eCrCl(calculated from the Cockcroft-Gault equation) are based ondifferent parameters and may not yield comparable results.If eCrCl result is absurd, please check patient'sheight/weight. Estimated Glomerular Filt Rate >60 [facility] Comment:Chronic Kidney Disea se: Estimated GFR < 60 mL/min/1.54v1Yusbnp Kidney Disease: Estimated GFR < 15 mL/min/1.73m2 Glucose 155(H) 60 - 115 mg/dL [facility] Calcium 9.6 8.4 - 10.2 mg/dL [facility] Bilirubin, Total 0.3 0.0 - 1.0 mg/dL [facility] Aspartate Amino Transferase 20 5 - 37 U/L [facility] Alanine Aminotransferase 23 0 - 40 U/L [facility] Total Protein 6.7 6.5 - 8.0 g/dL [facility] Albumin Level 4.1 3.5 - 5.0 g/dL [facility] Alkaline Phosphatase 57 39 - 117 U/L [facility] 03/09/2025 11:5 8 AM EDT 03/09/2025 12:01 PM EDT us Generic External Data Provider LAB BLOOD ORDERAB LES Final Result [facility] [address] [place] [address] [phone] * (ABNORMAL) CBC auto differential (03/09/2025 11:58 AM EDT) White Blood Count 7.6 4.8 - 10.8 X10*3/uL [facility] Red Blood Count 4.06(L) 4.60 - 5.80 X10*6/uL [facility] Hemoglobin 12.4(L) 14.0 - 18.0 g/dl [facility] Hematocrit 37.2(L) 42.0 - 52.0 % [facility] Mean Corpuscular Volume 91.6 80.0 - 98.0 fL [facility] Mean Corpuscular Hemoglobin 30.5 27.0 - 33.0 pg [facility] Mean Corpuscular HGB Conc 33.3 31.0 - 36.0 g/dl [facility] Red Cell Distribution Width 13.4 11.0 - 16.0 % [facility] Platelet Count 263 160 - 400 X10*3/uL [facility] Mean Platelet Volume 9.3(L) 9.4 - 12.4 fL [facility] Neutrophils Percent Auto 60.8 45 - 73 % [facility] Imm Gran Pct Auto 0.3 0.0 - 0.4 % [facility] Lymphocytes Percent Auto 23.2 20 - 40 % [facility] Monocytes Percent Auto 8.0 2 - 11 % [facility] Eosinophils Percent Auto 6.9(H) 0 - 4 % [facility] Basophils Percent Auto 0.8 0 - 2 % [facility] NRBC Pct Auto 0.0 0.0 - 0.2 /100WBC [facility] Neutrophils Absolute Auto 4.6 2.0 - 8.3 x10*3/uL [facility] Imm Gran Abs Auto 0.02 0.00 - 0.03 X10*3/uL [facility] Lymphocytes Absolute Auto 1.8 1.2 - 4.9 X10*3/uL [facility] Monocytes Absolute Auto 0.6 0.1 - 1.2 X10*3/uL [facility] Eosinophils Absolute Auto 0.5(H) 0.0 - 0.4 X10*3/uL [facility] Basophils Absolute Auto 0.1 0.0 - 0.2 X10*3/uL [facility] NRBC Abs Auto 0.000 0.0 - 0.012 X10*3/uL [facility] 03/09/2025 11:5 8 AM EDT 03/09/2025 12:01 PM EDT us Generic External Data Provider LAB BLOOD ORDERAB LES Final Result [facility] [address] [place] [address] [phone] * XR Lumbar Spine 2-3 Views (03/09/2025 11:45 AM EDT) Anatomical Region Laterality Modality Spine, L-spine Radiographic Pily ging 03/09/2025 11:4 5 AM EDT Narrative 03/09/2025 12:09 PM EDT ? [facility] ?[address] ?[place] [address] ?XRay Report ? Signed ? Patient: Arroyo,Rolando ?MR#: [id number] ?? [id number] ? : 1950 ?Acct:[id number] ? Age/Sex: 74 / M ?ADM Date: 03/09/25 ? Loc: HO.ED ? Attending Dr: ? Ordering Physician: Onofre Cheng ?? Date of Service: 03/09/25 ?? Procedure(s): XR lumbar spine 2-3V ?? Accession Number(s): [id number] ? cc: Onofre Cheng; Rose Mary Pimentel ? EXAMINATION: ?? XR LUMBOSACRAL SPINE ? CLINICAL INFORMATION: ?? back pain ? COMPARISON: ?? Correlation made with x-rays 10/24/2023, and CT examination 08/20/2023. ? TECHNIQUE: ?? Three views of the lumbosacral spine. ? FINDINGS: ?? Minimal right convex scoliosis, apex at L3. ?? Mild straightening of the normal lordosis. ?? Chronic appearing concavity of the superior endplate of L1, stable. ?? Minimal concavity of the superior endplate of L4, also chronic. ?? No new compression deformity or acute fracture. No suspicious bone ?? lesions. ? Severe disc degeneration T12-L1, and L3-4. ?? Facet degeneration present spanning L4-S1. ?? Partial ankylosis of both SI joints. ? Calcifications of the vas deferens, high correlation with diabetes. ? XR/XR lumbar spine 2-3V ?? IMPRESSION: ?? 1. No acute findings of the lumbar spine. ?? 2. Chronic abnormalities as discussed. ? Electronically signed by: ??Rex Stafford MD ??03/09/2025 12:06 PM EDT RP ? Dictated By: ?Rex Stafford MD ? Signed By: ?<Electronically signed by Rex Stafford MD in OV> ?03/09/25 1206 ? DD/ 1145 ? TD/TT: 03/09/25 1150 ? Crystal Mounter: ? Procedure Note Donotuseinterpreter, Image - 03/09/[address] [address] XRay Report Signed Patient: Sy Arroyo LMR#: [id number] : 1950Acct:[id number] Age/Sex: 74 / MADM Date: 03/09/25 Loc: HO.ED Attending Dr: Ordering Physician: Onofre Cheng Date of Service: 03/09/25 Procedure(s): XR lumbar spine 2-3V Accession Number(s): [id number] cc: Onofre Cheng; Rose Mary Pimentel REAL ESTATE MANAGEMENT SPECIALIST EXAMINATION: XR LUMBOSACRAL SPINE CLINICAL INFORMATION: back pain COMPARISON: Correlation made with x-rays 10/24/2023, and CT examination 08/20/2023. TECHNIQUE: Three views of the lumbosacral spine. FINDINGS: Minimal right convex scoliosis, apex at L3. Mild straightening of the normal lordosis. Chronic appearing concavity of the superior endplate of L1, stable. Minimal concavity of the superior endplate of L4, also chronic. No new compression deformity or acute fracture. No suspicious bone lesions. Severe disc degeneration T12-L1, and L3-4. Facet degeneration present spanning L4-S1. Partial ankylosis of both SI joints. Calcifications of the vas deferens, high correlation with diabetes. XR/XR lumbar spine 2-3V IMPRESSION: 1. No acute findings of the lumbar spine. 2. Chronic abnormalities as discussed. Electronically signed by: Rex Stafford MD 03/09/2025 12:06 PM EDT Dictated By: Rex Stafford MD Signed By: <Electronically signed by Rex Stafford MD in OV> 03/09/25 1206 DD/ 1145 TD/TT: 03/09/25 1150 Crystal Mounter: [facility] External Provider IMG XR PROCEDURES Final Result documented in this encounter Visit Diagnoses Not on filedocumented in this encounter Additional Health Concerns Assessment Noted Time PHQ-9 Depression Total Score: 7 10/23/20 23 12:27 PM EST documented as of this encounter Care Teams Logistics Vice President Relationship Specialty Start Date End Date Rose Mary Pimentel FNP [address] [place] [address] PCP - General Family Medicine 07/15/22 [facility] 09/05/22 documented as of this encounter
--- OUTSIDE RECORDS SUMMARY | 2025-03-09 19:07 | XMS_ITS | Encounter Summary ---
Author Organization [employer] Address [address] [facility] [address] [place] [address] Care Team Providers Care Duck Operator Name Role Phone Rose Mary Pimentel Primary Care Provider [phone] Reason for Visit * Reason Onset Date Comments triage 01/25/2023 Encounter Details Date Type Department Care Team ([facility] Contact Info) Description 01/25/2023 Telephone [facility] MEDICINE [address] [place] [address] Rose Mary Pimentel FNP [address] [place] [address] triage Social History Tobacco Use Types Packs/Day [...] number to crisis. Pt advised to seek [facility] today or Saturday to speak with [facility] provider. . Advised pt to seek ER [...] . If no answer call darci at [phone] documented in this encounter Plan of Treatment Not on file documented as of this encounter Visit Diagnoses Not on filedocumented in this encounter Care Teams Duck Operator Relationship Specialty Start Date End Date Rose Mary Pimentel FNP [address] [place] [address] PCP - General Family Medicine 07/15/22 [facility] 09/05/22 documented as of this encounter
--- OUTSIDE RECORDS SUMMARY | 2025-03-09 19:07 | XMS_ITS | Encounter Summary ---
Author Organization [employer] Address [address] [facility] [address]t [place] [address] Care Team Providers Care Electrical Troubleshooter Name Role Phone Rose Mary Pimentel Primary Care Provider [phone] Encounter Details Date Type Department Care Team ([facility] st Contact Info) Description 02/01/2023 Orders Only [facility] MEDICINE [address] [place] [address] Rose Mary Pimentel FNP [address] [place], [place] [phone] Social History Tobacco Use Types Packs/Day Years [...] on filedocumented in this encounter Care Teams Electrical Troubleshooter Relationship Specialty Start Date End Date Rose Mary Pimentel FNP [address] [place] [address] PCP - General Family Medicine 07/15/22 [facility] 09/05/22 documented as of this encounter
--- OUTSIDE RECORDS SUMMARY | 2025-03-09 19:07 | XMS_ITS | Data Portability ---
Author Organization [employer] Address [address] [place] [address] Care Team Providers Care Shell Core And Molding Supervisor Name Role Phone HIM CCA OTHER Assessment [...] Assessment and Plan as documented by the Laundry Bag Punch Operator. Patient given the opportunity to ask questions. Verbalized understanding of instructions to medic. [email or web address] Not available 12/31/2022 13:06:22 02/14/2023 02/14/2023 72 [...] in the field was performed by my lmft colleague, as noted above, I provided real-time [...] On the physical exam done by the lmft the patient has normal vital signs. He [...] serious symptoms, particularly SOB or Chest pain [email or web address] Not available 11/28/2024 14:54:15 01/04/2025 01/04/2025 Evaluation in e field was performed by my lmft colleague, as noted above, I provided real-time [...] to transfer via EMS. Disposition: Transport to [facility] [email or web address] Not available 01/04/2025 16:32:01 Plan of Treatment Reminders Order Date Submit Date Provider Last Modified By Organization Details Last Modified Time Details Appointments None recorded. Lab rapid SARS CoV 2 Ag, QL IA, respiratory specimen 2024 025 [email or web address] 7 [facility], [address] [place] [address], [id number] 5 14:53:52 rapid flu (A+B) 2024 025 [email or web address] 7 [facility], [address] [place] [address], [id number] 5 14:53:52 culture, urine 2022 023 [facility] (Centralized Electronic Ordering - All Locations), Patient Can Go To The Location Of Their Choice, [id number] 3 09:35:29 urinalysis, dipstick 2022 023 [email or web address] 0 [facility], [address] [place] [address], [id number] 3 13:13:12 glucose, fingerstick , blood 2022 023 [email or web address] 0 [facility], [address] [place] [address], [id number] 3 13:13:12 BMP, serum or plasma 2022 023 [email or web address] 0 [facility], [address] [place] [address], [id number] 3 13:13:12 Referral None recorded. Procedures None recorded. Surgeries None recorded. Imaging None recorded. Medication Orders benzonatate 200 mg capsule 2024 025 [facility][id number], [address] [place], [address], 5 14:47:27 albuterol sulfate HFA 90 mcg/actuati on aerosol inhaler 2024 025 [facility][id number], [address] [place], [address], 5 14:49:09 ketorolac 30 mg/mL (1 mL) injection solution 2022 023 [email or web address] 0 Not available 12:53:06 Patient TargetsNo targets recorded. Patient InstructionsNo [...] te was ident ified using Maldi -TOF syste m SUSCE PTIBI LITY TESTI NG NOT ROUTI MIK [...] BUN 11 Not Available [facility] - [facility] [address], [address] 12/31/2022 13:12:04 12/31/1912/31/2022 BMP, serum or plasm a Ca ( I dario 1.17) Not Available Main - [facility] [address], [address] 12/31/2022 13:12:04 12/31/1912/31/2022 BMP, serum or plasm a CI- 101 Not Available [facility] - [facility] [address], [address] 12/31/2022 13:12:04 12/31/19 23 12/31/2022 BMP, serum or plasm a CRE 0.7 Not Available [facility] [address], [address] [place] [address] 12/31/2022 13:12:04 12/31/19 23 12/31/2022 BMP, serum or plasm a GLU 282 Not Available [facility] - [facility] [address], [address] [place] [address] 12/31/2022 13:12:04 12/31/19 23 12/31/2022 BMP, serum or plasm a K+ 4.7 Not Available [facility] [address], [address] [place] [address] 12/31/2022 13:12:04 12/31/19 23 12/31/2022 BMP, serum or plasm a Na+ 136 Not Available [facility] - [facility] [address], [address] [place] [address] 12/31/2022 13:12:04 12/31/19 23 12/31/2022 BMP, serum or plasm a tCO2 23 Not Available Main - [facility] [address], [address] 12/31/2022 13:12:04 12/31/19 23 12/31/2022 gluco se, finge rstic k, blood Blood Glucose: mg/dl 290 Not Available [facility] [address] [place] [address], [address] [place] [address] 12/31/2022 12:53:54 12/31/19 23 12/31/2022 urina lysis , dipst ick Leukocytes neg Not Available [facility] [address] [place] [address], [address] 12/31/2022 12:53:30 12/31/19 23 12/31/2022 urina lysis , dipst ick Nitrite negati ve Not Available Main - [facility] [address], [address] [place] [address] 12/31/2022 12:53:30 12/31/19 23 12/31/2022 urina lysis , dipst ick Protein neg Not Available Main - [facility] [address], [address] 12/31/2022 12:53:30 12/31/19 23 12/31/2022 urina lysis , dipst ick pH 5 Not Available [facility] - [facility] [address], [address] [place] [address] 12/31/2022 12:53:30 12/31/1912/31/2022 urina lysis , dipst ick Blood neg Not Available [facility] - [facility] [address], [address] [place] [address] 12/31/2022 12:53:30 12/31/19 23 12/31/2022 urina lysis , dipst ick Specific [place] 1.025- 1.030 Not Available [facility] [address] [place] [address], [address] [place] [address] 12/31/2022 12:53:30 12/31/19 23 12/31/2022 urina lysis , dipst ick Ketone neg Not Available [facility] - [facility] [address], [address] [place] [address] 12/31/2022 12:53:30 12/31/19 23 12/31/2022 urina lysis , dipst ick Glucose 4+ Not Available [facility] - [facility] [address], [address] 12/31/2022 12:53:30 12/31/19 23 12/31/2022 urina lysis , dipst ick Appearance clear Not Available [facility] [address] [place] [address], [address] 12/31/2022 12:53:30 12/31/19 23 12/31/2022 urina lysis , dipst ick Color pale yellow Not Available Main - [facility] ed [address] [place] [address], [address] 12/31/2022 12:53:30 Result Notes None recorded. Medical [...] Address Organization Details Last Updated DateTime 5 80138.8 24 g 97.8 [degF] 16 /min 92 /min 96 % 96 % 100 mm[Hg] 64 mm[Hg] Not Available [employer] 5 14:45:12 Date Recorded Heart rate Respiratory rate Body temperature Oxygen saturation Oxygen saturation in Arterial blood by Pulse oximetry Systolic blood pressure Diastolic blood pressure Provider Name and Address Organization Details Last Updated DateTime 5 98 /min 16 /min 98.6 [degF] 96 % 96 % 120 mm[Hg] 70 mm[Hg] Not Available [employer] 5 15:42:00 Date Recorded Oxygen saturation Oxygen saturation in Arterial blood by Pulse oximetry Heart rate Respiratory rate Body temperature Systolic blood pressure Diastolic blood pressure Provider Name and Address Organization Details Last Updated DateTime 3 100 % 100 % 80 /min 16 /min 98.6 [degF] 96 mm[Hg] 62 mm[Hg] Not Available [employer] [facility] 3 11:44:48 Date Recorded Heart [...] Details Last Updated DateTime 3 96 /min 61858.3 76 g 97.6 [degF] 18 /min 98 % 98 % 97.6 [degF] 98 % 98 % 89768.3 76 g 96 /min 18 /min 103 mm[Hg] 74 mm[Hg] 103 mm[Hg] 74 mm[Hg] Not Available [employer] [facility] 3 13:18:06 Date Recorded Body [...] Address Organization Details Last Updated DateTime 3 52419.8 24 g 98.5 [degF] 14 /min 98 % 98 % 82 /min 82 /min 31225.8 24 g 98 % 98 % 98.5 [degF] 14 /min 102 mm[Hg] 62 mm[Hg] 102 mm[Hg] 62 mm[Hg] Not Available [employer] 3 12:45:34 Social History None recorded. Functional Status None recorded. Mental Status None recorded. Family History Nothing Reported. Medical History No medical history recorded. Past Encounters Encounter ID Performer Location Encounter Start Date Encounter Closed Date Diagnosis/Indication Diagnosis SNOMED-CT Code Diagnosis ICD10 Code Diagnosis Note [id number] Buffy Mosquera MD [facility] [address] [place] [address] 05/26/2022 10:48:03 07/18/2022 15:11:52 Dizziness 632893055 R42 worsens turning head side to side and up and down. no change with standing, describes room spinning. presumably vertigo. UA negative for nitrites and LE. blood glucose 125. non-orthos tatic. Likely BPPV.- recommendi ng eval with PCP re meclizine and/or referral to inner ear PT [id number] Rizwan Willett MD [facility] [address] [place] [phone] 11/26/2022 11:44:46 11/28/2022 10:30:51 COVID-19 475898065 U07.1 [id number] Savanna Nunez MD [facility] [address] [place] [phone] 12/31/2022 12:45:19 01/02/2023 10:20:28 Chronic low back pain 212075925 M54.50 acute on chronic -possible sciatica- doubt UTI- explained given neg ua dip(except glucose) would treat with antibiotic s only if culture indicated need.- offered ketorolac for pain- has nl renal function- not anticoagul ated per med list provided- advised to f/u with pcp for pain management Hyperglycemia 20742320 R 73.9 advised via interprete r to eat more complex carbs not fatty fried foods/ hi sugar content foods avoid soda- patient would benefit from nutritiona l counsellin g- on Jardiance and metformin- advised need to f/u with PCP re med adjustment for elevated BSHypergly cemia may be driving the increased u/o rather than uti [id number] Rizwan Willett MD [facility] [address] [place] [phone] 02/14/2023 12:01:54 02/18/2023 09:57:00 Constipation 78922427 K59.00 [id number] SIMRAN ARANDA MD [facility] [address] [place] [phone] 11/28/2024 14:45:10 11/28/2024 17:52:08 Acute bronchitis 21837832 J20.9 [id number] Patricia Penaloza MD [facility] [address] [place] [phone] 01/04/2025 15:34:37 01/05/2025 12:28:11 Fall W19.XXXA Contusion of forehead 11 4785358 S00.83XA Dizziness 568201816 R42 Contusion of right knee 7006165590 5700262 S80.01XA Health Concerns Section Related Observation LastModified by Organization Detai ls LastModified Time None Recorded Concern Status LastModified by Organization Details LastModified Time None Recorded Advance Directives Directive None Recorded Payers Encounter Date Sequence Insurance Name Policy Number Policy Delatorre Covered Member ID Delatorre Member ID Guarantor Name 11/26/2022 1 [facility] [employer] - DOS PRIOR TO 2023 - DUAL ELIGIBLE (MEDICARE REPLACEMENT/ADV ANTAGE - HMO) Sy Arroyo [id number] Syrenetta NguyễnArroyo 12/31/2022 1 [facility] [employer] - DOS PRIOR TO 2023 - DUAL ELIGIBLE (MEDICARE REPLACEMENT/ADV ANTAGE - HMO) Sy Arroyo [id number] Syrenetta NguyễnArroyo 02/14/2023 1 [facility] [employer] - DOS PRIOR TO 2023 - DUAL ELIGIBLE (MEDICARE REPLACEMENT/ADV ANTAGE - HMO) Sy Arroyo [id number] Syrenetta NguyễnArroyo 11/28/2024 1 [facility] [employer] - DOS ON OR AFTER 2023 - DUAL ELIGIBLE - SKILLED NURSING OPTIONS AND ONE CARE (MEDICARE REPLACEMENT/ADV ANTAGE - HMO) Sy Arroyo [id number] Sy Arroyo 01/04/2025 1 [facility] [employer] - DOS ON OR AFTER 2023 - DUAL ELIGIBLE - SKILLED NURSING OPTIONS AND ONE CARE (MEDICARE REPLACEMENT/ADV ANTAGE - HMO) Sy Arroyo [id number] Sy Arroyo Notes Date Note Type Note Provider Name and Address Organization Details Recorded Time 11/26/2022 text/html HPI: Allergy: TRISTIN inhibitors. Treated at the [facility] ER for cough, fever and SOB, tested [...] ................... ................... ................... ................... ................... ................... ........ Laundry Bag Punch Operator Note: Pt found fox to baseline sitting [...] ................... ........ Disposition: Fulfilled Rizwan Willett MD [address] [facility],[address], [place], [address], [facility] - [employer] 11/26/2022 17:03:21 12/31/2022 text/html HPI: ALLERGIC TO: [...] ................... ................... ................... ................... ................... ................... ............. Laundry Bag Punch Operator Note From Rasheed Zuniga: NARRATIVE PT PRESENTS A@0X4 PINK WARM AND DRY. PT C/O LOWER BACK BILATERALLY THAT MOVES DOWN HIS LEGS FOR PAST 3 WEEKS. PT ALSO STATED FOUL SMELLING URINE AND FREQUENT URININATION. PT DENIES SOB CP F/N/V/D. BASELINE VITALS ASSESSED, VITALS STABLE, POC BLOODWORK UNREMARKABLE, POC GLUCOSE 290,URINE DIP UNREMARKABLE, URINE CULTURE LABS SENT TO [facility]. [facility] CONTACTED AND 15MG TORADOL ADMINISTERED IM IN LEFT DELTOID AND ENCOURAGED TO DRINK PLENTY OF FLUIDS. PT ADVISED TO FOLLOW UP WITH PCP IN REGARDS TO HIS SUGAR LEVELS AND MEDICATION ADJUSTMENT. PT EDUCATED ON SIGNS THAT WOULD INDICATE THE ED ................... ................... ................... ................... ................... ................... ................... ........ Disposition: Fulfilled Savanna Nunez MD [address] [facility],[address], [place], [address], [employer] 12/31/2022 16:38:07 02/14/2023 text/html HPI: Call to [...] Nursing Assessment: Comments: Spoke with members via photoengraving photographer. d/c from hospital on Saturday for nerve [...] ................... ................... ................... ................... ................... ................... ........ Laundry Bag Punch Operator Note From Ivan Gallego: Pt CO abd pn X5 - 8 days. Pt stated through assistant community director that he has not had a bowel movement in 5 - 8 days. Pt stated has tried many times to attempt to go to the bathroom Pt able to drink and hold down fluids. Pt abd slight distention, tenderness, minimal bowel sounds. UA conducted, no significant findings, ISTAT Chem 8 BGL was slightly elevated 218 . Contacted and told caregiver to administer an enema, half bottle of mag citrate ant follow on with miralax ................... ................... ................... ................... ................... ................... ................... ........ Disposition: Fulfilled Rizwan Willett MD [address] [facility],[address], [place], [address], [employer] 02/14/2023 13:10:47 11/28/2024 text/html [facility] Nurse Triage [...] COPD/Asthma, Diabetes Mellitus Type 2PMH Reviewed at 11/28/2024:37Allergies Reviewed at 11/28/2024 - :37Comments: [facility] has a cough and [...] ................... ................... ................... ................... ................... ................... ........ Laundry Bag Punch Operator Note From Rasheed Zuniga: Pt co cough with some production clear in color for 1 week. Pt denies Fever, body aches, NC, sore throat, NVD, runny nose, dizziness, abdominal pain, CP or SOB. Pt using robitussin with some relief. Baseline vitals assessed, WNL, Afebrile, Lungs clear bilaterally, covid and flu swab negative, good skin color and turgor. [facility] contacted and RX for albuterol inhaler called in along with benzonatate. Pt education on signs indicating the ER, Pt advised to monitor symptoms. Pt advised to follow up with PCP. ................... ................... ................... ................... ................... ................... ................... ........ [facility] Consulted: Simran Aranda ................... ................... ................... ................... ................... ................... ................... ........ Disposition: Fulfilled SIMRAN ARANDA MD [address] [facility],[address], [place], [address], [employer] 11/28/2024 15:09:16 01/04/2025 text/html [facility] Nurse Triage Notes (Rose Mary Cannon - [...] Mellitus Type 2 PMH Reviewed at 01/04/2025 Allergies Reviewed at 01/04/2025: Comments: Visiting nurse calling to request visit to evaluate s/p fall. Fall occured approx 830am. Mechanical fall. [place] dizzy and LOC. Hit front right side of head. Feel like head is pulsating or throbbing. VSS. Patient is on ASA. Denies visual changes, changes in mental status, or dizziness.Education provided on the response time and the member was advised to monitor reported s/s and seek emergency treatment if needed. ................... ................... ................... ................... ................... ................... ................... ........ Laundry Bag Punch Operator Note From Jameson Murguia: Dispatched to the [...] +CMSx4. -spinal stepoff/tenderness. right knee with bruising. [facility] consulted. 911 called on behalf of the Pt. [facility] transported Pt to [facility]. ALL times are approx. ................... ................... ................... ................... ................... ................... ................... ........ [facility] Consulted: Patricia Penaloza ................... ................... ................... ................... ................... ................... ................... ........ Disposition: Fulfilled Patricia Penaloza MD [address] [facility],[address], [place], [address], [employer] - [employer] 01/04/2025 16:32:05
--- OUTSIDE RECORDS SUMMARY | 2025-03-09 19:07 | XMS_ITS | Encounter Summary ---
Author Organization [email or web address] Address [address] [facility] [address] [place] [address] Care Team Providers Care Light Cleaner Name Role Phone Rose Mary Pimentel Primary Care Provider [phone] Reason for Visit * Reason Onset Date Comments chartprep 03/04/2025 Encounter Details Date Type Department Care Team ([facility] Contact Info) Description 03/04/2025 Telephone [facility] [address] [place] [address] Rose Mary Pimentel FNP [address] [place] [address] chartprep Social History Tobacco Use Types Packs/Day Years [...] encounter Miscellaneous Notes * Telephone Encounter - Mayra Lubin [place] - 03/04/2025 11:40 AM EDT ...Chart Prep Labs: not applicable Images: done Vaccines due: Covid Due, Flu Due, and RSV in Pharmacy Due Referrals: Not Applicable Screenings: Colonoscopy Overdue care gaps: A1C documented in this encounter Plan of Treatment Not on file documented as of this encounter Visit Diagnoses Not on filedocumented in this encounter Additional Health Concerns Assessment Noted Time PHQ-9 Depression Total Score: 7 10/23/20 23 12:27 PM EST documented as of this encounter Care Teams Light Cleaner Relationship Specialty Start Date End Date Rose Mary Pimentel FNP [address] [place] [address] PCP - General Family Medicine 07/15/22 [facility] 09/05/22 documented as of this encounter
--- OUTSIDE RECORDS SUMMARY | 2025-03-09 19:07 | XMS_ITS | Encounter Summary ---
Author Organization [employer] Address [address] [facility] [address] [place] [address] Care Team Providers Care White Hat Hacker Name Role Phone Rose Mary Pimentel Primary Care Provider [phone] Reason for Visit * Reason Onset Date Comments Verbal orders 06/26/2024 Encounter Details Date Type Department Care Team ([facility] Contact Info) Description 06/26/2024 Telephone [facility] MED[facility] [address] [place] [address] Rose Mary Pimentel FNP [address] [place] [address] Verbal orders Social History Tobacco Use Types [...] - 06/26/2024 1:08 PM EDT Tc to [facility] to relay agreement to verbal order. Charmaine [...] - 06/26/2024 11:16 AM EDT Tc from [facility] with [facility] care requesting Verbal orders to re-establish care for Daily home visits, Medication management, re-evaluation documented in this encounter Plan of Treatment Not on file documented as of this encounter Visit Diagnoses Not on filedocumented in this encounter Additional Health Concerns Assessment Noted Time PHQ-9 Depression Total Score: 7 10/23/20 23 12:27 PM EST documented as of this encounter Care Teams White Hat Hacker Relationship Specialty Start Date End Date Rose Mary Pimentel FNP [address] [place] [address] PCP - General Family Medicine 07/15/22 [facility] 09/05/22 documented as of this encounter
--- OUTSIDE RECORDS SUMMARY | 2025-03-09 19:07 | XMS_ITS | Data Portability ---
Author Organization [facility], Main Office Address [address], [address] [place] [address] Care Team Providers Care Rn Admissions Name Role Phone NICOLE APPIAH - 2ND [...] Recorded Time Mixed anxiety and depressive disorder [id number] Active 2024 Jerilyn Devlin NP [address] [facility], [address], [place], [address], [facility] 5 09:22:26 Insomnia 847480210 Active 2024 Jerilyn Devlin NP [address], [address], [place], [address], [facility] [employer] 5 09:23:05 Anemia 514007977 Active 2024 Jerilyn Devlin NP [address], [place], [address], [facility] [employer] 5 09:24:38 Environmental allergy 777873282 Active 2024 Jerilyn Devlin NP [address], [address], [place], [address], [facility] [employer] 5 09:25:42 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 [address], [address], [place], [address], [facility] 7 10:25:55 Eruption 431449302 Active 2016 Patricia Solorzano MD [address] [place] [place] [address], [address], [place], [address], [facility] 7 10:37:19 Problem Notes None recorded. [...] mm[Hg] 63 mm[Hg] CLEMENT BRUNO NP [address] [facility], [address], [place], [address], [facility] [employer] 5 15:30:19 Date Recorded Body height Heart rate Respiratory rate Body temperature Oxygen saturation Oxygen saturation in Arterial blood by Pulse oximetry Systolic blood pressure Diastolic blood pressure Provider Name and Address Organization Details Last Updated DateTime 5 45.72 cm 98 /min 18 /min 97.6 [degF] 95 % 95 % 90 mm[Hg] 68 mm[Hg] CLEMENT BRUNO NP [address] [facility] [address] [facility], [facility] [address], [place], [address], [facility] 5 14:54:57 Date Recorded Body height Heart rate Respiratory rate Body temperature Oxygen saturation Oxygen saturation in Arterial blood by Pulse oximetry Systolic blood pressure Diastolic blood pressure Provider Name and Address Organization Details Last Updated DateTime 5 45.72 cm 93 /min 18 /min 98.6 [degF] 97 % 97 % 97 mm[Hg] 46 mm[Hg] CLEMENT BRUNO NP [address] [facility] [address], [address], [place], [address], [facility] 5 15:11:16 Date Recorded Body height Heart rate Respiratory rate Body temperature Oxygen saturation Oxygen saturation in Arterial blood by Pulse oximetry Systolic blood pressure Diastolic blood pressure Provider Name and Address Organization Details Last Updated DateTime 5 45.72 cm 80 /min 18 /min 96 [degF] 96 % 96 % 94 mm[Hg] 65 mm[Hg] CLEMENT BRUNO NP [address] [facility] [address] [facility], [facility] [address], [place], [address], [facility] 5 12:27:43 Date Recorded Body height Heart rate Respiratory rate Body temperature Oxygen saturation Oxygen saturation in Arterial blood by Pulse oximetry Systolic blood pressure Diastolic blood pressure Provider Name and Address Organization Details Last Updated DateTime 5 45.72 cm 86 /min 18 /min 97.6 [degF] 94 % 94 % 97 mm[Hg] 60 mm[Hg] Jerilyn Devlin NP [address] [facility] [address], [facility] [address], [place], [address], [facility] 5 19:09:15 Social History Question Answer Notes LastModified by Organizat ion Details LastModified Time Tobacco Smoking Status Never Smoker Not Available [facility] 09/13/2020 03:13:02 Do You Have An Advance Directive? Yes Information not available 01/08/2025 What Is Your Level Of Alcohol Consumption? None Information not available 01/08/2025 What Is Your Code Status? DNR/DNI Okay To Transfer To [facility] If Needed. Dialysis If Needed, No Art [...] Recorded Time Tdap 3 completed Alireza Juliana [facility] 01/13/2025 12:23:43 Pneumococcal conjugate PCV 13 5 completed Alireza Andrews [facility] 01/13/2025 12:23:57 pneumococcal polysaccharide PPV23 7 completed Alireza Andrews [facility] 01/13/2025 12:24:12 influenza, unspecified formulation 1 completed Alireza Juliana [facility] 01/13/2025 12:24:26 influenza, unspecified formulation 1 completed Alireza Andrews [facility] 01/13/2025 12:24:31 influenza, unspecified formulation 2 completed Alireza Andrews [facility] 01/13/2025 12:24:37 SARS-COV-2 (COVID-19) vaccine, UNSPECIFIED 1 completed Alireza Andrews [facility] 01/13/2025 12:24:58 SARS-COV-2 (COVID-19) vaccine, UNSPECIFIED 1 completed Alireza Andrews [facility] 01/13/2025 12:25:08 SARS-COV-2 (COVID-19) vaccine, UNSPECIFIED 2 completed Alireza Andrews [facility] 01/13/2025 12:25:15 zoster, unspecified formulation 5 completed Alireza Andrews [facility] 01/13/2025 12:25:27 zoster, unspecified formulation 1 completed Alireza Andrews [facility] 01/13/2025 12:25:31 zoster, unspecified formulation 1 completed Alireza Andrews [facility] 01/13/2025 12:25:36 Past Encounters Encounter ID Performer Location Encounter Start Date Encounter Closed Date Diagnosis/Indication Diagnosis SNOMED-CT Code Diagnosis ICD10 Code Diagnosis Note [id number] Cecily Sargent [address] [address] 05/16/2017 09:04:14 05/26/2017 13:31:40 Cavovarus deformity of foot 146972549 Q66.1 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 s/p surgical interventi on, see HPIfollow ortho recsNWB on left legPercoce t for painLoveno x daily x 30 daysAvoid NSAIDs for 6 weeksF/u in 2-3 weeks with ortho Charcot-Ma harry-Tooth disease, 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 of Charcot-Ma harry-Tooth, as above Essential hypertension 55706290 I10 Losartan 25 mg dailyMonit or bp and labs Diabetes mellitus 264324 09 E11.9 Metformin 1000 mg dailyGlipi zide 10 mg BIDGlyburi de 5 mg BIDPioglit azone 30 mg dailyMonit or accuchecks -reports checks blood sugars in AM at home, will increase to BID here given patient's many diabetic medication s Hypothyroidism 83033103 E03.8 Levothyrox ine 137 mcg daily Hyperlipidemia 28816228 E78.2 Atorvastat in 40 mg daily, ASA 81 mg daily Constipation 62005717 K5 9.09 Initiate bowel protocol [id number] Patricia Solorzano MD [address] [address] 05/20/2017 10:02:21 05/29/2017 11:35:41 Cavovarus deformity of foot 577511068 Q66.1 PT/OT as instructed by ortho, continue NWB status on left until f/u with ortho. Percocet working well for pain. Continue Lovenox daily x 30 days for DVT prevention .Avoid NSAIDs for 6 weeksF/u in 2-3 weeks with ortho Charcot-Ma harry-Tooth disease, type IA 13922490 G60.0 Hx of Charcot-Ma harry-Tooth, as above Essential hypertension 97330570 I10 Good control on losartan 25 mg daily, actually some fairly low BPS, follow bp and labs Diabetes mellitus 968710 09 E11.9 Good control on metformin 1000 mg daily, glipizide 10 mg BID, glyburide 5 mg BID and pioglitazo ne 30 mg dailyBS all 80-100, continue to follow BID. Not sure why he is on both glyburide and glipizide? Hypothyroidism 25608718 E03.8 Continue levothyrox ine 137 mcg daily, TSH prn. Hyperlipidemia 48059038 E78.2 Continue atorvastat in 40 mg daily and ASA 81 mg daily Constipation 08206055 K5 9.03 Had good BMs yest. Follow, Continue docusate sodium BID and add miralax. Eruption 888391039 R21 looks like it was a scratch that had a rxn. No sxs, follow [id number] Sheng Rosado [address] [address] 07/08/2017 09:57:40 07/11/2017 14:45:10 Cavovarus deformity of foot 468369169 Q66.1 Therapy has progressed very well. Pt has outpatient follow up with surgeon on July 17. Has not been taking pain medication s. Will follow up with PCP within 7 days of discharge Charcot-Ma harry-Tooth disease, type IA 01896485 G60.0 Hx of Charcot-Ma harry-Tooth, as above Essential hypertension 77029316 I10 Good control on losartan 25 mg daily, follow up as outpatient Diabetes mellitus 760865 09 E11.9 Has had good control on metformin 1000 mg daily, glipizide 10 mg BID, glyburide 5 mg BID and pioglitazo ne 30 mg dailyFollo w up as outpatient Hypothyroidism 46271513 E03.8 levothyrox ine 137 mcg qdfollow up as outpatient Hyperlipidemia 36897987 E78.2 atorvastat in 40 mg qdASA 81 mg qd [id number] Jerilyn Devlin NP [facility] [address] [address] 01/08/2025 08:42:14 01/12/2025 09:21:05 Essential hypertension 49217648 I10 Good controlmon itor Diabetes mellitus 326590 09 E11.9 metformin 1000 mg bidozempic 2mg sc monthlyjar diance 25 mg po qdmonitor prn Hypothyroidism 44852114 E03.8 levothyrox ine 125 mcg qdtsh prn Hyperlipidemia 26540723 E78.2 atorvastat in 40 mg qdASA 81 mg qdmonitor Charcot-Ma harry-Tooth disease, type IA 79535316 G60.0 Hx of Charcot-Ma harry-Toothm onitor Constipation 00813677 K5 9.00 miralax qd prnlactulo se 15 ml prnhouse bowel protocolmo nitor Mixed anxi ety and depressive disorder 276359759 F41.8 duloxetine 30 mg po bidtrazodo ne 100 mg po qhsmonitor Insomnia 221656376 G47.0 0 melatonin 6 mg po qhsmagnesi um oxide 400 mg po qhsmonitor Anemia 124651131 D64.9 ferrous sulfate 324 mg po qod Environmental allergy 42 3014145 T78.49XD hx ofpt reports no sob or other resp hxalbutero l inh 2 puffs prn q 4 hoursfluti sasone 50 mcg qd prnmonitor Orthostati c hypotension 90258881 I95.1 seems orthostati c hypotensio n with syncopal episode resolved with fluidsTEDS on in am off in pmPT OT eval and treat for conditioni ng and strengthen ingwalker recmonitor orthostati c bp qd x 2 weeks, doc in pcccbc and bmp on wed x3 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 Recurrent falls 29317437 2 R29.6 hx of syncope and fallspt ot eval and treatsuppo rtive [facility] monitor [id number] Delta Mancuso MD [facility] [address] [place] [address] 01/11/2025 11:33:13 01/14/2025 11:24:12 Orthostatic hypotension 81363678 I95.1 question orthostati c syncopemon [facility] mg tidmonitor need to titrate Essential hypertension 89681632 I10 off bp meds now in midodrinem onitor need to titrate Diabetes mellitus 765369 09 E11.9 stable on out patient medication scontinued Hypothyroidism 17403806 E03.8 synthroid 125 mcg qdtsh prn Hyperlipidemia 95446490 E78.2 lipitor 40 mg qdcontinue d Charcot-Ma harry-Tooth disease, type IA 41505412 G60.0 added to PMH Constipation 53073990 K5 9.09 bowel protocolmo nitor for effect Insomnia 586300682 G47.0 0 continue melatoninm onitor need to adjust dose Recurrent falls 25972030 2 R29.6 PT OT Eval and treatmonit or fall risk and need for increased support in community [id number] CLEMENT BRUNO NP [facility] [address] [place] [address] 01/12/2025 15:17:04 01/14/2025 11:33:20 Orthostatic hypotension 56472549 I95.1 BP remains soft, but asymptomat ic at this time.Reass ured nursing current VS are ok, but need to continue to monitor.Co ntinue midodrine 5 mg tid - monitor need to increase dosing Recurrent falls 33315120 2 R29.6 PT OT Eval and treatCurre ntly working with therapy, goal is to return home.monit or fall risk and need for increased support in community Essential hypertension 67128241 I10 off bp meds, now in midodrineB P soft but not ctically low at this time.Monit or VS, sx. closely, adjust meds prn Diabetes mellitus 508665 09 E11.9 stable on glucophage 1000 mg bid and empagliflo zin 25 mg qdmonitor BS prn Hypothyroidism 67815459 E03.8 Continue synthroid 125 mcg qdtsh prn Hyperlipidemia 68200338 E78.2 Continue lipitor 40 mg qd Charcot-Ma harry-Tooth disease, type [place] 26795528 G60.0 added to PMH Constipation 77095575 K5 9.09 utilize bowel protocol prnschedul e laxatives if neededmoni tor Insomnia 132347020 G47.0 0 continue melatoninm onitor need to adjust dose [id number] CLEMENT BRUNO NP [facility] [address] 01/20/2025 14:54:14 01/21/2025 11:17:46 Orthostatic hypotension 08407468 I95.1 BP remains soft, but asymptomat ic at this time.Ayesha nue midodrine 5 mg tid - monitor need to increase dosingLabs stable. Recurrent falls 31731807 2 R29.6 PT OT Eval and treatCurre ntly working with therapy, goal is to return home.monit or fall risk and need for increased support in community Essential hypertension 46069569 I10 off bp meds, now in midodrine as above.BP soft but not ctically low at this time.Monit or VS, sx. closely, adjust meds prn Diabetes mellitus 872657 09 E11.9 stable on glucophage 1000 mg bid and empagliflo zin 25 mg qdmonitor BS prn Hypothyroidism 34737217 E03.8 Continue synthroid 125 mcg qdtsh prn Hyperlipidemia 97739958 E78.2 Continue lipitor 40 mg qd Charcot-Ma harry-Tooth disease, type IA 38134083 G60.0 added to PMH Constipation 17284616 K5 9.09 Schedule miralax 17 gm dailyMonit or bowels, adjust meds prn Insomnia 967414119 G47.0 0 continue melatoninm onitor need to adjust dose [id number] CLEMENT BRUNO NP [facility] [address] [address] 01/27/2025 15:10:28 01/28/2025 14:17:39 Orthostatic hypotension 53812547 I95.1 BP remains soft; asymptomat icContinue midodrine 5 mg tid - monitor need to increase dosingLabs stable. Constipation 29732728 K5 9.09 Scheduled miralax 17 gm dailyMonit or bowels, adjust meds prn Recurrent falls 54276255 2 R29.6 PT OT Eval and treatCurre ntly working with therapy, goal is to return home.monit or fall risk and need for increased support in community Essential hypertension 20521880 I10 off bp meds, now in midodrine as above.BP soft, monitor need to adjust medsMonito r VS, sx. closely, adjust meds prn Diabetes mellitus 998230 09 E11.9 stable on glucophage 1000 mg bid and empagliflo zin 25 mg qdmonitor BS prn Hypothyroidism 11007356 E03.8 Continue synthroid 125 mcg qdtsh prn Hyperlipidemia 65624398 E78.2 Continue lipitor 40 mg qd Charcot-Ma harry-Tooth disease, type IA 33734604 G60.0 added to PMH Insomnia 169400926 G47.0 0 continue melatoninm onitor need to adjust dose [id number] CLEMENT BRUNO NP [facility] [address] 02/03/2025 10:39:49 02/05/2025 14:40:43 Orthostatic hypotension 07148208 I95.1 BP remains soft; asymptomat icContinue midodrine 5 mg tid - monitor need to increase dosingLabs remaining stable. Constipation 37230397 K5 9.09 Continue miralax 17 gm daily, working well.Monit or bowels, adjust meds prn Recurrent falls 14867219 2 R29.6 Continue PT OTMonitor VS/orthost asisGoal is to return home.monit or fall risk and need for increased support in community Essential hypertension 46825924 I10 off bp meds, now in midodrine 5 mg tid as above.mait ain hydrationB P soft, monitor need to adjust medsMonito r VS, sx. closely, adjust meds prn Diabetes mellitus 086705 09 E11.9 stable on glucophage 1000 mg bid and empagliflo zin 25 mg qdmonitor BS prn Hypothyroidism 23796506 E03.8 Continue synthroid 125 mcg qdtsh prn Hyperlipidemia 27193913 E78.2 Continue lipitor 40 mg qdLFTs, lipid panel prn Charcot-Ma harry-Tooth disease, type IA 83206494 G60.0 added to PMH Insomnia 305464230 G47.0 0 continue melatoninm onitor need to adjust dose [id number] Jerilyn Devlin NP [facility] [address] [place] [address] 02/10/2025 07:50:41 02/15/2025 08:47:02 Orthostatic hypotension 94282600 I95.1 BP remains soft/boder lineContin ue midodrine 5 mg tid - monitor need to increase dosing, hold bp >110 systolic (script sent)fu with pcp outpt Constipation 50268638 K5 9.09 Continue miralax 17 gm daily, working well.Monit or bowels, adjust meds prn outpt with pcp Recurrent falls 91441131 2 R29.6 Continue PT OT prn outptGoal is to return home.monit or fall risk and need for increased support in communitym onitor outpt with pcp Essential hypertension 72643810 I10 off all bp meds for soft bpnow in midodrine 5 mg tid as above.main tain hydrationm onitor outpt with pcp Diabetes mellitus 087467 09 E11.9 stable on glucophage 1000 mg bid and empagliflo zin 25 mg qdmonitor BS prn outpt and fu with pcp Hypothyroidism 95934935 E03.8 Continue synthroid 125 mcg qdtsh prn outpt with pcp Hyperlipidemia 46614648 E78.2 Continue lipitor 40 mg qdLFTs, lipid panel prn outpt with pcp Insomnia 890622273 G47.0 0 continue melatoninm onitor need to adjust dose outpt with pcp Health Concerns Section Related Observation LastModified by Organization Detai ls LastModified Time None Recorded Concern Status LastModified by Organization Details LastModified Time None Recorded Advance Directives Directive Y: Payers Encounter Date Sequence Insurance Name Policy Number Policy Delatorre Covered Member ID Delatorre Member ID Guarantor Name 01/12/2025 2 [place] [facility] [id number] Sy Arroyo 01/12/2025 1 [facility] - DOS ON OR AFTER 2023 - MED[place]ARE [place]AGE [place]ANTAGE - PPO) Sy Arroyo [id number] Sy Arroyo 01/20/2025 2 [place] [facility] Sy Arroyo [id number] Sy Arroyo 01/20/2025 1 [facility] CARE [facility]IANCE - DOS ON OR AFTER 2023 - [place]ANT[place] - PPO) Sy Davison [id number] Sy Nguyễnderon 01/27/2025 2 [place] [facility] Sy Nguyễnderon [id number] Sy Nguyễnderon 01/27/2025 1 [facility] - DOS ON OR AFTER 2023 - [place]ANT[place] - PPO) Sy Nguyễnderon [id number] Sy Nguyễnderon 02/03/2025 2 [place] [facility] Sy Nguyễnderon [id number] Sy Nguyễnderon 02/03/2025 1 [facility] ALL[facility]ANCE - DOS ON OR AFTER 2023 - [place] - PPO) Sy Nguyễnderon [id number] Sy Nguyễnderon 02/10/2025 2 [place] [facility] Sy Nguyễnderon [id number] yS Nguyễnderon 02/10/2025 1 [facility] ALL[facility]ANCE - DOS ON OR AFTER 2023 - [place]AC[place] VANTAGE - PPO) Sy Nguyễnderon [id number] Sy Arroyo Notes Date Note Type Note [...] 18htnanxiety / depression CLEMENT BRUNO NP [address] [facility] [address] [facility], [address], [place], [address], [facility] 01/13/2025 12:18:06 5 text/htm laura Dan [...] 18htnanxiety / depression CLEMENT BRUNO NP [address] [facility] [address], [address], [place], [address], [facility] 01/20/2025 15:06:17 5 text/htm laura Dan [...] 18htnanxiety / depression CLEMENT BRUNO NP [address] [facility] [address], [address], [place], [address], [facility] [employer] 01/27/2025 15:16:34 5 text/htm laura Dan [...] 18htnanxiety / depression CLEMENT BRUNO NP [address] [facility] [address], [address], [place], [address], [facility] [employer] 02/03/2025 12:32:27 5 text/htm laura Pt is seen for a discharge summary. PMH significant for hld, hypothyroidism, DM, htn, Charcot Dionne Tooth disease, depression/anxiety, blind in right eye Sy is a 66 yo male admit from hospital with hx above who presented [place] [facility] [place] a syncopal episode on 01/04/25-01/06/25 felt [...] scripts from hospital sent already. Since at [facility] he has worked with therapy and making progress. Overall, BP boderline low but stable. He was started on midodrine 5 mg po tid with decrease in dizziness while here. On exam, Sy is in the activity room in [facility]. He denies any acute concerns or lightheadedness, dizziness, or chest pain. He will need to fu with his pcp outpt in 1-2 weeks. MOLST: DNR/DNI/okay to transfer to [facility], dialysis and ivf hydration, no art feedings signed on 01/08/25 Jerilyn Devlin NP [address] [place] [address], [address], [place], [address], [facility] 02/10/2025 19:21:24
--- OUTSIDE RECORDS SUMMARY | 2025-03-09 19:07 | XMS_ITS | Encounter Summary ---
Author Organization [employer] Address [address] [facility] [address] [place] [address] Care Team Providers Care Nut Sorter Operator Name Role Phone Rose Mary Pimentel Primary Care Provider [phone] Reason for Visit * Reason Onset Date Comments FYI 03/20/2024 Encounter Details Date Type Department Care Team ([facility] Contact Info) Description 03/20/2024 Telephone [facility] [address], [place] [id number] Rose Mary Pimentel FNP [address] [place] [address] FYI Social History Tobacco Use Types Packs/Day [...] - 03/20/2024 11:13 AM EDT Tc from [facility] with [facility] calling to advise provider they no longer dispense diabetic shoes and recommends POS. documented in this encounter Plan of Treatment Not on file documented as of this encounter Visit Diagnoses Not on filedocumented in this encounter Additional Health Concerns Assessment Noted Time PHQ-9 Depression Total Score: 7 10/23/20 23 12:27 PM EST documented as of this encounter Care Teams Nut Sorter Operator Relationship Specialty Start Date End Date Rose Mary Pimentel FNP [address] [place] [address] PCP - General Family Medicine 07/15/22 [facility] 09/05/22 documented as of this encounter
--- OUTSIDE RECORDS SUMMARY | 2025-03-09 19:07 | XMS_ITS | Encounter Summary ---
Author Organization [employer] Address [address] [facility] [address] [place] [address] Care Team Providers Care Plier Worker Name Role Phone Rose Mary Pimentel Primary Care Provider [phone] Encounter Details Date Type Department Care Team ([facility] st Contact Info) Description 12/11/2022 Orders Only [facility] [address] [place] [address] Helen Veliz LPN Social History Tobacco Use [...] on filedocumented in this encounter Care Teams Plier Worker Relationship Specialty Start Date End Date Rose Mary Pimentel FNP [address] [place] [address] PCP - General Family Medicine 07/15/22 [facility] 09/05/22 documented as of this encounter
--- OUTSIDE RECORDS SUMMARY | 2025-03-09 19:07 | XMS_ITS | Encounter Summary ---
Author Organization [employer] Address [address] [place] [address] Care Team Providers Care Veterans Service Representative Name Role Phone Rose Mary Pimentel Primary Care Provider Reason for Visit * Reason Onset Date Comments Nurse Triage 03/05/2025 Encounter Details Date Type Department Care Team ([facility] st Contact Info) Description 03/05/2025 Telephone [facility] [address] [place] [address] Rose Mary Pimentel FNP [address] [place] [address] Nurse Triage Social History Tobacco Use Types Packs/Day Years [...] encounter Miscellaneous Notes * Telephone Encounter - Alejandra Veliz RN - 03/09/2025 8:10 AM EDT Message below noted from triage nurse. Pt. Will be coming into walk in on 03/09/25 around 10am * Telephone Encounter - Elizabeth Jay RN - 03/05/2025 3:56 PM EDT Called pt. A Nurse Jimenez. Nurse went to visit pt. Today and pt. Told nurse that he felt dizzy yesterday and fell but did not injure self. Pt is on new medication Midodrine 5mg Three times a day forlow BP according to A nurse. A nurse is requesting an order for a Automatic BP machine so that when pt. Is feeling dizzy, he can take his BP and keep a record so that they can monitor causes of dizziness. Will submit this request to PCP or covering provider. Called pt. [employer] medical coding technician Karen [phone]. Pt. States that he was going to the bathroom and he felt dizzy and layed on the floor on his buttocks. No loss of consciousness. Pt did hit his buttockson floor but is denying pain. Pt. States that he has a wrist BP cuff and I told pt. That I want himto check his BP with that every time he gets dizzy. Now pt. States that he needs a new BP cuff. I advised pt. That I am going to call his ROOFING SALES REPRESENTATIVE so that we can have him come in for an appt to FU. Pt agrees with plan. Called pt. ROOFING SALES REPRESENTATIVE Christopher. She states that pt. Was NOT dizzy when he fell yesterday and that [facility] nurse takes his BP and it is always normal. ROOFING SALES REPRESENTATIVE thinks pt. Needs more Physical Therapy due to weakness not dizziness. ROOFING SALES REPRESENTATIVE also requesting an Automatic BP cuff so that pt. And her can measure pt's. Blood p ressure when [facility] nurse not there, ROOFING SALES REPRESENTATIVE is also requesting PT-1 forms to be generated for pt. Appts due to her car is broken right now and pt. Has a lot of upcoming follow up appts and she needs transportation for him right night due to her car being broken. I made arrangements for an Uber to pick upPCA and Pt. To come into [facility] walk in on 04/08/25 at 10am per ROOFING SALES REPRESENTATIVE request for time to meet these needs that pt. Has and assess new medication that was prescribed for low BP. Advised to have pt. Drink more water to stay hydrated throughout the day. I will send this note to [facility] walk in nurses to be aware that pt. Is coming into walk in on 03/09/25 at 10am so that they can be prepared to get the ball rolling on some of these needs. I will send note to front office secretary as well. Protocol Used: Weakness (Generalized) and Fatigue (Adult) Protocol-Based Disposition: See in Office in walk in on 03/09/25 Positive Triage Questions: * Moderate weakness (e.g., interferes with work, school, normal activities) and persists > 3 days * Taking a medicine that could cause weakness (e.g., blood pressure medications, diuretics) * Weakness is a chronic symptom (recurrent or ongoing AND lasting > 4 weeks) * All higher-acuity triage questions were negative * Telephone Encounter - Margaret Urias - 03/05/2025 3:55 PM EDT Symptom: Fall Outcome: Schedule an urgent appointment (within 1 hour) or talk to a nurse or provider soon Reason: Happened within the past 24 hours The caller accepted this outcome. For any question contact Nurse Jimenez at [phone] documented in this encounter Plan of Treatment Not on file documented as of this encounter Visit Diagnoses Not on filedocumented in this encounter Additional Health Concerns Assessment Noted Time PHQ-9 Depression Total Score: 7 10/23/20 23 12:27 PM EST documented as of this encounter Care Teams Veterans Service Representative Relationship Specialty Start Date End Date Rose Mary Pimentel FNP [address] [place] [phone] PCP - General Family Medicine 07/15/22 [facility] 09/05/22 documented as of this encounter
--- OUTSIDE RECORDS SUMMARY | 2025-03-09 19:07 | XMS_ITS | Clinical Summary ---
Author Organization [employer] Address [address] [facility] [address] [place] [address] Care Team Providers Care Manager Operations And Procurement Name Role Phone Rose Mary Pimentel YONAS Primary Care Provider [phone] Allergies Active Allergy Reactions Criticality Noted Date [...] 023 Active Blood Glucose Monitoring Suppl (FreeStyle [place] Lite) w/Device kit TEST BLOOD SUGAR ONCE DAILY 022 Active TRUEplus Lancets 33G miscIndications :Type 2 diabetes mellitus with other specified complication, without long-term current use of insulin ([facility]) 1 each 2 times daily. 100 each 11 023 Active Ventolin HFA 108 (90 Base) MCG/ACT inhalerIndicati ons:COVID-19 virus infection INHALE 2 PUFFS EVERY 4 HOURS NEEDED FOR WHEEZING OR SHORTNESS OF BREATH. 18 g 1 023 Active Desitin Rapid Relief 13 % cream 023 Active naloxone (Narcan) 4 mg/0.1 mL nasal spray FOR SUSPECTED OPIOID OVERDOSE. SPRAY 0.1mL IN ONE NOSTRIL. REPEAT IN ALTERNATE NOSTRIL 2-3 MINUTES IF NEEDED. SEEK MEDICAL ATTENTION IMMEDIATELY EVEN IF PATIENT RESPONDS. Active melatonin 3 MG tablet TAKE 2 TABLETS BY MOUTH EVERY DAY AT BEDTIME 180 tablet 3 Active FREESTYLE LITE test strip TEST BLOOD SUGAR TWICE DAILY 50 strip 11 Active Alcohol Swabs (Alcohol Prep) 70 % padsIndications :Type 2 diabetes mellitus with other specified complication, without long-term current use of insulin (CMS/HCC) USE TWICE DAILY DIRECTED 100 each 11 Active empagliflozin (Jardiance) 25 MG TAKE 1 [...] EVERY MORNING BEFORE BREAKFAST 90 tablet 3 Active ammonium lactate (Amlactin) 12 % creamIndication s:Xerosis of skin Apply a thin layer to bilateral heels daily before putting on socks. Use: dry skin 385 g 3 Active econazole nitrate 1 % creamIndication s:Tinea pedis of both feet Apply topically 2 times daily. Apply to affected area between toes x 2-4 weeks. 30 g 2 024 2024 Active Semaglutide, 2 MG/DOSE, (Ozempic, 2 MG/DOSE,) 8 MG/3ML solution pen-injectorInd ications:Type 2 diabetes mellitus with other specified complication, without long-term current use of insulin (CMS/HCC) Inject 0.75 mL (2 mg) under the skin 1 (one) time per week. 3 mL 3 Active doxepin (SINEquan) 10 MG capsuleIndicati ons:Sleep difficulties Take 1 capsule (10 mg) by mouth at bedtime. 90 capsule 1 025 2025 Active Additional Information Patient not taking.Reported on 03/03/2025 traZODone (Desyrel) 100 MG tabletIndicatio ns:Depression, unspecified depression type TAKE 1 TABLET BY MOUTH AT BEDTIME NEEDED FOR SLEEP 90 tablet 1 Active Additional Information Patient not taking.Reported on 03/03/2025 ferrous gluconate (Fergon) 324 (38 Fe) MG tablet TAKE 1 TABLET BY MOUTH EVERY OTHER DAY IN THE MORNING 45 tablet 1 Active hydrOXYzine HCl (Atarax) 10 MG tablet TAKE 1 TABLET BY MOUTH AT BEDTIME NEEDED (for itching) OR FOR ANXIETY 90 tablet 3 Active Additional Information Patient not taking.Reported on 03/03/2025 midodrine (Proamatine) 5 MG tablet Take 1 tablet by mouth 3 times daily. Active aspirin (Aspirin Low Dose) 81 MG EC tablet TAKE 1 TABLET BY MOUTH EVERY MORNING 90 tablet 3 Active atorvastatin (Lipitor) 40 MG tablet TAKE 1 TABLET BY MOUTH AT BEDTIME 90 tablet 3 Active DULoxetine (Cymbalta) [address] capsule Take 2 capsules (60 mg) by mouth every morning and 1 capsule (30 mg) every evening Active aspirin (Aspirin Low Dose) 81 MG EC tablet TAKE 1 TABLET BY MOUTH EVERY MORNING 90 tablet 3 024 2024 Discontinued atorvastatin (Lipitor) 40 MG tablet TAKE 1 TABLET BY MOUTH AT BEDTIME 90 tablet 3 024 2024 Discontinued camphor-Menthol -Methyl Torsten 4-10-30 % creamIndication s:DDD (degenerative disc disease), lumbar Apply thin layer by topical route to affected area 2 times daily as needed for muscle pain 60 g 2 024 2024 Discontinued(M ed list cleanup (will not trigger notification to Pharmacy)) lactulose (Chronulac) 10 GM/15ML solutionIndicat ions:Constipati on, unspecified constipation type TAKE 15 ML BY MOUTH EVERY DAY NEEDED FOR CONSTIPATION 150 mL 024 2024 Discontinued(M ed list cleanup (will not trigger notification to Pharmacy)) Ozempic, 1 MG/DOSE, 4 MG/3ML solution pen-injector Inject 1 MG SUBCUTANEOUSLY EVERY 7 DAYS IN THE ABDOMEN, THIGHS OR UPPER ARM. ROTATE INJECTION SITES. 3 mL 5 024 2024 Discontinued(D uplicate order (will not trigger notification to Pharmacy)) mupirocin (Bactroban) 2 % ointmentIndicat ions:Abrasion Apply topically 3 times daily as needed for up to 10 days for infection prevention 22 g 1 025 2024 Discontinued(M ed list cleanup (will not trigger notification to Pharmacy)) DULoxetine (Cymbalta) [address] capsuleIndicati ons:Depression, unspecified depression type TAKE 1 CAPSULE BY MOUTH TWICE DAILY IN THE MORNING AND IN THE EVENING 60 capsule 5 025 2024 Discontinued(M ed list cleanup (will not trigger notification to Pharmacy)) Active [...] maintenance 03/08/2024 Overview (11/15/2024): Optometry: RAFAEL at [facility] 01/15/24. No diabetic retinopathy or macular edema of left eye. Dental: [facility] Dental Colonoscopy: scheduled February 2025 Intermittent urinary incontinence 03/08/2024 Assessment & Plan (07/12/2024 4:53 PM EDT): DME item request sent 07/12/24: reusable incont pads Assessment & Plan (03/08/2024 7:17 AM EDT): Refill of the following DME requested 03/08/24: pull ups (size medium), wipes, incont pads DDD (degenerative disc disease), lumbar 10/23/20 Overview (07/12/2024): Following with [facility] Pain Management CT Lumbar Spine w/o contrast [...] kidney 10/22/2023 Overview (10/22/2023): ? ? 05/13/23: [facility] Urology for evaluation of left renal cyst. 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 No follow up imaging needed, but will eval the PSA ? ? 06/12/23: [facility] Urology Dr. Martinez. exophytic cyst in the left upper pole of the kidney. 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 2x1cm pink/skin-colored papule of right ear ?? Evaluated by [facility] Derm team on 06/15/22 and diagnosed as [...] EDT): Pt interested in re-eval, re-referred to [facility] Derm team on 07/04/23 Depression 03/24/2023 Assessment & Plan (11/15/2024 9:11 PM EST): Continues with dysphoric mood and daily episodes of sadness. Endorsing hopeless and question of purpose of living, but no active plan for SI/HI/thoughts of self harm Companionship at home, as well as [employer] 20 hours per week Pt reports Depression still present. Denies SI Continues with current med regimen: Trazodone 100mg at bedtime Cymbalta 30mg BID Continue hydroxyzine 10mg at bedtime BE conducted by Dr. Mccloud in March 2023 Pt denies any safety concerns, not interested in BE today Continue following with mental health team Continue with [employer]/companionship (protective factors) Safety/crisis info reviewed Assessment & Plan (07/07/2023 10:40 AM EDT): ?? Continues with dysphoric mood and daily episodes of sadness. Endorsing hopeless and question of purpose of living, but no active plan for SI/HI/thoughts of self harm ?? Companionship at home, as well as [employer] 20 hours per week ?? Pt reports Depression still present. Denies SI ?? Continues with current med regimen: ?? Trazodone 100mg at bedtime ?? Cymbalta 30mg BID ?? Continue hydroxyzine 10mg at bedtime BE conducted by Dr. Mccloud in March 2023 Pt denies any safety concerns, not interested in BE today Continue following with mental health team Continue with [employer]/companionship (protective factors) Safety/crisis info reviewed Assessment & Plan (03/28/2023 1:36 PM EDT): ?? Continues with dysphoric mood and daily episodes of sadness. Endorsing hopeless and question of purpose of living, but no active plan for SI/HI/thoughts of self harm ?? Companionship at home, as well as [employer] 20 hours per week ?? Pt reports [...] to 2mg subcutaneous weekly. Optometry: RAFAEL at [facility] 01/15/24. No diabetic retinopathy or [...] to 2mg subcutaneous weekly. Optometry: RAFAEL at [facility] 01/15/24. No diabetic retinopathy or [...] sufficient, consider medication changes. Optometry: RA[facility]EL at [facility] 01/15/24. No diabetic retinopathy or [...] </= 8.0%, above goal Optometry: RAFAEL at [facility] 01/15/24. No diabetic retinopathy or [...] (11/28/2023 9:45 AM EST): ?? Referred to sap director - Eye and Las[facility] in February 2023 (referral previously placed for [facility] in Sep 2022) ?? Reports missed appt and unable to be seen by office. Requesting referral to [facility]. Advised there are some limitations in services our office is able to provide, but may have consult for RAFAEL right eye. 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 Provided praise around reaching out to [facility] for support to access care. We discussed possible treatment alternatives (such as OP therapy). Additionally, we explored behavioral activation activities such as short walks and engaging on small social interactions with roommate and neighbors. Sy was receptive and open to presented skills, as well as to OP therapy referral. Patient will benefit from individual outpatient therapy to mangmarisela sxs, process complex grieving process through CBT and ACT frames. 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 Willingness to seek and engage in Op therapy to manage sxs. PLAN: 1. Follow up with [facility]: Recommended for follow-up: On next [facility] medical appt. 2. Patient goal is Decrease depressive mood 3. Behavioral Recommendations a. Sy will continue reaching out to [facility] for support to access care (like crisis or connecting to [facility] staff. b. Sy agreed to try engaging in behavioral activation such as short walks at least once a day. c. Sy agreed to referral for individual outpatient therapy to mange sxs, process complex grieving process through CBT and ACT frames. d. He will continue taking prescribed medication for depression and sleep as prescribed by PCP> Complex grief disorder lasti ng longer than 12 months 04/05/2023 07/12/2024 Assessment & Plan (04/05/2023 2:41 PM EDT): Assessment: Patient with previous hx and tx of depression and recent inpatient stay Hospitalized [facility] from 01/31 - 3/24 for depression and SI. Additionally, reports visual [...] increased. Provided praise around reaching out to [facility] for support to access care. We discussed possible treatment alternatives (such as OP BH therapy). Additionally, we explored behavioral activation activities such as short walks and engaging on small social interactions with roommate and neighbors. Sy was receptive and open to presented BH skills, as well as to OP Bh therapy referral. Patient will benefit from individual outpatient therapy to tracy sxs, process complex grieving process through CBT [...] Strengths include Social and medical support from [facility] and [facility] care team. Willingness to seek and engage in Op BH therapy to manage sxs. PLAN: 1. Follow up with [facility]: Recommended for follow-up: On next [facility] medical appt. 2. Patient goal is Decrease depressive mood 3. Behavioral Recommendations a. Sy will continue reaching out to [facility] for support to access care (like crisis or connecting to [facility] BH staff. b. Sy agreed to try engaging in behavioral activation such as short walks at least once a day. c. Sy agreed to referral for individual outpatient therapy to tracy sxs, process complex grieving process through CBT and ACT frames. d. 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 07/12/20 24 Encounters Date Type Department Care Team Description 03/09/2025 10:00 AM EDT Office Visit [facility] [address] [place] [phone] Blue Sue MD Falling (Primary Dx) 03/09/2025 Orders Only GENERIC EXTERNAL DATA DEPARTMENT Provider, Generic External Data 03/09/2025 Travel 03/05/2025 Telephone [facility] [address] [place] [phone] Rose Mary Pimentel FNP Nurse Triage 03/04/2025 Telephone [facility] [address] [place] [phone] Rose Mary Pimentel FNP chartprep 03/01/2025 Patient Outreach [facility] [address] [place] [phone] Rose Mary Pimentel FNP Transition Of Care (Tcm) (HDF scheduled) 02/25/2025 Telephone [facility] OPTOMETRY [address] [place] [address] [phone] Jesus, Raissa, OD 02/25/2025 Orders Only [facility] OPTOMETRY [address] [place] [address] [phone] Jesus, Raissa, OD Prosthetic eye globe (Primary Dx) 02/23/2025 Refill [facility] [address] [place] [phone] Rose Mary Pimentel FNP 02/22/2025 Telephone [facility] [address] [place] [address] Rose Mary Pimentel FNP No Show 02/15/2025 Telephone [facility] [address] [place] [phone] Rose Mary Pimentel FNP Durable Medical Equipment 02/10/2025 Patient Outreach [facility] [address] [place] [address] Rose Mary Pimentel FNP Transition Of Care (Tcm) (HDF scheduled.) 01/31/2025 Refill [facility] [address] [place] [phone] Rose Mary Pimentel FNP 01/28/2025 Refill [facility] [address] [place] [phone] Rose Mary Pimentel FNP Depression, unspecified depression type 01/22/2025 Telephone [facility] [address] [place] [address] Rose Mary Pimentel FNP No Show 01/22/2025 Telephone [facility] [address] [place] [address] Edison Donaldson MA Chart Prep 01/08/2025 Patient Outreach [facility] [address] [place] [phone] Rose Mary Pimentel FNP Transition Of Care (Tcm) (HDF- unscheduled patient transferred to Rehab) 01/05/2025 Telephone [facility] [address] [place] [phone] Rose Mary Pimentel FNP FYI 01/04/2025 Orders Only [facility] External Provider, [facility] 12/21/2024 Refill [facility] [address] [place] [address] Rose Mary Pimentel FNP Depression, unspecified depression type 12/11/2024 11:00 AM EST Office Visit [facility] [address] [place] [address] Rose Mary Pimentel FNP Sleep difficulties (Primary Dx); Type 2 diabetes mellitus with other specified complication, without long-term current use of insulin ([facility]); Abrasion; Anemia, unspecified type 12/11/2024 Travel 12/10/2024 Telephone [facility] [address] [place] [address] Edison Donaldson MA Chart Prep from Last 3 Months Immunizations Name Administration [...] 6.4 oz) 03/09/2025 10:00 AM EDT Height 167.6 cm (5' 6 ) 12/11/2024 11:17 AM EST Body Mass Index 27.83 12/11/2024 11:17 AM EST Plan of Treatment Health Maintenance Due Date Last Done Comments [...] Additional history exists SDOH Screening 11/09/2025 11/09/2024 Eye Exam 01/15/2026 01/15/2024, 12/20, 01/15/2024, Additional history exists Tobacco Screening 03/09/2026 03/09/2025 DTaP/Tdap/Td Vaccines (5 - Td or Tdap) [...] TROPONIN I Routine 03/09/2025 11:58 AM EDT CREATINE KINASE, TOTAL Routine 11:58 AM EDT COMPREHENSIVE METABOLIC PANEL Routine 03/09/2025 11:58 AM EDT CBC WITH AUTO DIFFERENTIAL Routine 03/09/2025 11:58 AM EDT XR LUMBAR SPINE 2-3 VIEWS Routine 03/09/2025 11:[address] SINUS FACIAL BONES WO CONTRAST Routine [...] complication, without long-term current use of insulin (CMS/HCC) POCT GLYCATED HEMOGLOBIN, TOTAL Routine 11/09/2024 12:21 PM EST Type 2 diabetes mellitus with other specified complication, without long-term current use of insulin (CMS/HCC) Full PROPHYLAXIS - ADULT Routine 03/16/2024 11:00 AM EDT Periodontal disease Dental caries PERIODIC ORAL EVALUATION - ESTABLISHED PATIENT Routine 03/16/2024 11:00 AM EDT Periodontal disease Dental caries LIPID PANEL, STANDARD Routine 07/17/2023 9:36 AM EDT Type 2 diabetes mellitus with other specified complication, without long-term current use of insulin (CMS/HCC) ALBUMIN, RANDOM URINE W/CREATININE Routine 07/17/2023 8:36 AM EDT Type 2 diabetes mellitus with other specified complication, without long-term current use of insulin ([facility]/HCC) PANORAMIC RADIOGRAPHIC IMAGE Routine 09/10/2013 12:00 AM EDT from Last 3 Months or Most Recently Relevant to Health Maintenance Results * CT Head w/o Contrast (03/09/2025 12:30 PM EDT) Only the most recent of2 resultswithin the time period is included. Anatomical Region Laterality Modality Head, Neck Computed Tomogra phy 03/09/2025 12:3 0 PM EDT Narrative 03/09/2025 12:49 PM EDT ? [facility] ?[address] ?[place] [address] ? CT Scan Report ? Signed ? Patient: Sy Arroyo ?MR#: [id number] ?? [id number] ? : 1950 ?Acct:[id number] ? Age/Sex: 74 / M ?ADM Date: 03/09/25 ? Loc: HO.ED ? Attending Dr: ? Ordering Physician: Onofre Cheng ?? Date of Service: 03/09/25 ?? Procedure(s): CT head/brain wo IV con ?? Accession Number(s): [id number] ? cc: Onofre Cheng; Rose Mary Pimentel ACCOUNT COORDINATOR ? Report Number: ?? [id number]: Total DLP = ?0.00 mGy-cm ?? EXAMINATION: [...] inflammatory changes. ? Electronically signed by: ??Gerard Wood MD ??03/09/2025 12:46 PM EDT RP ? Dictated By: ?Gerard Wood MD ? Signed By: ?<Electronically signed by Gerard Wood MD in OV> ?03/09/25 1246 ? DD/ 1230 ? TD/TT: 03/09/25 1230 ? Gun Striper: MSM ? Procedure Note Leia Hagan - 03/09/[address] [place] [id number] [address] Scan Report Signed Patient: Sy Arroyo LMR#: [id number] : 1950Acct:[id number] Age/Sex: 74 / MADM Date: 03/09/25 Loc: HO.ED Attending Dr: Ordering Physician: Onofre Cheng Date of Service: 03/09/25 Procedure(s): CT head/brain wo IV con Accession Number(s): [id number] cc: Onofre Cheng; Rose Mary Pimentel ACCOUNT COORDINATOR Report Number: [id number]: Total DLP = 0.00 mGy-cm EXAMINATION: CT [...] Gerard Wood MD 03/09/2025 12:46 PM EDT Dictated By: Gerard Wood MD Signed By: <Electronically signed by Gerard Wood MD in OV> 03/09/25 1246 DD/ 1230 TD/TT: 03/09/25 1230 Gun Striper: YOBANI [facility] External Provider IMG CT PROCEDURES Final Result * CT Cervical Spine w/o Contrast (03/09/2025 12:13 PM EDT) Only the most recent of2 resultswithin the time period is included. Anatomical Region Laterality Modality Spine, C-spine Computed Tomogra phy 03/09/2025 12:1 3 PM EDT Narrative 03/09/2025 12:58 PM EDT ? [facility] [facility] ?[address] ?[place] [address] ? CT Scan Report ? Signed ? Patient: Arroyo,Rolando ?MR#: [id number] ?? [id number] ? : 1950 ?Acct:[id number] ? Age/Sex: 74 / M ?ADM Date: 03/09/25 ? Loc: HO.ED ? Attending Dr: ? Ordering Physician: Onofre Cheng ?? Date of Service: 03/09/25 ?? Procedure(s): CT cervical spine wo IV con ?? Accession Number(s): [id number] ? cc: Onofre Cheng; Rose Mary Pimentel ACCOUNT COORDINATOR ? Report Number: ?? [id number]: Total DLP = 1418.00 mGy-cm ?? EXAMINATION: [...] 12:55 PM EDT RP ? Dictated By: ?Nina,Gerard Nathan MD ? Signed By: ?<Electronically signed by Gerard Wood MD in OV> ?03/09/25 1255 ? DD/ 1213 ? TD/TT: 03/09/25 1230 ? Gun Striper: YOBANI ? Procedure Note Donnuris, Leia - 03/09/[address] [address] [address] Scan Report Signed Patient: Sy Arroyo LMR#: [id number] : 1950Acct:[id number] Age/Sex: 74 / MADM Date: 03/09/25 Loc: HO.ED Attending Dr: Ordering Physician: Onofre Cheng Date of Service: 03/09/25 Procedure(s): CT cervical spine wo IV con Accession Number(s): [id number] cc: Onofre Cheng; Rose Mary Pimentel ACCOUNT COORDINATOR Report Number: [id number]: Total DLP = 1418.00 mGy-cm EXAMINATION: CT [...] Gerard Wood MD 03/09/2025 12:55 PM EDT RP Dictated By: Gerard Wood MD Signed By: <Electronically signed by Gerard Wood MD in OV> 03/09/25 1255 DD/ 1213 TD/TT: 03/09/25 1230 Gun Striper: YOBANI [facility] External Provider IMG CT PROCEDURES Final Result * High Sensitivity Troponin I (03/09/2025 11:58 AM EDT) Pathologist [facility] TROPONIN I HIGH SENSITIVITY <2.7 <3.5 - 35.0 ng/L [facility] Comment:The [place] high sens itivity Troponin-I results should beused in conjunction with other diagnostic information suchas ECG, clinical observations and information, and patientsymptoms to aid in the diagnosis of NC. 03/09/2025 11:5 8 AM EDT 03/09/2025 12:01 PM EDT Generic External Data Provider LAB BLOOD ORDERAB LES Final Result [facility] [address] [place] [phone] * (ABNORMAL) CBC auto differential (03/09/2025 11:58 AM EDT) White Blood Count 7.6 4.8 - 10.8 X10*3/uL [facility] Red Blood Count 4.06(L) 4.60 - 5.80 X10*6/uL [facility] Hemoglobin 12.4(L) 14.0 - 18.0 g/dl [facility] Hematocrit 37.2(L) 42.0 - 52.0 % [facility] Mean Corpuscular Volume 91.6 80.0 - 98.0 fL [facility] Mean Corpuscular Hemoglobin 30.5 27.0 - 33.0 pg [facility] Mean Corpuscular HGB Conc 33.3 31.0 - 36.0 g/dl [facility] Red Cell Distribution Width 13.4 11.0 - 16.0 % [facility] Platelet Count 263 160 - 400 X10*3/uL [facility] Mean Platelet Volume 9.3(L) 9.4 - 12.4 fL [facility] Neutrophils Percent Auto 60.8 45 - 73 % [facility] Imm Gran Pct Auto 0.3 0.0 - 0.4 % [facility] Lymphocytes Percent Auto 23.2 20 - 40 % [facility] Monocytes Percent Auto 8.0 2 - 11 % [facility] Eosinophils Percent Auto 6.9(H) 0 - 4 % [facility] Basophils Percent Auto 0.8 0 - 2 % [facility] NRBC Pct Auto 0.0 0.0 - 0.2 /100WBC [facility] Neutrophils Absolute Auto 4.6 2.0 - 8.3 x10*3/uL [facility] Imm Gran Abs Auto 0.02 0.00 - 0.03 X10*3/uL [facility] Lymphocytes Absolute Auto 1.8 1.2 - 4.9 X10*3/uL [facility] Monocytes Absolute Auto 0.6 0.1 - 1.2 X10*3/uL [facility] Eosinophils Absolute Auto 0.5(H) 0.0 - 0.4 X10*3/uL [facility] Basophils Absolute Auto 0.1 0.0 - 0.2 X10*3/uL [facility] NRBC Abs Auto 0.000 0.0 - 0.012 X10*3/uL [facility] 03/09/2025 11:5 8 AM EDT 03/09/2025 12:01 PM EDT us Generic External Data Provider LAB BLOOD ORDERAB LES Final Result [facility] [address] [place] [address] [phone] * Creatine Kinase, Total (03/09/2025 11:58 AM EDT) Creatine Kinase Total 50 38 - 174 U/L [facility] 03/09/2025 11:5 8 AM EDT 03/09/2025 12:01 PM EDT us Generic External Data Provider LAB BLOOD ORDERAB LES Final Result Performing Organization Address [facility]/ZIP Co de Phone Number [facility] [address] [place] [address] [phone] * (ABNORMAL) Comprehensive Metabolic Panel (03/09/2025 11:58 AM EDT) Sodium 137 135 - 145 mmol/L [facility] Potassium 4.7 3.3 - 5.1 mmol/L [facility] Chloride 102 96 - 108 mmol/L [facility] Carbon Dioxide 30(H) 22 - 29 mmol/L [facility] Anion Gap 10(L) 12 - 20 [facility] Urea Nitrogen (BUN) 11 9 - 16 mg/dL [facility] Creatinine, Serum 0.70 0.5 - 1.4 mg/dL [facility] Creatinine Clr Calc Pharmacy 90.9 [facility] Comment:eGFR (calculated fro m the MDRD study equation) and eCrCl(calculated from the Cockcroft-Gault equation) are based ondifferent parameters and may not yield comparable results.If eCrCl result is absurd, please check patient'sheight/weight. Estimated Glomerular Filt Rate >60 [facility] Comment:Chronic Kidney Disea se: Estimated GFR < 60 mL/min/1.69j4Wjpwsz Kidney Disease: Estimated GFR < 15 mL/min/1.73m2 Glucose 155(H) 60 - 115 mg/dL [facility] Calcium 9.6 8.4 - 10.2 mg/dL [facility] Bilirubin, Total 0.3 0.0 - 1.0 mg/dL [facility] Aspartate Amino Transferase 20 5 - 37 U/L [facility] Alanine Aminotransferase 23 0 - 40 U/L [facility] Total Protein 6.7 6.5 - 8.0 g/dL [facility] Albumin Level 4.1 3.5 - 5.0 g/dL [facility] Alkaline Phosphatase 57 39 - 117 U/L [facility] 03/09/2025 11:5 8 AM EDT 03/09/2025 12:01 PM EDT us Generic External Data Provider LAB BLOOD ORDERAB LES Final Result Performing Organization Address [facility]/State/[facility] Co de Phone Number [facility] [address] [place] [phone] * XR Lumbar Spine 2-3 Views (03/09/2025 11:45 AM EDT) Anatomical Region Laterality Modality Spine, L-spine Radiographic Pily ging 03/09/2025 11:4 5 AM EDT Narrative 03/09/2025 12:09 PM EDT ? [facility] ?[address] ?[place] [address] ?XRay Report ? Signed ? Patient: Arroyo,Rolando ?MR#: [id number] ?? [id number] ? : 1950 ?Acct:[id number] ? Age/Sex: 74 / M ?ADM Date: 03/09/25 ? Loc: HO.ED ? Attending Dr: ? Ordering Physician: Onofre Cheng ?? Date of Service: 03/09/25 ?? Procedure(s): XR lumbar spine 2-3V ?? Accession Number(s): [id number] ? cc: Onofre Cheng; Rose Mary Pimentel [...] Stafford MD ??03/09/2025 12:06 PM EDT RP ?? Workstation: [id number] ? Dictated By: ?Rex Stafford MD ? Signed By: ?<Electronically signed by Rex Stafford MD in OV> ?03/09/25 1206 ? DD/ 1145 ? TD/TT: 03/09/25 1150 ? Gun Striper: ? Procedure Note Leia Hagan - 03/09/2025 [place] [address] XRay Report Signed Patient: Sy Arroyo LMR#: [id number] : 1950Acct:[id number] Age/Sex: 74 / MADM Date: 03/09/25 Loc: HO.ED Attending Dr: Ordering Physician: Onofre Cheng Date of Service: 03/09/25 Procedure(s): XR lumbar spine 2-3V Accession Number(s): [id number] cc: Onofre Cheng; Rose Mary Pimentel EXAMINATION: XR LUMBOSACRAL SPINE CLINICAL INFORMATION: back [...] 03/09/25 1206 DD/ 1145 TD/TT: 03/09/25 1150 Gun Striper: [facility] External Provider IMG XR PROCEDURES Final Result * CT Sinus Facial Bones w/o Contrast (01/04/2025 6:23 PM EST) Anatomical Region Laterality Modality Computed Tomogra phy 01/04/2025 6:23 PM EST Narrative 01/04/2025 6:25 PM EST ? [facility] ?[address] ?[place] [address] ? [address] Scan Report ? Signed ? Patient: Arroyo,Rolando ?MR#: [id number] ?? [id number] ? : 1950 ?Acct:[id number] ? Age/Sex: 74 / M ?ADM Date: 01/04/25 ? Loc: HO.ED ? Attending Dr: ? Ordering Physician: Clive Rowland MD ?? Date of Service: 01/04/25 ?? Procedure(s): CT facial bones wo IV con ?? Accession Number(s): [id number] ? cc: Clive Rowland MD; Rose Mary Pimentel ACCOUNT COORDINATOR ? Report Number: ?? [id number]: Total DLP = ?0.00 mGy-cm ? CLINICAL [...] DD/ 1823 ? TD/TT: 01/04/25 1823 ? Gun Striper: ? Procedure Note Bentley, Image - 01/04/[address] [place] [address] [address] Scan Report Signed Patient: Sy Arroyo LMR#: [id number] : 1950Acct:[id number] Age/Sex: 74 / MADM Date: 01/04/25 Loc: HO.ED Attending Dr: Ordering Physician: Clive Rowland MD Date of Service: 01/04/25 Procedure(s): CT facial bones wo IV con Accession Number(s): [id number] cc: Clive Rowland MD; Rose Mary Pimentel ACCOUNT COORDINATOR Report Number: [id number]: Total DLP = 0.00 mGy-cm CLINICAL HISTORY: [...] in OV> 01/04/251823 DD/ 22 TD/TT: 01/04/251822 Gun Striper: [facility] External Provider IMG CT PROCEDURES Edited Result - Final * CT Abdomen Pelvis w/o Contrast (01/04/2025 5:53 PM EST) Anatomical Region Laterality Modality Body, Pelvis, Abdomen Computed T omography 01/04/2025 5:53 PM EST Narrative 01/04/2025 5:55 PM EST ? [facility] ?[address] ?[place] [address] ? CT Scan Report ? Signed ? Patient: CruzSy ?MR#: [id number] ?? [id number] ? : 1950 ?Acct:[id number] ? Age/Sex: 74 / M ?ADM Date: 01/04/25 ? Loc: HO.ED ? Attending Dr: ? Ordering Physician: Clive Rowland MD ?? Date of Service: 01/04/25 ?? Procedure(s): CT abdomen pelvis wo IV con ?? Accession Number(s): [id number] ? cc: Clive Rowland MD; Rose Mary Pimentel ACCOUNT COORDINATOR ? Report Number: ?? [id number]: Total DLP = 1072.00 mGy-cm ? CLINICAL HISTORY: Syncope and fall, left hip pain, left abd pain ? CT abdomen and pelvis without contrast ? Comparison: CT/SR - CT ABDOMEN PELVIS WO IV CON - 1/6/23 11:25 EST ? Findings: ?? Mild ground-glass opacities at the bilateral lung bases. No consolidation. ? 4.4 cm left kidney cyst, similar to the prior study. Small foci of ?? calcification associated with the cortex of the spleen. Pfqq-sd-lxadakak ?? pancreatic volume loss. Unremarkable liver and [...] DD/ 1753 ? TD/TT: 01/04/25 1753 ? Gun Striper: ? Procedure Note Dondanieter, Image - 01/04/[address] [place] [address] [address] Scan Report Signed Patient: Sy Arroyo LMR#: [id number] : 1950Acct:[id number] Age/Sex: 74 / MADM Date: 01/04/25 Loc: HO.ED Attending Dr: Ordering Physician: Clive Rowland MD Date of Service: 01/04/25 Procedure(s): CT abdomen pelvis wo IV con Accession Number(s): [id number] cc: Clive Rowland MD; Rose Mary Pimentel [facility] Report Number: [id number]: Total DLP = 1072.00 mGy-cm CLINICAL HISTORY: [...] associated with the cortex of the spleen. Isul-ut-zqctsjza pancreatic volume loss. Unremarkable liver and bilateral [...] signed by Delilah Asher MD in OV> 01/04/25 1754 DD/ 52 TD/TT: 01/04/251752 Gun Striper: [facility] External Provider IMG CT PROCEDURES Edited Result - Final * XR Chest 1 View (01/04/2025 5:27 PM EST) Anatomical Region Laterality Modality Chest Radiographic Pily ging 01/04/2025 5:27 PM EST Narrative 01/04/2025 5:28 PM EST ? [facility] ?[address] ?[place] [address] ?XRay Report ? Signed ? Patient: CruzSy Hanna ?MR#: [id number] ?? 9397 ? : 1950 ?Acct:[id number] ? Age/Sex: 74 / M ?ADM Date: 01/04/25 ? Loc: HO.ED ? Attending Dr: ? Ordering Physician: Clive Rowland MD ?? Date of Service: 01/04/25 ?? Procedure(s): XR chest 1V ?? Accession Number(s): [id number] ? cc: Clive Rowland MD; Rose Mary [...] in OV> ? 01/04/25 1728 ? DD/ 1727 ? TD/TT: 01/04/25 1727 ? Gun Striper: ? Procedure Note Bentley Image - 01/04/[address] [address] XRay Report Signed Patient: Sy Arroyo LMR#: [id number] : 1950Acct:[id number] Age/Sex: 74 / MADM Date: 01/04/25 Loc: HO.ED Attending Dr: Ordering Physician: Clive Rowland MD Date of Service: 01/04/25 Procedure(s): XR chest 1V Accession Number(s): [id number] cc: Clive Rowland MD; Rose Mary Pimentel [...] signed by Delilah Asher MD in OV> 01/04/25 172 DD/ 172 TD/TT: 01/04/251726 Gun Striper: [facility] External Provider IMG XR PROCEDURES Edited Result - Final * (ABNORMAL) POCT Glucose (12/11/2024 11:23 AM EST) [facility] Glucose Blood, POC 242(A) 60 - 200 mg/dL Comment:random QC Media Lot # [id number] Lot# Expiration Date 486, Blood Capillary blood specimen / Unknown 12/11/2024 11:23 AM EST Rose Mary BRANHAM POINT OF CARE TEST ENTER/EDIT ORDERABLES Final Result * (ABNORMAL) POCT HGB A1C (11/09/2024 12:21 PM EST) Hemoglobin A1C 9.1(A) 4.0 - 6.0 % QC Media Lot # [id number] Lot# Expiration Date [id number] Blood 11/09/2024 12:2 1 PM EST Rose Mary Pimentel [facility] POINT OF CARE TEST ENTER/EDIT ORDERABLES Final Result * Lipid Panel, Standard (07/17/2023 9:36 AM EDT) Triglycerides 57 <150 mg/dL [facility] Comment:Desirable Triglyceri de: less than [...] 190 mg/dL HDL Cholesterol 59 >40 mg/dL [facility] Comment:Desirable HDL: great er than 40 mg/dL Note: This HDL assay may give artificially low results in patients with liver disease. Blood Venous blood specimen / Unknown 07/17/2023 9:36 AM EDT 07/17/2023 11:25 AM EDT Rose Mary Pimentel [facility] LAB BLOOD ORDERABLES Final Res ult [facility] [address] [place] [phone] * (ABNORMAL) Albumin, Random Urine W/Creatinine (07/17/2023 8:36 AM EDT) Pathologist [facility] Creatinine, Urine 55.28 mg/dL [facility] Microalbumin Urine 20.0 mg/L [facility] Microalbum Creatinine Ratio Ur 36.1(H) <30 ug/mg cr [facility] Comment:Albumin/Creatinine R atio Reference Ranges: Normal: < 30 ug/mg creatinine Microalbuminuria: 30 - 300 ug/mg creatinineClinical Albuminuria: > 300 ug/mg creatinine Urine 07/17/2023 8:36 AM EDT 07/17/2023 11:38 AM EDT us Rose Mary Pimentel ACCOUNT COORDINATOR LAB URINE ORDERABLES Final Res ult Performing Organization Address City/State/[facility] Co de Phone Number [facility] [address] [place] [phone] from Last 3 Months or Most Recently Relevant to Health Maintenance Insurance [facility] [employer] (HMO D-SNP) GARRETT DAVALOS [id number] [employer] [facility] [employer] Care Teams Manager Operations And Procurement Relationship Specialty Start Date End Date Rose Mary Pimentel FNP [address] [place] [address] PCP - General Family Medicine 07/15/22 [facility] 09/05/22
--- OUTSIDE RECORDS SUMMARY | 2025-03-09 19:07 | XMS_ITS | Clinical Summary ---
Author Organization [facility] Address [address] [place] [address] Phone Care Team Providers Care Log Preparer Name Role Phone Unavailable Primary Care Provider [...] Visit [facility] [address] [place] [phone] Nguyễn Calderon MD [address] [facility] [facility] [address] [place] [address] Health Maintenance Due Date Last Done Comments Colorectal Cancer Screening: Annual FOBT 1999 Colorectal Cancer Screening: Colonoscopy 1999 Colorectal Cancer Screening: Sigmoidoscopy 1999 Diabetes: Ophthalmology Exam 12/19/2020 Diabetes: Pedal Pulse Checked 12/19/2020 Diabetes: Sensory Foot Exam 12/19/2020 Diabetes: Visual Foot Exam 12/19/2020 Diabetes: Hemoglobin A1C 02/07/2025 024, 07/03/2024, 07/04/2023, Additional history exists Influenza Vaccine (Season Ended) 2025 07/19/2021, 08/19/2019, 10/20/2018, Additional history exists Pneumococcal Vaccine: 50+ Years Completed 11/21/2016, 11/09/2015, 09/29/2010 Pneumococcal Vaccine: Peds (0 to 5 Years) and At-Risk Patients (6 to 49 Years) Discontinued 11/21/2016, 11/09/2015, 09/29/2010 Hepatitis B Vaccine Aged Out No longe r eligible based on patient's age to complete this topic Insurance * Guarantor: Sy Arroyo Account Type Relation to Patient Date of Phone Billing Address Personal/Family Self 1950 [address] ([id number]) [facility] ([id number])
--- OUTSIDE RECORDS SUMMARY | 2025-03-09 19:07 | XMS_ITS | Encounter Summary ---
Author Organization [employer] Address [address] [place] [address] Care Team Providers Care Pediatrics Physician Name Role Phone Rose Mary Pimentel Primary Care Provider [phone] Reason for Visit * Reason Onset Date Comments FYI 01/05/2025 Encounter Details Date Type Department Care Team ([facility] Contact Info) Description 01/05/2025 Telephone [facility] [address] [place] [phone] Rose Mary Pimentel FNP [address] [place] [address] FYI Social History Tobacco Use Types Packs/Day [...] Miscellaneous Notes * Telephone Encounter - Tomer Usman - 01/05/2025 11:15 AM EST Tc from pt Visiting Nurse (Barbara Gonzalez) stating that pt had a fall yesterday and pt is currentlyhospitalized in [facility]. Questions or concerns: [phone] documented in this encounter Plan of Treatment Not on file documented as of this encounter Visit Diagnoses Not on filedocumented in this encounter Additional Health Concerns Assessment Noted Time PHQ-9 Depression Total Score: 7 10/23/20 23 12:27 PM EST documented as of this encounter Care Teams Pediatrics Physician Relationship Specialty Start Date End Date Rose Mary Pimentel FNP [address] [place] [address] PCP - General Family Medicine 07/15/22 [facility] 09/05/22 documented as of this encounter
== END 2025-03-09 19:56 | disposition left against medical advice (07) ==
PROVIDERS: Physician Assistant; Emergency Provider Emergency Medicine; PCP Registered Nurse
DX: R42 Dizziness and giddiness (principal); I44.0 Atrioventricular block, first degree; R94.31 Abnormal electrocardiogram [ECG] [EKG]; R51.9 Headache, unspecified; M54.2 Cervicalgia; M54.50 Low back pain, unspecified; Z91.81 History of falling; Z79.899 Other long term (current) drug therapy
CPT/HCPCS: 36415; 70450; 72100; 72125; 80053; 82550; 84484; 85025; 93005; 99283; 99284

== ENCOUNTER → 2025-03-09 11:33 | Outpatient (BNV) | payer OTHER, SELFPAY | PROVIDERS: PCP Registered Nurse; Visit Provider Radiology Diagnostic Radiology | DX: M43.12 Spondylolisthesis, cervical region (principal); M12.9 Arthropathy, unspecified; R29.6 Repeated falls; M54.50 Low back pain, unspecified | CPT/HCPCS: 70450; 72100; 72125 ==

== ENCOUNTER → 2025-03-09 11:33 | Outpatient (BNV) | payer OTHER, SELFPAY | PROVIDERS: Emergency Provider Emergency Medicine; PCP Registered Nurse; Visit Provider Internal Medicine | DX: I44.0 Atrioventricular block, first degree (principal); I45.9 Conduction disorder, unspecified | CPT/HCPCS: 93010 ==